=== PATIENT | female | born 1945 | race Two or more races ===

== ENCOUNTER 2022-01-13 09:11 | Outpatient (REF) | payer OTHER, SELFPAY ==
--- NOTE | ~2022-01-13 | XR_ITS ---
EXAMINATION: XR HIP, RIGHT CLINICAL INFORMATION: M25.551 - Pain in right hip COMPARISON: None TECHNIQUE: AP and frog-lateral projections of the right hip. FINDINGS: No fracture, dislocation, destructive process. No hip joint narrowing or erosive change or visible chondrocalcinosis. There are mild degenerative changes lower right SI joint and mild osteitis pubis. There is whiskering at the right ischial tuberosity and spurring from the greater trochanter. Soft tissue planes are unremarkable. XR/XR hip RT min 2V IMPRESSION: -No fracture, destructive process, or hip joint narrowing. -Spurring greater trochanter and ischial tuberosity. -Mild osteitis pubis and degenerative changes lower right SI joint.
--- NOTE | ~2022-01-13 | XR_ITS ---
EXAMINATION: XR LUMBOSACRAL SPINE CLINICAL INFORMATION: M51.36 - Other intervertebral disc degeneration, lumbar region COMPARISON: None TECHNIQUE: Three views of the lumbosacral spine. FINDINGS: Normal lumbar segmentation with 5 nonrib-bearing lumbar vertebrae. There is moderate levocurvature lumbar spine. There are postsurgical changes with bilateral rodding and pedicle screws L3-L5 and disc spaces at L3-L4 and L4-L5. Possible laminectomy at L4. The hardware is intact. There is no osteolysis or destructive process. There is variable lumbar disc narrowing, greater on the concave side of the curvature with right lateral imaging osteophytes particularly at L1-L2 and L2-L3. There is accentuated superior endplate concavity L1 without vertebral compression. Difficult to assess for spondylolisthesis and retrolisthesis given the curvature. The SI joints and visualized sacrum are unremarkable. XR/XR lumbar spine 2-3V IMPRESSION: -Status post fusion L3-L5. Hardware intact. No osteolysis or destructive process. -Prominent levocurvature with degenerative disc changes greatest at L1-L2 and L2-L3. -Accentuated superior endplate concavity L1.
== END 2022-01-13 09:12 | disposition home or self-care (01) ==
LOC: HO.XRAY 09:11
PROVIDERS: PCP Internal Medicine; Visit Provider Internal Medicine
DX: M25.551 Pain in right hip (principal); M51.36 Other intervertebral disc degeneration, lumbar region
CPT/HCPCS: 72100; 73502

== ENCOUNTER 2022-01-22 09:07 | Outpatient (REF) | payer OTHER, SELFPAY ==
--- NOTE | ~2022-01-22 | MM_ITS ---
EXAMINATION: BONE DENSITOMETRY CLINICAL INDICATION: Asymptomatic menopausal state. COMPARISON: None (current study represents initial baseline exam). TECHNIQUE: Using a [employer] DXA System (software version: 13.1) manufactured by [employer], dual-energy x-ray absorptiometry was performed of the lumbar spine, left hip and left forearm radius 33%. The images are of good technical quality. Summary results are attached. FINDINGS: AP SPINE L1-L2 (excluding L3 and L4): The data of L1-L4 has been changed to exclude the L3 and L4 vertebral bodies, because hardware at these levels may cause overestimation of lumbar spine density. BMD 1.314 g/cm2, Z-score 2.3, T-score 1.2, normal. LEFT FEMUR, NECK: BMD 1.090 g/cm2, Z-score 1.9, T-score 0.4, normal. LEFT FEMUR, TOTAL: BMD 1.167 g/cm2, Z-score 2.5, T-score 1.3, normal. LEFT FOREARM RADIUS 33%: BMD 0.918 g/cm2, Z-score 2.8, T-score 0.5, normal. IDENTIFIED RISK FACTORS: Menopause. HISTORY OF FRACTURE: None listed. MEDICATIONS: Calcium supplement and/or multivitamin. Vitamin D. MM/XR DEXA axial skeleton IMPRESSION: 1. DIAGNOSIS: Normal bone density based on the lowest T-score value of 0.4 in the femoral neck applying World Health Organization criteria. 2. 10-YEAR FRACTURE RISK PREDICTION, FRAX: According to the guidelines, FRAX calculation should only be performed on patients in the osteopenia bone density category. Therefore, FRAX was not performed on this patient. 3. Treatment Recommendations: NOF guidelines recommend consideration for treatment in postmenopausal women and men age 50 and older presenting with the following: -A hip or vertebral (clinical or morphometric) fracture. -T-score less than or equal to -2.5 at the femoral neck or spine after appropriate evaluation to exclude secondary causes. -Low bone mass at the hip or spine and a 10-year fracture probability by FRAX of greater than or equal to 3% for hip fracture or greater than or equal to 20% for major osteoporotic fracture based on the [place] adapted WHO algorithm. 4. Other Recommendations: All treatment decisions require clinical judgment and consideration of individual patient factors, including patient preferences, comorbidities, previous drug use, risk factors not captured in the FRAX model (e.g. frailty, falls, vitamin D deficiency, increased bone turnover, interval significant decline in bone density) and possible under or overestimation of fracture risk by FRAX. FUTURE SCAN RECOMMENDATION: People with diagnosed cases of osteoporosis or at high risk for fracture should have regular bone mineral density tests. For patients eligible for Medicare, routine testing is allowed once every 2 years. The testing frequency can be increased to one year for patients who have rapidly progressing disease, those who are receiving or discontinuing medical therapy to restore bone mass, or have additional risk factors.
== END 2022-01-22 09:08 | disposition home or self-care (01) ==
LOC: HO.MAMMO 09:07
PROVIDERS: PCP Internal Medicine; Visit Provider Internal Medicine
DX: Z13.820 Encounter for screening for osteoporosis (principal); Z78.0 Asymptomatic menopausal state
CPT/HCPCS: 77080

== ENCOUNTER 2022-03-18 11:33 | Outpatient (REF) | payer OTHER, SELFPAY ==
[2022-03-18 13:07] LABS: MANUAL DIFF FLAG NO
[2022-03-18 13:37] LABS: Basophils Absolute Auto 0.1 X10*3/uL (0.0-0.2); Basophils Percent Auto 0.8 % (0-2); Eosinophils Absolute Auto 0.1 X10*3/uL (0.0-0.4); Hematocrit 42.5 % (37.0-47.0); Hemoglobin 13.9 g/dl (12.0-16.0); Imm Gran Abs Auto 0.02 X10*3/uL (0.00-0.03); Imm Gran Pct Auto 0.3 % (0.0-0.4); Lymphocytes Absolute Auto 2.5 X10*3/uL (1.2-4.9); Lymphocytes Percent Auto 41.8 % (20-40); Mean Corpuscular HGB Conc 32.7 g/dl (31.0-35.0); Mean Corpuscular Hemoglobin 29.3 pg (27.0-33.0); Mean Corpuscular Volume 89.5 fL (80.0-98.0); Monocytes Absolute Auto 0.5 X10*3/uL (0.1-1.2); Monocytes Percent Auto 7.9 % (2-11); Neutrophils Absolute Auto 2.9 x10*3/uL (2.0-8.3); Neutrophils Percent Auto 48.2 % (45-73); Platelet Count 215 X10*3/uL (160-400); Red Blood Count 4.75 X10*6/uL (4.20-5.50); Red Cell Distribution Width 13.3 % (11.0-16.0)
[2022-03-18 13:59] LABS: Alanine Aminotransferase 16 U/L (0-31); Albumin Level 4.2 g/dL (3.5-5.0); Alkaline Phosphatase 96 U/L (39-117); Anion Gap 13 (12-20); Aspartate Amino Transferase 19 U/L (5-31); Bilirubin Total 0.3 mg/dL (0.0-1.0); Blood Urea Nitrogen 19 mg/dL (9-16); Calcium 9.1 mg/dL (8.4-10.2); Carbon Dioxide 27 mmol/L (22-29); Chloride 105 mmol/L (96-108); Estimated Glomerular Filt Rate > 60; Glucose Random 124 mg/dL (60-115); Potassium 4.5 mmol/L (3.3-5.1); Sodium 140 mmol/L (135-145); Total Protein 7.1 g/dL (6.5-8.0)
== END 2022-03-18 11:34 | disposition home or self-care (01) ==
LOC: HO.LAB 11:33
PROVIDERS: PCP Internal Medicine; Visit Provider Nurse Practitioner
DX: Z01.818 Encounter for other preprocedural examination (principal)
CPT/HCPCS: 36415; 80053; 85025; 99202

== ENCOUNTER 2022-07-14 08:11 | Day surgery (SDC) | payer OTHER, SELFPAY ==
[2022-07-08 10:38] VITALS: BMI 32.9
--- NOTE | 2022-07-13 12:15 | HO.ANESPROP2 ---
Documented by User: Georgia Artis NP 07/13/22 12:21 HPI - Anesthesia Eval Consult details Narrative: 77yo F for Colonoscopy ASD s/p closure 07/2022 cardiology office visit. Abnormal EKG but clinically stable. No further w/u ordered. COUNT INCLUDES THE [facility] Active Problems Active Problems: All Active Problems (Updated 07/08/22 @ 10:28 by Syeda Estevez RN) Diabetes mellitus (Acute) Physical exam (Acute) Hypovitaminosis D (Acute) Class 1 obesity with body mass index (BMI) of 33.0 to 33.9 in adult (Acute) Lumbar degenerative disc disease (Acute) Postmenopausal (Acute) Right hip pain (Acute) Pre-op examination (Acute) Colon cancer screening (Acute) Left hip pain (Acute) Past Medical History Medical History ASD (atrial septal defect) GERD (gastroesophageal reflux disease) Hyperlipidemia Left bundle branch block (LBBB) Obesity Type 2 diabetes mellitus Family History Family History Mother Emphysema lung Diabetes Father Heart attack Maternal Aunt Cancer Maternal Uncle Cancer Surgical History Surgical History History of Amplatzer atrial septal defect closure History of appendectomy History of back surgery History of cataract surgery History of esophagogastroduodenoscopy (EGD) Hx of colonoscopy Hx of hysterectomy Social History Social History Housing: House Alcohol intake: never Patient Tobacco Use Status: Never used Tobacco e-Cigarette/Vaping Use: Never Used Second Hand Smoke Exposure: No Are you DNR?: No Advance Directives: No Advance Directives Information Provided: Yes Advance Directives on File: No Recently lost weight without trying: No Eating poorly because of decreased appetite: No Patient : No service: No Current occupational status: unemployed Cognitive needs: No Hearing needs: No Vision needs: No Meds Allergies Allergy/AdvReac Type Severity Reaction Status Date / Time No Known Allergies Allergy Verified 07/08/22 10:24 Home Medications Medication Instructions Recorded Confirmed Last Taken Type atorvastatin 40 mg tablet 1 tab PO DAILY 07/08/22 07/08/22 Unknown History naproxen 500 mg tablet (Naprosyn) 500 mg PO BID PRN Pain 07/08/22 07/08/22 Unknown History Exam Exam Date and Time: July 13, 2022 1215 Height,Weight and Vital Signs: Height 5 ft 3 in Weight 84.368 kg Pertinent Lab Results Pertinent Lab Results: Laboratory Tests 03/18/22 03/18/22 13:06 13:06 WBC 6.0 Hgb 13.9 Hct 42.5 Plt Count 215 Sodium 140 Potassium 4.5 Chloride 105 Carbon Dioxide 27 BUN 19 H Creatinine 0.81 Narrative Narrative: EKG 07/2022 SB @ 59 LBBB Assessment and Plan Assessment Anesthesia Assessment: Chart Reviewed Documented by User: Amalia Parada MD 07/14/22 08:31 COUNT INCLUDES THE [facility] Past Medical History Medical History ASD (atrial septal defect) GERD (gastroesophageal reflux disease) Hyperlipidemia Left bundle branch block (LBBB) Obesity Type 2 diabetes mellitus Functional capacity: independent ambulation Patient : No Family History Family History Mother Emphysema lung Diabetes Father Heart attack Maternal Aunt Cancer Maternal Uncle Cancer Family history of problems with anesthesia: No Surgical History Surgical History History of Amplatzer atrial septal defect closure History of appendectomy History of back surgery History of cataract surgery History of esophagogastroduodenoscopy (EGD) Hx of colonoscopy Hx of hysterectomy History of Problems with Anesthesia: No Social History Social History Housing: House Alcohol intake: never Patient Tobacco Use Status: Never used Tobacco e-Cigarette/Vaping Use: Never Used Second Hand Smoke Exposure: No Are you DNR?: No Advance Directives: No Advance Directives Information Provided: Yes Advance Directives on File: No Recently lost weight without trying: No Eating poorly because of decreased appetite: No Patient : No service: No Current occupational status: unemployed Cognitive needs: No Hearing needs: No Vision needs: No Meds Allergies Allergy/AdvReac Type Severity Reaction Status Date / Time No Known Allergies Allergy Verified 07/08/22 10:24 Home Medications Medication Instructions Recorded Confirmed Last Taken Type atorvastatin 40 mg tablet 1 tab PO DAILY 07/08/22 07/08/22 Unknown History naproxen 500 mg tablet (Naprosyn) 500 mg PO BID PRN Pain 07/08/22 07/08/22 Unknown History Exam Airway Mallampati Class: II TM Dist: >3cm Neck ROM: Full Heart: RRR Lungs: CTA Assessment and Plan Assessment Anesthesia Assessment: Anesthesia Plan Discussed Final Anesthetic Review Family History of Problems with Anesthesia: No History of Problems with Anesthesia: No NPO: Yes ASA Class: II Final Preanesthetic Review: No Changes in Pt Med Stat, Meds/Allgs Chart Reviewed, Consent Obtained/Reviewed and Anes Risks/Benef Reviewed Patient Risk: Low Procedure Risk: Low Anesthetic Plan Anesthetic Plan: MAC: Disposition: Standard PACU
[2022-07-14 08:21] VITALS: BP 155/74; PULSE 75; RESP 16; TEMP 36.4; O2SAT 98
[2022-07-14 08:34] LABS: Glucose, Whole Blood 98 mg/dL (60-115)
[2022-07-14] MEDS: Lactated Ringers 1,000 ML 100 ML IVCONT (08:37)
--- NOTE | 2022-07-14 09:05 | P.HPSUR_ITS ---
Pre-Procedural Eval Section A Date of Service: 07/14/22 Section B Chief Complaint: screening Relevant Family History (Specify if Yes): No Relevant Social History: None Present Medications: see Short Stay Collaborative assessment Medical History: Significant History (ASD (atrial septal defect) GERD (gastroesophageal reflux disease) Hyperlipidemia Left bundle branch block (LBBB) Obesity Type 2 diabetes mellitus) History of Previous Operations: Relevant previous surgery/procedure and date(s) (History of Amplatzer atrial septal defect closure History of appendectomy History of back surgery History of cataract surgery History of esophagogastroduodenoscopy (EGD) Hx of colonoscopy Hx of hysterectomy) Allergies: Allergies Allergy/AdvReac Type Severity Reaction Status Date / Time No Known Allergies Allergy Verified 07/08/22 10:24 Review of Systems Sugical H&P ROS: Negative: Constitution, Cardiovascular, Respiratory, Neurological, Psychiatric, Hem-Onc, Allergic/Immunologic, Gastrointestinal, Genitourinary, Musculoskeletal, Integumentary, Endocrine and E yes/Ears/Nose/Throat Exam Surgical H&P Exam: Normal: HEENT, Normal: Heart, Normal: Lungs, Normal: Extremities, Normal: Abdomen, Normal: Skin and Normal: Neurological Plan Diagnosis/Plan: Unchanged I have reviewed the history and physical and performed a pertinent physical examination on my patient. No changes have occurred unless specified. Time Spent With Patient Time: Total time managing care of this patient today ____ minutes.
--- NOTE | 2022-07-14 09:06 | P.OP_ITS ---
Operative Note Operative Note Date of Service: 07/14/22 Narrative: Operative Information Procedure Description: Colonoscopy Indication: screening Anesthesia: MAC COLONOSCOPY Instrument: Olympus variable stiffness pediatric scope 190L Colonoscopy Monitoring: Vital signs and clinical assessment, continuous EKG monitoring, Pulse oximetry, Carbon Dioxide monitoring and blood pressure monitoring were done throughout the procedure. Colon withdrawal time was [] minutes. Procedure: The patient was placed in the left lateral decubitis position and pre-procedure medications were administered. After a digital rectal examination of the ano-rectum, the video colonoscope was inserted into the rectum and advanced through the colon to the cecum/TI. The colonoscope was slowly withdrawn in a retrograde panoramic fashion and the colon mucosa was carefully examined including a retroflexed view of the rectum. Findings and interventions are described below. Procedure Difficulty: 8 Findings: Terminal Ileum-normal Cecum:normal Ascending Colon: 6-7 mm sessile polyp removed with cold forceps Transverse Colon -normal Descending Colon:normal Sigmoid Colon: mild diverticulosis Rectum: Retroflexion with small internal hemorrhoids, grade I Anorectum - normal Colon preparation: Hornbeck Bowel Preparation Scale Right colon; 2 Transverse colon: 3 Left colon; 3 (0 = Unprepared colon segment with mucosa not seen due to solid stool that cannot be cleared. 1 = Portion of mucosa of the colon segment seen, but other areas of the colon segment not well seen due to staining, residual stool and/or opaque liquid. 2 = Minor amount of residual staining, small fragments of stool and/or opaque liquid, but mucosa of colon segment seen well. 3 = Entire mucosa of colon segment seen well with no residual staining, small fragments of stool or opaque liquid) Impression and Post Procedure Diagnosis: polyp internal hemorrhoids diverticular disease Plan: High fiber diet leaflet Avoid straining at stool, epsom salts and sitz bath, anusol supps or cream Repeat Colonoscopy in 5-7 years if adenomatous polyp, otherwise 10 yrs if benign and health allows or earlier if clinically indicated Above findings were reviewed with the patient and relevant handouts were provided if indicated.
[2022-07-14 09:31] VITALS: BP 103/48; PULSE 73; RESP 16; TEMP 36.2; O2SAT 95
[2022-07-14 09:46] VITALS: BP 121/56; PULSE 69; RESP 16; TEMP 36.3; O2SAT 96
--- NOTE | 2022-07-14 11:53 | HO.POSTANES ---
Post Anesthesia Evaluation Post Anesthesia Evaluation Vital Signs: Vital Signs Temp Pulse Resp BP Pulse Ox O2 Del Method 07/14/22 09:46 97.4 F 69 16 121/56 L 96 Room Air 07/14/22 09:31 97.2 F 73 16 103/48 L 95 Room Air 07/14/22 08:21 97.5 F 75 16 155/74 H 98 Room Air Anesthesia: Monitored Mental Status: Awake Pain Control: Satisfactory Nausea/Vomiting: None Hydration: Adequate Anesthesia-Related Issues: No Anes. Related Issues
== END 2022-07-14 10:16 | disposition home or self-care (01) ==
PROVIDERS: PCP Internal Medicine; Visit Provider Internal Medicine Gastroenterology
PROC: 0DJD8ZZ Inspection of Lower Intestinal Tract, Via Natural or Artificial Opening Endoscopic (ICD-10-PCS; CPT 45378; principal; 2022-07-14 09:10)
DX: Z12.11 Encounter for screening for malignant neoplasm of colon (principal); K63.5 Polyp of colon; K57.30 Diverticulosis of large intestine without perforation or abscess without bleeding; K64.0 First degree hemorrhoids; E11.9 Type 2 diabetes mellitus without complications
CPT/HCPCS: 45380; 82947; 88305

== ENCOUNTER 2022-12-04 07:51 | Outpatient (REF) | payer OTHER, SELFPAY ==
--- NOTE | ~2022-12-04 | MM_ITS ---
EXAMINATION: MM SCREENING DIGITAL BREAST TOMOSYNTHESIS, BILATERAL CLINICAL INFORMATION: Screening. Asymptomatic. The lifetime risk of breast cancer based on the Tyrer-Cuzick Model is 2%. COMPARISON: Outside mammography: 06/16/2015, 06/23/2013, 03/18/2011 ([facility]). TECHNIQUE: Digital breast tomosynthesis is performed in both the craniocaudal and mediolateral oblique views along with computer-aided detection (CAD). Synthesized 2D images are generated from the tomosynthesis. FINDINGS: There are scattered areas of fibroglandular density (ACR BI-RADS breast composition Category b). Parenchymal pattern is similar to outside exams and there is no developing density or significant mass or architectural abnormality. The axilla are unremarkable. Left breast has a few scattered benign calcifications. Right breast has interval increased grouped calcifications mid central 3:00 position 7 cm from nipple on CC view. Patient will be recalled for additional magnification views to fully characterize. MM/MM tomosynthesis screening BI IMPRESSION: Right: -Grouped calcifications mid central 3:00 position. Left: -No mammographic evidence of malignancy. ASSESSMENT: BI-RADS 0: Incomplete - Need Additional Imaging Evaluation RECOMMENDATION: 1. Additional views right breast (magnification CC, magnification LM). 2. Radiology department staff will contact the patient for additional imaging. This patient's information was entered into a reminder system with a target due date for their next mammogram.
--- NOTE | ~2022-12-04 | US_ITS ---
EXAMINATION: US RETROPERITONEAL LIMITED (RENAL ONLY) CLINICAL INFORMATION: Cyst of kidney, acquired. COMPARISON: Ultrasound kidneys and bladder 12/16/2018 and 12/06/2017. TECHNIQUE: Real-time imaging of the kidneys. Technically limited study secondary to bowel gas and body habitus. FINDINGS: RIGHT KIDNEY: 7.9 x 4.8 x 4.2 cm (SAG x AP x TRV). The kidney is normal in size, contour, and echogenicity. Renal cortical thickness is normal. No calculi or focal parenchymal lesions. No hydronephrosis. LEFT KIDNEY: 8.0 x 4.4 x 4.5 cm (SAG x AP x TRV). The kidney is normal in size, contour, and echogenicity. Renal cortical thickness is normal. No calculi or focal parenchymal lesions. No hydronephrosis. ADDITIONAL FINDINGS: Echogenic gallstone versus polyp. US/US renal BI IMPRESSION: Unremarkable renal ultrasound. Suspect echogenic gallstones versus polyp.
== END 2022-12-04 07:52 | disposition home or self-care (01) ==
LOC: HO.MAMMO 07:51
PROVIDERS: PCP Internal Medicine; Visit Provider Internal Medicine
DX: Z12.31 Encounter for screening mammogram for malignant neoplasm of breast (principal); N28.1 Cyst of kidney, acquired
CPT/HCPCS: 76775; 77063; 77067

== ENCOUNTER 2022-12-16 10:46 | Outpatient (REF) | payer OTHER, SELFPAY ==
--- NOTE | ~2022-12-16 | MM_ITS ---
EXAMINATION: MM DIAGNOSTIC DIGITAL MAMMOGRAPHY, RIGHT CLINICAL INFORMATION: Recall from screening for grouped calcifications mid central 3:00 right breast. COMPARISON: Mammography: 12/04/2022, 06/12/2015. TECHNIQUE: Digital mammography is performed in the following views: Magnification CC, magnification LM. FINDINGS: There are scattered areas of fibroglandular density (ACR BI-RADS breast composition Category b). The magnification views show some tightly grouped old coarse calcifications mid central 3:00 position which were present in 2015. There are interval new pleomorphic calcifications of uncertain long-term chronicity surrounding the old coarse calcifications. Although proximity of the new calcifications to the course calcifications may suggest early fibroadenomatous changes, they remain indeterminate. Results are discussed with the patient at time of visit, using an translator and interpreter. Stereotactic sampling is suggested. Patient is in agreement. MM/MM added views RT IMPRESSION: New heterogeneous calcifications mid central right breast ASSESSMENT: BI-RADS 4: Suspicious (subcategory 4A: Low suspicion for malignancy) RECOMMENDATION: Stereotactic sampling right breast calcifications. This patient's information was entered into a reminder system with a target due date for their next mammogram.
== END 2022-12-16 10:47 | disposition home or self-care (01) ==
LOC: HO.MAMMO 10:46
PROVIDERS: PCP Internal Medicine; Visit Provider Internal Medicine
DX: R92.1 Mammographic calcification found on diagnostic imaging of breast (principal)
CPT/HCPCS: 77065

== ENCOUNTER 2022-12-18 08:59 | Outpatient (REF) | payer OTHER, SELFPAY ==
--- NOTE | ~2022-12-18 | MM_ITS ---
EXAMINATION: STEREOTACTIC TOMOSYNTHESIS-GUIDED VACUUM-ASSISTED BREAST BIOPSY, RIGHT SPECIMEN RADIOGRAPH, RIGHT POST PROCEDURE DIGITAL MAMMOGRAM, RIGHT CLINICAL INFORMATION: Indeterminate calcifications right breast medial. COMPARISON: December 16, 2022 and studies dating back to March 18, 2011 TECHNIQUE/PROCEDURE: Informed consent was obtained from the patient after discussion of the benefits, risks, and alternatives to biopsy today. Patient appeared to understand. Gave opportunity for questions. Patient signed consent form. BIOPSY TABLE: [employer] Aff[employer]one Biopsy System. LESION: Cluster of indeterminate calcifications.. LOCAL ANESTHESIA: 9 mL 1% lidocaine; 20 mL 1% lidocaine with epinephrine. DERMATOTOMY: Single skin anca dermatotomy performed. NEEDLE: [employer] Eviva 9-gauge vacuum assisted core biopsy device. APPROACH: craniocaudal. TARGETING: Digital breast tomosynthesis used for targeting. CORES: 20. CLIP: Top hat. SPECIMEN RADIOGRAPH: Specimen radiograph is taken in separate room using digital mammography. The index calcifications are in the excised cores. POST PROCEDURE UNILATERAL DIGITAL MAMMOGRAM: The post biopsy mammogram is performed in separate room using separate digital mammography equipment from the biopsy procedure. Craniocaudal and 90 degree mediolateral views are obtained. There are scattered areas of fibroglandular density (breast composition category: b). The clip marker is in position. The calcifications are markedly decreased at the biopsy site. No gross hematoma. The patient tolerated the procedure well. No immediate complications. Home instructions reviewed with the patient. Final pathology results are pending. MM/MM stereotactic biopsy RT IMPRESSION: 1. Digital tomosynthesis-guided core biopsy right breast with clip placement. 2. Specimen radiograph taken and post procedure mammogram. There is satisfactory positioning of the biopsy clip. 3. Final pathology results pending. An addendum report will be issued.
== END 2022-12-18 09:00 | disposition home or self-care (01) ==
LOC: HO.MAMMO 08:59
PROVIDERS: PCP Internal Medicine; Visit Provider Surgery
DX: R92.8 Other abnormal and inconclusive findings on diagnostic imaging of breast (principal)
CPT/HCPCS: 19081; 88305; 99202; A4648

== ENCOUNTER → 2022-12-25 08:48 | Outpatient (BNVA) | payer OTHER, SELFPAY | PROVIDERS: PCP Internal Medicine; Referring Provider Internal Medicine; Visit Provider Surgery | DX: R92.8 Other abnormal and inconclusive findings on diagnostic imaging of breast (principal); D24.1 Benign neoplasm of right breast | CPT/HCPCS: 99212 ==

== ENCOUNTER 2023-02-22 08:32 | Outpatient (REF) | payer OTHER, SELFPAY ==
[2023-02-22 09:09] LABS: Estimated Average Glucose 123 mg/dL; Hemoglobin A1C 150.8304 umol/L; Hemoglobin A1c % 5.9 %
[2023-02-22 09:33] LABS: Alanine Aminotransferase 13 U/L (0-31); Alkaline Phosphatase 100 U/L (39-117); Anion Gap 11 (12-20); Aspartate Amino Transferase 17 U/L (5-31); Bilirubin Total 0.5 mg/dL (0.0-1.0); Blood Urea Nitrogen 19 mg/dL (9-16); Calcium 9.6 mg/dL (8.4-10.2); Carbon Dioxide 28 mmol/L (22-29); Chloride 107 mmol/L (96-108); Cholesterol 231 mg/dL; Estimated Glomerular Filt Rate > 60; Glucose Fasting 138 mg/dL (60-99); HDL Cholesterol 67 mg/dL; LDL Cholesterol Calculated 142 mg/dl; Potassium 4.5 mmol/L (3.3-5.1); Sodium 141 mmol/L (135-145); Total Protein 7.1 g/dL (6.5-8.0); Triglycerides 114 mg/dL
[2023-02-22 09:58] LABS: Creatinine Urine 76.52 mg/dL; Microalbum/Creatinine Ratio Ur 23.5 ug/mg cr
== END 2023-02-22 08:33 | disposition home or self-care (01) ==
LOC: HO.LAB 08:32
PROVIDERS: PCP Internal Medicine; Visit Provider Internal Medicine
DX: E11.40 Type 2 diabetes mellitus with diabetic neuropathy, unspecified (principal); E55.9 Vitamin D deficiency, unspecified; E78.5 Hyperlipidemia, unspecified
CPT/HCPCS: 36415; 80053; 80061; 82043; 82306; 83036

== ENCOUNTER 2023-02-25 07:49 | Outpatient (AMB) | payer OTHER, SELFPAY ==
--- NOTE | 2023-02-25 07:51 | MHC.PC.OV ---
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 Required: No Accompanied by: Self / Same As Patient Allergies No Known Allergies Allergy (Verified 02/25/23 08:02) Medication List - Last Reconciled 02/25/23 by Freya Azevedo MD blood sugar diagnostic ([employer] InternationalTouch Ultra Test strips) Use 1 test strip once a day cholecalciferol (vitamin D3) 50 mcg PO DAILY 90 days sitagliptin phosphate (Januvia) 50 mg PO DAILY 90 days Tobacco use date assessed: 10/21/22 Fall risk assessment: No Falls in past year Last assessed Fall Risk: 02/25/23 Dental Screening Dental Screen Date: 02/25/23 Did you have a dental visit in the last 12 months?: No Did you have a dental problem in the last 6 months where you did not have access to dental care?: No Was dental information given to patient?: Patient has dentist HPI HPI Comments History of Present Illness Details This is a 77-year-old female with diabetes mellitus type 2 and low vitamin-D that comes today complaining of venous insufficiency and right hammertoe. A1c within goal. On vitamin-D supplements for her low vitamin-D. Has hyperlipidemia and LDL is not on goal therefore I will start her on statins. Her LDL goal should be less than 70. Will be referred to vascular surgery for her venous insufficiency. Will be referred to Podiatry for her right hammertoe. [facility] Medical History (Updated 02/25/23 @ 08:18 by Freya Azevedo MD) ASD (atrial septal defect) GERD (gastroesophageal reflux disease) Hyperlipidemia Left bundle branch block (LBBB) Obesity Type 2 diabetes mellitus Surgical History History of Amplatzer atrial septal defect closure History of appendectomy History of back surgery History of cataract surgery History of esophagogastroduodenoscopy (EGD) Hx of colonoscopy Hx of hysterectomy Family History Mother Emphysema lung Diabetes Father Heart attack Maternal Aunt Cancer Maternal Uncle Cancer Social History Housing: House Alcohol intake: never Patient Tobacco Use Status: Never used Tobacco e-Cigarette/Vaping Use: Never Used Second Hand Smoke Exposure: No service: No Current occupational status: unemployed Cognitive needs: No Hearing needs: No Vision needs: No Female Reproductive History Menstrual Age of Menarche: 16 Questionnaire Thrive Questionnaire Date Thrive assessed: 10/21/22 LISS-7 AMB Questionnaire LISS-7 Date LISS - 7 assessed: 10/21/22 Source: Developed by Drs. Ventura Bermeo, Lissy Neal, Nitin Correa and colleagues, with an educational paty from [employer]. Review of Systems Const All systems reviewed & are unremarkable except as noted in HPI and below Eyes Reports no additional complaints, Denies change in vision and Denies other visual disturbances Card Denies chest pain at rest, Denies chest pain with activity, Denies edema, Denies irregular heart rhythm, Denies claudication, Denies dyspnea, Denies dyspnea on exertion, Denies orthopnea, Denies paroxysmal nocturnal dyspnea and Denies slow heart rate Resp Denies cough, Denies dyspnea and Denies dyspnea on exertion GI Denies abdominal pain, Denies change in bowel habits, Denies excessive flatus, Denies nausea and Denies vomiting Denies urinary incontinence, Denies urinary hesitancy and Denies urinary urgency Musc Denies abnormal gait, Denies atrophy, Denies deformity and Denies limited range of motion Skin/Breast Denies bleeding lesions, Denies changing lesions and Denies rash Neuro Denies abnormal gait and Denies lack of coordination Physical exam (Primary Care) Vital Signs: Last Vital Signs BP 136/80 02/25/23 07:53 BMI result Body Mass Index 33.1 Tobacco/Smoking Status: Tobacco use Status Tobacco use date assessed 10/21/22 02/25/23 07:51 Patient Tobacco Use Status Never used Tobacco 02/25/23 07:51 e-Cigarette/Vaping Use Never Used 02/25/23 07:51 Thrive Assessment: Date of Thrive Assessment Date Thrive assessed 10/21/22 02/25/23 07:51 Eyes General: appearance normal, both eyes and all related structures Eyelids: Yes eyelids normal Conjunctivae: conjunctivae normal Neck Neck: Yes normal visual inspection and Yes supple Resp Effort & Inspection: normal respiratory effort Auscultation: clear to auscultation bilaterally Cardio Jugular venous distension: no JVD Rate: regular rate Rhythm: regular rhythm Heart sounds: S1 normal heart sound present and S2 normal heart sound present Extrem Other: Tender varicose pains General: Yes full ROM Right lower extremity: foot (hammertoe) Assessment and Plan Assessment & Plan (1) Diabetes mellitus: Code(s): E11.9 - Type 2 diabetes mellitus without complications Plan: Continue Januvia. A1c goal is equal or less than 7%. (2) Hypovitaminosis D: Code(s): E55.9 - Vitamin D deficiency, unspecified Plan: Continue vitamin-D supplement (3) Hyperlipidemia LDL goal <70: Code(s): E78.5 - Hyperlipidemia, unspecified Plan: Start statins. LDL goal is less than 70. (4) Venous (peripheral) insufficiency: Code(s): I87.2 - Venous insufficiency (chronic) (peripheral) Plan: Referred to vascular surgery (5) Hammertoe of right foot: Code(s): M20.41 - Other hammer toe(s) (acquired), right foot Plan: Referred to Podiatry Orders: Orders Lipid Panel 4 Months E78.5 - Hyperlipidemia, unspecified Microalbumin, Random (w Creat) 4 Months E11.9 - Type 2 diabetes mellitus without complications Vitamin D 25-OH Total 4 Months E55.9 - Vitamin D deficiency, unspecified Comprehensive [place]. Panel Fast 4 Months E78.5 - Hyperlipidemia, unspecified Referrals Vascular Surgery Referral I87.2 - Venous insufficiency (chronic) (peripheral) Podiatry Referral M20.41 - Other hammer toe(s) (acquired), right foot Medications: New atorvastatin 10 mg PO BEDTIME 90 tabs 1RF 90 days E78.5 - Hyperlipidemia, unspecified Coding Level of Care Code Est Pt Level 4 (13793) Diagnoses Diabetes mellitus E11.9 Hypovitaminosis D E55.9 Hyperlipidemia LDL goal <70 E78.5 Venous (peripheral) insufficiency I87.2 Hammertoe of right foot M20.41 Time Spent (min) 21
[2023-02-25 07:53] VITALS: BP 136/80; BMI 33.1
== END 2023-02-25 08:08 | disposition home or self-care (01) ==
PROVIDERS: PCP Internal Medicine; Visit Provider Internal Medicine
DX: E11.9 Type 2 diabetes mellitus without complications (principal); E55.9 Vitamin D deficiency, unspecified; E78.5 Hyperlipidemia, unspecified; I87.2 Venous insufficiency (chronic) (peripheral); M20.41 Other hammer toe(s) (acquired), right foot
CPT/HCPCS: 99214

== ENCOUNTER 2023-04-13 11:02 | Outpatient (AMB) | payer OTHER, SELFPAY ==
--- NOTE | 2023-04-13 11:03 | A.OFFVIS_ITS ---
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 Pt states her right leg is the only leg thats bothering her. Pt states she has cramping and pain in her right leg from her hip down her leg. Pt denies any swelling. Pt states she gets numbness and tingling in her right leg. Pt states she has never tried compression stockings. Covering And Lining Supervisor Required: Yes Covering And Lining Supervisor Language: Management Advisor Name: Vasiliy ([id number]) Accompanied by: Spouse Allergies No Known Allergies Allergy (Verified 04/13/23 11:06) HPI ENGINEERING DOCUMENTATION SPECIALIST/PCP ref for HPI Details Very complex 77-year-old female presents for evaluation regarding lower extremity pain and discomfort. She reports that it is right more so than left. She relates this all back to prior back surgery. She reports that she had severe scoliosis. There was treated with a lumbar laminectomy of L4. Subsequently she had an OLIF of L3-5. She has had since that operation continued numbness down the thigh and knee region of that right leg. She does have some mild swelling of that lower extremity. Her biggest complaint is the numbness of that leg. She now presents to us for vascular evaluation. [facility] Medical History ASD (atrial septal defect) Left bundle branch block (LBBB) Obesity Hyperlipidemia Type 2 diabetes mellitus GERD (gastroesophageal reflux disease) Surgical History Hx of hysterectomy History of appendectomy History of esophagogastroduodenoscopy (EGD) Hx of colonoscopy History of Amplatzer atrial septal defect closure History of cataract surgery History of back surgery Family History Mother Emphysema lung Diabetes Father Heart attack Maternal Aunt Cancer Maternal Uncle Cancer Social History Housing: House Alcohol intake: never Patient Tobacco Use Status: Never used Tobacco e-Cigarette/Vaping Use: Never Used Second Hand Smoke Exposure: No service: No Current occupational status: unemployed Cognitive needs: No Hearing needs: No Vision needs: No Female Reproductive History Menstrual Age of Menarche: 16 Review of Systems Const All systems reviewed & are unremarkable except as noted in HPI and below Reports no additional complaints ENT Reports Normal hearing present Card Denies chest pain, Denies chest pain at rest, Denies chest pain with activity and Denies pedal edema Resp Denies cough GI Denies abdominal pain Musc Denies abnormal gait, Denies muscle cramps and Denies radiating pain into limb Skin/Breast Denies skin ulcer and Denies wounds Neuro Reports Normal hearing present and Denies abnormal gait Psych Reports no additional complaints Physical Exam Vital Signs: Last Vital Signs Pulse 77 04/13/23 11:04 BP 130/84 04/13/23 11:04 Pulse Ox 96 04/13/23 11:04 Oxygen Delivery Method Room Air 04/13/23 11:04 BMI result Body Mass Index 32.4 Const General: cooperative, healthy appearing and comfortable Orientation/consciousness: oriented to person, oriented to place and oriented to time HEENT Head: Yes normal to inspection Neck Neck: Yes normal visual inspection Carotids: no bruits Chest Chest palpation & inspection: normal inspection of the chest Resp Effort & Inspection: normal respiratory effort and able to speak in complete sentences Auscultation: clear to auscultation bilaterally, no crackles, no rales, no rhonchi and no wheezes Cardio Rate: regular rate Rhythm: regular rhythm Heart sounds: S1 normal heart sound present and S2 normal heart sound present Bruits: no carotid bruits Peripheral pulses: Peripheral pulses 2+ throughout GI Inspection: Yes normal to inspection Skin Wounds: no wounds Hair: normal Neuro General: oriented to person, oriented to place and oriented to time Cranial nerves: Yes CN's II-XII intact bilaterally and Yes Normal hearing present Cognition (Neuro): normal cognition Motor exam (neuro): 5/5 motor strength present throughout Extrem Other: venous exam: +1 edema General: No clubbing, No cyanosis and Yes edema Psych Appearance: grossly normal Mental Status: mental status grossly normal Speech and movement: Normal speech and movement present Assessment & Plan Assessment & Plan (1) Varicose veins of right lower extremity with inflammation: Code(s): I83.11 - Varicose veins of right lower extremity with inflammation Plan: Unclear etiology of lower extremity pain. It does not appear to be vascular in nature she does have palpable arterial pulses and I have taken the liberty of ordering venous insufficiency testing to rule that out. 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 I have taken the liberty once again ordering venous insufficiency testing to rule out a vascular cause. Should that prove to be negative may benefit from a pain management evaluation. We did discuss routine risk factor modification including compression, elevation, and exercise. She will follow up with us after testing. Thank you for allowing us to assist in her care Coding Level of Care Code Est Pt Level 4 (63265) Diagnoses Varicose veins of right lower extremity with inflammation I83.11
[2023-04-13 11:04] VITALS: BP 130/84; PULSE 77; O2SAT 96; BMI 32.4
== END 2023-04-13 11:25 | disposition home or self-care (01) ==
PROVIDERS: PCP Internal Medicine; Visit Provider Surgery Vascular Surgery
DX: I83.11 Varicose veins of right lower extremity with inflammation (principal)
CPT/HCPCS: 99214

== ENCOUNTER → 2023-04-13 11:02 | Outpatient (BNVA) | payer OTHER, SELFPAY | PROVIDERS: PCP Internal Medicine; Visit Provider Surgery Vascular Surgery | DX: I83.11 Varicose veins of right lower extremity with inflammation (principal) | CPT/HCPCS: 99212 ==

== ENCOUNTER 2023-04-30 09:58 | Outpatient (REF) | payer OTHER, SELFPAY ==
--- NOTE | ~2023-04-30 | US_ITS ---
EXAMINATION: RIGHT and LEFT LOWER EXTREMITY VENOUS ULTRASOUND (Reflux Exam) CLINICAL INDICATION: Varicose veins of right lower extremity with inflammation COMPARISON: None. TECHNIQUE: Color flow triplex imaging and compression Doppler was performed to evaluate both the deep and the superficial systems bilaterally. To evaluate the superficial system, the examination was performed in the upright position. Color-flow Doppler ultrasound and compression ultrasound were utilized. In addition, maneuvers were utilized to demonstrate reflux. FINDINGS: 1. DEEP VENOUS ULTRASOUND OF THE RIGHT LOWER EXTREMITY: Respiratory variation, normal compression and augmented flow are noted in the right common femoral vein as well as the right popliteal vein and there is no evidence of deep venous thrombosis at these locations. There is no evidence of reflux in the deep system in either the common femoral vein or the popliteal vein. There is no evidence of a Loya's cyst. 2. SUPERFICIAL ULTRASOUND WITH DOPPLER OF RIGHT LOWER EXTREMITY: The right great saphenous vein at the saphenofemoral junction measures 8 mm, at the mid thigh 5 mm, agbid-ows-gawm 5 mm, dmukt-avn-kkkd 4 mm, at mid calf 3 mm and at the ankle measures 3 mm. There is right greater saphenous vein reflux in the mid calf to above the knee measuring maximum 3.2 seconds in the mid calf and above the knee. There is an accessory lateral greater saphenous vein that measures 3 mm and does not demonstrate reflux. The right small saphenous vein measures 2-6 mm and 3 mm at the saphenofemoral popliteal junction and shows no reflux. There are multiple varicosities arising from the greater saphenous vein in the distal thigh at the knee and calf measuring 3 mm. 2 of these demonstrate reflux measuring 3 seconds in the distal thigh 3 seconds in the proximal calf. 3. DEEP VENOUS ULTRASOUND OF THE LEFT LOWER EXTREMITY: Respiratory variation, normal compression and augmented flow are noted in the left common femoral vein as well as the left popliteal vein and there is no evidence of deep venous thrombosis at these locations. There is no evidence of reflux in the deep system in either the common femoral vein or the popliteal vein. . There is no evidence of a Loya's cyst. 4. SUPERFICIAL ULTRASOUND WITH DOPPLER OF LEFT LOWER EXTREMITY: Left great saphenous vein at the saphenofemoral junction measures 7 mm, at the mid thigh 3 mm, gbnuv-azy-wndh 4 mm, ckwct-ojl-dike 4 mm, at mid calf 3 mm and at the ankle measures 3 mm. There is no reflux demonstrated in the left great saphenous vein. There is an accessory lateral greater saphenous vein that measures 3 mm and does not demonstrate reflux. The left small saphenous vein measures 3-6 mm and demonstrates reflux, 1.6 seconds in the mid calf and 1.5 seconds in the distal calf. Lesser saphenous vein measures 3 mm at the saphenofemoral popliteal junction. There is a drawing frame tender in the proximal calf that measures 2 mm and does not demonstrate reflux. There is a varicosity in the mid calf from the lesser saphenous vein that measures 3 mm and does not demonstrate reflux. US/US venous duplex LE BI IMPRESSION: Right: No DVT. No deep venous reflux. Right greater saphenous vein reflux from above the knee to mid calf measuring maximum 3.2 seconds. Reflux in varicosities in the distal thigh and proximal calf measuring 3 seconds. Left: No DVT. No deep venous reflux. No left greater saphenous vein reflux. Reflux in the left lesser saphenous vein maximum 1.6 seconds. 1 drawing frame tender and 1 varicosity in the calf without reflux.
== END 2023-04-30 09:59 | disposition home or self-care (01) ==
LOC: HO.US 09:58
PROVIDERS: PCP Internal Medicine; Visit Provider Surgery Vascular Surgery
DX: I83.11 Varicose veins of right lower extremity with inflammation (principal)
CPT/HCPCS: 93970

== ENCOUNTER 2023-06-08 09:45 | Outpatient (AMB) | payer OTHER, SELFPAY ==
--- NOTE | 2023-06-08 09:47 | A.OFFVIS_ITS ---
Intake Intake Visit Reasons: Follow up 04/30 US Intake Note: pt here for FU on 04/30/ she states that she is still having the pain numbness and tingling in her right leg. 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 She also does have complaints of numbness and tingling on the left leg a more towards the lateral aspect of the thigh. She does relate this to her prior back surgery and is well where that there is a neurogenic component to all of this as well. She does note that she does have some right leg swelling that has been a source of discomfort for her as well. S he now presents for follow-up with venous insufficiency testing. [facility] Medical History ASD (atrial septal defect) Left bundle branch block (LBBB) Obesity Hyperlipidemia Type 2 diabetes mellitus GERD (gastroesophageal reflux disease) Surgical History Hx of hysterectomy History of appendectomy History of esophagogastroduodenoscopy (EGD) Hx of colonoscopy History of Amplatzer atrial septal defect closure History of cataract surgery History of back surgery Family History Mother Emphysema lung Diabetes Father Heart attack Maternal Aunt Cancer Maternal Uncle Cancer Social History Housing: House Alcohol intake: never Patient Tobacco Use Status: Never used Tobacco e-Cigarette/Vaping Use: Never Used Second Hand Smoke Exposure: No service: No Current occupational status: unemployed Cognitive needs: No Hearing needs: No Vision needs: No Female Reproductive History Menstrual Age of Menarche: 16 Review of Systems Const Reports as per HPI ENT Reports no additional complaints Card Denies chest pain, Denies chest pain at rest and Denies chest pain with activity Resp Denies chest congestion and Denies cough GI Reports no additional complaints Musc Details: pain over varicosities, aching of lower extremities, swelling, cramping, heaviness and tiredness, itching Denies abnormal gait Skin/Breast Reports pruritus and Denies wounds Neuro Reports no additional complaints and Denies abnormal gait Psych Denies no additional complaints Physical Exam Const General: cooperative, healthy appearing and comfortable Orientation/consciousness: oriented to person, oriented to place and oriented to time Neck Carotids: no bruits Chest Chest palpation & inspection: normal inspection of the chest and normal palpation of entire chest wall Resp Effort & Inspection: normal respiratory effort and able to speak in complete sentences Cardio Rate: regular rate Heart sounds: S1 normal heart sound present and S2 normal heart sound present Peripheral pulses: Peripheral pulses 2+ throughout GI Inspection: Yes normal to inspection Skin Other: +2 edema, right leg General skin exam: dry skin Neuro General: oriented to person, oriented to place and oriented to time Extrem Right lower extremity: full ROM, normal capillary refill and edema Left lower extremity: full ROM, normal capillary refill and edema Psych Mental Status: mental status grossly normal Results Reviewed Results Reviewed: Brief summary of venous insufficiency testing is as follows: right great saphenous vein: Positive right small saphenous vein: negative right accessory vein: none present left great saphenous vein: negative left small saphenous vein: negative left accessory vein: none present Please note there is no evidence of any venous aneurysms or significant tortuosity Assessment & Plan Assessment & Plan (1) Varicose veins of right lower extremity with inflammation: Code(s): I83.11 - Varicose veins of right lower extremity with inflammation Plan: This patient has varicose veins with inflammation. They continue to be a source of discomfort for the patient. The patient has tried conservative treatment with compression, leg elevation and exercise program for over 3 months time. They have been compliant with all treatment. This has provided minimal relief for the patient. I do not anticipate this course of treatment will alter the underlying etiology. The patient has been scheduled for lower extremity venous treatment inclusive of --- right GSV Cyanoacralate ablation. Risks, benefits, and complications of this procedure has been discussed in detail with the patient including but not limited to bleeding, infection, and the development of a DVT. The patient has demonstrated a clear understanding and has consented. We will schedule the patient as soon as possible. Thank you for allowing us to participate in this patient's care. If there are any questions or concerns please do not hesitate to contact us. Coding Level of Care Code Est Pt Level 4 (54696) Diagnoses Varicose veins of right lower extremity with inflammation I83.11
== END 2023-06-08 10:06 | disposition home or self-care (01) ==
PROVIDERS: PCP Internal Medicine; Visit Provider Surgery Vascular Surgery
DX: I83.11 Varicose veins of right lower extremity with inflammation (principal)
CPT/HCPCS: 99214

== ENCOUNTER → 2023-06-08 09:45 | Outpatient (BNVA) | payer OTHER, SELFPAY | PROVIDERS: PCP Internal Medicine; Visit Provider Surgery Vascular Surgery | DX: I83.11 Varicose veins of right lower extremity with inflammation (principal) | CPT/HCPCS: 99212 ==

== ENCOUNTER 2023-06-29 08:20 | Outpatient (REF) | payer OTHER, SELFPAY ==
[2023-06-29 10:11] LABS: Alanine Aminotransferase 13 U/L (0-31); Albumin Level 3.9 g/dL (3.5-5.0); Alkaline Phosphatase 106 U/L (39-117); Anion Gap 9 (12-20); Aspartate Amino Transferase 17 U/L (5-31); Bilirubin Total 0.4 mg/dL (0.0-1.0); Blood Urea Nitrogen 21 mg/dL (9-16); Calcium 9.3 mg/dL (8.4-10.2); Carbon Dioxide 27 mmol/L (22-29); Chloride 108 mmol/L (96-108); Cholesterol 209 mg/dL (<200); Estimated Glomerular Filt Rate > 60; Glucose Fasting 133 mg/dL (60-99); HDL Cholesterol 64 mg/dL (>40); LDL Cholesterol Calculated 115 mg/dL (<100); Potassium 4.4 mmol/L (3.3-5.1); Sodium 140 mmol/L (135-145); Total Protein 6.8 g/dL (6.5-8.0); Triglycerides 152 mg/dL (<150)
[2023-06-29 10:50] LABS: Creatinine Urine 56.14 mg/dL; Microalbum/Creatinine Ratio Ur 19.5 ug/mg cr (<30)
[2023-06-29 10:50] LABS: Vitamin D 25-OH Total 30.2 ng/mL (>30)
== END 2023-06-29 08:21 | disposition home or self-care (01) ==
LOC: HO.LAB 08:20
PROVIDERS: PCP Internal Medicine; Visit Provider Internal Medicine
DX: E55.9 Vitamin D deficiency, unspecified (principal); E11.9 Type 2 diabetes mellitus without complications; E78.5 Hyperlipidemia, unspecified
CPT/HCPCS: 36415; 80053; 80061; 82043; 82306; 82570

== ENCOUNTER 2023-07-08 07:51 | Outpatient (AMB) | payer OTHER, SELFPAY ==
[2023-07-08 08:02] VITALS: BP 138/70; BMI 33.1
--- NOTE | 2023-07-08 08:02 | MHC.PC.OV ---
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 Required: No Accompanied by: Self / Same As Patient Allergies No Known Allergies Allergy (Verified 07/08/23 08:10) Medication List - Last Reconciled 07/08/23 by Freya Azevedo MD atorvastatin 10 mg PO BEDTIME 90 days blood sugar diagnostic ([employer]OW SPORTSTouch Ultra Test strips) Use 1 test strip once a day cholecalciferol (vitamin D3) 50 mcg PO DAILY 90 days lancets ([employer] SPORTSTouch UltraSoft 2 Lancet) test once daily sitagliptin phosphate (Januvia) 50 mg PO DAILY 90 days Tobacco use date assessed: 10/21/22 Fall risk assessment: No Falls in past year Last assessed Fall Risk: 07/08/23 Dental Screening Dental Screen Date: 07/08/23 Did you have a dental visit in the last 12 months?: Yes Did you have a dental problem in the last 6 months where you did not have access to dental care?: No Was dental information given to patient?: Patient has dentist HPI HPI Comments History of Present Illness Details This is a 78-year-old female with diabetes mellitus type 2, hyperlipidemia, varicose veins and low vitamin-D that comes today for follow-up on her conditions. A1c within goal. Blood pressure stable. LDL not on goal and I will increase atorvastatin from 10 mg to 20 mg. Vitamin-D normal on supplements. She follows with vascular surgery for her varicose veins. Denies any chest pain or shortness of breath. Compliant with medications. Next diabetic eye exam is August 2023. [facility] Medical History (Updated 07/08/23 @ 08:24 by Freya Azevedo MD) ASD (atrial septal defect) Left bundle branch block (LBBB) Obesity Hyperlipidemia Type 2 diabetes mellitus GERD (gastroesophageal reflux disease) Surgical History Hx of hysterectomy History of appendectomy History of esophagogastroduodenoscopy (EGD) Hx of colonoscopy History of Amplatzer atrial septal defect closure History of cataract surgery History of back surgery Family History Mother Emphysema lung Diabetes Father Heart attack Maternal Aunt Cancer Maternal Uncle Cancer Social History Housing: House Alcohol intake: never Patient Tobacco Use Status: Never used Tobacco e-Cigarette/Vaping Use: Never Used Second Hand Smoke Exposure: No service: No Current occupational status: unemployed Cognitive needs: No Hearing needs: No Vision needs: No Female Reproductive History Menstrual Age of Menarche: 16 Questionnaire Thrive Questionnaire Date Thrive assessed: 10/21/22 LISS-7 AMB Questionnaire LISS-7 Date LISS - 7 assessed: 10/21/22 Source: Developed by Drs. Ventura Bermeo, Lissy Neal, Nitin Correa and colleagues, with an educational paty from [employer]. Review of Systems Const All systems reviewed & are unremarkable except as noted in HPI and below Eyes Reports no additional complaints, Denies change in vision and Denies other visual disturbances Card Denies chest pain at rest, Denies chest pain with activity, Denies edema, Denies irregular heart rhythm, Denies claudication, Denies dyspnea, Denies dyspnea on exertion, Denies orthopnea, Denies paroxysmal nocturnal dyspnea and Denies slow heart rate Resp Denies cough, Denies dyspnea and Denies dyspnea on exertion GI Denies abdominal pain, Denies change in bowel habits, Denies excessive flatus, Denies nausea and Denies vomiting Denies urinary incontinence, Denies urinary hesitancy and Denies urinary urgency Musc Denies abnormal gait, Denies atrophy, Denies deformity and Denies limited range of motion Skin/Breast Denies bleeding lesions, Denies changing lesions and Denies rash Neuro Denies abnormal gait, Denies behavioral changes and Denies lack of coordination Psych Denies behavioral changes Physical exam (Primary Care) Vital Signs: Last Vital Signs BP 138/70 07/08/23 08:02 BMI result Body Mass Index 33.1 Tobacco/Smoking Status: Tobacco use Status Tobacco use date assessed 10/21/22 07/08/23 08:04 Patient Tobacco Use Status Never used Tobacco 07/08/23 08:04 e-Cigarette/Vaping Use Never Used 07/08/23 08:04 Thrive Assessment: Date of Thrive Assessment Date Thrive assessed 03/22/23 12/07/23 08:04 Eyes General: appearance normal, both eyes and all related structures Eyelids: Yes eyelids normal Conjunctivae: conjunctivae normal Neck Neck: Yes normal visual inspection and Yes supple Resp Effort & Inspection: normal respiratory effort Auscultation: clear to auscultation bilaterally Cardio Jugular venous distension: no JVD Rate: regular rate Rhythm: regular rhythm Heart sounds: S1 normal heart sound present and S2 normal heart sound present Extrem General: Yes full ROM Office Procedures Flu Questionnaire Does the patient have a severe egg allergy?: No Does the patient have severe life threatening allergies?: No Does the patient have a fever or illness today?: No Has the patient ever had Guillain-[place] Syndrome?: No Has the patient ever had any past reaction to a flu shot?: No Results AMB Hemoglobin A1c AMB Hemoglobin A1c 6.8 % Last Edit by IDXON Mendoza on 07/08/23 08:12 Immunizations flu vacc [id number] 6mos up(PF) 60 mcg(15 mcgx4)/0.5 mL IM syringe Performing Provider: Freya Azevedo MD Performing Location: [facility] Administered by: DIXON Mendoza on 07/08/23 08:23 Dose Route Admin Location Dispensed Lot Number Expiration Date NDC Talent Acquisition Consultant 0.5 mL IM Left Deltoid 0.5 mL [id number] 01/30/24 22973-678-26 [employer] VIS Given Date VIS Provided VIS Publication Date 07/08/23 Single Vaccine 21 Eligibility Eligibility Date Funding Source Not [facility] Eligible 07/08/23 Private Results Reviewed Results Reviewed: Laboratory Last Values Hgb A1c (Clinic) 6.8 % (4.0-6.0) H 07/08/23 08:00 Assessment and Plan Assessment & Plan (1) Diabetes mellitus: Code(s): E11.9 - Type 2 diabetes mellitus without complications Qualifiers: Diabetes mellitus type: type 2 Diabetes mellitus terminal operations supervisor insulin use: without prison use Diabetes mellitus complication status: without complication Qualified Code(s): E11.9 - Type 2 diabetes mellitus without complications Plan: Continue Januvia. A1c goal is equal or less than 7%. (2) Hyperlipidemia LDL goal <70: Code(s): E78.5 - Hyperlipidemia, unspecified Plan: Continue statins. LDL goal is less than 70. (3) Hypovitaminosis D: Code(s): E55.9 - Vitamin D deficiency, unspecified Plan: Continue vitamin-D supplements. (4) Varicose veins of right lower extremity with inflammation: Code(s): I83.11 - Varicose veins of right lower extremity with inflammation Plan: Follow-up with vascular surgery. Orders: Orders AMB Hemoglobin A1c Today E11.9 - Type 2 diabetes mellitus without complications Influenza [id number] Immunization Today Z23 - Encounter for immunization Lipid Panel 4 Months E78.5 - Hyperlipidemia, unspecified Vitamin D 25-OH Total 4 Months E55.9 - Vitamin D deficiency, unspecified Comprehensive [place]. Panel Fast 4 Months E11.9 - Type 2 diabetes mellitus without complications Microalbumin, Random (w Creat) 4 Months E11.9 - Type 2 diabetes mellitus without complications Medications: New atorvastatin 20 mg PO BEDTIME 90 days 90 tabs 1RF Discontinued atorvastatin Discontinued Reason: Patient Completed Course 10 mg PO BEDTIME 90 days 90 tabs 1RF E78.5 - Hyperlipidemia, unspecified Coding Level of Care Code Est Pt Level 4 (98266) Diagnoses Type 2 diabetes mellitus without complication, without long-term current use of insulin E11.9 Diabetes mellitus type: type 2 Diabetes mellitus terminal operations supervisor insulin use: without terminal operations supervisor use Diabetes mellitus complication status: without complication Hyperlipidemia LDL goal <70 E78.5 Hypovitaminosis D E55.9 Varicose veins of right lower extremity with inflammation I83.11 Time Spent (min) 21
== END 2023-07-08 08:24 | disposition home or self-care (01) ==
PROVIDERS: PCP Internal Medicine; Visit Provider Internal Medicine
DX: E11.9 Type 2 diabetes mellitus without complications (principal); E78.5 Hyperlipidemia, unspecified; E55.9 Vitamin D deficiency, unspecified; I83.11 Varicose veins of right lower extremity with inflammation; Z23 Encounter for immunization
CPT/HCPCS: 83036; 90471; 90686; 99214

== ENCOUNTER 2023-07-16 07:47 | Outpatient (AMB) | payer OTHER, SELFPAY ==
--- NOTE | 2023-07-16 07:43 | MHC.OFFVIS ---
Intake Intake Visit Reasons: Right GSV Venaseal Allergies No Known Allergies Allergy (Verified 07/08/23 08:10) [facility] Medical History ASD (atrial septal defect) Left bundle branch block (LBBB) Obesity Hyperlipidemia Type 2 diabetes mellitus GERD (gastroesophageal reflux disease) Surgical History Hx of hysterectomy History of appendectomy History of esophagogastroduodenoscopy (EGD) Hx of colonoscopy History of Amplatzer atrial septal defect closure History of cataract surgery History of back surgery Family History Mother Emphysema lung Diabetes Father Heart attack Maternal Aunt Cancer Maternal Uncle Cancer Social History Housing: House Alcohol intake: never Patient Tobacco Use Status: Never used Tobacco e-Cigarette/Vaping Use: Never Used Second Hand Smoke Exposure: No service: No Current occupational status: unemployed Cognitive needs: No Hearing needs: No Vision needs: No Female Reproductive History Menstrual Age of Menarche: 16 Office Procedures Vascular Office Procedure Details Details: Diagnosis: Right Leg varicose veins with inflammation Procedure: Endovenous Ablation of the right Great Saphenous Vein with VenaSeal Closure System Anesthesia: Local infiltration 5 cc, Estimated Blood Loss: min Specimen: none Duplex ultrasound was used to map out the insufficient saphenous vein, and access was determined and marked on the overlying skin. The depth and diameter of the vein(s) to be treated was documented. The patient was placed supine on the procedure table and the leg was prepped and draped using sterile technique. Ultasound guidance was again used to localize the access site. 1% lidocaine was injected as a local anesthetic in the subcutaneous tissues at the target location in the GSV in the lower leg. Using ultrasound guidance, access was gained at this location with the 19 gauge thin walled access needle and followed by introduction of a short guidewire, location confirmed with ultrasound. A small, 3 mm incision was made at the access site to allow for introduction and placement of the 7 Fr x7cm introducer/dilator. The dilator and guidewire were removed. The 0.035 guidewire from the VenaSeal kit was then introduced and positioned at the saphenofemoral junction using ultrasound guidance. The 80 cm 7 Fr introducer sheath/dilator was positioned 5cm from the saphenofemoral junction. The guidewire and dilator were removed, and the remaining sheath was flushed with sterile saline, with the syringe remaining in place prior to the next steps. The cyanoacrylate adhesive was precisely primed into the 5 F delivery catheter and this catheter/syringe combination was attached within the dispenser gun. This assembly was introduced through the 7F sheath and positioned 5 cm caudal of the saphenofemoral junction under ultrasound guidance. The steps from the IFU were followed for dispensing amounts, locations and compression times, 2 aliquots proximally with 3 minutes of compression, and 1 aliquot every 3 cm distally with 30 sec of compression along the course of the vessel. Following the last injection and compression sequence, the catheter and introducer sheath were pulled out from the access site. Hemostasis was achieved with manual compression and an adhesive bandage was applied to the incision. Ultrasound confirmed complete coaptation and closure of the treated segments of the GSV, and the absence of any DVT at the saphenofemoral junction. Treatment time was approximately 6 minutes and the vein length treated was 45 cm. The drapes were removed and the patient cleaned and prepared for discharge. Post op ultrasound check is scheduled for 48-72 hours and the patient was given written post-op instructions. 45564 - Endoven Ther Chem Adhes 1st All charges added?: Procedure code (CPT) selection complete Assessment & Plan Assessment & Plan (1) Varicose veins of right lower extremity with inflammation: Code(s): I83.11 - Varicose veins of right lower extremity with inflammation Plan: See op note Coding Level of Care Code Procedure Only Diagnoses Varicose veins of right lower extremity with inflammation I83.11 CPT Codes Details - Vascular 3: 07715 - Endoven Ther Chem Adhes 1st ([id number])
== END 2023-07-16 08:28 | disposition home or self-care (01) ==
PROVIDERS: PCP Internal Medicine; Visit Provider Surgery Vascular Surgery
DX: I83.11 Varicose veins of right lower extremity with inflammation (principal)
CPT/HCPCS: 36482

== ENCOUNTER → 2023-07-16 07:47 | Outpatient (BNVA) | payer OTHER, SELFPAY | PROVIDERS: PCP Internal Medicine; Visit Provider Surgery Vascular Surgery | DX: I83.11 Varicose veins of right lower extremity with inflammation (principal) | CPT/HCPCS: 36482 ==

== ENCOUNTER 2023-07-19 13:34 | Outpatient (REF) | payer OTHER, SELFPAY ==
--- NOTE | ~2023-07-19 | US_ITS ---
EXAMINATION: US VENOUS ULTRASOUND WITH DOPPLER LOWER EXTREMITY, RIGHT CLINICAL INFORMATION: Ultrasound post vein ablation Date of procedure 07/16/2023 Today's date 07/19/2023 Pain in right leg COMPARISON: None available. TECHNIQUE: Ultrasound of the deep veins is performed from the hip to the calf with compression sonography and color and pulse Doppler assessment. Spectral analysis with color-flow imaging is performed. FINDINGS: There is normal venous compression and respiratory variation and augmented flow. The visualized common femoral vein, superficial femoral vein, profunda femoral vein, popliteal vein, and the trifurcation region shows no evidence of deep venous thrombosis. The patient is status post venaseal of the greater saphenous vein. The greater saphenous vein measures approximately 5.98 cm and then is closed. There is no extension into the SFJ/SPJ. US/US venous duplex LE RT IMPRESSION: No DVT demonstrated in the right lower extremity. The greater saphenous vein is closed with no reflux.
== END 2023-07-19 13:35 | disposition home or self-care (01) ==
LOC: HO.HMGCX 13:34
PROVIDERS: PCP Internal Medicine; Visit Provider Surgery Vascular Surgery
DX: M79.604 Pain in right leg (principal)
CPT/HCPCS: 93971

== ENCOUNTER 2023-07-29 08:59 | Outpatient (AMB) | payer OTHER, SELFPAY ==
[2023-07-29 09:02] VITALS: BP 134/72; PULSE 65; O2SAT 97; BMI 33.1
--- NOTE | 2023-07-29 09:02 | MHC.OFFVIS ---
Intake Vital Signs 07/29/23 09:02 Height 5 ft 3 in Weight 187 lb BMI 33.1 BP 134/72 Blood Pressure Location Lt brachial Position Sitting Pulse 65 Pulse Source Pulse Oximeter Pulse Oximetry (%) 97 Oxygen Delivery Method Room Air Intake Visit Reasons: 2 week follow up Right GSV Venaseal 07/16/23 Intake Note: Pt presents to the office today for a 2 week follow up right GSV venaseal 07/16/23. Pt states she is feeling well and denies any pain or swelling at this time. Allergies No Known Allergies Allergy (Verified 07/29/23 09:04) HPI 2 week follow up Right GSV Venaseal 07/16/23 HPI Details Very pleasant 78-year-old female has undergone right great saphenous vein ablation. She reports an excellent result with that. She does have some swelling of the left lower extremity which is concerning for her. She now presents for follow-up. Of note postprocedure ultrasound was negative for DVT. [facility] Medical History ASD (atrial septal defect) Left bundle branch block (LBBB) Obesity Hyperlipidemia Type 2 diabetes mellitus GERD (gastroesophageal reflux disease) Surgical History Hx of hysterectomy History of appendectomy History of esophagogastroduodenoscopy (EGD) Hx of colonoscopy History of Amplatzer atrial septal defect closure History of cataract surgery History of back surgery Family History Mother Emphysema lung Diabetes Father Heart attack Maternal Aunt Cancer Maternal Uncle Cancer Social History Housing: House Alcohol intake: never Patient Tobacco Use Status: Never used Tobacco e-Cigarette/Vaping Use: Never Used Second Hand Smoke Exposure: No service: No Current occupational status: unemployed Cognitive needs: No Hearing needs: No Vision needs: No Female Reproductive History Menstrual Age of Menarche: 16 Review of Systems Const Reports as per HPI ENT Reports no additional complaints Card Denies chest pain, Denies chest pain at rest and Denies chest pain with activity Resp Denies chest congestion and Denies cough GI Reports no additional complaints Musc Details: pain over varicosities, aching of lower extremities, swelling, cramping, heaviness and tiredness, itching Denies abnormal gait Skin/Breast Reports pruritus and Denies wounds Neuro Reports no additional complaints and Denies abnormal gait Psych Denies no additional complaints Physical Exam Vital Signs: Last Vital Signs Pulse 65 07/29/23 09:02 BP 134/72 07/29/23 09:02 Pulse Ox 97 07/29/23 09:02 Oxygen Delivery Method Room Air 07/29/23 09:02 BMI result Body Mass Index 33.1 Const General: cooperative, healthy appearing and comfortable Orientation/consciousness: oriented to person, oriented to place and oriented to time Neck Carotids: no bruits Chest Chest palpation & inspection: normal inspection of the chest and normal palpation of entire chest wall Resp Effort & Inspection: normal respiratory effort and able to speak in complete sentences Cardio Rate: regular rate Heart sounds: S1 normal heart sound present and S2 normal heart sound present Peripheral pulses: Peripheral pulses 2+ throughout GI Inspection: Yes normal to inspection Skin Other: +2 edema, large rope-like varicosities greater than 4 mm CEAP Classification C4 - skin color changes Ep - Etiology Primary As - superficial veins P - reflux General skin exam: dry skin Neuro General: oriented to person, oriented to place and oriented to time Extrem Right lower extremity: full ROM, normal capillary refill and edema Left lower extremity: full ROM, normal capillary refill and edema Psych Mental Status: mental status grossly normal Results Reviewed Results Reviewed: Brief summary of venous insufficiency testing is as follows: right great saphenous vein: Ablated right small saphenous vein: negative right accessory vein: none present left great saphenous vein: negative left small saphenous vein: Positive left accessory vein: none present Please note there is no evidence of any venous aneurysms or significant tortuosity Assessment & Plan Assessment & Plan (1) Varicose veins of right lower extremity with inflammation: Comment: 07/16/2023 - right great saphenous vein Cyanoacralate ablation Code(s): I83.11 - Varicose veins of right lower extremity with inflammation Plan: Doing well postprocedure (2) Varicose veins of left lower extremity with inflammation: Code(s): I83.12 - Varicose veins of left lower extremity with inflammation Plan: This patient has varicose veins with inflammation. They continue to be a source of discomfort for the patient. The patient has tried conservative treatment with compression, leg elevation and exercise program for over 3 months time. They have been compliant with all treatment. This has provided minimal relief for the patient. I do not anticipate this course of treatment will alter the underlying etiology. The patient has been scheduled for lower extremity venous treatment inclusive of --- left small saphenous vein Cyanoacralate ablation. Risks, benefits, and complications of this procedure has been discussed in detail with the patient including but not limited to bleeding, infection, and the development of a DVT. The patient has demonstrated a clear understanding and has consented. We will schedule the patient as soon as possible. Thank you for allowing us to participate in this patient's care. If there are any questions or concerns please do not hesitate to contact us. Coding Level of Care Code Est Pt Level 4 (98358) Diagnoses Varicose veins of right lower extremity with inflammation I83.11 Varicose veins of left lower extremity with inflammation I83.12
== END 2023-07-29 10:00 | disposition home or self-care (01) ==
PROVIDERS: PCP Internal Medicine; Visit Provider Surgery Vascular Surgery
DX: I83.11 Varicose veins of right lower extremity with inflammation (principal); I83.12 Varicose veins of left lower extremity with inflammation
CPT/HCPCS: 99214

== ENCOUNTER → 2023-07-29 08:59 | Outpatient (BNVA) | payer OTHER, SELFPAY | PROVIDERS: PCP Internal Medicine; Visit Provider Surgery Vascular Surgery | DX: I83.11 Varicose veins of right lower extremity with inflammation (principal); I83.12 Varicose veins of left lower extremity with inflammation | CPT/HCPCS: 99212 ==

== ENCOUNTER 2023-08-12 08:51 | Outpatient (AMB) | payer OTHER, SELFPAY ==
[2023-08-12 09:15] VITALS: BMI 33.1
--- NOTE | 2023-08-12 09:15 | A.OFFVIS_ITS ---
Intake Vital Signs 08/12/23 09:15 Height 5 ft 3 in Weight 187 lb BMI 33.1 Intake Visit Reasons: Leg swelling and pain post venaseal Intake Note: Add on follow up for Right LE pain and swelling s/p Right LE Venaseal 07/16/23, is scheduled for Left SSV Venaseal next Wednesday08/20/23. started 1 week ago with pain swelling and numbness with ambulation. Data Communications Analyst Name: linette Accompanied by: Spouse Allergies No Known Allergies Allergy (Verified 08/12/23 09:22) HPI Leg swelling and pain post venaseal HPI Details Very pleasant 78-year-old female presents for follow-up regarding right thigh pain. She would undergone right great saphenous vein ablation with Cyanoacralate ablation. She is noting some right thigh pain with swelling and discomfort. She has no other interval issues. Of note she is scheduled for left lower extremity procedure as well. [facility] Medical History ASD (atrial septal defect) Left bundle branch block (LBBB) Obesity Hyperlipidemia Type 2 diabetes mellitus GERD (gastroesophageal reflux disease) Surgical History Hx of hysterectomy History of appendectomy History of esophagogastroduodenoscopy (EGD) Hx of colonoscopy History of Amplatzer atrial septal defect closure History of cataract surgery History of back surgery Family History Mother Emphysema lung Diabetes Father Heart attack Maternal Aunt Cancer Maternal Uncle Cancer Social History Housing: House Alcohol intake: never Patient Tobacco Use Status: Never used Tobacco e-Cigarette/Vaping Use: Never Used Second Hand Smoke Exposure: No service: No Current occupational status: unemployed Cognitive needs: No Hearing needs: No Vision needs: No Female Reproductive History Menstrual Age of Menarche: 16 Review of Systems Const All systems reviewed & are unremarkable except as noted in HPI and below Reports no additional complaints ENT Reports Normal hearing present Card Denies chest pain, Denies chest pain at rest, Denies chest pain with activity and Denies pedal edema Resp Denies cough GI Denies abdominal pain Musc Denies abnormal gait, Denies muscle cramps and Denies radiating pain into limb Skin/Breast Denies skin ulcer and Denies wounds Neuro Reports Normal hearing present and Denies abnormal gait Psych Reports no additional complaints Physical Exam Vital Signs: BMI result Body Mass Index 33.1 Const General: cooperative, healthy appearing and comfortable Orientation/consciousness: oriented to person, oriented to place and oriented to time HEENT Head: Yes normal to inspection Neck Neck: Yes normal visual inspection Carotids: no bruits Chest Chest palpation & inspection: normal inspection of the chest Resp Effort & Inspection: normal respiratory effort and able to speak in complete sentences Auscultation: clear to auscultation bilaterally, no crackles, no rales, no rhonchi and no wheezes Cardio Rate: regular rate Rhythm: regular rhythm Heart sounds: S1 normal heart sound present and S2 normal heart sound present Bruits: no carotid bruits Peripheral pulses: Peripheral pulses 2+ throughout GI Inspection: Yes normal to inspection Skin Other: Right thigh phlebitis Wounds: no wounds Hair: normal Neuro General: oriented to person, oriented to place and oriented to time Cranial nerves: Yes CN's II-XII intact bilaterally and Yes Normal hearing present Cognition (Neuro): normal cognition Motor exam (neuro): 5/5 motor strength present throughout Extrem Other: venous exam: No significant superficial varicosities or spider telangiectasias, minimal edema General: No clubbing, No cyanosis and No edema Psych Appearance: grossly normal Mental Status: mental status grossly normal Speech and movement: Normal speech and movement present Assessment & Plan Assessment & Plan (1) Varicose veins of right lower extremity with inflammation: Comment: 07/16/2023 - right great saphenous vein Cyanoacralate ablation Code(s): I83.11 - Varicose veins of right lower extremity with inflammation Plan: In short patient appears to be having right lower extremity postprocedure phlebitis. It appears to be reducing fairly well. I did provide her [employer] insurance and we did discuss conservative measures including warm compresses and use of nonsteroidal anti-inflammatories. She will follow up with us after her left-sided procedure. Thank you for allowing us to assist in her care. If there are any questions or concerns please do not hesitate to contact us Coding Level of Care Code Est Pt Level 3 (04195) Diagnoses Varicose veins of right lower extremity with inflammation I83.11
== END 2023-08-12 10:08 | disposition home or self-care (01) ==
PROVIDERS: PCP Internal Medicine; Visit Provider Surgery Vascular Surgery
DX: I83.11 Varicose veins of right lower extremity with inflammation (principal)
CPT/HCPCS: 99213

== ENCOUNTER → 2023-08-12 08:51 | Outpatient (BNVA) | payer OTHER, SELFPAY | PROVIDERS: PCP Internal Medicine; Visit Provider Surgery Vascular Surgery | DX: I83.11 Varicose veins of right lower extremity with inflammation (principal) | CPT/HCPCS: 99212 ==

== ENCOUNTER 2023-08-20 08:23 | Outpatient (AMB) | payer OTHER, SELFPAY ==
--- NOTE | 2023-08-20 09:03 | A.OFFVIS_ITS ---
Intake Vital Signs 08/20/23 09:04 Height 5 ft 3 in Weight 187 lb BMI 33.1 Intake Visit Reasons: Left Small Venaseal Transition Social Worker Required: No Allergies No Known Allergies Allergy (Verified 08/20/23 09:04) [facility] Medical History ASD (atrial septal defect) Left bundle branch block (LBBB) Obesity Hyperlipidemia Type 2 diabetes mellitus GERD (gastroesophageal reflux disease) Surgical History Hx of hysterectomy History of appendectomy History of esophagogastroduodenoscopy (EGD) Hx of colonoscopy History of Amplatzer atrial septal defect closure History of cataract surgery History of back surgery Family History Mother Emphysema lung Diabetes Father Heart attack Maternal Aunt Cancer Maternal Uncle Cancer Social History Housing: House Alcohol intake: never Patient Tobacco Use Status: Never used Tobacco e-Cigarette/Vaping Use: Never Used Second Hand Smoke Exposure: No service: No Current occupational status: unemployed Cognitive needs: No Hearing needs: No Vision needs: No Female Reproductive History Menstrual Age of Menarche: 16 Physical Exam Vital Signs: BMI result Body Mass Index 33.1 Office Procedures Vascular Office Procedure Details Details: Diagnosis: Left Leg varicose veins with inflammation Procedure: Endovenous Ablation of the left small Saphenous Vein with VenaSeal Closure System Anesthesia: Local infiltration 5 cc, Estimated Blood Loss: min Specimen: none Duplex ultrasound was used to map out the insufficient saphenous vein, and access was determined and marked on the overlying skin. The depth and diameter of the vein(s) to be treated was documented. The patient was placed prone on the procedure table and the leg was prepped and draped using sterile technique. Ultasound guidance was again used to localize the access site. 1% lidocaine was injected as a local anesthetic in the subcutaneous tissues at the target location in the SSV in the lower leg. Using ultrasound guidance, access was gained at this location with the 19 gauge thin walled access needle and followed by introduction of a short guidewire, location confirmed with ultrasound. A small, 3 mm incision was made at the access site to allow for introduction and placement of the 7 Fr x7cm introducer/dilator. The dilator and guidewire were removed. The 0.035 guidewire from the VenaSeal kit was then introduced and positioned at the sapheno popliteal junction using ultrasound guidance. The 80 cm 7 Fr introducer sheath/dilator was positioned 5cm from the sapheno popliteal junction. The guidewire and dilator were removed, and the remaining sheath was flushed with sterile saline, with the syringe remaining in place prior to the next steps. The cyanoacrylate adhesive was precisely primed into the 5 F delivery catheter and this catheter/syringe combination was attached within the dispenser gun. This assembly was introduced through the 7F sheath and positioned 5 cm caudal of the saphenofemoral junction under ultrasound guidance. The steps from the IFU were followed for dispensing amounts, locations and compression times, 2 aliquots proximally with 3 minutes of compression, and 1 aliquot every 3 cm distally with 30 sec of compression along the course of the vessel. Following the last injection and compression sequence, the catheter and introducer sheath were pulled out from the access site. Hemostasis was achieved with manual compression and an adhesive bandage was applied to the incision. Ultrasound confirmed complete coaptation and closure of the treated segments of the GSV, and the absence of any DVT at the sapheno popliteal junction. Treatment time was approximately 4 minutes and the vein length treated was 12 cm. The drapes were removed and the patient cleaned and prepared for discharge. Post op ultrasound check is scheduled for 48-72 hours and the patient was given written post-op instructions. 44054 - Endoven Ther Chem Adhes 1st All charges added?: Procedure code (CPT) selection complete Assessment & Plan Assessment & Plan (1) Varicose veins of left lower extremity with inflammation: Code(s): I83.12 - Varicose veins of left lower extremity with inflammation Plan: See note Coding Level of Care Code Procedure Only Diagnoses Varicose veins of left lower extremity with inflammation I83.12 CPT Codes Details - Vascular 3: 73014 - Endoven Ther Chem Adhes 1st ([id number])
[2023-08-20 09:04] VITALS: BMI 33.1
== END 2023-08-20 10:16 | disposition home or self-care (01) ==
PROVIDERS: PCP Internal Medicine; Visit Provider Surgery Vascular Surgery
DX: I83.12 Varicose veins of left lower extremity with inflammation (principal)
CPT/HCPCS: 36482

== ENCOUNTER → 2023-08-20 08:23 | Outpatient (BNVA) | payer OTHER, SELFPAY | PROVIDERS: PCP Internal Medicine; Visit Provider Surgery Vascular Surgery | DX: I83.12 Varicose veins of left lower extremity with inflammation (principal) | CPT/HCPCS: 36482 ==

== ENCOUNTER 2023-08-23 09:19 | Outpatient (REF) | payer OTHER, SELFPAY ==
--- NOTE | ~2023-08-23 | US_ITS ---
EXAMINATION: US VENOUS ULTRASOUND WITH DOPPLER LOWER EXTREMITY, LEFT CLINICAL INFORMATION: Post left small saphenous vein venaseal COMPARISON: Ultrasound 04/30/2023 TECHNIQUE: Ultrasound of the deep veins is performed from the hip to the calf with compression sonography and color and pulse Doppler assessment. Spectral analysis with color-flow imaging is performed. FINDINGS: There is normal venous compression and respiratory variation and augmented flow. The visualized common femoral vein, superficial femoral vein, profunda femoral vein, popliteal vein, and the trifurcation region shows no evidence of deep venous thrombosis. There is occlusion of the small saphenous vein in this patient who is post venaseal procedure. If the patient's symptoms persist, followup ultrasound in 5 days 7 days might be of value to exclude proximal propagation from a non-visualized calf vein. US/US venous duplex LE LT IMPRESSION: Occlusion of the left small saphenous vein post venaseal. No DVT demonstrated in the left lower extremity.
== END 2023-08-23 09:20 | disposition home or self-care (01) ==
LOC: HO.HMGCX 09:19
PROVIDERS: PCP Internal Medicine; Visit Provider Surgery Vascular Surgery
DX: M79.605 Pain in left leg (principal)
CPT/HCPCS: 93971

== ENCOUNTER 2023-08-26 09:09 | Outpatient (REF) | payer OTHER, SELFPAY ==
[2023-08-26 12:21] LABS: Anion Gap 13 (12-20); Blood Urea Nitrogen 20 mg/dL (9-16); Calcium 10.2 mg/dL (8.4-10.2); Carbon Dioxide 27 mmol/L (22-29); Chloride 104 mmol/L (96-108); Estimated Glomerular Filt Rate > 60; Glucose Random 132 mg/dL (60-115); Potassium 4.1 mmol/L (3.3-5.1); Sodium 140 mmol/L (135-145)
== END 2023-08-26 09:10 | disposition home or self-care (01) ==
LOC: HO.HMGCLDS 09:09
PROVIDERS: PCP Internal Medicine; Visit Provider Physician Assistant
DX: I10 Essential (primary) hypertension (principal)
CPT/HCPCS: 36415; 80048

== ENCOUNTER 2023-09-02 09:50 | Outpatient (AMB) | payer OTHER, SELFPAY ==
[2023-09-02 10:35] VITALS: BMI 33.1
--- NOTE | 2023-09-02 10:35 | MHC.OFFVIS ---
Intake Vital Signs 09/02/23 10:35 Height 5 ft 3 in Weight 187 lb BMI 33.1 Intake Visit Reasons: 2 week follow up left small venaseal Intake Note: 2 week folow up Left SSV Venaseal. Pt states that leg feels fantastic, both legs. Accompanied by: Spouse Allergies No Known Allergies Allergy (Verified 09/02/23 10:36) HPI 2 week follow up left small venaseal HPI Details Very pleasant 78-year-old female presents for follow-up status post left small saphenous vein ablation. She reports she is doing fairly well. Both legs have decreased in swelling pain and discomfort. She is extremely happy with outcome of both lower extremities. She is now for routine postprocedure follow-up. Of note postprocedure ultrasound was negative for DVT. [facility] Medical History ASD (atrial septal defect) Left bundle branch block (LBBB) Obesity Hyperlipidemia Type 2 diabetes mellitus GERD (gastroesophageal reflux disease) Surgical History Hx of hysterectomy History of appendectomy History of esophagogastroduodenoscopy (EGD) Hx of colonoscopy History of Amplatzer atrial septal defect closure History of cataract surgery History of back surgery Family History Mother Emphysema lung Diabetes Father Heart attack Maternal Aunt Cancer Maternal Uncle Cancer Social History Housing: House Alcohol intake: never Patient Tobacco Use Status: Never used Tobacco e-Cigarette/Vaping Use: Never Used Second Hand Smoke Exposure: No service: No Current occupational status: unemployed Cognitive needs: No Hearing needs: No Vision needs: No Female Reproductive History Menstrual Age of Menarche: 16 Review of Systems Const All systems reviewed & are unremarkable except as noted in HPI and below Reports no additional complaints ENT Reports Normal hearing present Card Denies chest pain, Denies chest pain at rest, Denies chest pain with activity and Denies pedal edema Resp Denies cough GI Denies abdominal pain Musc Denies abnormal gait, Denies muscle cramps and Denies radiating pain into limb Skin/Breast Denies skin ulcer and Denies wounds Neuro Reports Normal hearing present and Denies abnormal gait Psych Reports no additional complaints Physical Exam Vital Signs: BMI result Body Mass Index 33.1 Const General: cooperative, healthy appearing and comfortable Orientation/consciousness: oriented to person, oriented to place and oriented to time HEENT Head: Yes normal to inspection Neck Neck: Yes normal visual inspection Carotids: no bruits Chest Chest palpation & inspection: normal inspection of the chest Resp Effort & Inspection: normal respiratory effort and able to speak in complete sentences Auscultation: clear to auscultation bilaterally, no crackles, no rales, no rhonchi and no wheezes Cardio Rate: regular rate Rhythm: regular rhythm Heart sounds: S1 normal heart sound present and S2 normal heart sound present Bruits: no carotid bruits Peripheral pulses: Peripheral pulses 2+ throughout GI Inspection: Yes normal to inspection Skin Other: All incisions well healed Wounds: no wounds Hair: normal Neuro General: oriented to person, oriented to place and oriented to time Cranial nerves: Yes CN's II-XII intact bilaterally and Yes Normal hearing present Cognition (Neuro): normal cognition Motor exam (neuro): 5/5 motor strength present throughout Extrem Other: venous exam: No significant superficial varicosities or spider telangiectasias, minimal edema General: No clubbing, No cyanosis and No edema Psych Appearance: grossly normal Mental Status: mental status grossly normal Speech and movement: Normal speech and movement present Assessment & Plan Assessment & Plan (1) Varicose veins of right lower extremity with inflammation: Comment: 07/16/2023 - right great saphenous vein Cyanoacralate ablation Code(s): I83.11 - Varicose veins of right lower extremity with inflammation Plan: See below (2) Varicose veins of left lower extremity with inflammation: Comment: 08/20/2023 - left small saphenous vein Cyanoacralate ablation Code(s): I83.12 - Varicose veins of left lower extremity with inflammation Plan: The patient has done extremely well with all venous treatments. Patient's may often experience postprocedure phlebitic episodes and I have discussed with the patient use of warm compresses and NSAIDS if tolerated for pain discomfort. In addition, I have discussed continued conservative measures including use of compression, leg elevation, and exercise. The patient was also given an information sheet regarding appropriate use of compression stockings and future purchases. Thank you for allowing us to care for your patient with venous disease. Coding Level of Care Code Est Pt Level 3 (22380) Diagnoses Varicose veins of right lower extremity with inflammation I83.11 Varicose veins of left lower extremity with inflammation I83.12
== END 2023-09-02 10:54 | disposition home or self-care (01) ==
PROVIDERS: PCP Internal Medicine; Visit Provider Surgery Vascular Surgery
DX: I83.11 Varicose veins of right lower extremity with inflammation (principal); I83.12 Varicose veins of left lower extremity with inflammation
CPT/HCPCS: 99213

== ENCOUNTER → 2023-09-02 09:50 | Outpatient (BNVA) | payer OTHER, SELFPAY | PROVIDERS: PCP Internal Medicine; Visit Provider Surgery Vascular Surgery | DX: I83.11 Varicose veins of right lower extremity with inflammation (principal); I83.12 Varicose veins of left lower extremity with inflammation; Z98.890 Other specified postprocedural states | CPT/HCPCS: 99212 ==

== ENCOUNTER 2023-09-23 08:54 | Outpatient (AMB) | payer OTHER, SELFPAY ==
[2023-09-23 09:08] VITALS: BP 152/80; PULSE 58; O2SAT 97; BMI 32.9
--- NOTE | 2023-09-23 09:08 | MHC.PC.OV ---
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 Accompanied by: Self / Same As Patient Allergies No Known Allergies Allergy (Verified 09/23/23 09:27) Medication List - Last Reconciled 09/23/23 by Freya Azevedo MD apixaban (Eliquis) 5 mg PO BID atorvastatin 20 mg PO BEDTIME 90 days blood sugar diagnostic ([employer] Ultra Test strips) Use 1 test strip once a day cholecalciferol (vitamin D3) 50 mcg PO DAILY 90 days lancets ([employer] UltraSoft 2 Lancet) test once daily metoprolol tartrate 25 mg PO BID sitagliptin phosphate (Januvia) 50 mg PO DAILY 90 days Tobacco use date assessed: 09/23/23 Fall risk assessment: No Falls in past year Last assessed Fall Risk: 09/23/23 Dental Screening Dental Screen Date: 09/23/23 Did you have a dental visit in the last 12 months?: No Did you have a dental problem in the last 6 months where you did not have access to dental care?: No Was dental information given to patient?: Patient has dentist HPI HPI Comments History of Present Illness Details This is a 78-year-old female with diabetes mellitus type 2, hyperlipidemia, new onset atrial fibrillation and low vitamin-D that comes today for follow-up on her conditions. She was admitted to the hospital 09/06/2023 due to new onset atrial fibrillation and to rule out CVA versus TIA. MRI was done which was normal. Patient was started in Eliquis and metoprolol. So Cardiology while hospitalized and will see Cardiology tomorrow. Feels markedly improved. No chest pain, shortness on breath or palpitations. Was discharged 09/08/2023. Blood pressure elevated and will be recheck in 3 weeks by nurse navigator. LDL of 90 while hospitalized at [facility]. Closer to goal but still not on goal. On chronic anticoagulation for atrial fibrillation. On vitamin-D supplements for her low vitamin-D. [facility] Medical History (Updated 09/23/23 @ 10:39 by Freya Azevedo MD) ASD (atrial septal defect) Left bundle branch block (LBBB) Obesity Hyperlipidemia Type 2 diabetes mellitus GERD (gastroesophageal reflux disease) Surgical History Hx of hysterectomy History of appendectomy History of esophagogastroduodenoscopy (EGD) Hx of colonoscopy History of Amplatzer atrial septal defect closure History of cataract surgery History of back surgery Family History Mother Emphysema lung Diabetes Father Heart attack Maternal Aunt Cancer Maternal Uncle Cancer Social History Housing: House Alcohol intake: never Patient Tobacco Use Status: Never used Tobacco e-Cigarette/Vaping Use: Never Used Second Hand Smoke Exposure: No service: No Current occupational status: unemployed Cognitive needs: No Hearing needs: No Vision needs: No Female Reproductive History Menstrual Age of Menarche: 16 Questionnaire PHQ-9 Over the last 2 weeks, how often have you been bothered by any of the following problems? 1. Little interest or pleasure in doing things: not at all 2. Feeling down, depressed, or hopeless: not at all 3. Trouble falling or staying asleep, or sleeping too much: not at all 4. Feeling tired or having little energy: not at all 5. Poor appetite or overeating: not at all 6. Feeling bad about yourself - or that you are a failure or have let yourself or your family down: not at all 7. Trouble concentrating on things, such as reading the newspaper or watching television: not at all 8. Moving or speaking so slowly that other people could have noticed. Or the opposite - being so fidgety or restless that you have been moving around a lot more than usual: not at all 9. Thoughts that you would be better off or of hurting yourself in some way: not at all Total score: 0 Depression Screening Interpretation: Negative Depression Screening Done: Yes 03435 - PHQ-9 Billing: Yes Source: Developed by Drs. Ventura Bermeo, Lissy Neal, Nitin Correa and colleagues, with an educational paty from [employer]. Thrive Questionnaire Date Thrive assessed: 09/23/23 I am a: Patient What is your living situation today?: I have a steady place to live Within the past 12 months, did the food you bought not last and you didn't have the money to get more?: Never true Within the past 12 months, did you worry whether your food would run out before you got money to buy more?: Never true Do you have trouble paying for medicines?: No Do you have trouble getting transportation to medical appointments?: No Do you have trouble paying your heating and electricity bill?: No Do you have trouble taking care of your child, family member or friend?: No Do you have trouble with day-to-day activities such as bathing, preparing meals, shopping, managing finances, etc.?: No Are you currently unemployed and looking for a job?: No Are you interested in more education?: No Please select the resources that you would like help with: None Currently or been in a relationship where the following occur: no concerns reported THRIVE Score: 0 AUDIT C Alcohol Use Questionnaire (AUDIT-C) 1. How often do you have a drink containing alcohol?: Never Total Score: 0 LISS-7 AMB Questionnaire LISS-7 Date LISS - 7 assessed: 09/23/23 Feeling nervous, anxious, or on edge: 0 = Not at all Not being able to stop or control worryin = Not at all Worrying too much about different things: 0 = Not at all Trouble relaxin = Not at all Being so restless that it is hard to sit still: 0 = Not at all Becoming easily annoyed or irritable: 0 = Not at all Feeling afraid as if something awful might happen: 0 = Not at all Total LISS-7 score (0-4 normal; 5-9 mild; 10-14 moderate; 15-21 severe): 0 Source: Developed by Drs. Ventura Bermeo, Lissy Neal, Nitin Correa and colleagues, with an educational paty from [employer]. LISS-7 Assessment Billing LISS-7 Assessment Tool: LISS-7 Assessment 55334 Review of Systems Const All systems reviewed & are unremarkable except as noted in HPI and below Eyes Reports no additional complaints, Denies change in vision and Denies other visual disturbances Card Denies chest pain at rest, Denies chest pain with activity, Denies edema, Denies irregular heart rhythm, Denies claudication, Denies dyspnea, Denies dyspnea on exertion, Denies orthopnea, Denies paroxysmal nocturnal dyspnea and Denies slow heart rate Resp Denies cough, Denies dyspnea and Denies dyspnea on exertion GI Denies abdominal pain, Denies change in bowel habits, Denies excessive flatus, Denies nausea and Denies vomiting Denies urinary incontinence, Denies urinary hesitancy and Denies urinary urgency Musc Denies abnormal gait, Denies atrophy, Denies deformity and Denies limited range of motion Skin/Breast Denies bleeding lesions, Denies changing lesions and Denies rash Neuro Denies abnormal gait and Denies lack of coordination Physical exam (Primary Care) Vital Signs: Last Vital Signs Pulse 58 09/23/23 09:08 BP 152/80 H 09/23/23 09:08 Pulse Ox 97 09/23/23 09:08 Oxygen Delivery Method Room Air 09/23/23 09:08 BMI result Body Mass Index 32.9 Tobacco/Smoking Status: Tobacco use Status Tobacco use date assessed 09/23/23 09/23/23 09:13 Patient Tobacco Use Status Never used Tobacco 09/23/23 09:13 e-Cigarette/Vaping Use Never Used 09/23/23 09:13 PHQ-9: PHQ-9 Score PHQ-9: Total score 0 09/23/23 09:31 Depression Screening Interpretation: Negative Thrive Assessment: Date of Thrive Assessment Date Thrive assessed 09/23/23 09/23/23 09:13 Currently or been in a relationship where the following occur: no concerns reported Eyes General: appearance normal, both eyes and all related structures Eyelids: Yes eyelids normal Conjunctivae: conjunctivae normal Neck Neck: Yes normal visual inspection and Yes supple Resp Effort & Inspection: normal respiratory effort Auscultation: clear to auscultation bilaterally Cardio Jugular venous distension: no JVD Rate: regular rate Rhythm: regular rhythm Heart sounds: S1 normal heart sound present and S2 normal heart sound present Extrem General: Yes full ROM Assessment and Plan Assessment & Plan (1) Atrial fibrillation: Code(s): I48.91 - Unspecified atrial fibrillation Qualifiers: Atrial fibrillation type: paroxysmal Qualified Code(s): I48.0 - Paroxysmal atrial fibrillation Plan: Continue Eliquis and metoprolol. Follow-up with Cardiology. The goal is heart rate control. (2) Hyperlipidemia LDL goal <70: Code(s): E78.5 - Hyperlipidemia, unspecified Plan: Continue statins. LDL goal should be less than 70. (3) Diabetes mellitus: Code(s): E11.9 - Type 2 diabetes mellitus without complications Qualifiers: Diabetes mellitus type: type 2 Diabetes mellitus senior living insulin use: without terminal gauger use Diabetes mellitus complication status: without complication Qualified Code(s): E11.9 - Type 2 diabetes mellitus without complications Plan: Continue Januvia. A1c goal is equal or less than 7%. (4) Hypovitaminosis D: Code(s): E55.9 - Vitamin D deficiency, unspecified Plan: Continue vitamin-D supplements. Medications: New trazodone 50 mg PO BEDTIME 30 days PRN 30 tabs 1RF sleep apixaban (Eliquis) 5 mg PO BID 90 days 180 tabs 3RF I48.91 - Unspecified atrial fibrillation metoprolol tartrate 25 mg PO BID 90 days 180 tabs 1RF I48.91 - Unspecified atrial fibrillation Refilled cholecalciferol (vitamin D3) 50 mcg PO DAILY 90 days 90 caps 1RF lancets ([employer] UltraSoft 2 Lancet) test once daily 100 ea 8RF E11.9 - Type 2 diabetes mellitus without complications Coding Level of Care Code Est Pt Level 4 (94981) Diagnoses Paroxysmal atrial fibrillation I48.0 Atrial fibrillation type: paroxysmal Hyperlipidemia LDL goal <70 E78.5 Type 2 diabetes mellitus without complication, without long-term current use of insulin E11.9 Diabetes mellitus type: type 2 Diabetes mellitus senior living insulin use: without senior living use Diabetes mellitus complication status: without complication Hypovitaminosis D E55.9 Additional Codes LISS-7 Assessment Billing - LISS-7 Assessment Tool: LISS-7 Assessment 11052 ([id number]) Time Spent (min) 24
[2023-09-23 10:35] VITALS: BP 150/80
== END 2023-09-23 09:40 | disposition home or self-care (01) ==
PROVIDERS: PCP Internal Medicine; Visit Provider Internal Medicine
DX: I48.0 Paroxysmal atrial fibrillation (principal); E78.5 Hyperlipidemia, unspecified; E11.69 Type 2 diabetes mellitus with other specified complication; E55.9 Vitamin D deficiency, unspecified
CPT/HCPCS: 99214

== ENCOUNTER 2023-10-28 10:21 | Outpatient (AMB) | payer OTHER, SELFPAY ==
--- NOTE | 2023-10-28 10:48 | MHC.OFFVIS ---
Intake Vital Signs 10/28/23 10:58 Height 5 ft 3 in Weight 185 lb 2 oz BMI 32.8 BP 139/65 Blood Pressure Location Lt brachial Position Sitting Pulse 65 Intake Visit Reasons: Gallbladder, surgical consult Intake Note: Patient is seen in office for surgical consult, following gallbladder. Pt c/o: Saturnday started having pain and upset stomach, weakness, headaches, nausea, pain upper abdomen comes and goes, went to ED @ [facility] and imaging done, fever and chills at the time. Currently has no symtoms Roller Skater Required: Yes Roller Skater Language: Dope Heater Name: Sheila METCALF Information Interpreted: non-clinical & clinical County Administrator: County Administrator Present Accompanied by: Family/Other Allergies No Known Allergies Allergy (Verified 10/28/23 10:56) Medication List - Last Reconciled 10/28/23 by Braeden Martin MD apixaban (Eliquis) 5 mg PO BID 90 days atorvastatin 20 mg PO BEDTIME 90 days blood sugar diagnostic ([employer] Ultra Test strips) Use 1 test strip once a day cholecalciferol (vitamin D3) 50 mcg PO DAILY 90 days lancets ([employer] UltraSoft 2 Lancet) test once daily metoprolol tartrate 25 mg PO BID 90 days sitagliptin phosphate (Januvia) 50 mg PO DAILY 90 days trazodone 50 mg PO BEDTIME PRN 30 days HPI HPI Comments History of Present Illness Details 78-year-old female patient presenting with a recent episode of abdominal pain in the epigastrium and right upper quadrant. She has a past history of atrial fibrillation currently on apixaban, hypertension, status post section and appendectomy. The abdominal pain was severe and necessitated a visit to the [facility] ED. workup in the ED revealed mild epigastric abdominal pain without rebound or guarding. Abdominal ultrasound revealed multiple mobile gallstones within the gallbladder without pericholecystic fluid and a negative Courtney sign. CT of the abdomen and pelvis demonstrated no acute abnormality but did show cholelithiasis. The pain is now improved she denies any nausea or vomiting. She is concerned about a recurrence of the abdominal pain which may be more severe and would like to discuss laparoscopic cholecystectomy. She denies previous symptoms related to the gallbladder. She is currently avoiding greasy foods. [facility] Medical History ASD (atrial septal defect) Left bundle branch block (LBBB) Obesity Hyperlipidemia Type 2 diabetes mellitus GERD (gastroesophageal reflux disease) Surgical History Hx of hysterectomy History of appendectomy History of esophagogastroduodenoscopy (EGD) Hx of colonoscopy History of Amplatzer atrial septal defect closure History of cataract surgery History of back surgery Family History Mother Emphysema lung Diabetes Father Heart attack Maternal Aunt Cancer Maternal Uncle Cancer Social History Housing: House Alcohol intake: never Patient Tobacco Use Status: Never used Tobacco e-Cigarette/Vaping Use: Never Used Second Hand Smoke Exposure: No service: No Current occupational status: unemployed Cognitive needs: No Hearing needs: No Vision needs: No Female Reproductive History Menstrual Age of Menarche: 16 Review of Systems Const All systems reviewed & are unremarkable except as noted in HPI and below Denies chills, Denies fever(s), Denies headache(s), Denies poor appetite and Denies weakness ENT Denies headache(s) Card Denies chest pain, Denies irregular heart rhythm, Denies palpitations and Denies dyspnea Resp Denies cough, Denies excessive phlegm production and Denies dyspnea GI Reports abdominal pain, Denies bloating, Denies change in bowel habits, Denies constipation, Denies heartburn, Denies diarrhea, Denies nausea and Denies vomiting Denies urinary frequency Musc Denies back pain, Denies muscle weakness and Denies numbness Skin/Breast Denies changing lesions and Denies unusual bruising Neuro Denies headache(s), Denies numbness, Denies paresthesias and Denies weakness Psych Denies anxiety and Denies depression Endo Denies palpitations Charles/Lymph Denies lymphadenopathy Physical Exam Const General: cooperative and no acute distress Nutritional Appearance: well nourished Orientation/consciousness: patient oriented x3 Limitations: no limitations HEENT Head: Yes normocephalic and Yes atraumatic Ears: hearing grossly normal bilaterally Resp Effort & Inspection: normal respiratory effort, no audible wheezes, no cough and no respiratory distress Cardio Jugular venous distension: no JVD GI Other: Negative Courtney sign Inspection: Yes normal to inspection Palpation (GI): Soft to palpation, nontender, no guarding and not rigid Skin Other: Warm, dry, no rash Neuro General: patient oriented x3 Extrem General: Yes no clubbing, cyanosis or edema Assessment & Plan Assessment & Plan (1) Biliary colic: Code(s): K80.50 - Calculus of bile duct without cholangitis or cholecystitis without obstruction (2) Cholelithiasis: Code(s): K80.20 - Calculus of gallbladder without cholecystitis without obstruction Qualifiers: Cholelithiasis location: gallbladder Cholecystitis presence: without cholecystitis Biliary obstruction: without biliary obstruction Qualified Code(s): K80.20 - Calculus of gallbladder without cholecystitis without obstruction Plan 78-year-old female patient with symptomatic cholelithiasis of recent onset found on ultrasound and CT to have multiple gallstones. Patient currently is denies abdominal pain while on fatty food restriction. Examination reveals her abdomen to be soft and nontender in the epigastrium and right upper quadrant. There is a negative Courtney sign. We discussed the option of observation verses elective laparoscopic cholecystectomy. The benefits of laparoscopic cholecystectomy would be to prevent further episodes of abdominal pain in the possible need for an emergency laparoscopic cholecystectomy especially given her atrial fibrillation and anticoagulation. Risks of the procedure would include bleeding, infection, injury to surrounding organs and bile ducts, pneumonia and blood clots. She and her family will consider their options and call should she wish to schedule the surgery. She will need to hold her apixaban for approximately 2 days prior to surgical intervention. Coding Level of Care Code New Pt Level 4 (53061) Diagnoses Biliary colic K80.50 Calculus of gallbladder without cholecystitis without obstruction K80.20 Cholelithiasis location: gallbladder Cholecystitis presence: without cholecystitis Biliary obstruction: without biliary obstruction
[2023-10-28 10:58] VITALS: BP 139/65; PULSE 65; BMI 32.8
== END 2023-10-28 11:25 | disposition home or self-care (01) ==
PROVIDERS: PCP Internal Medicine; Visit Provider Surgery
DX: K80.50 Calculus of bile duct without cholangitis or cholecystitis without obstruction (principal); K80.20 Calculus of gallbladder without cholecystitis without obstruction
CPT/HCPCS: 99204; 99214

== ENCOUNTER → 2023-10-28 10:21 | Outpatient (BNVA) | payer OTHER, SELFPAY | PROVIDERS: PCP Internal Medicine; Visit Provider Surgery | DX: K80.50 Calculus of bile duct without cholangitis or cholecystitis without obstruction (principal); K80.20 Calculus of gallbladder without cholecystitis without obstruction | CPT/HCPCS: 99202 ==

== ENCOUNTER 2023-11-04 12:01 | Outpatient (AMB) | payer OTHER, SELFPAY ==
--- NOTE | 2023-11-04 12:18 | A.OFFPC_ITS ---
Vital Signs 11/04/23 12:19 Height 5 ft 3 in Weight 185 lb BMI 32.8 BP 130/78 Blood Pressure Location Lt brachial Position Sitting Intake Visit Reasons: [facility] 10/22 gall stones/abdominal pain Intake Note: Patient here for [facility] ED follow up Gall stones/abdominal pain Claims Administrator Required: No Accompanied by: Self / Same As Patient Allergies No Known Allergies Allergy (Verified 11/04/23 12:43) Medication List - Last Reconciled 11/04/23 by Freya Azevedo MD apixaban (Eliquis) 5 mg PO BID 90 days atorvastatin 20 mg PO BEDTIME 90 days blood sugar diagnostic ([employer] Ultra Test strips) Use 1 test strip once a day cholecalciferol (vitamin D3) 50 mcg PO DAILY 90 days lancets ([employer]erappuch UltraSoft 2 Lancet) test once daily metoprolol tartrate 25 mg PO BID 90 days sitagliptin phosphate (Januvia) 50 mg PO DAILY 90 days trazodone 50 mg PO BEDTIME PRN 30 days Tobacco use date assessed: 09/23/23 Fall risk assessment: No Falls in past year Last assessed Fall Risk: 11/04/23 Dental Screening Dental Screen Date: 09/23/23 HPI HPI Comments History of Present Illness Details This is a 78-year-old female with atrial fibrillation on chronic anticoagulation, diabetes mellitus type 2 and hyperlipidemia that comes today as a hospital discharge follow-up with discharge date 10/23/2023 due to biliary colic. She complain of midepigastric pain that started the same day that she went to ER after eating pizza. Ultrasound of the abdomen and CT scan of the abdomen were done showing multiple gallstones. She does have an appointment for surgery 12/08/2023 for lap cholecystectomy. No fever. No nausea or vomiting. No change in bowel habits. The pain resolved but she admits she has been eating low-fat diet. Denies any active bleeding. Atrial fibrillation is follow by cardiology and the goal is heart rate control. A1c within goal. Last LDL was not on goal and lipid panel will be repeated. [facility] Medical History (Updated 11/04/23 @ 13:02 by Freya Azevedo MD) ASD (atrial septal defect) Left bundle branch block (LBBB) Obesity Hyperlipidemia Type 2 diabetes mellitus GERD (gastroesophageal reflux disease) Surgical History Hx of hysterectomy History of appendectomy History of esophagogastroduodenoscopy (EGD) Hx of colonoscopy History of Amplatzer atrial septal defect closure History of cataract surgery History of back surgery Family History Mother Emphysema lung Diabetes Father Heart attack Maternal Aunt Cancer Maternal Uncle Cancer Social History Housing: House Alcohol intake: never Patient Tobacco Use Status: Never used Tobacco e-Cigarette/Vaping Use: Never Used Second Hand Smoke Exposure: No service: No Current occupational status: unemployed Cognitive needs: No Hearing needs: No Vision needs: No Female Reproductive History Menstrual Age of Menarche: 16 Questionnaire Thrive Questionnaire Date Thrive assessed: 09/23/23 LISS-7 AMB Questionnaire LISS-7 Date LISS - 7 assessed: 09/23/23 Source: Developed by Drs. Ventura Bermeo, Lissy Neal, Nitin Correa and colleagues, with an educational paty from [employer]. Review of Systems Const All systems reviewed & are unremarkable except as noted in HPI and below Eyes Reports no additional complaints, Denies change in vision and Denies other visual disturbances Card Denies chest pain at rest, Denies chest pain with activity, Denies edema, Denies irregular heart rhythm, Denies claudication, Denies dyspnea, Denies dyspnea on exertion, Denies orthopnea, Denies paroxysmal nocturnal dyspnea and Denies slow heart rate Resp Denies cough, Denies dyspnea and Denies dyspnea on exertion GI Reports abdominal pain Physical exam (Primary Care) Vital Signs: Last Vital Signs BP 130/78 11/04/23 12:19 BMI result Body Mass Index 32.8 Tobacco/Smoking Status: Tobacco use Status Tobacco use date assessed 09/23/23 11/04/23 12:19 Patient Tobacco Use Status Never used Tobacco 11/04/23 12:19 e-Cigarette/Vaping Use Never Used 11/04/23 12:19 Thrive Assessment: Date of Thrive Assessment Date Thrive assessed 09/23/23 11/04/23 12:19 Resp Effort & Inspection: normal respiratory effort Auscultation: clear to auscultation bilaterally Cardio Jugular venous distension: no JVD Rate: regular rate Rhythm: regular rhythm Heart sounds: S1 normal heart sound present and S2 normal heart sound present GI Inspection: Yes normal to inspection Palpation (GI): Soft to palpation and nontender Auscultation: normal bowel sounds Extrem General: Yes full ROM Results AMB Hemoglobin A1c AMB Hemoglobin A1c 6.3 % Last Edit by DIXON Mendoza on 11/04/23 12:5 2 Assessment and Plan Assessment & Plan (1) Hospital discharge follow-up: Code(s): Z09 - Encounter for follow-up examination after completed treatment for conditions other than malignant neoplasm Plan: Discharge date 10/23/2023 due to biliary colic. Labs, ultrasound and CT scan of the abdomen were done which showed only multiple gallstones. Feels markedly improved with abdominal pain but has changed her diet. (2) Biliary colic: Code(s): K80.50 - Calculus of bile duct without cholangitis or cholecystitis without obstruction Plan: Follow-up with surgery. Avoid fat in your diet. (3) Atrial fibrillation: Code(s): I48.91 - Unspecified atrial fibrillation Qualifiers: Atrial fibrillation type: paroxysmal Qualified Code(s): I48.0 - Paroxysmal atrial fibrillation Plan: Continue Eliquis. The goal is heart rate control. Follow-up with Cardiology. (4) Diabetes mellitus: Code(s): E11.9 - Type 2 diabetes mellitus without complications Qualifiers: Diabetes mellitus type: type 2 Diabetes mellitus longwall shearer operator insulin use: without longwall shearer operator use Diabetes mellitus complication status: without complication Qualified Code(s): E11.9 - Type 2 diabetes mellitus without complications Plan: Continue Januvia. A1c goal is equal or less than 7%. (5) Hyperlipidemia LDL goal <70: Code(s): E78.5 - Hyperlipidemia, unspecified Plan: Continue statins. LDL goal is less than 70. Orders: Orders AMB Hemoglobin A1c Today E11.9 - Type 2 diabetes mellitus without complications Microalbumin, Random (w Creat) Today E11.9 - Type 2 diabetes mellitus without complications Complete Blood Count Auto Diff Today I48.0 - Paroxysmal atrial fibrillation Lipid Panel Today E78.5 - Hyperlipidemia, unspecified Vitamin D 25-OH Total Today E55.9 - Vitamin D deficiency, unspecified Comprehensive [place]. Panel Fast Today E11.9 - Type 2 diabetes mellitus without complications Coding Level of Care Code TCM Mod MDM <= 14 Days Diagnoses Hospital discharge follow-up Z09 Biliary colic K80.50 Paroxysmal atrial fibrillation I48.0 Atrial fibrillation type: paroxysmal Type 2 diabetes mellitus without complication, without long-term current use of insulin E11.9 Diabetes mellitus type: type 2 Diabetes mellitus custodial insulin use: without longwall shearer operator use Diabetes mellitus complication status: without complication Hyperlipidemia LDL goal <70 E78.5 Time Spent (min) 27
[2023-11-04 12:19] VITALS: BP 130/78; BMI 32.8
== END 2023-11-04 12:56 | disposition home or self-care (01) ==
PROVIDERS: PCP Internal Medicine; Visit Provider Internal Medicine
DX: K80.50 Calculus of bile duct without cholangitis or cholecystitis without obstruction (principal); I48.0 Paroxysmal atrial fibrillation; E11.9 Type 2 diabetes mellitus without complications; E78.5 Hyperlipidemia, unspecified
CPT/HCPCS: 83036; 99214

== ENCOUNTER 2023-12-08 08:46 | Day surgery (SDC) | payer OTHER, SELFPAY ==
[2023-11-30 10:35] VITALS: BP 168/73; PULSE 53; RESP 16; O2SAT 98; BMI 32.4
--- NOTE | 2023-11-30 10:47 | HO.ANESPROP2 ---
Documented by User: Georgia Artis NP 11/30/23 11:07 HPI - Anesthesia Eval Consult details Narrative: 78yo F for Cholecystectomy Laparoscopic,possible open No recent illness. No CP/SOB with ADLs, housework Follows HF Cardiology. Cleared for procedure Eliquis for afib. OK to hold. (New onset 09/2023) s/p ASD repair 2003 LBBB Anesthesia Pre-Procedure Meds Is the patient on any of the following meds?: GLP1/DPP4 (Januvia) PMFSH Active Problems Active Problems: All Active Problems Hospital discharge follow-up (Acute) Cholelithiasis (Acute) Biliary colic (Acute) Atrial fibrillation (Acute) Varicose veins of left lower extremity with inflammation (Acute) Varicose veins of right lower extremity with inflammation (Acute) Venous (peripheral) insufficiency (Acute) Hammertoe of right foot (Acute) Hyperlipidemia LDL goal <70 (Acute) Fibroadenoma of right breast (Acute) Abnormal mammogram of right breast (Acute) Renal cyst (Acute) Left hip pain (Acute) Colon cancer screening (Acute) Pre-op examination (Acute) Right hip pain (Acute) Postmenopausal (Acute) Lumbar degenerative disc disease (Acute) Class 1 obesity with body mass index (BMI) of 33.0 to 33.9 in adult (Acute) Hypovitaminosis D (Acute) Physical exam (Acute) Diabetes mellitus (Acute) Past Medical History Medical History Arthritis Back pain Scoliosis Numbness On anticoagulant therapy Elevated cholesterol Murmur HTN (hypertension) ASD (atrial septal defect) Left bundle branch block (LBBB) Obesity Hyperlipidemia Type 2 diabetes mellitus GERD (gastroesophageal reflux disease) Family History Family History Mother Emphysema lung Diabetes Father Heart attack Maternal Aunt Cancer Maternal Uncle Cancer Family history of problems with anesthesia: Yes (Sister with PONV) Surgical History Surgical History Hx of varicose vein stripping Hx of hysterectomy History of appendectomy History of esophagogastroduodenoscopy (EGD) Hx of colonoscopy History of Amplatzer atrial septal defect closure History of cataract surgery History of back surgery History of Problems with Anesthesia: No Social History Social History Housing: House Are you a primary patient care coordinator to a significant other at home: No Do you presently have visiting nurse or other home services: Yes (nurse) Alcohol intake: never Patient Tobacco Use Status: Never used Tobacco e-Cigarette/Vaping Use: Never Used Second Hand Smoke Exposure: No Use of substances other than those prescribed or required for medical reasons: No Have you been hit, kicked, punched, or otherwise hurt by someone within the past year? If so, by whom?: No Are you DNR?: No Advance Directives: No Advance Directives Information Provided: Yes Advance Directives on File: No Recently lost weight without trying: No Eating poorly because of decreased appetite: No Nutrition Risks: No Nutritional Risk Patient : No : No Poor oral hygiene: Yes (implants upper and lower) service: No Current occupational status: unemployed Cognitive needs: No Hearing needs: No Vision needs: No Meds Allergies Allergy/AdvReac Type Severity Reaction Status Date / Time No Known Allergies Allergy Verified 12/08/23 09:23 Home Medications ?Medication ?Instructions ?Recorded ?Confirmed ?Last Taken ?Type acetaminophen 325 mg tablet 650 mg PO Q6-8H PRN Pain 11/30/23 11/30/23 Unknown History Exam Height,Weight and Vital Signs: Height 5 ft 4 in Weight 85.729 kg Last Vital Signs Pulse 53 11/30/23 10:35 Resp 16 11/30/23 10:35 BP 168/73 H 11/30/23 10:35 Pulse Ox 98 11/30/23 10:35 O2 Del Method Room Air 11/30/23 10:35 Pertinent Lab Results Pertinent Lab Results: Laboratory Tests 03/18/22 08/26/23 13:06 09:20 WBC 6.0 Hgb 13.9 Hct 42.5 Plt Count 215 Sodium 140 Potassium 4.1 Chloride 104 Carbon Dioxide 27 BUN 20 H Creatinine 0.77 Narrative Narrative: EKG 10/2023 NSR @ 75 Possible LAE LAD LBBB ECHO 09/2023 LV size is normal. LV wall thickness is nml. LV systolic function is nml. LVEF 55-60%. No obvious WMA seen on limited views. LV filling pressures is indeterminate. LA is mildly dilated. ASD closure device present. Aortic valve is trileaflet. AV appears mildly calcified. No . No AR. Mild MAC. MV opening is nml. Trivial MR. RV systolic function appears preserved. 5 Day Holter Predominant rhythm was SR and Afib. HR 67-162bpm No mercedes or AV block. Afib burden not quantified. Pt asymptomatic Airway Mallampati Class: III TM Dist: >3cm Neck ROM: Full Loose/Missing/Broken Teeth: No (Implants top and bottom) Heart: RRR Lungs: CTAB Assessment and Plan Assessment Anesthesia Assessment: Anesthesia Plan Discussed and PAT Visit Final Anesthetic Review Family History of Problems with Anesthesia: Yes (Sister with PONV) History of Problems with Anesthesia: No Documented by User: Andrzej Carranza MD 12/08/23 10:24 [facility] Past Medical History Medical History Arthritis Back pain Scoliosis Numbness On anticoagulant therapy Elevated cholesterol Murmur HTN (hypertension) ASD (atrial septal defect) Left bundle branch block (LBBB) Obesity Hyperlipidemia Type 2 diabetes mellitus GERD (gastroesophageal reflux disease) Functional capacity: independent ambulation Family History Family History Mother Emphysema lung Diabetes Father Heart attack Maternal Aunt Cancer Maternal Uncle Cancer Surgical History Surgical History Hx of varicose vein stripping Hx of hysterectomy History of appendectomy History of esophagogastroduodenoscopy (EGD) Hx of colonoscopy History of Amplatzer atrial septal defect closure History of cataract surgery History of back surgery Social History Social History Housing: House Are you a primary patient care coordinator to a significant other at home: No Do you presently have visiting nurse or other home services: Yes (nurse) Alcohol intake: never Patient Tobacco Use Status: Never used Tobacco e-Cigarette/Vaping Use: Never Used Second Hand Smoke Exposure: No Use of substances other than those prescribed or required for medical reasons: No Have you been hit, kicked, punched, or otherwise hurt by someone within the past year? If so, by whom?: No Are you DNR?: No Advance Directives: No Advance Directives Information Provided: Yes Advance Directives on File: No Recently lost weight without trying: No Eating poorly because of decreased appetite: No Nutrition Risks: No Nutritional Risk Patient : No : No Poor oral hygiene: Yes (implants upper and lower) service: No Current occupational status: unemployed Cognitive needs: No Hearing needs: No Vision needs: No Meds Allergies Allergy/AdvReac Type Severity Reaction Status Date / Time No Known Allergies Allergy Verified 12/08/23 09:23 Home Medications ?Medication ?Instructions ?Recorded ?Confirmed ?Last Taken ?Type acetaminophen 325 mg tablet 650 mg PO Q6-8H PRN Pain 11/30/23 11/30/23 Unknown History Exam Airway Mallampati Class: II Assessment and Plan Final Anesthetic Review NPO: Yes ASA Class: III Final Preanesthetic Review: No Changes in Pt Med Stat, Meds/Allgs Chart Reviewed, Consent Obtained/Reviewed and Anes Risks/Benef Reviewed Patient Risk: Intermediate Procedure Risk: Intermediate Anesthetic Plan Anesthetic Plan: GA Disposition: Standard PACU
[2023-12-08] VITALS (8 sets, daily range): BP systolic 139–153; BP diastolic 54–71; PULSE 50–58; RESP 15–16; TEMP 36.3–36.6; O2SAT 93–97; BMI 31.8
--- OUTSIDE RECORDS SUMMARY | 2023-12-08 08:48 | XMS_ITS | Continuity of Care Document ---
Author Organization [facility] ter Address [address] [place] [address]- Care Team Providers Care Switch Technician Name Role Phone Emir Azevedo MD, Freya Vazquez Primary Care Physician Encounter [facility] [place] Date(s): 10/23/23 - 10/24/[address] [address]- Discharge Disposition: A-D/C Home Attending Physician: Chikis Jules MD Admitting Physician: Chikis Jules MD Referring Physician: Not on Staff, Referring MD Allergies, Adverse Reactions, Alerts No Known Allergies Medications apixaban Starter Pack 5 mg oral tablet = 5 mg, By Mouth, 2 times a day, # 60 tablet, 0 Refills, Maintenance, 09/08/23 8:55:00 EST, Tablet,[facility], Partial fill upon patient request if the prescription is for a schedule II opioid drug., 156, cm, 09/08/23 6:19:00 EST, Brando... Start Date: 09/08/23 Stop Date: 10/08/23 Status: Ordered Januvia By Mouth, Daily, 0 Refills, Maintenance, 12/14/22 8:22:00 EDT, Partial fill upon patient request ifthe prescription is for a schedule II opioid drug. Start Date: 12/14/22 Status: Ordered lisinopril 10 mg oral tablet TAKE 1 TABLET BY MOUTH EVERY DAY FOR 30 DAYS Start Date: 09/08/23 Status: Ordered metoprolol 25 mg oral tablet 25 mg, By Mouth, 2 times a day, # 60 tablet, Refills 0, Tot. Refills 0, Maintenance, 09/08/23 8:55:00 EST, Route to Pharmacy Electronically, [facility], Partial fill upon patient request if the prescription is for a schedule II opioid drAlla. Start Date: 09/08/23 Stop Date: 10/08/23 Status: Ordered ondansetron 4 mg oral tablet, disintegrating 1 tablet = 4 mg, By Mouth, Every 8 hours, PRN as needed for nausea/vomiting, for 3 days, # 9 tablet, 0 Refills, Acute 10/26/23 23:39:00 EDT, 10/23/23 23:39:00 EDT, DIS Tablet, [id number], Partial fill upon patient request if the prescription i... Start Date: 10/23/23 Stop Date: 10/26/23 Status: Ordered Vitamin D 30442 iu oral capsule 50,000 International_Units, By Mouth, Daily, Refills 0, Maintenance, 12/14/22 8:22:00 EDT, Partial fill upon patient request if the prescription is for a schedule II opioid drug. Start Date: 12/14/22 Status: Ordered Problem List Condition Confirmation Course Effective Dates Status Health St atus Informant Back pain Confirmed Active Armenian speaking patient Confirmed Active Endometrial polyp Confirmed Active Severe obesity (BMI 35.0-39.9) with comorbidity Confirmed Active Diabetes mellitus type II, controlled Confirmed Active Vitamin D deficiency Confirmed Active Results Radiology Reports * Exam Date Time Procedure Performing Provider Status 10/23/23 10:47 PM US RUQ Radha White; Auth (V erified) Notes: (US RUQ) Reason For Exam: Biliary Obstruction RESULT: US RUQ US RUQ Hx of Present Illness: pt reports diffuse upper abd pain starting this morning, denies diarrhea or vomiting, has been nauseous and not been able to take medications or eat due to nausea.; Reason: Biliary Obstruction; Clinical Question(s): Cholecystitis COMPARISON: 08/20/2013. FINDINGS: Liver: Diffusely echogenic parenchyma. No suspicious lesion ,however sensitivity is limited due to increased beam attenuation by the echogenic liver parenchyma. Smooth hepatic contour. Main portal vein patent with normal hepatopetal direction of flow. Gallbladder: Multiple mobile gallstones. Normal wall thickness. No pericholecystic fluid. Negative Courtney sign. Biliary Tree: Common duct measures: 0.9 cm. Pancreas: Obscured by overlying bowel gas. Right kidney: 9.3 cm in length. Normal parenchymal echotexture and thickness. No hydronephrosis, stone or mass. IMPRESSION: Echogenic liver likely representing hepatic steatosis. Mild dilatation of the common duct. Correlate with biliary serology. Nondiagnostic evaluation of the pancreas. I have personally reviewed the images and I agree with this report. WSN: [id number] Ordering Physician: Martinez Patel Dictated By: Jesse[Radiology] Michelle ZAMORA Dictated Date/Time: 10/23/23 10:59 p Reviewed By: Fabiano Ramos MD Signed By: Fabiano Ramos MD Signed Date/Time: 10/23/23 11:04 pm Transcribed By: REBEKA Transcribed Date/Time: 10/23/23 10:55 pm * Exam Date Time Procedure Performing Provider Status 10/23/23 10:[address] Abd/Pelvis W/ IV Contrast Only Asha Roman; Auth (Verified) Notes: (CT Abd/Pelvis W/ IV Contrast Only) Reason For Exam: mid epigastric;Pain RESULT: CT Abd/Pelvis W/ IV Contrast Only CT Abd/Pelvis W/ IV Contrast Only Hx of Present Illness: pt reports diffuse upper abd pain starting this morning, denies diarrhea or vomiting, has been nauseous and not been able to take medications or eat due to nausea.; Reason: Pain; mid epigastric; Clinical Question(s): Biliary Obstruction; Order Comment: TECHNIQUE: Spiral CT through the abdomen and pelvis with IV contrast formatted in 3 planes. 100 cc of Omnipaque 300 was administered intravenously. This study was performed without oral contrast. Weight-based protocol using automatic tube modulation was used to optimize exposure parameters. CTDIvol Body: 19.50 mGy, DLP Body: 1010 mGy*cm. COMPARISON: CT 12/20/2011. FINDINGS: Behavioral Consultant View Findings, Lines and Tubes: None. Visualized Chest: Lung bases are clear. No pleural effusion. The heart is normal in size. No pericardial effusion. Atrial septal occlusion device. Diaphragm: Normal. Liver: Normal. Gallbladder: Cholelithiasis. No inflammatory changes. Bile ducts: No biliary ductal dilation. Spleen: Normal. Pancreas: Normal. Adrenal glands: Normal. Kidneys and ureters: The study was performed in the pyelographic phase. No hydronephrosis, stones, or suspicious masses. 3 cm rim calcified cyst in the upper pole of the left kidney, decreased from prior. Bladder: Normal. Reproductive organs: Small degenerated fibroids. Stomach, small bowel, and large bowel: The stomach is normal. The small and large bowel are normal in caliber without evidence of obstruction. Appendix: Not seen, but no evidence of appendicitis. Peritoneum and retroperitoneum: No ascites or pneumoperitoneum. No omental or mesenteric lesions. Lymph nodes: No enlarged lymph nodes. Blood vessels: Mild vascular calcifications but no aneurysm. No evidence of venous thrombosis. Abdominal and pelvic wall: Unremarkable. Bones: No acute abnormality. Severe thoracolumbar scoliosis. Fixation hardware at L3-L5. IMPRESSION: No acute abnormality in the abdomen and pelvis. I have personally reviewed the images and I agree with this report. WSN: [id number] Ordering Physician: Martinez Patel Dictated By: Warner Anglin MD Dictated Date/Time: 10/23/23 10:13 p Reviewed By: Fabiano Ramos MD Signed By: Fabiano Ramos MD Signed Date/Time: 10/23/23 10:18 pm Transcribed By: REBEKA Transcribed Date/Time: 10/23/23 10:06 pm * Exam Date Time Procedure Performing Provider Status 10/23/23 9:37 PM Chest Portable Karol Wynn; Auth (Verified) Notes: (Chest Portable) Reason For Exam: Abdominal Pain RESULT: Chest Portable Chest Portable Hx of Present Illness: pt reports diffuse upper abd pain starting this morning, denies diarrhea or vomiting, has been nauseous and not been able to take medications or eat due to nausea.; Reason: Abdominal Pain; Clinical Question(s): Pneumonia COMPARISON: 09/06/2023, 05/13/2009. FINDINGS: LINES AND TUBES: None. LUNGS AND PLEURA: Clear lungs. Normal pulmonary vascularity. No pleural effusion. No pneumothorax. HEART, MEDIASTINUM AND BASIL: Heart is normal in size. Aorta is tortuous and partially calcified. Amplatzer device present. BONES AND SOFT TISSUES: No acute abnormality. IMPRESSION: No acute abnormality. I have personally reviewed the images and I agree with this report. WSN: [id number] Ordering Physician: Martinez Patel Dictated By: Jesse[Radiology] Michelle ZAMORA Dictated Date/Time: 10/23/23 9:44 pm Reviewed By: Fabiano Ramos MD Signed By: Fabiano Ramos MD Signed Date/Time: 10/23/23 9:49 pm Transcribed By: CSB Transcribed Date/Time: 10/23/23 9:44 pm Vital Signs Most recent to oldest [Reference Range]: 1 2 3 Oxygen Saturation [94-100 %] 98 % (10/24/23 12:10 AM) 97 % (10/23/23 9:13 PM) 97 % (10/23/23 8:15 PM) Pulse Rate [55-90 bpm] 82 bpm (10/24/23 12:10 AM) 78 bpm (10/23/23 9:13 PM) 81 bpm (10/23/23 8:15 PM) Blood Pressure [90-138/55-84 mm Hg] 134/67mm Hg (10/24/23 12:10 AM) 126/54mm Hg (10/23/23 9:13 PM) 140/63mm Hg *H* (10/23/23 8:15 PM) Respiratory Rate [16-30 br/min] 16 br/min (10/24/23 12:10 AM) 16 br/min (10/23/23 9:13 PM) 15 br/min *L* (10/23/23 8:15 PM) Temperature [96.8-100.4 DegF] 98.5 DegF (10/24/23 12:10 AM) 98.9 DegF (10/23/23 8:15 PM) Mode of Delivery (Oxygen) Room air (10/24/23 12:10 AM) Room air (10/23/23 9:13 PM) Room air (10/23/23 8:15 PM) Blood pressure sites Arm, right (10/23/23 8:15 PM) Temperature Route Oral (10/24/23 12:10 AM) Oral (10/23/23 8:15 PM) Social History Social History Type Response Smoking Status Never smoker entered on: 08/22/14 Sex EKG study * Event Display: EKG Authored Date: * Event Display: EKG Authored Date: * Event Display: ECG 12-Lead Authored Date: Please click on pdf link to open report * Event Display: ECG 12-Lead Authored Date: Ventricular Rate: 82 BPM Atrial Rate: 82 BPM P-R Interval: 210 ms QRS Duration: 130 ms Q-T Interval: 416 ms QTC Calculation(Bazett): 486 ms P [place]: 70 degrees R [place]: -53 degrees T [place]: 104 degrees Poor data quality, interpretation may be adversely affected Sinus rhythm with 1st degree A-V block Left axis deviation Left bundle branch block Abnormal ECG When compared with ECG of 06-SEP-2023 11:53, Nonspecific T wave abnormality now evident in Lateral leads Confirmed by RUMA EMERSON MD ([id number]) on 10/24/2023 11:49:04 AM [place]: RUMA EMERSON MD Patient Care team information Care Team Personnel Name: Nik CRAFT, Hannah Position: S RN Member Role: Primary Care Nurse Name: Della Resendiz RN Position: S RN Member Role: Primary Care Nurse Name: Yessi Navas RN Position: S RN Member Role: Primary Care Nurse Name: Emir Azevedo MD , Freya Vazquez Position: Reference Physician Member Role: PCP Address: Address: [address] [place] [address]- Care Team Related Persons Name: CHANA REGALADO Address: home [address] [place] [address] Name: KIAN REGALADO Address: home [address] [place] [address]
--- OUTSIDE RECORDS SUMMARY | 2023-12-08 08:48 | XMS_ITS | Continuity of Care Document ---
Author Organization [facility] Address [address] [place] [address], [place] [address]- Care Team Providers Care Sugar Refinery Supervisor Name Role Phone Not on Staff, PCP Primary Care Physician Unavail able Encounter [facility] Date(s): 12/14/22 - 12/21/22 [facility] [address] [place] [address]- Attending Physician: Chris Prather MD Referring Physician: Camilla Mckee Allergies, Adverse Reactions, Alerts No Known Allergies Medications aspirin 81 mg oral enteric coated tablet 1 tablet = 81 mg, By Mouth, Daily, # 250 tablet, 3 Refills, Maintenance, EC Tablet Start Date: 02/11/12 Stop Date: 11/07/14 Status: Ordered Januvia By Mouth, Daily, 0 Refills, Maintenance, 12/14/22 8:22:00 EDT, Partial fill upon patient request ifthe prescription is for a schedule II opioid drug. Start Date: 12/14/22 Status: Ordered Vitamin D 77441 iu oral capsule 50,000 International_Units, By Mouth, Daily, Refills 0, Maintenance, 12/14/22 8:22:00 EDT, Partial fill upon patient request if the prescription is for a schedule II opioid drug. Start Date: 12/14/22 Status: Ordered Problem List Condition Confirmation Course Effective Dates Status Health St atus Informant Back pain Confirmed Active Moroccan speaking patient Confirmed Active Endometrial polyp Confirmed Active Severe obesity (BMI 35.0-39.9) with comorbidity Confirmed Active Diabetes mellitus type II, controlled Confirmed Active Vitamin D deficiency Confirmed Active Vital Signs Most recent to oldest [Reference Range]: 1 Height 156 cm (12/14/22 8:16 AM) Weight 86.6 kg (12/14/22 8:16 AM) Pulse Rate [55-90 bpm] 66 bpm (12/14/22 8:16 AM) Body Mass Index [18.5-24.99 kg/m2] 35.59 kg/m2 *>HHI* (12/14/22 8:16 AM) Blood Pressure [90-138/55-84 mm Hg] 154/ 80mm Hg *H* (12/14/22 8:16 AM) Blood pressure sites Arm, right (12/14/22 8:16 AM) Dry Weight 86.6 kg (12/14/22 8:16 AM) Weight Obtained Via Standing scale (12/14/22 8:16 AM) Dry Weight Obtained Via Standing scale (12/14/22 8:16 AM) Social History Social History Type Response Smoking Status Never smoker entered on: 08/22/14 Sex Patient Care team information Care Team Personnel Name: Not on Staff, PCP Position: S Physician (General Medicine) Member Role: PCP Care Team Related Persons Name: CHANA REGALADO Address: home [address] [place] [address] Name: KIAN REGALADO Address: [address] [place] [address]
--- OUTSIDE RECORDS SUMMARY | 2023-12-08 08:48 | XMS_ITS | Continuity of Care Document ---
Author Organization [facility] Address [address] [place] [address] [address] [place] [address]- Care Team Providers Care Master Carpenter Name Role Phone Not on Staff, PCP Primary Care Physician Unavail able [place] [facility] [place] 10/26/23 - 11/25/[address] [place] [address]- Allergies, Adverse Reactions, Alerts No Known Allergies Medications apixaban Starter Pack 5 mg oral tablet = 5 mg, By Mouth, 2 times a day, # 60 tablet, 0 Refills, Maintenance, 09/08/23 8:55:00 EST, Tablet,[facility], Partial fill upon patient [...] 09/08/23 8:55:00 EST, Route to Pharmacy Electronically, [facility], Partial fill upon patient request if the prescription is for a schedule II opioid drAlla. Start Date: 09/08/23 Stop Date: 10/08/23 Status: Ordered Vitamin D 50573 iu oral capsule 50,000 International_Units, By Mouth, Daily, Refills 0, Maintenance, 12/14/22 8:22:00 EDT, Partial fill upon patient request if the prescription is for a schedule II opioid drug. Start Date: 12/14/22 Status: Ordered Problem List Condition Confirmation Course Effective Dates Status Health St atus Informant Back pain Confirmed Active Congolese speaking patient Confirmed Active Endometrial polyp Confirmed Active Severe obesity (BMI 35.0-39.9) with comorbidity Confirmed Active Diabetes mellitus type II, controlled Confirmed Active Vitamin D deficiency Confirmed Active Social History Social History Type Response Smoking Status Never smoker entered on: 08/22/14 Sex Patient Care team information Care Team Personnel Name: Hannah Zaragoza RN Position: [facility] RN Member Role: Primary Care Nurse Name: Della Resendiz RN Position: [facility] RN Member Role: Primary Care Nurse Name: Not on Staff, PCP Position: [facility] Physician (General Medicine) Member Role: PCP Name: Yessi Navas RN Position: [facility] RN Member Role: Primary Care Nurse Care Team Related Persons Name: KIAN REGALADO Address: home [address] [place] [id number] Name: CHANA HERCULES Address: home [address] [place] [address] Name: MOSES RUIZ Address: home [address] [place] [address]
--- OUTSIDE RECORDS SUMMARY | 2023-12-08 08:48 | XMS_ITS | Continuity of Care Document ---
Author Organization [facility] ter Address [address] [place] [id number]- Care Team Providers Care Jewel Gauger Name Role Phone Emir Azevedo MD, Freya Vazquez Primary Care Physician Encounter [facility] [place] Date(s): 09/06/23 - 09/08/[address] [address]- Encounter Diagnosis Heaviness of upper extremity(Final) - 09/06/23 Palpitations(Final) - 09/06/23 Discharge Disposition: A-D/C Home Attending Physician: Eda Castañeda MD Admitting Physician: Anthony Lira MD Referring Physician: Not on Staff, Referring MD Allergies, Adverse Reactions, Alerts No Known Allergies Medications apixaban Starter Pack 5 mg oral tablet = 5 mg, By Mouth, 2 times a day, # 60 tablet, 0 Refills, Maintenance, 09/08/23 8:55:00 EST, Tablet,[facility], Partial fill upon patient [...] metoprolol 25 mg oral tablet 25 mg, Tablet, By Mouth, 09/08/23 9:00:00 EST Start Date: 09/08/23 Stop Date: 09/08/23 Status: Completed metoprolol 25 mg oral tablet 25 mg, By Mouth, 2 times a day, # 60 tablet, Refills 0, Tot. Refills 0, Maintenance, 09/08/23 8:55:00 EST, Route to Pharmacy Electronically, [facility], Partial fill upon patient request if the prescription is for a schedule II opioid . Start Date: 09/08/23 Stop Date: 10/08/23 Status: Ordered Vitamin D 93839 iu oral capsule 50,000 International_Units, By Mouth, Daily, Refills 0, Maintenance, 12/14/22 8:22:00 EDT, Partial fill upon patient request if the prescription is for a schedule II opioid drug. Start Date: 12/14/22 Status: Ordered Problem List Condition Confirmation Course Effective Dates Status Health St atus Informant Back pain Confirmed Active [place] speaking patient Confirmed Active Endometrial polyp Confirmed Active Severe obesity (BMI 35.0-39.9) with comorbidity Confirmed Active Diabetes mellitus type II, controlled Confirmed Active Vitamin D deficiency Confirmed Active Results Radiology Reports * Exam Date Time Procedure Performing Provider Status 09/08/23 3:42 AM MRI Brain W/O Contrast Shanthi Carpio radha; Auth (Verified) Notes: (MRI Brain W/O Contrast) Reason For Exam: stroke suspected;Other: RESULT: MRI Brain W/O Contrast MRI Brain W/O Contrast INDICATION: Reason: Other:; stroke suspected; Clinical Question(s): Infarction; Order Comment: Please see Reference Text for complete list of contraindications Infarction TECHNIQUE: MRI of the brain was performed without contrast utilizing sagittal T1, axial T2, axial FLAIR, axial SWAN, and axial DWI sequences. COMPARISON: CT scan of the head 09/06/2023. FINDINGS: BRAIN and EXTRA-AXIAL SPACES: The flow voids through the paimiut of Swartz are maintained, and thereis no restricted diffusion or abnormal susceptibility artifact. Mild-moderate patchy and discrete FLAIR bright foci are present within the supratentorial white matter. The ventricles are normal in size. No extra-axial fluid collection. The cervicomedullary junction is unremarkable. Hyperostosis frontalis is noted and most pronounced over the inferior right frontal lobe correlating with ossification on the prior CT. EXTRACRANIAL SOFT TISSUES: There have been lens replacements bilaterally. T1 bright signal is present within the central right maxillary sinus correlating with opacity on the prior CT. This is compatible with proteinaceous material. BONES: Marrow signal is preserved. IMPRESSION: 1. No acute infarct. 2. Supratentorial white matter signal abnormality is nonspecific, but compatible with chronic microangiopathic/small vessel ischemic change. WSN: [id number] Ordering Physician: Anthony Lira Dictated By: Jigar Macias MD Dictated Date/Time: 09/08/23 7:22 am Reviewed By: Jigar Macias MD Signed By: Jigar Macias MD Signed Date/Time: 09/08/23 7:22 am Transcribed By: REBEKA Transcribed Date/Time: 09/08/23 7:15 am * Exam Date Time Procedure Performing Provider Status 09/06/23 3:[address] Head/Brain W/O Contrast Efren Wyman; Auth (Verified) Notes: (CT Head/Brain W/O Contrast) Reason For Exam: Neuro deficit, acute, stroke suspected;Other: RESULT: CT Head/Brain W/O Contrast Examination: Noncontrast head CT performed on 09/06/2023. History: Right-sided weakness. Technique and findings: Contiguous 5 mm axial images were obtained from the skull base to the vertex without intravenous contrast. A dose modulated weight-based protocol was used. There are no prior similar studies currently available for direct comparison. Opacification of the right maxillary sinus is noted. The ventricular system and subarachnoid spaces are within normal limits for the patient's age. Moderate periventricular and deep cortical white matter low- attenuation is noted, consistent with chronic small vessel ischemic change. There is no intracranial hemorrhage, mass effect, or midline shift. No intra- or extra-axial fluid collections are identified. The osseous structures are unremarkable. Impression: There is no acute intracranial abnormality. WSN: [id number] Ordering Physician: Elmo Giang Dictated By: Jordana Jimenez MD Dictated Date/Time: 09/06/23 3:10 pm Reviewed By: Jordana Jimenez MD Signed By: Jordana Jimenez MD Signed Date/Time: 09/06/23 3:10 pm Transcribed By: REBEKA Transcribed Date/Time: 09/06/23 3:08 pm * Exam Date Time Procedure Performing Provider Status 09/06/23 3:[address] Angio Neck Mee Wyman; Auth (Ve rified) Notes: (CT Angio Neck) Reason For Exam: Aneurysm, neck vessel(s);Other: RESULT: CT Angio Neck CT Angio Head, CT Angio Neck Hx of Present Illness: pt went to vault custodian for monitor check. Pt reported weakness on right side, cardiology sent to ED. Pt says right sided weakness has resolved. Endorses fatigue; Reason: Other:; Neuro deficit, acute, stroke suspected; Clinical Question(s): Other:; Hematoma Aneurysm; Order Comment: / Other: TECHNIQUE: CT angiogram of the head and neck was performed after bolus administration of intravenous contrast. Coronal and sagittal MIP reformatted images were obtained. Additional 3-D images were created on a separate workstation under concurrent supervision by the attending radiologist. All stenoses are measured using NASCET criteria. Weight-based protocol using automatic tube modulation was used to optimize exposure parameters. CTDIvol Body: 15.67 mGy, DLP Body: 568 mGy*cm. CTDIvol Head: 47.10 mGy, DLP Head: 772 mGy*cm. COMPARISON: Noncontrast CT head performed concurrently. FINDINGS: CTA OF THE NECK: Arch: There is a three vessel aortic arch. There is mild atherosclerotic plaque of the aortic arch,but origins of the supra aortic vessels are patent. Right carotid system: The common carotid and cervical internal carotid arteries are patent. There is calcified atherosclerotic plaque at the carotid bifurcation, but no ICA stenosis (0%) by NASCET criteria. There is no dissection or aneurysm. Left carotid system: The common carotid and cervical internal carotid arteries are patent. There ismild partially calcified atherosclerotic plaque at the carotid bifurcation, but no ICA stenosis (0%) by NASCET criteria. There is no dissection or aneurysm. There is a left-dominant vertebral artery system. Right vertebral: No significant stenosis. No evidence of dissection or aneurysm. There is irregularity of the V3 segment with suggestion of beaded contour, suggesting fibromuscular dysplasia. Left vertebral: Mild indentation of the true segment by uncovertebral spurring at the level of C4-5and C5-6. Otherwise no significant stenosis. No evidence of dissection or aneurysm. There is irregularity of the V3 segment with suggestion of beaded contour, which may reflect fibromuscular dysplasia. Other: Soft tissues and bones: No evidence of lymphadenopathy or mass. The thyroid is unremarkable. There is minimal mucosal thickening in the visualized lung apices. Visualized upper lungs are otherwise clear. Multilevel degenerative changes of the spine are noted, without acute osseous abnormality. CTA OF THE HEAD: Anterior circulation: Bilateral intracranial ICAs demonstrate atherosclerotic calcification, without stenosis. Bilateral ADONAY and MCA branches are patent. There is no significant stenosis, proximal cutoff, aneurysm, or vascular malformation. Posterior circulation: Bilateral intracranial vertebral arteries, the basilar artery, and bilateralsuperior cerebellar and posterior cerebral branches are patent. There is no significant stenosis, proximal cutoff, aneurysm, or vascular malformation. Veins: Major dural venous sinuses are patent. Other: Soft tissues and bones: No midline shift or effacement of the basal cisterns. No space-occupying hemorrhage. No territorial loss of taylor-white matter differentiation. There have been lens extractions bilaterally. The right maxillary sinus is completely opacified with bony wall thickening, suggesting chronic inflammatory change. Remaining paranasal sinuses and mastoids are clear. IMPRESSION: 1. No proximal occlusion or high grade stenosis in the major arteries of the head and neck. 2. Irregularity of the V3 segments of bilateral vertebral arteries may reflect fibromuscular dysplasia. WSN: [id number] Ordering Physician: Elmo Giang Dictated By: Karuna Ovalles MD Dictated Date/Time: 09/06/23 3:38 pm Reviewed By: Karuna Ovalles MD Signed By: Karuna Ovalles MD Signed Date/Time: 09/06/23 3:38 pm Transcribed By: REBEKA Transcribed Date/Time: 09/06/23 3:18 pm * Exam Date Time Procedure Performing Provider Status 09/06/23 3:[address] Angio Head Mee Wyman; Auth (Ve rified) Notes: (CT Angio Head) Reason For Exam: Neuro deficit, acute, stroke suspected;Other: RESULT: CT Angio Head CT Angio Head, CT Angio Neck Hx of Present Illness: pt went to vault custodian for monitor check. Pt reported weakness on right side, cardiology sent to ED. Pt says right sided weakness has resolved. Endorses fatigue; Reason: Other:; Neuro deficit, acute, stroke suspected; Clinical Question(s): Other:; Hematoma Aneurysm; Order Comment: / Other: TECHNIQUE: CT angiogram of the head and neck was performed after bolus administration of intravenous contrast. Coronal and sagittal MIP reformatted images were obtained. Additional 3-D images were created on a separate workstation under concurrent supervision by the attending radiologist. All stenoses are measured using NASCET criteria. Weight-based protocol using automatic tube modulation was used to optimize exposure parameters. CTDIvol Body: 15.67 mGy, DLP Body: 568 mGy*cm. CTDIvol Head: 47.10 mGy, DLP Head: 772 mGy*cm. COMPARISON: Noncontrast CT head performed concurrently. FINDINGS: CTA OF THE NECK: Arch: There is a three vessel aortic arch. There is mild atherosclerotic plaque of the aortic arch,but origins of the supra aortic vessels are patent. Right carotid system: The common carotid and cervical internal carotid arteries are patent. There is calcified atherosclerotic plaque at the carotid bifurcation, but no ICA stenosis (0%) by NASCET criteria. There is no dissection or aneurysm. Left carotid system: The common carotid and cervical internal carotid arteries are patent. There ismild partially calcified atherosclerotic plaque at the carotid bifurcation, but no ICA stenosis (0%) by NASCET criteria. There is no dissection or aneurysm. There is a left-dominant vertebral artery system. Right vertebral: No significant stenosis. No evidence of dissection or aneurysm. There is irregularity of the V3 segment with suggestion of beaded contour, suggesting fibromuscular dysplasia. Left vertebral: Mild indentation of the true segment by uncovertebral spurring at the level of C4-5and C5-6. Otherwise no significant stenosis. No evidence of dissection or aneurysm. There is irregularity of the V3 segment with suggestion of beaded contour, which may reflect fibromuscular dysplasia. Other: Soft tissues and bones: No evidence of lymphadenopathy or mass. The thyroid is unremarkable. There is minimal mucosal thickening in the visualized lung apices. Visualized upper lungs are otherwise clear. Multilevel degenerative changes of the spine are noted, without acute osseous abnormality. CTA OF THE HEAD: Anterior circulation: Bilateral intracranial ICAs demonstrate atherosclerotic calcification, without stenosis. Bilateral ADONAY and MCA branches are patent. There is no significant stenosis, proximal cutoff, aneurysm, or vascular malformation. Posterior circulation: Bilateral intracranial vertebral arteries, the basilar artery, and bilateralsuperior cerebellar and posterior cerebral branches are patent. There is no significant stenosis, proximal cutoff, aneurysm, or vascular malformation. Veins: Major dural venous sinuses are patent. Other: Soft tissues and bones: No midline shift or effacement of the basal cisterns. No space-occupying hemorrhage. No territorial loss of taylor-white matter differentiation. There have been lens extractions bilaterally. The right maxillary sinus is completely opacified with bony wall thickening, suggesting chronic inflammatory change. Remaining paranasal sinuses and mastoids are clear. IMPRESSION: 1. No proximal occlusion or high grade stenosis in the major arteries of the head and neck. 2. Irregularity of the V3 segments of bilateral vertebral arteries may reflect fibromuscular dysplasia. WSN: [id number] Ordering Physician: Elmo Giang Dictated By: Karuna Ovalles MD Dictated Date/Time: 09/06/23 3:38 pm Reviewed By: Karuna Ovalles MD Signed By: Karuna Ovalles MD Signed Date/Time: 09/06/23 3:38 pm Transcribed By: REBEKA Transcribed Date/Time: 09/06/23 3:18 pm * Exam Date Time Procedure Performing Provider Status 09/06/23 1:38 PM Chest 2 Views Frontal and Lat Inge Garland; Tierra (Verified) Notes: (Chest 2 Views Frontal and Lat) Reason For Exam: Shortness of Breath RESULT: Chest 2 Views Frontal and Lat Examination: Chest performed on 09/06/2023. History: Weakness. Fatigue. Findings: Frontal and lateral views of the chest are compared to a prior study dated 05/13/2009. The cardiac and mediastinal silhouettes are within normal limits. An Amplatzer device is again noted. The lungs are clear. The osseous and soft tissue structures are unremarkable. Osteophyte formation within the spine is seen. Impression: There is no acute cardiopulmonary disease. WSN: [id number] Ordering Physician: Elmo Giang Dictated By: Jordana Jimenez MD Dictated Date/Time: 09/06/23 1:43 pm Reviewed By: Jordana Jimenez MD Signed By: Jordana Jimenez MD Signed Date/Time: 09/06/23 1:43 pm Transcribed By: REBEKA Transcribed Date/Time: 09/06/23 1:42 pm Vital Signs Most recent to oldest [Reference Range]: 1 2 3 Height 156 cm (09/08/23 6:19 AM) 156 cm (09/08/23 4:30 AM) 156 cm (09/07/23 11:00 PM) Weight 85.4 kg (09/06/23 11:20 PM) Oxygen Saturation [94-100 %] 99 % (09/08/23 6:19 AM) 97 % (09/08/23 4:30 AM) 100 % (09/07/23 11:00 PM) Pulse Rate [55-90 bpm] 63 bpm (09/08/23 9:06 AM) 63 bpm (09/08/23:19 AM) 62 bpm (09/08/23 4:30 AM) Body Mass Index [18.5-24.99 kg/m2] 35.09 kg/m2 *>HHI* (09/06/23 11:20 PM) Blood Pressure [90-138/55-84 mm Hg] 116/55mm Hg (09/08/23 9:06 AM) 116/55mm Hg (09/08/23:19 AM) 106/55mm Hg (09/08/23 4:30 AM) Respiratory Rate [16-30 br/min] 20 br/min (09/08/23:19 AM) 18 br/min (09/08/23 4:30 AM) 18 br/min (09/07/23 11:00 PM) Temperature [96.8-100.4 DegF] 98.0 DegF (09/08/23:19 AM) 97.9 DegF (09/08/23 4:30 AM) 98.2 DegF (09/07/23 11:00 PM) Mode of Delivery (Oxygen) Room air (09/08/23 6:19 AM) Room air (09/08/23 4:30 AM) Room air (09/07/23 11:00 PM) Blood pressure sites Arm, right (09/08/23:19 AM) Arm, left (09/08/23 4:30 AM) Arm, left (09/07/23 11:00 PM) Temperature Route Oral (09/08/23:19 AM) Oral (09/08/23 4:30 AM) Oral (09/07/23 11:00 PM) Dry Weight 85.4 kg (09/06/23 11:20 PM) Social History Social History Type Response Smoking Status Never smoker entered on: 08/22/14 Sex History and physical note * Pankaj ZAMORA, Anthony: PERFORM, MODIFY, MODIFY Event Display: History and Physical Hospital Authored Date: [id number] Patient: ??MARICEL NEW ? Age:??78 Years?Sex:??Female?:??1945?? Chief Complaint/Reason for Consultation Pt coming from cardiology office, was there for afib monitor check- when pt got there she c/o rightsided weakness that has since resolved. Only complaint right now is feeling tired History of Present Illness 78-year-old female with past medical history significant for diabetes mellitus type 2. In the outpatient, cardiology has been monitoring her for palpitations and tachycardia. Over the past few days, she has been complaining of intermittent??right upper extremity numbness. 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 She was sent for evaluation in the emergency room. ?? ER course: Vital signs: Normal Exam: No acute distress.?? Normal cardiac/pulmonary/neurologic exam ?? Workup: EKG: Normal sinus rhythm Left axis deviation Left bundle branch block Abnormal ECG When compared with ECG of 16-APR-2010 03:30, Left bundle branch block is now Present ?? CBC: Normal Chemistry: Normal LFTs: Normal proBNP: Slightly elevated 905 High-sensitivity troponin: 8???9 TSH: Normal Flu A/B/RSV/COVID-19: Negative ?? Chest 2 views frontal and lateral: No acute cardiopulmonary disease ?? CT head without contrast: No acute intracranial abnormality ?? CT angio head and neck: 1.?? No proximal occlusion or high grade stenosis in the major arteries of the head and neck. 2.?? Irregularity of the V3 segments of bilateral vertebral arteries may reflect fibromuscular dysplasia. ? Interventions performed: Admitted for observation ?? On my evaluation at the observation unit: Vital signs: Normal Patient without any current complaints Review of Systems Constitutional: No weight loss, fever, chills HEENT: No visual loss. No hearing loss, congestion, runny nose , sore throat. Skin: No rash?? Cardiovascular: No chest discomfort. No palpitations. Respiratory: No shortness of breath, cough. Gastrointestinal: No nausea, vomiting or diarrhea. No abdominal pain or blood in stool. Genitourinary: No burning micturition. No urinary frequency or incontinence. Musculoskeletal: No muscle pain, back pain, joint pain or stiffness. Endocrine: No reports of sweating. No cold or heat intolerance. No polyuria or polydipsia. Hematologic: No bleeding or bruising. Immunologic/Allergic: No itchy eyes/Itchy nose/Sneezing/Watery eyes Lymphatics: No enlarged lymph nodes. Neurologic: No headache, unilateral weakness, tingling in the extremities. No change in bowel or bladder control. Psychiatric: No depression or anxiety. Objective Measurements?? Height: 156 cm (09/06/23) Weight: 85.4 kg (09/06/23) Dry Weight: 85.4 kg (09/06/23) Body Mass Index:??35.09 kg/m2??Critical (09/06/23) ? Vital Signs?? Temperature: 98.1 DegF (09/06/23 23:20:00) Temperature Route: Oral (09/06/23 23:20:00) Pulse Rate: 62 bpm (09/06/23 23:20:00) Respiratory Rate: 18 br/min (09/06/23 23:20:00) Systolic Blood Pressure: 120 mm Hg (09/06/23 23:20:00) Diastolic Blood Pressure: 58 mm Hg (09/06/23 23:20:00) Blood pressure sites: Arm, left (09/06/23 23:20:00) Mean Arterial Pressure: 79 mm Hg (09/06/23 23:20:00) Pulse Pressure: 62 mm Hg (09/06/23 23:20:00) Oxygen Saturation: 99 % (09/06/23 23:20:00) Mode of Delivery (Oxygen): Room air (09/06/23 23:20:00) Early Warning Score: 0 (09/07/23 00:18:51) ? Intake/Output? No Data Available ? Physical Exam GENERAL: Non acutely?? ill-appearing, no acute cardiorespiratory distress HEAD: Normocephalic, atraumatic. EYES: No conjunctival injection. No scleral icterus. [place] conjunctiva EARS: No tenderness, no discharge. NOSE: No asymmetry. MOUTH AND THROAT: No oral thrush. Moist mucous membranes NECK: No JVP elevation, No masses. Range of motion full. HEART: Regular rate ??and ??regular rhythm, no murmurs, no clicks, no rubs , no gallops. CHEST: Symmetric with respirations. No accessory muscle use, No wheezes, crackles. ABDOMEN: Normoactive bowel sounds. No tenderness without guarding. No increase in liver or spleen size. No masses palpable. GENITOURINARY: No CV angle tenderness. No suprapubic tenderness. No Alfaro catheter in place.?? Rectal exam is deferred. MUSCULOSKELETAL: Range of motion full in all extremities , no obvious deformity , no increased warmth , no effusion?? VASCULAR: All pulses brisk and equal, Capillary refill time < 2sec LYMPHATIC: No cervical, axillary or inguinal adenopathy. Skin: Dry and thin. No evidence of cellulitis, no other major skin lesions?? NEUROLOGIC: No deficit on gross motor and sensory exam Alert and oriented to person, place, time, and situation?? Psychiatric: No delusions, hallucinations, SI or HI?? Assessment/Plan Assessment:??78-year-old female with past medical history significant for diabetes mellitus type 2.?? She is being investigated for palpitations and tachycardia and had outpatient monitor car operator placed.?? Since then, she has been complaining of intermittent right upper extremity numbness.?? 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 ?? TIA (transient ischemic attack) (G45.9): Admitted to the observation unit with telemetry monitoring Patient without any current symptoms and clearly established her symptoms are intermittent. However, given the presence of possible paroxysmal atrial fibrillation, will order an MRI to rule out an embolic stroke Continue aspirin Along with morning labs, check hemoglobin A1c and lipid panel ?? Palpitations (R00.2): Reported to have episodes of rapid A-fib in the outpatient Currently in sinus rhythm Will defer to her outpatient vault custodian further workup ?? Diabetes mellitus type II, controlled (E11.9): Hold oral hypoglycemics while in-house POC glucose with meals and at bedtime Cover with insulin sliding scale Hypoglycemic protocol in place ?? VTE Prophylaxis:?? Pneumoboots pending MRI ?? Code Status: Full code ?? Ongoing Medical Necessity: Stroke workup ?? Discharge Planning: Anticipate at least 1 night hospital stay The above document was completed by performing history, physical examination, reconciling multiple medications, review of laboratory and imaging?? All assessment and plan were discussed with the patient ??and requested feedback with attempts to maximize understanding for the care provided. This required approximately 55 minutes to complete. Histories Allergies Allergies ?(Active and Proposed Allergies Only) NKA? (Severity: Unknown severity, Onset: Unknown) ? Past Medical History/Problem List Active Problems??(6) Back pain Diabetes mellitus type II, controlled Endometrial polyp Severe obesity (BMI 35.0-39.9) with comorbidity [place]er speaking patient Vitamin D deficiency ? Past Surgical History Hysteroscopy, Dilation and Currettage and Polypectomy: 09/10/14 Cardiac surgery procedure: 2003 Appendectomy Tubal ligation ? Social History Alcohol Details:??Use: Never. Sexual Details:??Sexually involved in last 6 months: Yes. Substance Abuse Details:??Use: Never. Tobacco Details:??Never smoker Details:??Never smoker ? Family History Father: CAD - Coronary artery disease Other: Cancer of breast ? Medications Home Medications Aspirin (aspirin 81 mg oral enteric coated tablet)?1?tab(s)?81?Milligram?By Mouth?Daily?for 250?Days Ergocalciferol (Vitamin D 23109 iu oral capsule)?50,000?International Unit?By Mouth?Daily sitagliptin (Januvia)?By Mouth?Daily ? Results Recent Labs BLOOD COUNT & DIFF WBC 5.9 k/mm3 ()?? 09/06/2023 13:05 RBC 4.68 m/mm3 ()?? 09/06/2023 13:05 Hgb 13.6 Gm/dL ()?? 09/06/2023 13:05 Hct 42.2 % ()?? 09/06/2023 13:05 MCV 90.2 femtoliters ()?? 09/06/2023 13:05 MCH 29.1 pg ()?? 09/06/2023 13:05 MCHC 32.2 g/dL (Low)?? 09/06/2023 13:05 Platelet Count 228 k/mm3 ()?? 09/06/2023 13:05 RDW-SD 43.8 femtoliters ()?? 09/06/2023 13:05 MPV 9.0 femtoliters (Low)?? 09/06/2023 13:05 Nucleated RBC (Automated) 0.0 #/100 WBC'S ()?? 09/06/2023 13:05 Abs. NRBC 0.0 k/mm3 ()?? 09/06/2023 13:05 Abs. Neut 3.5 k/mm3 ()?? 09/06/2023 13:05 Abs. Lymph 1.9 k/mm3 ()?? 09/06/2023 13:05 Abs. [place] 0.4 k/mm3 ()?? 09/06/2023 13:05 Abs. Eo 0.0 k/mm3 ()?? 09/06/2023 13:05 Abs. Baso 0.1 k/mm3 ()?? 09/06/2023 13:05 Neut % 59.2 % ()?? 09/06/2023 13:05 Lymph % 32.4 % ()?? 09/06/2023 13:05 Carlisle % 6.5 % ()?? 09/06/2023 13:05 Eos % 0.7 % ()?? 09/06/2023 13:05 Baso % 0.9 % ()?? 09/06/2023 13:05 Imm Gran 0.3 % ()?? 09/06/2023 13:05 Abs. Imm Gran 0.0 k/mm3 ()?? 09/06/2023 13:05 ?? CARDIAC Nt-Probnp 905 pg/mL (High)?? 09/06/2023 13:05 High Sensitivity Troponin (HSTnT) 9 ng/L ()?? 09/06/2023 18:11 ?? CHEM GENERAL Sodium 140 mmol/L ()?? 09/06/2023 13:05 Potassium 4.4 mmol/L ()?? 09/06/2023 13:05 Chloride 104 mmol/L ()?? 09/06/2023 13:05 Bicarbonate Level 27 mmol/L ()?? 09/06/2023 13:05 Anion Gap 9 ()?? 09/06/2023 13:05 Glucose Level 133 mg/dL (High)?? 09/06/2023 13:05 Glucose, POC 104 mg/dL (High)?? 09/07/2023 00:16 BUN 16 mg/dL ()?? 09/06/2023 13:05 Creatinine-Blood 0.8 mg/dL ()?? 09/06/2023 13:05 Estimated GFR Creatinine 73 ML/MIN/1.73 M2 ()?? 09/06/2023 13:05 Calcium 9.5 mg/dL ()?? 09/06/2023 13:05 Protein, Total 6.7 Gm/dL ()?? 09/06/2023 13:05 Albumin 4.4 Gm/dL ()?? 09/06/2023 13:05 AG Ratio 1.9 ()?? 09/06/2023 13:05 Alkaline Phosphatase 110 units/L (High)?? 09/06/2023 13:05 AST (SGOT) 17 units/L ()?? 09/06/2023 13:05 ALT (SGPT) 14 units/L ()?? 09/06/2023 13:05 Bilirubin, Total 0.4 mg/dL ()?? 09/06/2023 13:05 ?? ENDOCRINE/TUMOR MARKER TSH 1.65 uIU/mL ()?? 09/06/2023 13:05 ?? HEME OTHER Hold Blue Top SPECIMEN DISCARDED AFTER 4 HOURS. ()?? 09/06/2023 13:05 ?? URINE OTHER Est Creatinine Clearance 45.33 mL/min ()?? 09/07/2023 00:56 ?? VIROLOGY Influenza A PCR NEGATIVE ()?? 09/06/2023 13:09 Influenza B PCR NEGATIVE ()?? 09/06/2023 13:09 RSV PCR NEGATIVE ()?? 09/06/2023 13:09 COVID-19 PCR Specimen Source NASAL ()?? 09/06/2023 13:09 COVID-19 PCR Result NEGATIVE ()?? 09/06/2023 13:09 ? US Heart * Event Display: Echocardiogram - Complete Authored Date: Transthoracic Echocardiography Report (TTE) Patient Demographics Patient Name VIRGEN, Date of Study 09/07/2023 MARICEL [employer] Gender Female Facility Race Ethnicity or Date of 1945 Height: 61.42 inches Age 78 year(s) Weight: 187.39 pounds Accession Number [id number] BSA: 1.85 m2 Room Number [id number] BMI: 34.93 kg/m2 Referring Physician Fernandez Salazar MD Interpreting Wilfred Gutiérrez MD Physician Web Analytics Developer Mee ANTONIO Indications Atrial fibrillation. Clinical History Diabetes Mellitus. Obesity. Study Data Type of Study TTE procedure:Echo Complete-Doppler, Colorflow, M-Mode. Study Date09/07/2023 Start Time: 01:30 PM Study Location: [facility] [place] [facility] Study Status: Echo lab Patient Status: Routine Technical Quality: Fair Blood Pressure:124/55 mmHg EKG: Normal sinus rhythm HR: 62 bpm 2D Measurements LV Diastolic Dimension: 4.53 cm LV Systolic Dimension: 3.5 cm LV Septum Diastolic: 0.97 cm LV PW Diastolic: 1 cm AO Root Dimension: 2.99 cm LA ESV (BP):76.04 ml LVOT Stroke Volume: 53.84 ml LA ESV Index: 41 ml/m2 Stroke Volume Index29.1 ml/m2 LVOT: 2.16 cm Cardiac Index:1.81 l/min/m2 Ascending Aorta:2.6 cm Doppler Measurements AV Peak Velocity: 127 cm/s MV Peak E-Wave: 63.7 cm/s AV Peak Gradient: 6.45 mmHg MV Peak A-Wave: 121 cm/s AV Mean Gradient: 4 mmHg MV E/A Ratio: 0.53 AV VTI:29.9 cm MV P1/2t: 76 msec LVOT Peak Velocity: 65.8 cm/s LVOT VTI14.7 cm MV Deceleration Time: 260 msec AV Area (Continuity):1.8 cm2 MV Area (PHT): 2.89 cm2 TR Velocity:200 cm/s TR Gradient:16 mmHg E' Septal Velocity: 5.22 cm/s E' Lateral Velocity: 6.53 cm/s E/Med E':12.40480 E/Lat E':[id number] Cardiac Anatomy Left Ventricle/Interventricular Septum The left ventricular size is normal. Left ventricular wall thickness is normal. The LV systolic function is normal . The left ventricular ejection fraction is 55-60 %. No obvious wall motion abnormalities seen on limited views. Left ventricular filling pressures are indeterminate. Left Atrium/Interatrial Septum The left atrium is mildly dilated. There is an atrial septal defect (ASD) closure device present. Aortic Valve The aortic valve is trileaflet . The aortic valve appears mildly calcified. There is no aortic stenosis. There is no aortic regurgitation. Mitral Valve There is mild mitral annular calcification. The mitral valve opening is normal. There is trivial mitral regurgitation. Aorta The ascending aorta and aortic root are normal in size. Right Ventricle Right ventricular systolic function appears preserved. Right Atrium The right atrium is normal in size. Pulmonic Valve The pulmonic valve appears grossly normal. Tricuspid Valve The tricuspid valve is poorly visualized. There is mild tricuspid valve regurgitation. Pumonary Artery The pulmonary artery systolic pressure estimation is within normal limits. Venous Structures The inferior vena cava is poorly visualized. The inferior vena cava appears grossly normal. Pericardium/Extracardiac There is no significant pericardial effusion. Summary The left ventricular size is normal. Left ventricular wall thickness is normal. The LV systolic function is normal . The left ventricular ejection fraction is 55-60 %. No obvious wall motion abnormalities seen on limited views. Left ventricular filling pressures are indeterminate. The left atrium is mildly dilated. There is an atrial septal defect (ASD) closure device present. The aortic valve is trileaflet . The aortic valve appears mildly calcified. There is no aortic stenosis. There is no aortic regurgitation. There is mild mitral annular calcification. The mitral valve opening is normal. There is trivial mitral regurgitation. Right ventricular systolic function appears preserved. Comparison Comparison is made to the study of September 06, 2014. There is no definite interval change. Signature * Event Display: Echocardiogram - Complete Authored Date: Cardiology * Event Display: Cardiac Rhythm Strips Authored Date: * Event Display: Cardiac Rhythm Strips Authored Date: Hospital Progress note * Della Resendiz RN: VERIFY, PERFORM, SIGN Event Display: Progress Note Hospital Authored Date: Patient: MARICEL NEW Age: 78 years Sex: Female : 1945 Associated Diagnoses: None Author: Della Resendiz RN Findings Narrative/Incidental Pt c/o Nausea given Zofran with good effect. No CP,no SOB, V/S stable. Sr on Tele. Had MRI awaitingfor result. All needs are met, Callbell within reach. Continously monitored.. * Garry ZAMORA, Eda: PERFORM Event Display: Progress Note Hospital Authored Date: Patient: ??MARICEL NEW ? Age:??78 Years?Sex:??Female?:??1945?? Patient was seen and examined at bedside Overnight events noted Telemetry reviewed Patient denies any palpitation No complaints of afib overnight Patient is in sinus rhythm Patient denies Numbness or weakness?? extremities Patient is having intermittent numbness in her right upper extremity for the last 2 weeks Cardiology evaluated her, recommends??starting her on metoprolol,??Eliquis Echocardiogram as inpatient versus outpatient MRI brain without contrast??which??likely will be done this evening ??for Details please refer to the history and physical done earlier today * Nik CRAFT, Hannah: PERFORM, SIGN, VERIFY Event Display: Progress Note Hospital Authored Date: Patient: MARICEL NEW Age: 78 years Sex: Female : 1945 Associated Diagnoses: None Author: Nik RN, Hannah Findings Pt arrived on unit approx 2315. Pt a/ox4, ambulates with standby assist, denies pain. VSS, SR on telemonitor. Bedside swallow screen passed. Cardiac diet ordered. Consult note * Fernandez Salazar MD: PERFORM, MODIFY Event Display: Consultation Note Authored Date: Patient: ??MARICEL NEW ? Age:??78 Years?Sex:??Female?:??1945?? Indication for Consult Pt coming from cardiology office, was there for afib monitor check- when pt got there she c/o rightsided weakness that has since resolved. Only complaint right now is feeling tired History of Present Illness/Interval History 78-year-old female with past medical history significant for diabetes mellitus type 2. In the outpatient, cardiology has been monitoring her for palpitations and tachycardia. Over the past few days, she has been complaining of intermittent??right upper extremity numbness. 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 She was sent for evaluation in the emergency room. ?? Currently in NSR. ??Denies chest pain, shortness of breath, swelling in the legs ?? Review of Systems Constitutional:??No weight loss, fever, chills, weakness or fatigue. Allergy/Immune: Denies any??Eczema or hives Eyes:??No visual loss, blurred vision, double vision or yellow sclera ENT:??No hearing loss, sneezing, congestion, runny nose or sore throat. Respiratory:??No shortness of breath, cough or sputum production. Cardiovascular:??No chest pain, chest pressure or chest discomfort. No palpitations or pedal edema. Gastrointestinal:??No anorexia, nausea, vomiting or diarrhea. No abdominal pain or blood in stool. Genitourinary:??No burning micturition. No urinary frequency or incontinence. Neurologic:??No headache, dizziness, syncope, unilateral weakness, ataxia, numbness or tingling in the extremities. No change in bowel or bladder control. Musculoskeletal:??No muscle pain, back pain, joint pain or stiffness. Hematologic/Lymphatics:??No bleeding or bruising. No painful lymph nodes. Skin:??No rash or itching. Endocrine:??No reports of sweating. No cold or heat intolerance. No polyuria or polydipsia. Psychiatric:??No depression or anxiety. Physical Exam Vitals & Measurements T:??97.9?F?? HR:??66??(Peripheral)?? RR:??18?? BP:??130/62?? SpO2:??98%?? HT:??156??cm?? WT:??85.4??kg?? BMI:??35.09?? Weight lb/oz: 188 lb 4 oz ?General not in acute distress ?HEENT: PERRLA ?Neck: No JVD, No thyromegaly ?Lungs: clear to auscultation bilaterally ?Cardiovascular: regular rate and rhythm, normal s1 and s2 no murmurs ?Abdomen: soft, nontender, positive bowel sounds ?Extremities: no edema ?Skin: No rash ?Neuro: grossly normal Assessment/Plan Paroxysmal atrial fibrillation Palpitations TIA Diabetes mellitus ?? We had a detailed discussion with the patient in the hospital rate control versus rhythm control.??Patient at this point opted for rate control.?? Will start beta-merlin. ??Can start with??25 mg??metoprolol??twice daily. ??The patient has more episodes of atrial fibrillation??can think about rhythm control??with medications or ablation ??in view of high [id number]??score??patient will need to be on blood thinners. Eliquis 5 mg bid Echocardiogram can be done inpatient versus outpatient Workup for TIA per primary team ?? Thank you for the consult Please [place] connect if you have any questions Allergies NKA Home Medications Aspirin: 81 mg = 1 tablet, By Mouth, Daily Ergocalciferol: 50,000 International_Units, By Mouth, Daily sitagliptin: By Mouth, Daily Hospital Medications Medications (11) Active SCHEDULED: (3) Aspirin 81 mg EC Tablet (aspirin 81 mg oral delayed release tablet) ??81 mg, By Mouth, Daily Insulin Lispro 100 units/mL Inj (3mL) (Insulin LISPRO Sliding Scale) ??2-10 units, Subcutaneous Injection, 3 times a day before meals NaCl 0.9% Flush 3ml (NaCL 0.9% Flush) ??3 mL, IV Push, Every 8 hours CONTINUOUS: (0) PRN: (8) Acetaminophen 325 mg Tablet (Acetaminophen Tablet) ??650 mg, By Mouth, Every 4 hours Dextromethorphan-Guaifenesin 20 mg-200 mg/10 mL Liqu UD (Robitussin DM Liquid) ??10 mL, By Mouth, Every 4 hours Docusate Sodium 100 mg Capsule (Docusate Sodium Capsule) ??100 mg 1 capsule, By Mouth, 2 times a day Melatonin 3 mg Tablet (Melatonin Tablet) ??3 mg, By Mouth, Daily at bedtime NaCl 0.9% Flush 3ml (NaCL 0.9% Flush) ??3 mL, IV Push, Every 8 hours Polyethylene Glycol 17 Gm Powder (MiraLax Powder) ??17 Gm 1 pack/packet, By Mouth, Daily Senna Tablet ??8.6 mg 1 tablet, By Mouth, 2 times a day Simethicone 80 mg Chewable Tablet (Simethicone Tablet) ??80 mg, Chew, 3 times a day Lab Results Cardiology Labs WBC: 6.8 k/mm3 (09/07/23) RBC: 4.32 m/mm3 (09/07/23) Hgb: 12.7 Gm/dL (09/07/23) Hct: 38.6 % (09/07/23) MCV: 89.4 femtoliters (09/07/23) MCH: 29.4 pg (09/07/23) MCHC:??32.9 g/dL??Low (09/07/23) Platelet Count: 214 k/mm3 (09/07/23) RDW-SD: 43.4 femtoliters (09/07/23) Nucleated RBC (Automated): 0 #/100 WBC'S (09/07/23) Abs. Neut: 3.5 k/mm3 (09/06/23) Abs. Lymph: 1.9 k/mm3 (09/06/23) Abs. Carlisle: 0.4 k/mm3 (09/06/23) Abs. Eo: 0 k/mm3 (09/06/23) Abs. Baso: 0.1 k/mm3 (09/06/23) Neut %: 59.2 % (09/06/23) Carlisle %: 6.5 % (09/06/23) Eos %: 0.7 % (09/06/23) Baso %: 0.9 % (09/06/23) Imm Gran: 0.3 % (09/06/23) Abs. Imm Gran: 0 k/mm3 (09/06/23) Sodium: 140 mmol/L (09/07/23) Potassium: 4.2 mmol/L (09/07/23) Chloride: 106 mmol/L (09/07/23) Bicarbonate Level: 24 mmol/L (09/07/23) Glucose Level:??133 mg/dL??High (09/06/23) Hemoglobin A1C (Monitoring):??6.4 %??High (09/07/23) BUN: 13 mg/dL (09/07/23) Creatinine-Blood: 0.9 mg/dL (09/07/23) Calcium: 9.5 mg/dL (09/06/23) Protein, Total: 6.7 Gm/dL (09/06/23) Albumin: 4.4 Gm/dL (09/06/23) Alkaline Phosphatase:??110 units/L??High (09/06/23) AST (SGOT): 17 units/L (09/06/23) ALT (SGPT): 14 units/L (09/06/23) Bilirubin, Total: 0.4 mg/dL (09/06/23) Nt-Probnp:??905 pg/mL??High (09/06/23) Cholesterol: 178 mg/dL (09/07/23) Triglycerides: 85 mg/dL (09/07/23) HDL Cholesterol: 71 mg/dL (09/07/23) LDL Cholesterol: 90 mg/dL (09/07/23) Non HDL Cholesterol: 107 mg/dL (09/07/23) TSH: 1.65 uIU/mL (09/06/23) Diagnostic Impression ECG ECG 12-Lead * Preliminary * ?? 11:53:41 Please click on pdf link to open report ?? ECG 12-Lead * Preliminary * ?? 11:53:41 Ventricular Rate: 68 BPM Atrial Rate: 68 BPM P-R Interval: 202 ms QRS Duration: 128 ms Q-T Interval: 458 ms QTC Calculation(Bazett): 487 ms P Vernon: 10 degrees R Vernon: -40 degrees T Vernon: 70 degrees Normal sinus rhythm Left axis deviation Left bundle branch block Abnormal ECG When compared with ECG of 16-APR-2010 03:30, Left bundle branch block is now Present ?? Valatie: , Problem List/Past Medical History Ongoing Back pain Diabetes mellitus type II, controlled Endometrial polyp Severe obesity (BMI 35.0-39.9) with comorbidity Cay[place] Islander speaking patient Vitamin D deficiency Procedure/Surgical History Hysteroscopy, Dilation and Currettage and Polypectomy: 09/10/14 Cardiac surgery procedure: 2004 Appendectomy Tubal ligation Social History Alcohol Use: Never. Sexual Sexually involved in last 6 months: Yes. Substance Abuse Use: Never. Tobacco Never smoker Family History Father: CAD - Coronary artery disease Other: Cancer of breast Note * Neha Hawkins RN: PERFORM Event Display: Discharge/Transfer Note Hospital Authored Date: [id number] Nursing Discharge Note Entered On: 09/08/2023 9:51 EST Performed On: 09/08/2023 9:51 EST by Neha Hawkins RN Nursing Discharge Note 2 Discharge Time : 09/08/2023 9:45 EST Discharge Level of Care at Discharge : Home/Chcf/Foster Care Patient Left Unit Via : Ambulatory Patient Accompanied Off Unit with : Significant other, Responsible adult DC Instructions Provided & Signed by Pt : Yes Patient Understands D/C Instructions : Yes Patient Instructions Discharge Signed : Yes Did Pt have Specialty Bed or Wound Vac : No Neha Hawkins RN - 09/08/2023 9:51 EST * Eda Castañeda MD: PERFORM Event Display: Discharge/Transfer Note Hospital Authored Date: [id number] Patient: ??MARICEL NEW ? Age:??78 Years?Sex:??Female?:??1945?? Patient Information Discharge Location: [facility] Primary Care Physician: Freya Norris MD Admit Date/Time: 09/06/23 11:29 Discharge Disposition Discharge Disposition: Home: No Services Discharge Diagnosis ?? Heaviness of upper extremity (R29.898) New onset a-fib (I48.91) ?? _ Discharge Medications apixaban (apixaban Starter Pack 5 mg oral tablet)?5?Milligram?By Mouth?2 times a day?for 30?Days Ergocalciferol (Vitamin D 34085 iu oral capsule)?50,000?International Unit?By Mouth?Daily Lisinopril (lisinopril 10 mg oral tablet)?TAKE 1 TABLET BY MOUTH EVERY DAY FOR 30 DAYS Metoprolol (metoprolol 25 mg oral tablet)?25?Milligram?By Mouth?2 times a day?for 30?Days sitagliptin (Januvia)?By Mouth?Daily ? Durable Medical Equipment Ambulatory devices needed: None (09/06/23) ? Medications Started Metoprolol, Apixaban Medications Discontinued none Allergies Allergies ?(Active and Proposed Allergies Only) NKA? (Severity: Unknown severity, Onset: Unknown) ? Objective Assessment and Plan ?78-year-old female with past medical history significant for diabetes mellitus type 2.?? She is being investigated for palpitations and tachycardia and had outpatient monitor car operator placed.?? Since then, she has been complaining of intermittent right upper extremity numbness.?? 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 Remain in NSR. No focal weakness. Her presentation unlikey from CVA/TIA.?? MRi brain - no acute.?? Plan ana discharge home today, plan discussed with pt?? and her . ? Palpitations (R00.2): New onset a-fib (I48.91) Reported to have episodes of rapid A-fib in the outpatient Currently in sinus rhythm ??Seen by cardiology , remain in NSR , started on Metoprolol 25 mg BID and Apixaban ??Will continue?? metoprolol, Apixaban? Heaviness of upper extremity (R29.898) ??c/o intermittent numbness ??No weakness, no numbness now ?? MRI brain - no acute ??No further work up at this time ??Cervical spine imaging can be considered as OP if symptoms persist ? . Physical Exam GENERAL: In no apparent distress HEENT: Head normocephalic, PERRL,Moist mucous membrane. Neck supple CARDIOVASCULAR: Normal rate and rhythm, no murmurs, no rubs, no gallops RESPIRATORY: Lungs clear to auscultation, no wheezes , no crackles ABDOMEN/GI: Nondistended, soft, nontender, normal bowel sounds EXTREMITIES: No pitting edema CONTENT CREATION MANAGER: Alert and oriented x 3.Non focal neuro exam. ? Consultants Cardiology Pending Results No Pending Results Patient Education Titles Apixaban Oral Tablet?? Metoprolol Oral Tablet?? Living with Atrial Fibrillation: Preventing Stroke?? Discharge Instructions for Atrial Fibrillation?? Understanding Atrial Fibrillation (AFib)?? Atrial Fibrillation?? Afib Guidelines Patient Discharge Instructions?? Follow-Up Appointments Added Follow Up ?Time Frame ?Comments Emir Azevedo MD , Freya Vazquez?1 to 2 weeks Post Discharge Care Discharge ?09/08/23 8:56:00 EST Discharge Prescriptions ?ePrescribed, 09/08/23 8:56:00 EST Home Health Face to Face ^HomeHealthFTF Results Discharge Labs BLOOD COUNT & DIFF WBC 6.8 k/mm3 ()?? 09/07/2023 02:34 RBC 4.32 m/mm3 ()?? 09/07/2023 02:34 Hgb 12.7 Gm/dL ()?? 09/07/2023 02:34 Hct 38.6 % ()?? 09/07/2023 02:34 MCV 89.4 femtoliters ()?? 09/07/2023 02:34 MCH 29.4 pg ()?? 09/07/2023 02:34 MCHC 32.9 g/dL (Low)?? 09/07/2023 02:34 Platelet Count 214 k/mm3 ()?? 09/07/2023 02:34 RDW-SD 43.4 femtoliters ()?? 09/07/2023 02:34 MPV 8.5 femtoliters (Low)?? 09/07/2023 02:34 Nucleated RBC (Automated) 0.0 #/100 WBC'S ()?? 09/07/2023 02:34 Abs. NRBC 0.0 k/mm3 ()?? 09/07/2023 02:34 Abs. Neut 3.5 k/mm3 ()?? 09/06/2023 13:05 Abs. Lymph 1.9 k/mm3 ()?? 09/06/2023 13:05 Abs. Carlisle 0.4 k/mm3 ()?? 09/06/2023 13:05 Abs. Eo 0.0 k/mm3 ()?? 09/06/2023 13:05 Abs. Baso 0.1 k/mm3 ()?? 09/06/2023 13:05 Neut % 59.2 % ()?? 09/06/2023 13:05 Lymph % 32.4 % ()?? 09/06/2023 13:05 Carlisle % 6.5 % ()?? 09/06/2023 13:05 Eos % 0.7 % ()?? 09/06/2023 13:05 Baso % 0.9 % ()?? 09/06/2023 13:05 Imm Gran 0.3 % ()?? 09/06/2023 13:05 Abs. Imm Gran 0.0 k/mm3 ()?? 09/06/2023 13:05 ?? CARDIAC Nt-Probnp 905 pg/mL (High)?? 09/06/2023 13:05 High Sensitivity Troponin (HSTnT) 9 ng/L ()?? 09/06/2023 18:11 ?? CHEM GENERAL Sodium 140 mmol/L ()?? 09/07/2023 02:35 Potassium 4.2 mmol/L ()?? 09/07/2023 02:35 Chloride 106 mmol/L ()?? 09/07/2023 02:35 Bicarbonate Level 24 mmol/L ()?? 09/07/2023 02:35 Anion Gap 10 ()?? 09/07/2023 02:35 Glucose Level 133 mg/dL (High)?? 09/06/2023 13:05 Glucose, POC 125 mg/dL (High)?? 09/08/2023 05:04 Hemoglobin A1C (Monitoring) 6.4 % (High)?? 09/07/2023 02:34 BUN 13 mg/dL ()?? 09/07/2023 02:35 Creatinine-Blood 0.9 mg/dL ()?? 09/07/2023 02:35 Estimated GFR Creatinine 62 ML/MIN/1.73 M2 ()?? 09/07/2023 02:35 Calcium 9.5 mg/dL ()?? 09/06/2023 13:05 Protein, Total 6.7 Gm/dL ()?? 09/06/2023 13:05 Albumin 4.4 Gm/dL ()?? 09/06/2023 13:05 AG Ratio 1.9 ()?? 09/06/2023 13:05 Alkaline Phosphatase 110 units/L (High)?? 09/06/2023 13:05 AST (SGOT) 17 units/L ()?? 09/06/2023 13:05 ALT (SGPT) 14 units/L ()?? 09/06/2023 13:05 Bilirubin, Total 0.4 mg/dL ()?? 09/06/2023 13:05 ? ENDOCRINE/TUMOR MARKER TSH 1.65 uIU/mL ()?? 09/06/2023 13:05 ? HEME OTHER Hold Blue Top SPECIMEN DISCARDED AFTER 4 HOURS. ()?? 09/06/2023 13:05 ? LIPID STUDIES Cholesterol 178 mg/dL ()?? 09/07/2023 02:35 Triglycerides 85 mg/dL ()?? 09/07/2023 02:35 HDL Cholesterol 71 mg/dL ()?? 09/07/2023 02:35 LDL Cholesterol 90 mg/dL ()?? 09/07/2023 02:35 Non HDL Cholesterol 107 mg/dL ()?? 09/07/2023 02:35 ? URINE OTHER Est Creatinine Clearance 40.29 mL/min ()?? 09/07/2023 03:39 ? VIROLOGY Influenza A PCR NEGATIVE ()?? 09/06/2023 13:09 Influenza B PCR NEGATIVE ()?? 09/06/2023 13:09 RSV PCR NEGATIVE ()?? 09/06/2023 13:09 COVID-19 PCR Specimen Source NASAL ()?? 09/06/2023 13:09 COVID-19 PCR Result NEGATIVE ()?? 09/06/2023 13:09 ? _45 minutes spent on discharge * Shruthi CRAFT, Neha: PERFORM Event Display: Patient Education/Instruction Authored Date: [id number] Inpatient Adult Discharge Instructions. [place] [id number] Name: MARICEL NEW : 1945?? Visit: 09/06/2023 11:29?? Current Date: 09/08/2023 09:28 ?? Account: [id number]?? Inpatient Adult Discharge Instructions We would like to thank you for allowing us to assist you with your healthcare needs. The following includes patient education materials and information regarding your injury/illness. Our entire staffstrives to provide an excellent experience for our patients and their families. PLEASE ENSURE YOU FOLLOW-UP PER THE INSTRUCTIONS BELOW! ?? YOUR OPINION IS IMPORTANT TO US! Please complete the survey you may receive by mail or email. Your feedback will be used to make improvements to the healthcare experiences of our patients and their families. Surveys are administered by [employer] ?? If further treatment with your primary care physician or another doctor is recommended, it is important for you to keep the appointment. Call your primary care physician or return to the Emergency Department immediately if your condition worsens, fails to improve, or new symptoms develop. If you need to find a doctor, you can call [facility] for a referral at [phone] or toll free at [phone] [email or web address] [phone]) or log in to [email or web address].. ?? [facility], in keeping with [facility] guidance, no longer requires face masks for staff, patientsor visitors in most situations. Similiar to time spent indoors at other locations, there is the chance that you were exposed to repiratory viruses during your time with us (such as flu or COVID-19). If you develop symptoms concerning for a viral respiratory infection, please seek testing (and treatment if indicated) from your medical provider or home test kit. ?? You can view and manage your care through the patient portal or by using a health care montrell of your choosing. [employer] is a website that allows you to securely view your medical information including your hospital discharge summary, office visit summaries, medications and follow-up visits. You can also request appointments, renew medications, and request access to your medical information using a health care montrell of your choosing, or just ask a question. You can enroll at [email or web address] or register during your next office visit. You have been discharged from [facility], Patient Care Unit: D3B??. If you have any questions regarding these instructions, including results of studies pending, afteryou leave, please call us and we will be happy to assist you 22/02. [facility] Your Care Team Attending Physician Eda Castañeda MD?? Consulting Providers Eda Castañeda MD?? Discharging Providers Eda Castañeda MD Reason for Your Visit Pt coming from cardiology office, was there for afib monitor check- when pt got there she c/o rightsided weakness that has since resolved. Only complaint right now is feeling tired ?? Your Diagnosis TIA (transient ischemic attack) Diabetes mellitus type II, controlled General medical New onset a-fib Tests Performed Below is a partial list of the tests performed during your hospitalization. You may have had other tests and procedures not included in this list. Please discuss all test results with your provider. BUN CBC CBC w/ Differential Comprehensive Metabolic Panel COVID-19, RSV, and Flu A/B, Rapid PCR Creatinine Electrolytes GLUCOSE POC Hemoglobin A1C (Monitoring) High??Sensitivity??Troponin T Hold Blue Top Tube Lipid Panel ProBNP TSH with T4 Reflex (Adults Only) CT Angio Head CT Angio Neck CT Head/Brain W/O Contrast MRI Brain W/O Contrast XR Chest 2 Views Frontal and Lat No tests performed during this visit.?? Primary Care Provider Freya Norris MD? Discharge Vitals Temperature: 98 DegF Height: 156 cm Pulse Rate: 63 bpm Weight: 85.4 kg Respiratory Rate: 20 br/min Body Mass Index:??35.09 kg/m2??Critical Systolic Blood Pressure: 116 mm Hg Body surface area: 1.92 Diastolic Blood Pressure: 55 mm Hg ?? Oxygen Saturation: 99 % ?? Studies Pending All studies ordered during this hospital stay have been completed unless listed below. Please discuss all pending results with your provider listed above in these instructions. ?? No incomplete studies found?? What to do next Instructions From Your Doctor ?? Orders? 09/08/23 8:56:00 EST?? Prescriptions??, ??09/08/23 8:56:00 EST?? You Need to Schedule the Following Appointments Follow Up with??Freya Norris MD When:??Within 1 to 2 weeks Where: [address] [place] [address]- Discharge Medications MARICEL NEW :1945 Visit Date:09/06/2023 Medications: Please continue your medications until treatment is completed or stopped by your provider. Medications not listed below should be discontinued. Discuss any questions related to medications with your provider. What How Much When Instructions Next Dose New apixaban (apixaban Starter Pack 5 mg oral tablet) 5 Milligram Oral Twice a day Duration: 30 Days Pickup at [place] [address] 09/08/23 9PM New Metoprolol (metoprolol 25 mg oral tablet) 25 Milligram Oral Twice a day Duration: 30 Days Pickup at [place] [address] 09/08/23 9PM Unchanged Ergocalciferol (Vitamin D 27122 iu oral capsule) 50,000 International Unit Oral Daily 09/09/23 9AM Unchanged Lisinopril (lisinopril 10 mg oral tablet) TAKE 1 TABLET BY MOUTH EVERY DAY FOR 30 DAYS ?? Resume as prescribed Unchanged sitagliptin (Januvia) Oral Daily Resume as prescribed Pharmacy Information [facility]: [address] [place] [address] [phone] ?? What How Much When Comments Stop Taking Aspirin (aspirin 81 mg oral enteric coated tablet) 1 tab(s) Oral Daily Duration: 250 Days Prescription Given During Visit Metoprolol (metoprolol 25 mg oral tablet) - 25 mg, By Mouth, 2 times a day, # 60 tablet, 0 Refills,[facility], [address] [place] [phone]?? apixaban (apixaban Starter Pack 5 mg oral tablet) - 5 mg, By Mouth, 2 times a day, # 60 tablet, 0 Refills, [facility], [address] [place] [phone]?? Laboratory Results Below is a partial list of the most recent Laboratory test results done prior to this discharge. You may have had other tests and procedures not included in this list. Please discuss all test resultswith your provider. Est Creatinine Clearance - 40.29 mL/min (09/07/2023) BUN (09/07/2023) ???BUN - 13 mg/dL CBC (09/07/2023) ???WBC - 6.8 k/mm3???RBC - 4.32 m/mm3???Hgb - 12.7 Gm/dL???Hct - 38.6 %???MCV - 89.4 femtoliters???MCH - 29.4 pg???MCHC - 32.9 g/dL???Platelet Count - 214 k/mm3???RDW-SD - 43.4 femtoliters???MPV - 8.5 femtoliters???Nucleated RBC (Automated) - 0.0 #/100 WBC'S???Abs. NRBC - 0.0 k/mm3 CBC w/ Differential (09/06/2023) ???WBC - 5.9 k/mm3???RBC - 4.68 m/mm3???Hgb - 13.6 Gm/dL???Hct - 42.2 %???MCV - 90.2 femtoliters???MCH - 29.1 pg???MCHC - 32.2 g/dL???Platelet Count - 228 k/mm3???RDW-SD - 43.8 femtoliters???MPV - 9.0 femtoliters???Nucleated RBC (Automated) - 0.0 #/100 WBC'S???Abs. NRBC - 0.0 k/mm3???Abs. Neut - 3.5 k/mm3???Abs. Lymph - 1.9 k/mm3???Abs. [place] - 0.4 k/mm3???Abs. Eo - 0.0 k/mm3???Abs. Baso - 0.1 k/mm3???Neut % - 59.2 %???Lymph % - 32.4 %???[place] % - 6.5 %???Eos % - 0.7 %???Baso % - 0.9 %???Imm Gran- 0.3 %???Abs. Imm Gran - 0.0 k/mm3 Comprehensive Metabolic Panel (09/06/2023) ???Sodium - 140 mmol/L???Potassium - 4.4 mmol/L???Chloride - 104 mmol/L???Bicarbonate Level - 27 mmol/L???Anion Gap - 9???Glucose Level - 133 mg/dL???BUN - 16 mg/dL???Creatinine-Blood - 0.8 mg/dL???Estimated GFR Creatinine - 73 ML/MIN/1.73 M2???Calcium - 9.5 mg/dL???Protein, Total - 6.7 Gm/dL???Albumin - 4.4 Gm/dL???AG Ratio - 1.9???Alkaline Phosphatase - 110 units/L???AST (SGOT) - 17 units/L???ALT (SGPT) - 14 units/L???Bilirubin, Total - 0.4 mg/dL COVID-19, RSV, and Flu A/B, Rapid PCR (09/06/2023) ???Influenza A PCR - NEGATIVE???Influenza B PCR - NEGATIVE???RSV PCR - NEGATIVE???COVID-19 PCR Specimen Source - NASAL???COVID-19 PCR Result - NEGATIVE Creatinine (09/07/2023) ???Creatinine-Blood - 0.9 mg/dL???Estimated GFR Creatinine - 62 ML/MIN/1.73 M2 Electrolytes (09/07/2023) ???Sodium - 140 mmol/L???Potassium - 4.2 mmol/L???Chloride - 106 mmol/L???Bicarbonate Level - 24 mmol/L???Anion Gap - 10 GLUCOSE POC (09/08/2023) ???Glucose, POC - 125 mg/dL Hemoglobin A1C (Monitoring) (09/07/2023) ???Hemoglobin A1C (Monitoring) - 6.4 % High??Sensitivity??Troponin T (09/06/2023) ???High Sensitivity Troponin (HSTnT) - 9 ng/L Hold Blue Top Tube (09/06/2023) ???Hold Blue Top - SPECIMEN DISCARDED AFTER 4 HOURS. Lipid Panel (09/07/2023) ???Cholesterol - 178 mg/dL???Triglycerides - 85 mg/dL???HDL Cholesterol - 71 mg/dL???LDL Cholesterol - 90 mg/dL???Non HDL Cholesterol - 107 mg/dL ProBNP (09/06/2023) ???Nt-Probnp - 905 pg/mL TSH with T4 Reflex (Adults Only) (09/06/2023) ???TSH - 1.65 uIU/mL Allergies (NKA means No Known Allergies) NKA Problems Active Problems??(6) Back pain?? Diabetes mellitus type II, controlled?? Endometrial polyp?? Severe obesity (BMI 35.0-39.9) with comorbidity?? [place]er speaking patient?? Vitamin D deficiency?? Education Materials Below is the list of Educational Leaflet Providered with your Discharge Instructions. Apixaban Oral Tablet?? Metoprolol Oral Tablet?? Living with Atrial Fibrillation: Preventing Stroke?? Discharge Instructions for Atrial Fibrillation?? Understanding Atrial Fibrillation (AFib)?? Atrial Fibrillation?? Afib Guidelines Patient Discharge Instructions?? Valuables and Belongings I fully understand and agree that [facility] accepts no responsibility for all my personal property including clothing, toilet articles, radios, jewelry, dentures, hearing aids, rings, money, or any other property that is in my possession or is brought to me after admission. I understand certain valuables may be placed in a hospital safe for a short period of time. I understand that the hospital is not liable for loss or damage due to accident, fire, or other natural occurrence while said property is in the safe. I accept full responsibility for any personal property that I keep with me, and will not hold the hospital responsible in case of loss or disappearance. I acknowledge that i have been encouraged to send valuables and belongings home. ?? Date for Pt to Sign Valuables/Belongings: 09/06/23 22:45:00 ?? Other Discharge Information ? Pulmonary Rehab Status?? Pulmonary Rehab Discharge Status?? Respiratory Rate: 20 br/min ? Common Emergency Awareness Tips IS IT A STROKE? Act FAST and Check for these signs: FACE Does the face look uneven? ARM Does one arm drift down? SPEECH Does their speech sound strange? TIME Call at any sign of stroke ?? Heart Attack Signs Chest discomfort: Most heart attacks involve discomfort in the center of the chest and lasts more than a few minutes, or goes away and comes back. It can feel like uncomfortable pressure, squeezing, fullness or pain. Discomfort in upper body: Symptoms can include pain or discomfort in one or both arms, back, neck, jaw or stomach. Shortness of breath: With or without discomfort. Other signs: Breaking out in a cold sweat, nausea, or lightheaded. Remember, MINUTES DO MATTER. If you experience any of these heart attack warning signs, call to get immediate medical attention! ?? Smoking can increase your chances of developing chronic health problems and can cause harmful effects to other family members in your house. If you smoke, you are strongly encouraged to quit. Please call [facility] [employer] Link at [phone] or [phone] [place] [address] ([phone]) or log in to [email or web address] for referrals to smoking cessation programs. ?? 246 Suicide & Crisis Lifeline is available 22/02 if you or someone you know needs to find a reason to keep living. By calling 732 you'll be connected to a skilled, trained counselor at a crisis center in your area. INPATIENT DISCHARGE INSTRUCTIONS SIGNATURE PAGE MARICEL NEW Location:[facility] Registration Date and Time:09/06/2023 11:29 EST Primary Care Physician: Emir Azevedo MD , Freya Vazquez, Attending Physician: Eda Castañeda MD, I MARICEL NEW, have received the above patient education materials/instructions and have verbalized understanding. If ambulance or transport services are being used I further acknowledge beinggiven a choice of service. ?? If you need to contact me, please call me at this number: . Patient/Long Term Acute Care Registered Nurse Name: Patient/Long Term Acute Care Registered Nurse Signature: Relationship to Patient: Witness Name/Signature: Date: * Eda Castañeda MD: PERFORM Event Display: Patient Education Leaflets Authored Date: [id number] Apixaban Oral Tablet ?? [id number] Apixaban Oral Tablet Brands: Eliquis Usos Margaret medicamento se usa para las siguientes afecciones: ??? co??gulo de felipe ??? prevenir co??gulos de felipe ??? trastorno sangu??adrian ??? tratamiento de co??gulos de felipe ?? Instrucciones Margaret medicamento se puede cyrus con o sin alimentos. Margaret medicamento funciona mejor si se usa a aproximadamente la misma hora todos los d??as. Guarde a temperatura ambiente, alejado del calor, la cheri y la humedad. No lo guarde en el ba??o. Es importante que contin??e tomando todas las dosis de margaret medicamento a la hora indicada aunque se sienta dar. Si olvida cyrus abhi dosis a tiempo, t??hannah hernandez pronto lo recuerde. Si es noemí la hora de la dosis siguiente, no tome la dosis olvidada. Vuelva al horario normal. No tome dos dosis al mismo tiempo. Las interacciones con otros medicamentos pueden cambiar la forma en que act??an los medicamentos o aumentar el riesgo de presentar efectos secundarios. Informe a marleen profesionales sanitarios acerca de todos los medicamentos que usa. [place] incluye medicamentos con y sin receta m??dica, vitaminas y medicamentos a base de hierbas. Hable con da islva m??dico o farmac??utico antes de empezar o dejar de usar cualquier medicamento. Hable con da silva m??dico antes de cyrus otros medicamentos, incluso las aspirinas y los productos que contienen ibuprofeno. Hable con da silva m??dico acerca de los medicamentos que puede usar sin riesgos mientras use margaret medicamento. Es muy importante que siga las instrucciones de da silva m??dico para todos los an??lisis de felipe. ?? Precauciones Esta medicina puede causar graves problemas de hemorragia en pacientes que juan j medicamentos diluyentes de la felipe. Siga atentamente las instrucciones de da silva m??dico para monitorear marleen ex??menes de felipe en laboratorio si sandra diluyentes de la felipe. Informe a da silva m??dico y a da silva farmac??utico si alguna vez guadalupe tenido abhi reacci??n al??rgica a un medicamento. Margaret medicamento puede causar sangrado intenso del est??jocelyne o los intestinos. Deje de cyrus margaret medicamento y llame a da silva m??dico inmediatamente si nota alguna se??al de sangrado. El sangrado puede causar dolor de est??jocelyne, v??mally de un l??quido parecido a caf?? molido y heces de color dickson, o alquitranadas y oscuras. Hay un mayor riesgo de sangrado mientras sandra esta medicina; av??marina a da silva m??dico o enfermero si observa sangrado excesivo o moretones. No use el medicamento m??s veces de lo indicado. Consulte a da silva m??dico antes de beber alcohol mientras usa margaret medicamento. No amamante mientras est?? usando margaret medicamento. Margaret medicamento puede causar da??os a un beb?? en el ??tero. Si queda embarazada mientras usa estemedicamento, av??marina a da silva m??dico de inmediato. El m??dico puede cambiar el medicamento por otro diferente. No tome hierba de [place] mientras use margaret medicamento. No comparta margaret medicamento con otras personas a quienes no se les recet??. Algunos pacientes presentan efectos secundarios graves con margaret medicamento. P??orion a da silva farmac??utico que le muestre la informaci??n de la Administraci??n de Alimentos y Medicamentos (FDA) y que laanalice con usted. Siempre vuelva a surtir esta medicina antes de que se le acabe. ?? Efectos Secundarios La siguiente es abhi lista de algunos efectos secundarios comunes de margaret medicamento. Hable con el m??dico para saber qu?? debe hacer en angel de tener estos u otros efectos secundarios. ??? hemorragia nasal Llame al m??dico u obtenga atenci??n m??dica de inmediato si nota cualquiera de estos efectos secundarios m??s graves: ??? sangrado o moretones ??? tos con felipe, o v??mally con aspecto de poso de caf? desmayo ???adormecimiento u hormigueo en las riana y los pies ??? dolor de mounika intenso o persistente ??? dolor de piernas, hinchaz??n, calor o enrojecimiento repentinos ??? p??rdida de movimiento en cualquier parte del cuerpo ??? falta de aliento ??? heces con felipe o de color oscuro/alquitranadas ??? s??ntomas de accidente cerebrovascular (por ejemplo, debilidad en un lado del cuerpo, hablar arrastrando las palabras, confusi??n) ??? dificultad para tragar ??? cansancio o debilidad, extra??o o sin causa aparente ??? felipe en la orina ??? visi??n borrosa o cambios en la visi??n Algunas personas podr??an tener reacciones al??rgicas a margaret medicamento. Entre los s??ntomas pueden incluirse: dificultad para respirar, erupci??n en la piel, comez??n, hinchaz??n o mareos intensos.Si nota algunos de estos s??ntomas, busque asistencia m??dica r??pidamente. ?? Extra Hable con da silva m??dico, enfermero o farmac??utico si tiene alguna pregunta acerca de margaret medicamento. ?? [email or web address] NOTA IMPORTANTE: En margaret documento hay abhi explicaci??n breve sobre c??mo usar el medicamento, perono incluye todo lo que hay que saber acerca del medicamento. Da Silva m??dico o da silva farmac??utico podr??a suministrarle otros documentos acerca de da silva medicamento. Comun??quese con ellos si tiene alguna pregunta. Siga siempre marleen consejos. Abhi descripci??n m??s completa de margaret medicamento est?? disponibleen ingl??s. Escanee margaret c??digo en da silva tel??fono inteligente o en da silva tableta, o use la direcci??n web que aparece a continuaci??n. Tambi??n puede pedirle a da silva farmac??utico abhi copia impresa. Si tiene alguna pregunta, h??gasela a da silva farmac??utico. La exhibici??n y el uso de esta informaci??n sobre f??rmacos est?? sujeta a los T??rminos de Uso. Copyright(c) 2022 [employer]. ?? [id number] [employer]. All rights reserved. This information is not intended as a substitute for professional medical care. Always follow your healthcare professional's instructions. ?? * Garry ZAMORA, Eda: PERFORM Event Display: Patient Education Leaflets Authored Date: [id number] Metoprolol Oral Tablet ?? [id number] Metoprolol Oral Tablet Brands: Lopressor Usos Margaret medicamento se usa para las siguientes afecciones: ??? ataque card??aco ??? angina ??? enfermedad card??adonay ??? gladys presi??n arterial ??? prevenir migra??as ??? latidos card??acos irregulares ??? trastorno del movimiento ?? Instrucciones [place] el medicamento con alimentos. Margaret medicamento funciona mejor si se usa a aproximadamente la misma hora todos los d??as. Guarde a temperatura ambiente, alejado del calor, la cheri y la humedad. No lo guarde en el ba??o. Es importante que contin??e tomando todas las dosis de margaret medicamento a la hora indicada aunque se sienta dar. Si olvida cyrus abhi dosis a tiempo, t??hannah hernandez pronto lo recuerde. Si es noemí la hora de la dosis siguiente, no tome la dosis olvidada. Vuelva al horario normal. No tome dos dosis al mismo tiempo. Las interacciones con otros medicamentos pueden cambiar la forma en que act??an los medicamentos o aumentar el riesgo de presentar efectos secundarios. Informe a marleen profesionales sanitarios acerca de todos los medicamentos que usa. [place] incluye medicamentos con y sin receta m??dica, vitaminas y medicamentos a base de hierbas. Hable con da silva m??dico o farmac??utico antes de empezar o dejar de usar cualquier medicamento. Informe a da silva m??dico si marleen s??ntomas no mejoran o si empeoran. Si tiene diabetes, margaret medicamento puede ocultar algunos de los signos de bajo nivel de az??car enla felipe, amanda latidos r??pidos del coraz??n. Controle marleen niveles de az??car en la felipe regularmente y est?? atento a otros signos de bajo nivel de az??car en la felipe. Entre los s??ntomas de bajo nivel de az??car en la felipe se incluyen: n??useas, temblores, piel fr??a, sudoraci??n, latido acelerado, hambre e irritabilidad. Si debe dejar de cyrus margaret medicamento, da silva m??dico le recomendar?? que reduzca la dosis poco a poco antes de dejarlo por completo. Es muy importante que asista a todas las citas para evaluaciones y pruebas m??dicas mientras usa margaret medicamento. ?? Precauciones Informe a da silva m??dico y a da silva farmac??utico si alguna vez guadalupe tenido abhi reacci??n al??rgica a un medicamento. En algunos pacientes con corazones d??dakotah los s??ntomas podr??an empeorar. Si tiene problemas para respirar, aumenta de peso, o se le hinchan las piernas o los tobillos, informe a da silva m??dico de inmediato. No use el medicamento m??s veces de lo indicado. Margaret medicamento puede causar mareos o desmayo, sobre todo despu??s de hacer ejercicio o en clima c??lido. Tenga cuidado cuando se pare o se siente con rapidez. Margaret medicamento puede afectar da islva capacidad de mantenerse alerta o de reaccionar con rapidez. No maneje ni opere m??quinas hasta que sepa qu?? efecto le provocar?? margaret medicamento. Consulte a da silva m??dico antes de beber alcohol mientras usa margaret medicamento. Margaret medicamento pasa a la leche materna. Consulte a da silva m??dico antes de amamantar. Shanti el embarazo, margaret medicamento solo debe usarse cuando sea claramente necesario. Hable con da silva m??dico acerca de los riesgos y beneficios. No comparta margaret medicamento con otras personas a quienes no se les recet??. ?? Efectos Secundarios La siguiente es abhi lista de algunos efectos secundarios comunes de margaret medicamento. Hable con el m??dico para saber qu?? debe hacer en angel de tener estos u otros efectos secundarios. ??? diarrea ??? mareos o aturdimiento ??? falta de energ??a y cansancio ??? latidos lentos del coraz??n ??? mareo Llame al m??dico u obtenga atenci??n m??dica de inmediato si nota cualquiera de estos efectos secundarios m??s graves: ??? confusi??n ??? depresi??n o sentimiento de tristeza ??? hinchaz??n de las piernas, pies y riana??? desmayo ??? fr??o en las riana o los pies ??? cambios de estado de ??meghan ??? palidez o coloraci??n harjit de la piel, los labios o las u??as ??? falta de aliento ??? cansancio o debilidad, extra??o o sin causa aparente ??? aumento de peso repentino o inexplicado Algunas personas podr??an tener reacciones al??rgicas a margaret medicamento. Entre los s??ntomas pueden incluirse: dificultad para respirar, erupci??n en la piel, comez??n, hinchaz??n o mareos intensos.Si nota algunos de estos s??ntomas, busque asistencia m??dica r??pidamente. ?? Extra Hable con da silva m??dico, enfermero o farmac??utico si tiene alguna pregunta acerca de margaret medicamento. ?? [email or web address] NOTA IMPORTANTE: En margaret documento hay abhi explicaci??n breve sobre c??mo usar el medicamento, perono incluye todo lo que hay que saber acerca del medicamento. Da Silva m??dico o da silva farmac??utico podr??a suministrarle otros documentos acerca de da silva medicamento. Comun??quese con ellos si tiene alguna pregunta. Siga siempre marleen consejos. Abhi descripci??n m??s completa de margaret medicamento est?? disponibleen ingl??s. Escanee margaret c??digo en da silva tel??fono inteligente o en da silva tableta, o use la direcci??n web que aparece a continuaci??n. Tambi??n puede pedirle a da silva farmac??utico abhi copia impresa. Si tiene alguna pregunta, h??gasela a da silva farmac??utico. La exhibici??n y el uso de esta informaci??n sobre f??rmacos est?? sujeta a los T??rminos de Uso. Copyright(c) 2022 [employer]. ?? [id number] [employer]. All rights reserved. This information is not intended as a substitute for professional medical care. Always follow your healthcare professional's instructions. ?? * Eda Castañeda MD: PERFORM Event Display: Patient Education Leaflets Authored Date: [id number] Living with Atrial Fibrillation: Preventing Stroke ?? [id number] Vivir con fibrilaci??n auricular: c??mo prevenir un ataque cerebral La fibrilaci??n auricular (FA) es el tipo m??s com??n de ritmo card??aco anormal. El coraz??n tienedos cavidades superiores llamadas aur??culas y dos inferiores llamadas ventr??culos. La fibrilaci??n auricular hace que las aur??culas tiemblen (fibrilen) en lugar de bombear normalmente. En consecuencia, la felipe puede acumularse en el coraz??n en lugar de entrar y salir amanda es habitual. Eso puede hacer que se formen co??gulos de felipe en el coraz??n. Un co??gulo puede liberarse, desplazarse hasta el cerebro y provocar un ataque cerebral. Margaret puede da??ar r??pidamente el cerebro. Medicamentos para evitar un ataque cerebral Si tiene FA, da sivla proveedor de atenci??n m??dica puede recetarle un medicamento para ayudar a prevenir los co??gulos de felipe. Margaret tipo de medicamento se llama anticoagulante. Los anticoagulantes pueden ser los siguientes: ??? Medicamentos antiagregantes plaquetarios, amanda la aspirina o el clopidogrel ??? Medicamentos anticoagulantes, amanda la warfarina o los medicamentos llamados anticoagulantes orales de acci??n directa (ACOD). Estos ??ltimos incluyen el dabigatr??n, el rivaroxab??n, el apixab??n y el edoxab??n. ?? Riesgos de los medicamentos anticoagulantes Los anticoagulantes aumentan el riesgo de hemorragias. Si sandra determinados anticoagulantes, puede que necesite seguir algunos pasos m??s para mantenerse saludable. Seg??n el anticoagulante que tome,quiz??s deba hacerse an??lisis de felipe con regularidad para medir los niveles del medicamento en da silva felipe. Deber?? tener cuidado de no lastimarse. Y puede que necesite tener cuidado con lo que come, por aquellos alimentos que tambi??n afectan la coagulaci??n de la felipe. Inf??rmele al m??dico si est?? embarazada o planea estarlo. Muchos anticoagulantes pueden causar defectos de nacimiento o sangrado que pueden da??ar el feto. Si da silva felipe est?? demasiado diluida, puede que tenga s??ntomas de un exceso de sangrado. Llame a da silva proveedor de atenci??n m??dica de inmediato ante cualquiera de los siguientes s??ntomas: ??? V??mitos o tos con felipe o un material similar al caf?? molido ??? Sangrado nasal ??? Moretones o ampollas de felipe inusuales ??? Sensaci??n de malestar, debilidad, desmayo o mareos ??? Felipe en la orina o las heces ??? Heces de color sandie ??? Sangrar m??s shanti los per??odos menstruales o entre per??odos ??? Sangrado de las enc??as ??? Dolor de mounika ??? Dolor de est??jocelyne ?? [place] la dosis correcta [place] los medicamentos exactamente amanda le indique da silva proveedor de atenci??n m??dica. T??melos a la misma hora todos los d??as. Si se saltea abhi dosis, llame a da silva proveedor de inmediato para meaghan cu??nto debe cyrus. Nunca tome abhi dosis doble. Si sandra demasiada cantidad junta, puede causarle ruth hemorragia. La hemorragia puede ser en la parte externa del cuerpo, donde puede verla. Tambi??n puede ocurrir en la parte interna del cuerpo, donde isak vez no pueda notarlo. ?? H??gase an??lisis de felipe Si sandra ACOD, no necesita realizarse an??lisis de felipe con frecuencia. Es posible que deba controlarse los ri??ones de forma alec??dica. Da Silva proveedor de atenci??n m??dica hablar?? sobre esto con usted. Si sandra warfarina, necesitar?? hacerse an??lisis de felipe de manera regular. [place] lo ayudar?? a asegurarse de que la cantidad de medicamento que tiene en da silva felipe no sea demasiada ni tampoco muy poca. Las cantidades excesivas, pueden causar sangrado adicional. Abhi cantidad muy baja puede ser insuficiente para prevenir los da??os por co??gulos de felipe. Quiz??s necesite ir a un hospital o a abhi cl??ashley todas las semanas para que le arthur an??lisis desangre. O un enfermero puede ir hasta da silva casa y hacerle el an??lisis de felipe en da silva domicilio. En algunos casos, es posible que usted mismo pueda analizarse la felipe en da silva casa con abhi m??quina cyrus??a. Hable con da silva proveedor de atenci??n m??dica para saber cu??l es la mejor opci??n para usted. Despu??s del an??lisis de felipe, da silva proveedor de atenci??n m??dica podr??a decirle que cambie la dosis de da silva medicamento. ?? Cuide la alimentaci??n Los niveles de warfarina pueden cambiar con la alimentaci??n. Por ejemplo, muchos alimentos contienen vitamina??K, que ayuda a que la felipe coagule. No necesita evitar los alimentos que tienen vitamina??K. Trav s?? debe hacer que la cantidad que come de esos alimentos se mantenga siempre igual, o alrededor de la misma cantidad, d??a tras d??a. Alimentos que tienen alto contenido de vitamina??K: candido??rragos, aguacate, br??coli, repollo, col rizada, espinaca y algunos otros vegetales de hojas verdes. El aceite de soya, el de canola y el de shay tambi??n tienen alto contenido de vitamina??K. Hay tambi??n otros alimentos y bebidas que pueden afectar la manera en que los anticoagulantes funcionan en el cuerpo. Entre ellos, se encuentran los siguientes: ??? La toronja y el jugo de toronja ??? Los ar??ndanos y el jugo de ar??ndano ??? Suplementos con aceite de pescado ??? Pringle, jengibre, regaliz y c??rcuma ??? Hierbas que se usan en t??s o suplementosde hierbas ??? Bebidas alcoh??licas Si cualquiera de estos alimentos o bebidas maggi parte de da silva alimentaci??n habitual, siga consumi??ndolos amanda lo tamika??a normalmente. No deion cambios importantes en da silva alimentaci??n sin consultar bright con da silva proveedor de atenci??n m??dica. Tambi??n puede que deba limitar las grasas entre dos y cuatro cucharadas al d??a. ?? Prevenga las lesiones Dado que los anticoagulantes hacen que felipe m??s, deber?? protegerse para no lastimarse la piel. Siga estas recomendaciones: ??? No trini descalzo. Use siempre calzado. ??? No se recorte los callos usted mismo. ??? Use abhi rasuradora el??ctrica en lugar de usar abhi manual. ??? Use un cepillo de dientes suave e hilo dental encerado. Tambi??n deber?? evitar cualquier tipo de actividad que pueda causarle alguna lesi??n. Si se o se lesiona, podr??a tener abhi hemorragia interna y ni siquiera notarlo. Obtenga atenci??n m??dica deemergencias hernandez pronto amanda sea posible si se , se golpea la mounika o tiene alg??n otro tipo de lesi??n. ?? Otros consejos de seguridad Mientras tome medicamentos, deion lo siguiente: ??? Informe a todos marleen proveedores de atenci??n m??dica que sandra anticoagulantes porque tiene fibrilaci??n auricular. [place] incluye a todos marleen proveedores de atenci??n m??dica, marleen proveedores de cuidados dentales y da silva farmac??utico. ??? Consulte a suproveedor de atenci??n m??dica antes de cyrus cualquier medicamento nuevo, vitaminas u otros suplementos. Cualquiera de estos productos puede causar problemas cuando se sandra un anticoagulante. ??? Use un brazalete de alerta m??dica o lleve abhi tarjeta de identificaci??n en da silva cartera si cyrus?? anti coagulantes shanti varios meses o m??s tiempo. ??? Asista a todas marleen citas m??dicas para marleen an??lisis de felipe. ?? Procedimientos para evitar un ataque cerebral La mayor??a de los co??gulos de felipe que se maggi en el coraz??n se producen en abhi bolsa en la aur??cula izquierda llamada ap??ndice. Esta bolsa puede ser de gran janna??o y contener m??ltiples l??bulos. La felipe suele estancarse y se maggi los co??gulos. El cierre de ap??ndice auricular elvi es un procedimiento no quir??rgico en el que se coloca un tap??n en la abertura del ap??ndice auricular elvi. [place] se realiza a fin de cerrarlo. Cuando el tap??n est?? sellado, la felipe no entra ni sale m??s de esta bolsa. [place] reduce la formaci??n de co??gulos sangu??neos y el riesgo de ataque cerebral. A menudo, no es necesario que tome anticoagulantes a jg plazo, richard aspirinas. P reg??ntele a da silva proveedor de atenci??n m??dica si debe realizarse margaret procedimiento. ?? Otras maneras de ayudar a prevenir un ataque cerebral El proveedor de atenci??n m??dica podr??a aconsejarle c??mo reducir el riesgo de tener un ataque cerebral. Los siguientes son algunos consejos: ??? Reduzca da silva nivel de colesterol mediante cambios en da silva estilo de jeanne o medicamentos ??? No fume ??? Deion actividad f??tiki ??? Pierda peso si es necesario ??? Siga abhi alimentaci??n saludable para el coraz??n ??? No consuma demasiadas bebidas alcoh??licas ?? Cu??ndo llamar al 911 Llame al 911 de inmediato si presenta s??ntomas de ataque cerebral. Recuerde que si tiene alguno de estos s??ntomas o si alguien con quien est?? tiene estos s??ntomas,debe llamar al 911 hernandez pronto amanda sea posible. La persona que tenga estos s??ntomas no debe conducir. Tampoco traslade a abhi persona que tenga loss??ntomas. La ambulancia puede alertar al hospital y empezar el tratamiento. R.? .P.I.D.O. son las siglas que ayudan a recordar los sintomas de un ataque cerebral. Si notara estos , llame al 911 de inmediato. R.? .P.I.D.O. quiere decir lo siguiente: ??? R ???Hayley ca??do?? . Se o se entumece un lado de la brian. Cuando la persona sonr??e, la sonrisa no es uniforme. ??? A Alteraci??n del equilibrio?? . P??rdida repentina del equilibrio o de la coordinaci??n. ??? P ???P??rdida de fuerza en el brazo?? . Un brazo est?? d??nicci o entumecido. Cuando la persona levanta ambos brazos al mismo tiempo, sigifredo puede caerse. ??? I ???Impedimento visual repentino?? . Cambios en la visi??n en sigifredo o ambos ojos. ??? D ???Dificultad para hablar?? . Nota quela persona tiene problemas para hablar o que arrastra las palabras. La persona no puede repetir correctamente abhi oraci??n simple cuando se lo piden. ??? O ???Obtenga ayuda, llame al 911?? , es el momento de llamar al 911. Si abhi persona presenta cualquiera de esos s??ntomas, aunque desaparezcan, llame al 911 de inmediato. [place] nota de la hora en la que aparecieron por primera vez. Tambi??n llame al 911 de inmediato ante cualquiera de los siguientes s??ntomas: ??? Confusi??n repentina ??? Dolor de mouniak intenso o inusual ??? Dolor de pecho ??? Dificultad para respirar ??? Sangrado incontrolable ?? Cu??ndo llamar al proveedor de atenci??n m??dica Llame al proveedor de atenci??n m??dica de inmediato si tiene alguno de estos s??ntomas: ??? Sensaci??n de malestar, debilidad, desmayo o mareos ??? Falta de aire ??? Cambio en la regularidad habitual del ritmo card??aco ??? Fatiga ??? Fiebre de 100.4?F (38?C) o superior, o seg??n le indique el proveedor de atenci??n m??dica ??? S??ntomas de la fibrilaci??n auricular nuevos o queempeoran ?? Last Reviewed Date: 2021 ?? [id number] [employer]. All rights reserved. This information is not intended as a substitute for professional medical care. Always follow your healthcare professional's instructions. ?? Patient Care team information Care Team Personnel Name: Nik RN, Hannah Position: S RN Member Role: Primary Care Nurse Name: Della Resendiz RN Position: S RN Member Role: Primary Care Nurse Name: Yessi Navas RN Position: S RN Member Role: Primary Care Nurse Name: Emir Azevedo MD , Freya Vazquez Position: Reference Physician Member Role: PCP Address: Address: [address] [place] [address]- Care Team Related Persons Name: CHANA REGALADO Address: home [address] [place] [address] Name: KIAN REGALADO Address: home [address] [place] [address]
--- OUTSIDE RECORDS SUMMARY | 2023-12-08 08:48 | XMS_ITS | Continuity of Care Document ---
Author Organization [facility] Address [address] [place] [address] [address] [place] [address]- Care Team Providers Care Electronic Engineering Technician Name Role Phone Not on Staff, PCP Primary Care Physician Unavail able Encounter [facility] Date(s): 10/25/23 - 11/24/[address] [place] [address]- Allergies, Adverse Reactions, Alerts No Known Allergies Medications apixaban Starter Pack 5 mg oral tablet = 5 mg, By Mouth, 2 times a day, # 60 tablet, 0 Refills, Maintenance, 09/08/23 8:55:00 EST, Tablet,[facility], Partial fill upon patient [...] 09/08/23 8:55:00 EST, Route to Pharmacy Electronically, [facility], Partial fill upon patient request if the prescription is for a schedule II opioid dr... Start Date: 09/08/23 Stop Date: 10/08/23 Status: Ordered Vitamin D 24501 iu oral capsule 50,000 International_Units, By Mouth, Daily, Refills 0, Maintenance, 12/14/22 8:22:00 EDT, Partial fill upon patient request if the prescription is for a schedule II opioid drug. Start Date: 12/14/22 Status: Ordered Problem List Condition Confirmation Course Effective Dates Status Health St [facility] Informant Back pain Confirmed Active Cymraes speaking patient Confirmed Active Endometrial polyp Confirmed Active Severe obesity (BMI 35.0-39.9) with comorbidity Confirmed Active Diabetes mellitus type II, controlled Confirmed Active Vitamin D deficiency Confirmed Active Social History Social History Type Response Smoking Status Never smoker entered on: 08/22/14 Sex Patient Care team information Care Team Personnel Name: Hannah Zaragoza RN Position: [facility] RN Member Role: Primary Care Nurse Name: Della Resendiz RN Position: [facility] RN Member Role: Primary Care Nurse Name: Not on Staff, PCP Position: [facility] Physician (General Medicine) Member Role: PCP Name: Yessi Navas RN Position: [facility] RN Member Role: Primary Care Nurse Care Team Related Persons Name: KIAN REGALADO Address: home [address] [place] [id number] Name: CHANA HERCULES Address: home [address] [place] [address] Name: MOSES RUIZ Address: home [address] [place] [address]
--- OUTSIDE RECORDS SUMMARY | 2023-12-08 08:48 | XMS_ITS | Continuity of Care Document ---
Author Organization [facility] Mario [facility] Address [address] [place] [address], [address] [place] [address]- Care Team Providers Care Respiratory Care Practitioner Name Role Phone Freya Norris MD Primary Care Physician [id number] Date(s): 12/14/22 - 01/13/23 [facility] [address] [facility] [place], [place] [address] Attending Physician: Joseph Villagran Admitting Physician: Joseph Villagran Referring Physician: AdmtrJoseph Allergies, Adverse Reactions, Alerts No Known Allergies [...] Start Date: 12/14/22 Status: Ordered Vitamin D 97848 iu oral capsule 50,000 International_Units, By Mouth, Daily, Refills 0, Maintenance, 12/14/22 8:22:00 EDT, Partial fill upon patient request if the prescription is for a schedule II opioid drug. Start Date: 12/14/22 Status: Ordered Problem List Condition Confirmation Course Effective Dates Status Health St at[facility] Informant Back pain Confirmed Active German speaking patient Confirmed Active Endometrial polyp Confirmed Active Severe obesity (BMI 35.0-39.9) with comorbidity Confirmed Active Diabetes mellitus type II, controlled Confirmed Active Vitamin D deficiency Confirmed Active Social History Social History Type Response Smoking Status Never smoker entered on: 08/22/14 Sex Patient Care team information Care Team Personnel Name: Freya Norris MD Position: Reference Physician Member Role: PCP Address: Address: [address] [place] [address]- Care Team Related Persons Name: CHANA REGALADO Address: home [address] [place] [address] Name: KIAN REGALADO Address: home [address] [place] [address]
[2023-12-08] MEDS: Lactated Ringers 1,000 ML 100 ML IVCONT (10:00)
[2023-12-08 10:03] LABS: Glucose, Whole Blood 142 mg/dL (60-115)
--- NOTE | 2023-12-08 10:23 | MHC.SHP ---
Pre-Procedural Eval Section A - 24 Hr Update-Section A only Date of Service: 12/08/23 The patient is an INPATIENT: No Changes since office visit: Yes Patient answered all questions; No Cold of Flu in the past 2 weeks, No New Medical Problems and No Changes in Medication The patient has been examined within 24 hours of the surgical procedure. The History & Physical has been completed within 30 days and I have reviewed it.: No Section B - Complete if H&P > 30 days Chief Complaint: Calculus of gallbladder w/o cholecystitis,Calculus Details of Present Illness: No change in patient's symptoms. Relevant Family History (Specify if Yes): No Relevant Social History: None Present Medications: see Short Stay Collaborative assessment Medical History: No relevant PMH History of Previous Operations: No relevant previous surgery Allergies: Allergies Allergy/AdvReac Type Severity Reaction Status Date / Time No Known Allergies Allergy Verified 12/08/23 09:23 Review of Systems Sugical H&P ROS: Negative: Constitution, Cardiovascular, Respiratory, Neurological, Psychiatric, Hem-Onc, Allergic/Immunologic, Gastrointestinal, Genitourinary, Musculoskeletal, Integumentary, Endocrine and Eyes/Ears/Nose/Throat Exam Surgical H&P Exam: Normal: HEENT, Normal: Heart, Normal: Lungs, Normal: Extremities, Normal: Abdomen, Normal: Skin and Normal: Neurological Plan Diagnosis/Plan: Unchanged I have reviewed the history and physical and performed a pertinent physical examination on my patient. No changes have occurred unless specified. Time Spent With Patient Time: Total time managing care of this patient today ____ minutes.
--- NOTE | 2023-12-08 12:04 | P.OP_ITS ---
Operative Note Operative Note Date of Service: 12/08/23 Narrative: Preoperative diagnosis: Biliary colic, gallstones Postoperative diagnosis: Same Procedure: Laparoscopic cholecystectomy Surgeon: Braeden Martin MD Kitchen Porter: BRIGID Solomon, JOHN Lowe Anesthesia: General endotracheal Indications for procedure: 78-year-old female patient with a history of abdominal pain in the right upper quadrant found to have gallstones in the gallbladder from an outside institution. On examination the patient was noted to have tenderness in the right upper quadrant. Findings were suggestive of biliary colic. Operative findings: Moderately inflamed gallbladder with gallstones within the gallbladder. Specimen: gallbladder Estimated blood loss: Less than 2 mL Complications: None Procedure details: Patient was brought to the OR and placed in a supine positio n. After administering general anesthesia the patient's abdomen was prepped with ChloraPrep and draped in a sterile fashion. A surgical time-out was called the consent confirmed. Patient received preoperative antibiotics and Venodyne boots were in place. Local anesthesia consisting of 0.5% Sensorcaine without epinephrine was infiltrated in a periumbilical region. A 5 mm incision was made above the umbilicus in a transverse fashion. The Veress needle was then inserted while elevating abdominal cavity with towel clips. After positive drop test the abdomen was insufflated to a pressure of 15 mm of mercury. The Veress needle was then removed and a 5 mm trocar inserted. The camera was inserted in the abdomen explored. A 12 mm trocar was then placed in the epigastrium. Two 5 mm trocars placed in the right upper quadrant by the instructional support assistant. The patient was placed in reverse Trendelenburg positioning and rotated to the left. The gallbladder was grasped with the fundus and retracted cephalad by the instructional support assistant. The infundibulum was then grasped and retracted away from the liver bed, also by the instructional support assistant. The Dolphin dissected was then used by the surgeon to dissect the peritoneum off the infundibulum to reveal the junction with the cystic duct. Cystic artery was noted slightly medial and posterior to the cystic duct. After obtaining a critical view the cystic duct was doubly clipped and divided. The cystic artery was then doubly clipped and divided. The gallbladder was then dissected off the liver bed using electrocautery with an L hook. Hemostasis was assured all times using the electrocautery. When the gallbladder is completely dissected off the liver bed was placed in an Endo-Catch bag and brought out through the epigastric incision. The gallbladder was sent to pathology for further examination. The abdomen was then re-examined. The liver bed was irrigated and suctioned dry. No bleeding or bile leak could be identified. CO2 was then evacuated and all trocars removed. Fascia was closed at the epigastric incision using a [id number] 0 Polysorb suture. Skin was closed in all incisions using a subcuticular 4 0 Polysorb suture by both the surgeon and instructional support assistant. Sterile dressings consisting of Steri-Strips, 2 x 2 gauze, and Tegaderm were then applied. The patient tolerated the procedure well. Sponge instrument and needle counts reported as correct. The patient was transferred to PACU in stable condition.
[2023-12-08] MEDS: Ketorolac Tromethamine 30 MG/ML VIAL IVPUSH (12:18)
== END 2023-12-08 13:52 | disposition home or self-care (01) ==
PROVIDERS: PCP Internal Medicine; Visit Provider Surgery
PROC: 0FT44ZZ Resection of Gallbladder, Percutaneous Endoscopic Approach (ICD-10-PCS; CPT 47562; principal; 2023-12-08 10:30)
DX: K80.10 Calculus of gallbladder with chronic cholecystitis without obstruction (principal); K21.9 Gastro-esophageal reflux disease without esophagitis; I48.91 Unspecified atrial fibrillation; I44.7 Left bundle-branch block, unspecified; Q21.10 Atrial septal defect, unspecified; I10 Essential (primary) hypertension; E78.5 Hyperlipidemia, unspecified; E11.9 Type 2 diabetes mellitus without complications; E66.9 Obesity, unspecified; Z68.32 Body mass index [BMI] 32.0-32.9, adult; Z79.01 Long term (current) use of anticoagulants; Z79.899 Other long term (current) drug therapy; Z98.890 Other specified postprocedural states; Z56.0 Unemployment, unspecified
CPT/HCPCS: 47562; 82947; 88304; J1885; J2250; J2704; J2795; J3010

== ENCOUNTER → 2023-12-08 08:46 | Outpatient (BNV) | payer OTHER, SELFPAY | PROVIDERS: PCP Internal Medicine; Visit Provider Surgery | DX: K80.50 Calculus of bile duct without cholangitis or cholecystitis without obstruction (principal); K80.20 Calculus of gallbladder without cholecystitis without obstruction | CPT/HCPCS: 47562 ==

== ENCOUNTER 2023-12-17 10:29 | Outpatient (AMB) | payer OTHER, SELFPAY ==
--- NOTE | 2023-12-17 10:38 | A.OFFVIS_ITS ---
Vital Signs 12/17/23 10:43 Weight 184 lb BP 141/62 H Blood Pressure Location Rt brachial Position Sitting Pulse 73 Intake Visit Reasons: S/P lap yonis Intake Note: This patient presents for a post-op assessment status post lap yonis. Patient c/o; reports sharp pain when inhaling but she has notices it has diminished. Recovery Manager Required: Yes Recovery Manager Language: Child And Adolescent Psychiatrist Name: Nii Information Interpreted: non-clinical & clinical Accompanied by: Spouse Allergies No Known Allergies Allergy (Verified 12/17/23 10:43) Medication List - Last Reconciled 12/17/23 by Braeden Martin MD acetaminophen 650 mg PO Q6-8H PRN apixaban (Eliquis) 5 mg PO BID 90 days atorvastatin 20 mg PO BEDTIME 90 days blood sugar diagnostic (Brightergy Ultra Test strips) Use 1 test strip once a day cholecalciferol (vitamin D3) 50 mcg PO DAILY 90 days lancets (Triangulateuch UltraSoft 2 Lancet) test once daily metoprolol tartrate 25 mg PO BID 90 days oxycodone 5 mg PO Q6H PRN sitagliptin phosphate (Januvia) 50 mg PO DAILY 90 days trazodone 50 mg PO BEDTIME PRN 30 days HPI Comments Details: 78-year-old female returning 1 week following laparoscopic cholecystectomy. She reports some pain initially with deep breath but now feels much improved. She denies any nausea, vomiting, fever or chills. She is eating well and reports no problems with her bowels. She denies any incisional pain at this time. [facility] Medical History Arthritis Back pain Scoliosis Numbness On anticoagulant therapy Elevated cholesterol Murmur HTN (hypertension) ASD (atrial septal defect) Left bundle branch block (LBBB) Obesity Hyperlipidemia Type 2 diabetes mellitus GERD (gastroesophageal reflux disease) Surgical History Hx of varicose vein stripping Hx of hysterectomy History of appendectomy History of esophagogastroduodenoscopy (EGD) Hx of colonoscopy History of Amplatzer atrial septal defect closure History of cataract surgery History of back surgery Family History Mother Emphysema lung Diabetes Father Heart attack Maternal Aunt Cancer Maternal Uncle Cancer Social History Housing: House Are you a primary medicare sales executive to a significant other at home: No Do you presently have visiting nurse or other home services: Yes (nurse) Alcohol intake: never Comment: counts correct Patient Tobacco Use Status: Never used Tobacco e-Cigarette/Vaping Use: Never Used Second Hand Smoke Exposure: No service: No Current occupational status: unemployed Cognitive needs: No Hearing needs: No Vision needs: No Female Reproductive History Menstrual Age of Menarche: 16 Physical Exam Vital Signs: Last Vital Signs Pulse 73 12/17/23 10:43 BP 141/62 H 12/17/23 10:43 Const General: healthy appearing Nutritional Appearance: well nourished Orientation/consciousness: patient oriented x3 Resp Effort & Inspection: normal respiratory effort GI Other: Well-healed trocar incisions with no evidence of infection, discharge, or hernia. Abdomen otherwise soft and nondistended. Inspection: Yes normal to inspection Neuro General: patient oriented x3 Extrem General: Yes no clubbing, cyanosis or edema Assessment & Plan Assessment & Plan (1) Biliary colic: Code(s): K80.50 - Calculus of bile duct without cholangitis or cholecystitis without obstruction Category: Medical (2) Cholelithiasis: Code(s): K80.20 - Calculus of gallbladder without cholecystitis without obstruction Category: Medical Qualifiers: Cholelithiasis location: gallbladder Cholecystitis presence: without cholecystitis Biliary obstruction: without biliary obstruction Qualified Code(s): K80.20 - Calculus of gallbladder without cholecystitis without obstruction Plan 78-year-old female returns 1 week following laparoscopic cholecystectomy. She tolerated the procedure well her wounds are healing nicely. She should continue to avoid lifting greater than 10 lb for the next week and avoid greasy foods for the next month. She should follow up as needed. Coding Level of Care Code Global (55426) Diagnoses Biliary colic K80.50 Calculus of gallbladder without cholecystitis without obstruction K80.20 Cholelithiasis location: gallbladder Cholecystitis presence: without cholecystitis Biliary obstruction: without biliary obstruction
[2023-12-17 10:43] VITALS: BP 141/62; PULSE 73
== END 2023-12-17 10:56 | disposition home or self-care (01) ==
PROVIDERS: PCP Internal Medicine; Visit Provider Surgery
DX: K80.50 Calculus of bile duct without cholangitis or cholecystitis without obstruction (principal); K80.20 Calculus of gallbladder without cholecystitis without obstruction
CPT/HCPCS: 99024

== ENCOUNTER → 2023-12-17 10:29 | Outpatient (BNVA) | payer OTHER, SELFPAY | PROVIDERS: PCP Internal Medicine; Visit Provider Surgery | DX: K80.50 Calculus of bile duct without cholangitis or cholecystitis without obstruction (principal); K80.20 Calculus of gallbladder without cholecystitis without obstruction; Z90.49 Acquired absence of other specified parts of digestive tract | CPT/HCPCS: 99212 ==

== ENCOUNTER 2024-01-27 08:24 | Outpatient (AMB) | payer OTHER, SELFPAY ==
--- NOTE | 2024-01-27 08:34 | MHC.OFFVIS ---
Vital Signs 01/27/24 08:42 Height 5 ft 4 in Weight 183 lb 4 oz BMI 31.5 BP 138/90 H Blood Pressure Location Lt brachial Position Sitting Respiration 14 Pulse 62 Pulse Source Pulse Oximeter Pulse Oximetry (%) 97 Oxygen Delivery Method Room Air Intake Visit Reasons: Intervertebral Disc Degeneration Lumbar Region Intake Note: Patient comes in for initial visit was referred by primary care. She was accompanied by?spouse Manny. Reports pain 02/08. Irrigation Installation Specialist Required: Yes Accompanied by: Spouse Allergies No Known Allergies Allergy (Verified 01/27/24 08:46) HPI Comments Details: Blanca is very pleasant 78 years old Cuban-speaking female who presents in my office with complains on pain and numbness in bilateral knees with radiation of the pain to the right upper hip but not into the back. She also feels numbness and sensation of compression in the projection of the right knee. She reports also aching pain in the back. She relates her pain to the procedure of varicose vein obliteration with glue, she also has a history of L3-L4 L5 fusion which was performed for scoliosis of the lumbar spine in 2019. She reports that she can not sleep normally can not do activities of daily living can not take care of herself but she can not function normally. She reports that weather changes in movements aggravate her pain and warm applications and topical medications make her pain better. In terms of tissue damage he reports her pain is cramping crushing, heavy, exhausting and tight sensation. She never had x-rays of her bilateral knees. She never had physical therapy for bilateral knees. She never had any injections into bilateral knees. Her past medical history significant for atrial fibrillation history of atrial septal defect with interventional septal occluder device she is suffering from diabetes her hemoglobin A1c is around 7 or below, his history of arthritis and gallstones. She denies smoking cigarettes denies drinking alcohol denies recreational drugs admits 1 cup of coffee a day. [facility] Medical History Arthritis Back pain Scoliosis Numbness On anticoagulant therapy Elevated cholesterol Murmur HTN (hypertension) ASD (atrial septal defect) Left bundle branch block (LBBB) Obesity Hyperlipidemia Type 2 diabetes mellitus GERD (gastroesophageal reflux disease) Surgical History Hx of varicose vein stripping Hx of hysterectomy History of appendectomy History of esophagogastroduodenoscopy (EGD) Hx of colonoscopy History of Amplatzer atrial septal defect closure History of cataract surgery History of back surgery Family History Mother Emphysema lung Diabetes Father Heart attack Maternal Aunt Cancer Maternal Uncle Cancer Social History Housing: House Are you a primary medication care manager to a significant other at home: No Do you presently have visiting nurse or other home services: Yes (nurse) Alcohol intake: never Comment: counts correct Patient Tobacco Use Status: Never used Tobacco e-Cigarette/Vaping Use: Never Used Second Hand Smoke Exposure: No service: No Current occupational status: unemployed Cognitive needs: No Hearing needs: No Vision needs: No Female Reproductive History Menstrual Age of Menarche: 16 Review of Systems Const All systems reviewed & are unremarkable except as noted in HPI and below Eyes Reports no additional complaints, Denies change in vision and Denies other visual disturbances ENT Reports Normal hearing present Card Denies chest pain at rest, Denies chest pain with activity, Denies edema, Denies irregular heart rhythm, Denies claudication, Denies dyspnea, Denies dyspnea on exertion, Denies orthopnea, Denies paroxysmal nocturnal dyspnea and Denies slow heart rate Resp Denies cough, Denies dyspnea and Denies dyspnea on exertion Musc Reports as per HPI Neuro Reports Normal hearing present, Denies Abnormal speech present, Denies confusion and Denies Sensory deficit (Neuro) Psych Denies confusion Physical Exam Vital Signs: Last Vital Signs Pulse 62 01/27/24 08:42 Resp 14 01/27/24 08:42 BP 138/90 H 01/27/24 08:42 Pulse Ox 97 01/27/24 08:42 Oxygen Delivery Method Room Air 01/27/24 08:42 BMI result Body Mass Index 31.5 Const General: no acute distress; No confusion Orientation/consciousness: patient oriented x3 and No confusion Eyes General: appearance normal, both eyes and all related structures Pupils: Equal, round and reactive pupils present EOM: EOMs intact bilaterally Neck Neck: Yes full ROM Chest Chest palpation & inspection: normal inspection of the chest Resp Effort & Inspection: normal respiratory effort, able to speak in complete sentences, normal respiratory pattern, no audible wheezes and no cough Cardio Jugular venous distension: no JVD GI Inspection: Yes normal to inspection Neuro General: patient oriented x3, gait normal and No confusion Cranial nerves: Yes CN's II-XII intact bilaterally, Yes Equal, round and reactive pupils present, Yes Normal hearing present and Yes Ability to bilaterally elevate shoulders present Speech: No Abnormal speech present Gait exam (Neuro): Normal gait present Motor exam (neuro): 5/5 motor strength present throughout Sensory Exam: No Sensory deficit (Neuro) Extrem Other: Range of motion of bilateral knees is preserved. There is significant crepitus on palpation with range of motion of bilateral knees. Flexing the knees causes significant discomfort for the patient. Lateral collateral and medial collateral ligament is stable, bilaterally. Anterior and posterior drawer test is stable bilaterally. General: No pedal edema Psych Speech and movement: Normal speech and movement present Affect: normal affect Attitude: cooperative Thought process: Normal thought process present Thought content: Normal thought content present Insight: Good insight present (Psych) Judgement: Good judgement present (Psych) Results Reviewed Results Reviewed: XR LUMBOSACRAL SPINE FINDINGS: Normal lumbar segmentation with 5 nonrib-bearing lumbar vertebrae. There is moderate levocurvature lumbar spine. There are postsurgical changes with bilateral rodding and pedicle screws L3-L5 and disc spaces at L3-L4 and L4-L5. Possible laminectomy at L4. The hardware is intact. There is no osteolysis or destructive process. There is variable lumbar disc narrowing, greater on the concave side of the curvature with right lateral imaging osteophytes particularly at L1-L2 and L2-L3. There is accentuated superior endplate concavity L1 without vertebral compression. Difficult to assess for spondylolisthesis and retrolisthesis given the curvature. The SI joints and visualized sacrum are unremarkable. XR/XR lumbar spine 2-3V IMPRESSION: -Status post fusion L3-L5. Hardware intact. No osteolysis or destructive process. -Prominent levocurvature with degenerative disc changes greatest at L1-L2 and L2-L3. -Accentuated superior endplate concavity L1. Assessment & Plan Assessment & Plan (1) Osteoarthritis of left knee: Code(s): M17.12 - Unilateral primary osteoarthritis, left knee Category: Medical (2) Osteoarthritis of right knee: Code(s): M17.11 - Unilateral primary osteoarthritis, right knee Category: Medical (3) Postlaminectomy syndrome, lumbar: Code(s): M96.1 - Postlaminectomy syndrome, not elsewhere classified Category: Medical Plan X-ray of the lumbar spine dictated as above. There is significant changes related to previously performed fusion L3 L4-5 as well as advanced scoliosis of the lumbar spine.. I suspect knee osteoarthritis being main pain generators in this patient. She has significant postlaminectomy syndrome which could be another source of her pain. I will send her for the x-ray of the bilateral knees. I will see this patient in 4 weeks after x-ray will be read. Orders: Orders XR knee RT 3V Today M17.11 - Unilateral primary osteoarthritis, right knee XR knee LT 3V Today M17.12 - Unilateral primary osteoarthritis, left knee Patient Instructions: I here by testify that I spent 45 minutes in conversation with this patient as well as evaluating her prior records ordering imaging and organizing this note.. The voice dough mixer [id number] was helping me to maintain this conversation is Cuban. Coding Level of Care Code New Pt Level 4 (99645) Diagnoses Osteoarthritis of left knee M17.12 Osteoarthritis of right knee M17.11 Postlaminectomy syndrome, lumbar M96.1
[2024-01-27 08:42] VITALS: BP 138/90; PULSE 62; RESP 14; O2SAT 97; BMI 31.5
== END 2024-01-27 09:15 | disposition home or self-care (01) ==
LOC: HO.PMC 08:24
PROVIDERS: PCP Internal Medicine; Referring Provider Internal Medicine; Visit Provider Anesthesiology
DX: M17.0 Bilateral primary osteoarthritis of knee (principal); M96.1 Postlaminectomy syndrome, not elsewhere classified
CPT/HCPCS: 99204

== ENCOUNTER 2024-01-27 08:24 | Outpatient (REF) | payer OTHER, SELFPAY ==
--- NOTE | ~2024-01-27 | XR_ITS ---
EXAMINATION: XR BILATERAL KNEES CLINICAL INFORMATION: Bilateral primary osteoarthritis, pain in both knees but no injury per patient. COMPARISON: None available. TECHNIQUE: 3 views of each knee. FINDINGS: RIGHT KNEE: Diffuse demineralization. No significant joint effusion. Tiny medial marginal and posterior patellar osteophytes. Minimal narrowing of the medial compartment. LEFT KNEE: Diffuse demineralization. No significant joint effusion. Tiny medial marginal and posterior patellar osteophytes. Minimal narrowing of the medial compartment. XR/XR knee LT 3V IMPRESSION: Minimal degenerative changes in the bilateral knees.
--- NOTE | ~2024-01-27 | XR_ITS ---
EXAMINATION: XR BILATERAL KNEES CLINICAL INFORMATION: Bilateral primary osteoarthritis, pain in both knees but no injury per patient. COMPARISON: None available. TECHNIQUE: 3 views of each knee. FINDINGS: RIGHT KNEE: Diffuse demineralization. No significant joint effusion. Tiny medial marginal and posterior patellar osteophytes. Minimal narrowing of the medial compartment. LEFT KNEE: Diffuse demineralization. No significant joint effusion. Tiny medial marginal and posterior patellar osteophytes. Minimal narrowing of the medial compartment. XR/XR knee RT 3V IMPRESSION: Minimal degenerative changes in the bilateral knees.
== END 2024-01-27 08:25 | disposition home or self-care (01) ==
LOC: HO.XRAY 08:24
PROVIDERS: PCP Internal Medicine; Referring Provider Internal Medicine; Visit Provider Anesthesiology
DX: M17.0 Bilateral primary osteoarthritis of knee (principal)
CPT/HCPCS: 73562; 99202

== ENCOUNTER 2024-02-01 09:47 | Outpatient (AMB) | payer OTHER, SELFPAY ==
[2024-02-01 09:49] VITALS: BP 148/74; PULSE 66; O2SAT 97; BMI 31.8
--- NOTE | 2024-02-01 09:49 | MHC.PC.OV ---
Vital Signs 02/01/24 09:49 02/01/24 10:09 Height 5 ft 4 in Weight 185 lb 0.6 oz BMI 31.8 BP 148/74 H 138/80 Blood Pressure Location Lt brachial Lt brachial Position Sitting Sitting Pulse 66 Pulse Source Pulse Oximeter Pulse Oximetry (%) 97 Oxygen Delivery Method Room Air Intake Visit Reasons: dm Med Surg Rn Required: No Accompanied by: Self / Same As Patient Allergies No Known Allergies Allergy (Verified 02/01/24 10:10) Medication List - Last Reconciled 02/01/24 by Freya Azevedo MD acetaminophen 650 mg PO Q6-8H PRN apixaban (Eliquis) 5 mg PO BID 90 days atorvastatin 20 mg PO BEDTIME 90 days blood sugar diagnostic (Nanophthalmics Ultra Test strips) Use 1 test strip once a day cholecalciferol (vitamin D3) 50 mcg PO DAILY 90 days lancets (Nanophthalmics UltraSoft 2 Lancet) test once daily metoprolol tartrate 25 mg PO BID 90 days oxycodone 5 mg PO Q6H PRN sitagliptin phosphate (Januvia) 50 mg PO DAILY 90 days trazodone 50 mg PO BEDTIME PRN 30 days Tobacco use date assessed: 02/01/24 Fall risk assessment: No Falls in past year Last assessed Fall Risk: 02/01/24 Dental Screening Dental Screen Date: 02/01/24 HPI HPI Comments History of Present Illness Details This is a 78-year-old female with hypertension, diabetes mellitus type 2, atrial fibrillation and hyperlipidemia that comes today complaining of low back pain radiating to both legs most likely due to bilateral sciatica. This has been present for many years. She follows with pain management. X-ray of the lumbar spine will be order and she use start physical therapy. Blood pressure borderline normal to elevated today and I will add losartan. Blood pressure will be recheck in 3 weeks by nurse navigator. A1c within goal. Last LDL was not on goal and lipid panel will be repeated. On chronic anticoagulation for atrial fibrillation. [facility] Medical History (Updated 02/01/24 @ 10:18 by Freya Azevedo MD) Arthritis Back pain Scoliosis Numbness On anticoagulant therapy Elevated cholesterol Murmur HTN (hypertension) ASD (atrial septal defect) Left bundle branch block (LBBB) Obesity Hyperlipidemia Type 2 diabetes mellitus GERD (gastroesophageal reflux disease) Surgical History Hx of varicose vein stripping Hx of hysterectomy History of appendectomy History of esophagogastroduodenoscopy (EGD) Hx of colonoscopy History of Amplatzer atrial septal defect closure History of cataract surgery History of back surgery Family History Mother Emphysema lung Diabetes Father Heart attack Maternal Aunt Cancer Maternal Uncle Cancer Social History Housing: House Are you a primary care management associate to a significant other at home: No Do you presently have visiting nurse or other home services: Yes (nurse) Alcohol intake: never Comment: counts correct Patient Tobacco Use Status: Never used Tobacco e-Cigarette/Vaping Use: Never Used Second Hand Smoke Exposure: No service: No Current occupational status: unemployed Cognitive needs: No Hearing needs: No Vision needs: No Female Reproductive History Menstrual Age of Menarche: 16 Questionnaire Thrive Questionnaire Date Thrive assessed: 09/23/23 AUDIT C Alcohol Use Questionnaire (AUDIT-C) 1. How often do you have a drink containing alcohol?: Never Total Score: 0 LISS-7 AMB Questionnaire LISS-7 Date LISS - 7 assessed: 09/23/23 Source: Developed by Drs. Ventura Bermeo, Lissy Neal, Nitin Correa and colleagues, with an educational paty from [employer]. Review of Systems Const All systems reviewed & are unremarkable except as noted in HPI and below Card Denies chest pain at rest, Denies chest pain with activity, Denies edema, Denies irregular heart rhythm, Denies claudication, Denies dyspnea, Denies dyspnea on exertion, Denies orthopnea, Denies paroxysmal nocturnal dyspnea and Denies slow heart rate Resp Denies cough, Denies dyspnea and Denies dyspnea on exertion Musc Reports back pain, Denies atrophy, Denies deformity, Denies limited range of motion, Reports muscle weakness and Reports radiating pain into limb Physical exam (Primary Care) Vital Signs: Last Vital Signs Pulse 66 02/01/24 09:49 BP 138/80 02/01/24 10:09 Pulse Ox 97 02/01/24 09:49 Oxygen Delivery Method Room Air 02/01/24 09:49 BMI result Body Mass Index 31.8 BMI Assessment/Plan discussion: High BMI High, discussed plan: lifestyle, weight reduction, dietary and physical activity Tobacco/Smoking Status: Tobacco use Status Tobacco use date assessed 02/01/24 02/01/24 09:54 Patient Tobacco Use Status Never used Tobacco 02/01/24 09:54 e-Cigarette/Vaping Use Never Used 02/01/24 09:54 Thrive Assessment: Date of Thrive Assessment Date Thrive assessed 09/23/23 02/01/24 09:54 Resp Effort & Inspection: normal respiratory effort Auscultation: clear to auscultation bilaterally Cardio Jugular venous distension: no JVD Rate: regular rate Rhythm: regular rhythm Heart sounds: S1 normal heart sound present and S2 normal heart sound present Results AMB Hemoglobin A1c AMB Hemoglobin A1c 6.2 % Last Edit by DIXON Banks on 02/01/24 10:07 Results Reviewed Results Reviewed: Laboratory Last Values Hgb A1c (Clinic) 6.2 % (4.0-6.0) H 02/01/24 09:03 Assessment and Plan Assessment & Plan (1) Atrial fibrillation: Code(s): I48.91 - Unspecified atrial fibrillation Qualifiers: Atrial fibrillation type: paroxysmal Qualified Code(s): I48.0 - Paroxysmal atrial fibrillation Plan: Continue metoprolol and Eliquis. The goal is heart rate control. Follow-up with Cardiology. (2) Essential hypertension: Code(s): I10 - Essential (primary) hypertension Plan: Start losartan. Blood pressure goal is equal or less than 130/80. (3) Bilateral sciatica: Code(s): M54.31 - Sciatica, right side; M54.32 - Sciatica, left side Plan: X-ray ordered. Start physical therapy. Follow-up with pain management. (4) Diabetes mellitus: Code(s): E11.9 - Type 2 diabetes mellitus without complications Qualifiers: Diabetes mellitus type: type 2 Diabetes mellitus senior living insulin use: without senior living use Diabetes mellitus complication status: without complication Qualified Code(s): E11.9 - Type 2 diabetes mellitus without complications Plan: Continue Januvia. A1c within goal. (5) Hyperlipidemia LDL goal <70: Code(s): E78.5 - Hyperlipidemia, unspecified Plan: Continue statins. LDL goal is less than 70. Orders: Orders Microalbumin, Random (w Creat) Today E11.9 - Type 2 diabetes mellitus without complications Vitamin D 25-OH Total Today E55.9 - Vitamin D deficiency, unspecified Comprehensive [place]. Panel Fast Today I48.0 - Paroxysmal atrial fibrillation XR lumbar spine 2-3V Today M54.31 - Sciatica, right side, M54.32 - Sciatica, left side AMB Hemoglobin A1c Today E11.9 - Type 2 diabetes mellitus without complications Lipid Panel Today E78.5 - Hyperlipidemia, unspecified PT Evaluation and Treatment Today M54.31 - Sciatica, right side, M54.32 - Sciatica, left side Medications: New losartan 25 mg PO DAILY 90 tabs 1RF 90 days I10 - Essential (primary) hypertension Coding Level of Care Code Est Pt Level 4 (70543) Complex EM visit Add On G2211 Diagnoses Paroxysmal atrial fibrillation I48.0 Atrial fibrillation type: paroxysmal Essential hypertension I10 Bilateral sciatica M54.31; M54.32 Type 2 diabetes mellitus without complication, without long-term current use of insulin E11.9 Diabetes mellitus type: type 2 Diabetes mellitus senior living insulin use: without senior living use Diabetes mellitus complication status: without complication Hyperlipidemia LDL goal <70 E78.5 Time Spent (min) 24
[2024-02-01 10:09] VITALS: BP 138/80
== END 2024-02-01 10:18 | disposition home or self-care (01) ==
PROVIDERS: PCP Internal Medicine; Visit Provider Internal Medicine
DX: I48.0 Paroxysmal atrial fibrillation (principal); E11.69 Type 2 diabetes mellitus with other specified complication; I10 Essential (primary) hypertension; M54.31 Sciatica, right side; M54.32 Sciatica, left side; E78.5 Hyperlipidemia, unspecified
CPT/HCPCS: 83036; 99214; G2211

== ENCOUNTER → 2024-02-07 10:46 | Outpatient (BNVA) | payer OTHER, SELFPAY | PROVIDERS: PCP Internal Medicine; Visit Provider Anesthesiology ==

== ENCOUNTER 2024-02-23 10:13 | Outpatient (AMB) | payer OTHER, SELFPAY ==
--- NOTE | 2024-02-23 10:18 | MHC.OFFVIS ---
Vital Signs 02/23/24 10:22 Height 5 ft 4 in Weight 185 lb 6 oz BMI 31.8 BP 160/70 H Blood Pressure Location Lt brachial Position Sitting Respiration 16 Pulse 68 Pulse Source Pulse Oximeter Pulse Oximetry (%) 95 Oxygen Delivery Method Room Air Intake Visit Reasons: discuss xray results Intake Note: Patient comes in to discuss xray results. Reports pain 02/08. Allergies No Known Allergies Allergy (Verified 02/23/24 10:24) HPI Comments Details: Blanca is very pleasant 78 years old Vietnamese-speaking female who presents in my office with complains on pain and numbness in bilateral knees with radiation of the pain to the right upper hip but not into the back. She also feels numbness and sensation of compression in the projection of the right knee. She reports also aching pain in the back. She relates her pain to the procedure of varicose vein obliteration with glue, she also has a history of L3-L4 L5 fusion which was performed for scoliosis of the lumbar spine in 2019. She went saw on x-ray of bilateral knees and that demonstrated [id number] bilateral knee arthritis. Patient reports more severe pain in the right knee. She also reports pain in the projection of the trochanteric bursa on the right. I recommended her to take diclofenac gel in the pharmacy and apply to the area of the right trochanter. I also will schedule her for diagnostic genicular nerve block on the right. In case it will give her significant pain relief I will perform radiofrequency ablation of the right genicular nerves. She also complains on pain in the left knee we will attend her left knee after we are through with her right knee pain. Her past medical history significant for atrial fibrillation history of atrial septal defect with interventional septal occluder device she is suffering from diabetes her hemoglobin A1c is around 7 or below, his history of arthritis and gallstones. She denies smoking cigarettes denies drinking alcohol denies recreational drugs admits 1 cup of coffee a day. FOR[facility]LY [facility], [facility]ER [facility] Medical History Arthritis Back pain Scoliosis Numbness On anticoagulant therapy Elevated cholesterol Murmur HTN (hypertension) ASD (atrial septal defect) Left bundle branch block (LBBB) Obesity Hyperlipidemia Type 2 diabetes mellitus GERD (gastroesophageal reflux disease) Surgical History Hx of varicose vein stripping Hx of hysterectomy History of appendectomy History of esophagogastroduodenoscopy (EGD) Hx of colonoscopy History of Amplatzer atrial septal defect closure History of cataract surgery History of back surgery Family History Mother Emphysema lung Diabetes Father Heart attack Maternal Aunt Cancer Maternal Uncle Cancer Social History Housing: House Are you a primary customer care manager to a significant other at home: No Do you presently have visiting nurse or other home services: Yes (nurse) Alcohol intake: never Comment: counts correct Patient Tobacco Use Status: Never used Tobacco e-Cigarette/Vaping Use: Never Used Second Hand Smoke Exposure: No service: No Current occupational status: unemployed Cognitive needs: No Hearing needs: No Vision needs: No Female Reproductive History Menstrual Age of Menarche: 16 Review of Systems Const All systems reviewed & are unremarkable except as noted in HPI and below ENT Reports Normal hearing present Neuro Reports Normal hearing present, Denies Abnormal speech present, Denies confusion and Denies Sensory deficit (Neuro) Psych Denies confusion Physical Exam Vital Signs: Last Vital Signs Pulse 68 02/23/24 10:22 Resp 16 02/23/24 10:22 BP 160/70 H 02/23/24 10:22 Pulse Ox 95 02/23/24 10:22 Oxygen Delivery Method Room Air 02/23/24 10:22 BMI result Body Mass Index 31.8 Const General: no acute distress; No confusion Orientation/consciousness: patient oriented x3 and No confusion Eyes General: appearance normal, both eyes and all related structures Pupils: Equal, round and reactive pupils present EOM: EOMs intact bilaterally Neck Neck: Yes full ROM Chest Chest palpation & inspection: normal inspection of the chest Resp Effort & Inspection: normal respiratory effort, able to speak in complete sentences, normal respiratory pattern, no audible wheezes and no cough Cardio Jugular venous distension: no JVD GI Inspection: Yes normal to inspection Neuro General: patient oriented x3, gait normal and No confusion Cranial nerves: Yes CN's II-XII intact bilaterally, Yes Equal, round and reactive pupils present, Yes Normal hearing present and Yes Ability to bilaterally elevate shoulders present Speech: No Abnormal speech present Gait exam (Neuro): Normal gait present Motor exam (neuro): 5/5 motor strength present throughout Sensory Exam: No Sensory deficit (Neuro) Extrem Other: Range of motion of bilateral knees is preserved. There is significant crepitus on palpation with range of motion of bilateral knees. Flexing the knees causes significant discomfort for the patient. Lateral collateral and medial collateral ligament is stable, bilaterally. Anterior and posterior drawer test is stable bilaterally. General: No pedal edema Psych Speech and movement: Normal speech and movement present Affect: normal affect Attitude: cooperative Thought process: Normal thought process present Thought content: Normal thought content present Insight: Good insight present (Psych) Judgement: Good judgement present (Psych) Results Reviewed Results Reviewed: INDINGS: RIGHT KNEE: Diffuse demineralization. No significant joint effusion. Tiny medial marginal and posterior patellar osteophytes. Minimal narrowing of the medial compartment. LEFT KNEE: Diffuse demineralization. No significant joint effusion. Tiny medial marginal and posterior patellar osteophytes. Minimal narrowing of the medial compartment. Assessment & Plan Assessment & Plan (1) Osteoarthritis of left knee: Code(s): M17.12 - Unilateral primary osteoarthritis, left knee Category: Medical (2) Osteoarthritis of right knee: Code(s): M17.11 - Unilateral primary osteoarthritis, right knee Category: Medical (3) Postlaminectomy syndrome, lumbar: Code(s): M96.1 - Postlaminectomy syndrome, not elsewhere classified Category: Medical Plan X-ray of the bilateral knees dictated as above. She complains on more right-sided pain. She complains on pain in projection of right trochanteric bursa. I recommended her to try diclofenac ointment on the trochanteric bursa location. I will schedule her for diagnostic genicular nerve block on the right. With good results I am planning RFA of the right genicular nerve. Medications: New diclofenac sodium 1.6% 2 ea topical BID-TID 30 days 60 grams 8RF Patient Instructions: I here by testify that I spent 32 minutes in conversation with this patient as well as planning her care and organizing this note. Coding Level of Care Code Est Pt Level 4 (17069) Diagnoses Osteoarthritis of left knee M17.12 Osteoarthritis of right knee M17.11 Postlaminectomy syndrome, lumbar M96.1
[2024-02-23 10:22] VITALS: BP 160/70; PULSE 68; RESP 16; O2SAT 95; BMI 31.8
== END 2024-02-23 10:52 | disposition home or self-care (01) ==
PROVIDERS: PCP Internal Medicine; Visit Provider Anesthesiology
DX: M17.0 Bilateral primary osteoarthritis of knee (principal); M96.1 Postlaminectomy syndrome, not elsewhere classified
CPT/HCPCS: 99214

== ENCOUNTER → 2024-02-23 10:13 | Outpatient (BNVA) | payer OTHER, SELFPAY | PROVIDERS: PCP Internal Medicine; Visit Provider Anesthesiology | DX: M17.0 Bilateral primary osteoarthritis of knee (principal); M96.1 Postlaminectomy syndrome, not elsewhere classified | CPT/HCPCS: 99212 ==

== ENCOUNTER 2024-04-25 08:40 | Outpatient (AMB) | payer OTHER, SELFPAY ==
--- NOTE | 2024-04-25 08:41 | A.OFFPC_ITS ---
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 Language: Syrian Accompanied by: Self / Same As Patient Allergies No Known Allergies Allergy (Verified 04/25/24 08:45) Medication List - Last Reconciled 04/25/24 by Kristine Martinez PA-C acetaminophen 650 mg PO Q6-8H PRN apixaban (Eliquis) 5 mg PO BID 90 days atorvastatin 20 mg PO BEDTIME 90 days blood sugar diagnostic ([employer] Ultra Test strips) Use 1 test strip once a day cholecalciferol (vitamin D3) 50 mcg PO DAILY 90 days diclofenac sodium 1.6% 2 ea topical BID-TID 30 days lancets ([employer] UltraSoft 2 Lancet) test once daily losartan 25 mg PO DAILY 90 days metoprolol tartrate 25 mg PO BID 90 days oxycodone 5 mg PO Q6H PRN sitagliptin phosphate (Januvia) 50 mg PO DAILY 90 days trazodone 50 mg PO BEDTIME PRN 30 days Tobacco use date assessed: 02/01/24 Fall risk assessment: No Falls in past year Last assessed Fall Risk: 04/25/24 Dental Screening Dental Screen Date: 04/25/24 Did you have a dental visit in the last 12 months?: Yes Did you have a dental problem in the last 6 months where you did not have access to dental care?: No Was dental information given to patient?: Patient has dentist HPI L leg swelling with pain/ ?DVT HPI Details 78-year-old female with hypertension, di abetes mellitus type 2, atrial fibrillation and hyperlipidemia that comes today complaining of lower extremity swelling and pain. Patient does have a history of left knee osteoarthritis and degenerative disc disease and is being seen by pain management for this concern. hr representative was used for the duration of this appointment. Patient states for the last 4 weeks she has been having pain in the left side of the spine that radiates down to the left knee. She also has been having unsteady gait for the last 6 months due to back pain and knee pain. She has been evaluated by pain management for these concerns. She has had injections in the past and does not want to try cortisone injections in her back. More recently she has been having right sided hip pain that is worse with walking and occasionally left-sided pain. Denies any calf pain, swelling, redness or war mth. FORMERLY [facility] Medical History Arthritis Back pain Scoliosis Numbness On anticoagulant therapy Elevated cholesterol Murmur HTN (hypertension) ASD (atrial septal defect) Left bundle branch block (LBBB) Obesity Hyperlipidemia Type 2 diabetes mellitus GERD (gastroesophageal reflux disease) Surgical History Hx of varicose vein stripping Hx of hysterectomy History of appendectomy History of esophagogastroduodenoscopy (EGD) Hx of colonoscopy History of Amplatzer atrial septal defect closure History of cataract surgery History of back surgery Family History Mother Emphysema lung Diabetes Father Heart attack Maternal Aunt Cancer Maternal Uncle Cancer Social History Housing: House Are you a primary early breastfeeding care specialist to a significant other at home: No Do you presently have visiting nurse or other home services: Yes (nurse) Alcohol intake: never Comment: counts correct Patient Tobacco Use Status: Never used Tobacco e-Cigarette/Vaping Use: Never Used Second Hand Smoke Exposure: No service: No Current occupational status: unemployed Cognitive needs: No Hearing needs: No Vision needs: No Female Reproductive History Menstrual Age of Menarche: 16 Questionnaire Thrive Questionnaire Date Thrive assessed: 09/23/23 Are you currently unemployed and looking for a job?: No LISS-7 AMB Questionnaire LISS-7 Date LISS - 7 assessed: 09/23/23 Source: Developed by Drs. Ventura Bermeo, Lissy Neal, Nitin Correa and colleagues, with an educational paty from [employer]. Review of Systems Const Denies chills and Denies fever(s) Eyes Reports no additional complaints ENT Reports no additional complaints Card Denies chest pain, Denies leg edema and Denies dyspnea Resp Denies dyspnea GI Reports no additional complaints Musc Reports as per HPI and Reports abnormal gait Skin/Breast Details: No areas of redness or warmth Neuro Reports abnormal gait Physical exam (Primary Care) Vital Signs: Last Vital Signs Pulse 62 04/25/24 08:43 BP 140/72 H 04/25/24 09:24 Pulse Ox 97 04/25/24 08:43 Oxygen Delivery Method Room Air 04/25/24 08:43 BMI result Body Mass Index 31.9 Tobacco/Smoking Status: Tobacco use Status Tobacco use date assessed 02/01/24 04/25/24 08:47 Patient Tobacco Use Status Never used Tobacco 04/25/24 08:47 e-Cigarette/Vaping Use Never Used 04/25/24 08:47 Thrive Assessment: Date of Thrive Assessment Date Thrive assessed 09/23/23 04/25/24 08:47 Const General: cooperative, healthy appearing, comfortable and no acute distress Orientation/consciousness: patient oriented x3 HENMT Head: Yes normocephalic Ears: hearing grossly normal bilaterally General nose exam: Normal external nose present Eyes General: appearance normal, both eyes and all related structures Conjunctivae: conjunctivae normal Neck Neck: Yes full ROM and Yes no lymphadenopathy Resp Effort & Inspection: normal respiratory effort Auscultation: clear to auscultation bilaterally, no crackles, no rales, no rhonchi and no wheezes Cardio Rate: regular rate Rhythm: regular rhythm Back/Spine/Pelvis Other: tenderness to palpation of right hip no tenderness to palpation of left hip. Pain with abduction of bilateral hips. no tenderness to palpation of spine. Skin General skin exam: no rashes or lesions noted Neuro General: patient oriented x3 Gait exam (Neuro): Normal gait present Extrem Other: No tenderness to palpation over bilateral calves and no swelling or erythema. Tenderness to palpation of bilateral knees. Strength, sensation and pulses intact in bilateral lower extremities. General: Yes normal to inspection, Yes full ROM and No edema Psych Affect: normal affect Attitude: cooperative Insight: Good insight present (Psych) Judgement: Good judgement present (Psych) Assessment and Plan Assessment & Plan (1) Right hip pain: Code(s): M25.551 - Pain in right hip Plan: X-ray ordered. Advised patient to use Tylenol and diclofenac gel as needed for pain. Can consider orthopedics or physical therapy referral pending x-ray results. (2) Left hip pain: Code(s): M25.552 - Pain in left hip Plan: X-ray ordered. Advised patient to use Tylenol and diclofenac gel as needed for pain. Can consider orthopedics or physical therapy referral pending x-ray results. Orders: Orders XR hips TOYA min 3V Today M25.551 - Pain in right hip, M25.552 - Pain in left hip Coding Level of Care Code Est Pt Level 3 (54585) Diagnoses Right hip pain M25.551 Left hip pain M25.552
[2024-04-25 08:43] VITALS: BP 174/82; PULSE 62; O2SAT 97; BMI 31.9
[2024-04-25 09:24] VITALS: BP 140/72
== END 2024-04-25 09:28 | disposition home or self-care (01) ==
PROVIDERS: PCP Internal Medicine
DX: M25.551 Pain in right hip (principal); M25.552 Pain in left hip

== ENCOUNTER 2024-04-25 08:40 | Outpatient (REF) | payer OTHER, SELFPAY ==
--- NOTE | ~2024-04-25 | XR_ITS ---
EXAMINATION: XR BILATERAL HIPS WITH AP PELVIS CLINICAL INFORMATION: M25.552 - Pain in left hip COMPARISON: None available. TECHNIQUE: AP view of the hips and frog-leg lateral views of each hip were obtained. FINDINGS: RIGHT HIP: No fracture, dislocation, or focal bony abnormality. Normal alignment of the hip joint. Joint space largely preserved. There is a small amount of superolateral spurring of the acetabulum. Enthesophytes of the greater trochanter, as well as the gluteal insertions upon the iliac bone. No soft tissue abnormalities. LEFT HIP: No fracture, dislocation, or focal bony abnormality. Normal alignment of the hip joint. Joint space largely preserved. There is a small amount of superolateral spurring of the acetabulum. Enthesophytes of the greater trochanter, as well as the gluteal insertions upon the iliac bone. No soft tissue abnormalities. OTHER: There are degenerative changes in both SI joints. There is incompletely imaged fixation hardware of L5 with transpedicular screws. XR/XR hips TOYA min 3V IMPRESSION: 1. No acute findings of the hip joints. Mild osteoarthrosis bilaterally. 2. Enthesophytes of the greater trochanters and gluteal insertions upon the iliac bones. 3. Incompletely imaged hardware in the lower lumbar spine. Electronically signed by: Augustine Olvera MD 07/03/2024 10:20 AM [facility]
== END 2024-04-25 08:41 | disposition home or self-care (01) ==
LOC: HO.XRAY 08:40
PROVIDERS: PCP Internal Medicine
DX: M25.551 Pain in right hip (principal); M25.552 Pain in left hip
CPT/HCPCS: 73522; 99212

== ENCOUNTER → 2024-04-25 09:45 | Outpatient (BNV) | payer OTHER, SELFPAY | PROVIDERS: PCP Internal Medicine; Visit Provider Radiology Diagnostic Radiology | DX: M25.552 Pain in left hip (principal) | CPT/HCPCS: 73522 ==

== ENCOUNTER 2024-05-11 08:40 | Outpatient (REF) | payer OTHER, SELFPAY ==
--- NOTE | ~2024-05-11 | XR_ITS ---
EXAMINATION: XR LUMBOSACRAL SPINE CLINICAL INFORMATION: M54.31 - Sciatica, right side COMPARISON: 02/12/2022. TECHNIQUE: Three views of the lumbosacral spine. FINDINGS: No acute fractures, compression deformity, or suspicious bone lesions. There is a moderate to severe levoconvex scoliosis, apex L2, with Kilpatrick angle estimated at 33 degrees. This is unchanged. Straightening of the normal lumbar lordosis, unchanged. Stable AP alignment with mild degenerative subluxations. Posterior instrumented fusion L3-L5, transpedicular screws, posterior connecting rods, and intervening disc grafts. The hardware appears intact, well seated, without periprosthetic or periscrew lucencies. There is bony fusion through the disc spaces of L3-4 and L4-5. Laminectomies on the left at L4 and L5. Severe disc degeneration at the nonoperative levels. Multilevel facet degeneration, more significant on the right at T12-L3. Moderate right greater than left SI joint degenerative change. There are vascular calcifications in the soft tissues. There are cholecystectomy clips. XR/XR lumbar spine 2-3V IMPRESSION: No significant change and no acute findings seen. Electronically signed by: Augustine Olvera MD 07/10/2024 11:13 AM [facility]
[2024-05-11 08:53] LABS: MANUAL DIFF FLAG NO
[2024-05-11 09:59] LABS: Alanine Aminotransferase 15 U/L (0-31); Albumin Level 4.1 g/dL (3.5-5.0); Alkaline Phosphatase 98 U/L (39-117); Anion Gap 11 (12-20); Aspartate Amino Transferase 16 U/L (5-31); Bilirubin Total 0.5 mg/dL (0.0-1.0); Blood Urea Nitrogen 18 mg/dL (9-16); Calcium 9.7 mg/dL (8.4-10.2); Carbon Dioxide 27 mmol/L (22-29); Chloride 106 mmol/L (96-108); Cholesterol 236 mg/dL (<200); Estimated Glomerular Filt Rate > 60; Glucose Fasting 142 mg/dL (60-99); HDL Cholesterol 64 mg/dL (>40); LDL Cholesterol Calculated 148 mg/dL (<100); Potassium 4.3 mmol/L (3.3-5.1); Sodium 140 mmol/L (135-145); Triglycerides 124 mg/dL (<150); Vitamin D 25-OH Total 44.2 ng/mL (>30)
[2024-05-11 11:07] LABS: Creatinine Urine 87.66 mg/dL; Microalbum/Creatinine Ratio Ur 17.1 ug/mg cr (<30)
[2024-05-11 12:14] LABS: Basophils Absolute Auto 0.1 X10*3/uL (0.0-0.2); Basophils Percent Auto 0.9 % (0-2); Eosinophils Absolute Auto 0.1 X10*3/uL (0.0-0.4); Eosinophils Percent Auto 0.9 % (0-4); Hematocrit 40.6 % (37.0-47.0); Hemoglobin 13.4 g/dl (12.0-16.0); Imm Gran Abs Auto 0.02 X10*3/uL (0.00-0.03); Imm Gran Pct Auto 0.4 % (0.0-0.4); Lymphocytes Absolute Auto 2.6 X10*3/uL (1.2-4.9); Mean Corpuscular Hemoglobin 29.6 pg (27.0-33.0); Mean Corpuscular Volume 89.6 fL (80.0-98.0); Mean Platelet Volume 8.8 fL (9.4-12.3); Monocytes Absolute Auto 0.5 X10*3/uL (0.1-1.2); Monocytes Percent Auto 8.1 % (2-11); Neutrophils Absolute Auto 2.6 x10*3/uL (2.0-8.3); Neutrophils Percent Auto 44.7 % (45-73); Platelet Count 214 X10*3/uL (160-400); Red Blood Count 4.53 X10*6/uL (4.20-5.50); Red Cell Distribution Width 13.2 % (11.0-16.0); White Blood Count 5.7 X10*3/uL (4.8-10.8)
== END 2024-05-11 08:41 | disposition home or self-care (01) ==
LOC: HO.XRAY 08:40
PROVIDERS: PCP Internal Medicine; Visit Provider Internal Medicine
DX: E11.9 Type 2 diabetes mellitus without complications (principal); E78.5 Hyperlipidemia, unspecified; I48.0 Paroxysmal atrial fibrillation; E55.9 Vitamin D deficiency, unspecified; M54.31 Sciatica, right side; M54.32 Sciatica, left side
CPT/HCPCS: 36415; 72100; 80053; 80061; 82043; 82306; 82570; 85025

== ENCOUNTER → 2024-05-11 08:59 | Outpatient (BNV) | payer OTHER, SELFPAY | PROVIDERS: PCP Internal Medicine; Visit Provider Radiology Diagnostic Radiology | DX: M54.31 Sciatica, right side (principal) | CPT/HCPCS: 72100 ==

== ENCOUNTER 2024-05-23 09:15 | Outpatient (AMB) | payer OTHER, SELFPAY ==
--- NOTE | 2024-05-23 09:22 | MHC.PC.OV ---
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 Required: No Accompanied by: Self / Same As Patient Allergies No Known Allergies Allergy (Verified 05/23/24 09:37) Medication List - Last Reconciled 05/23/24 by Freya Azevedo MD acetaminophen 650 mg PO Q6-8H PRN apixaban (Eliquis) 5 mg PO BID 90 days atorvastatin 20 mg PO BEDTIME 90 days blood sugar diagnostic ([employer] Ultra Test strips) Use 1 test strip once a day cholecalciferol (vitamin D3) 50 mcg PO DAILY 90 days diclofenac sodium 1.6% 2 ea topical BID-TID 30 days lancets ([employer] UltraSoft 2 Lancet) test once daily losartan 25 mg PO DAILY 90 days metoprolol tartrate 25 mg PO BID 90 days oxycodone 5 mg PO Q6H PRN sitagliptin phosphate (Januvia) 50 mg PO DAILY 90 days trazodone 50 mg PO BEDTIME PRN 30 days Tobacco use date assessed: 02/01/24 Fall risk assessment: No Falls in past year Last assessed Fall Risk: 05/23/24 Dental Screening Dental Screen Date: 04/25/24 HPI HPI Comments History of Present Illness Details This is a 79-year-old female with atrial fibrillation on chronic anticoagulation, diabetes mellitus type 2, hypertension and hyperlipidemia that comes today complaining of right hip pain that has been present for few months aggravated by laying on it. No previous trauma. X-ray done but results still pending. I will refer her to physical therapy. A1c within goal. Blood pressure borderline normal to elevated. LDL not on goal and I will increase atorvastatin. Denies any active bleeding. [facility] Medical History (Updated 05/23/24 @ 09:47 by Freya Azevedo MD) Arthritis Back pain Scoliosis Numbness On anticoagulant therapy Elevated cholesterol Murmur HTN (hypertension) ASD (atrial septal defect) Left bundle branch block (LBBB) Obesity Hyperlipidemia Type 2 diabetes mellitus GERD (gastroesophageal reflux disease) Surgical History Hx of varicose vein stripping Hx of hysterectomy History of appendectomy History of esophagogastroduodenoscopy (EGD) Hx of colonoscopy History of Amplatzer atrial septal defect closure History of cataract surgery History of back surgery Family History Mother Emphysema lung Diabetes Father Heart attack Maternal Aunt Cancer Maternal Uncle Cancer Social History Housing: House Are you a primary healthcare corporate account director to a significant other at home: No Do you presently have visiting nurse or other home services: Yes (nurse) Alcohol intake: never Comment: counts correct Patient Tobacco Use Status: Never used Tobacco e-Cigarette/Vaping Use: Never Used Second Hand Smoke Exposure: No service: No Current occupational status: unemployed Cognitive needs: No Hearing needs: No Vision needs: No Female Reproductive History Menstrual Age of Menarche: 16 Questionnaire Thrive Questionnaire Date Thrive assessed: 09/23/23 Are you currently unemployed and looking for a job?: No LISS-7 AMB Questionnaire LISS-7 Date LISS - 7 assessed: 09/23/23 Source: Developed by Drs. Ventura Bermeo, Lissy Neal, Nitin Correa and colleagues, with an educational paty from [employer]. Review of Systems Const All systems reviewed & are unremarkable except as noted in HPI and below Card Denies chest pain at rest, Denies chest pain with activity, Denies edema, Denies irregular heart rhythm, Denies claudication, Denies dyspnea, Denies dyspnea on exertion, Denies orthopnea, Denies paroxysmal nocturnal dyspnea and Denies slow heart rate Resp Denies cough, Denies dyspnea and Denies dyspnea on exertion Physical exam (Primary Care) Vital Signs: Last Vital Signs BP 140/80 H 05/23/24 09:36 BMI result Body Mass Index 31.8 BMI Assessment/Plan discussion: High BMI High, discussed plan: lifestyle, weight reduction, dietary and physical activity Tobacco/Smoking Status: Tobacco use Status Tobacco use date assessed 02/01/24 05/23/24 09:24 Patient Tobacco Use Status Never used Tobacco 05/23/24 09:24 e-Cigarette/Vaping Use Never Used 05/23/24 09:24 Thrive Assessment: Date of Thrive Assessment Date Thrive assessed 09/23/23 05/23/24 09:24 Resp Effort & Inspection: normal respiratory effort Auscultation: clear to auscultation bilaterally Cardio Jugular venous distension: no JVD Rate: regular rate Rhythm: regular rhythm Heart sounds: S1 normal heart sound present and S2 normal heart sound present Extrem General: Yes full ROM Office Procedures Flu Questionnaire Does the patient have a severe egg allergy?: No Does the patient have severe life threatening allergies?: No Does the patient have a fever or illness today?: No Has the patient ever had Guillain-[place] Syndrome?: No Has the patient ever had any past reaction to a flu shot?: No Results AMB Hemoglobin A1c AMB Hemoglobin A1c 6.4 % Last Edit by DIXON Mendoza on 05/23/24 09:41 Immunizations Fluarix Triv [id number] (PF) 45 mcg (15 mcg x 3)/0.5 mL IM syringe Performing Provider: Freya Azevedo MD [facility] Administered by: DIXON Mendoza on 05/23/24 09:42 Dose Route Admin Location Dispensed Lot Number Expiration Date NDC Tube Operator 0.5 mL IM Left Deltoid 0.5 mL [id number] 01/29/25 [id number] [employer] VIS Given Date VIS Provided VIS Publication Date 05/23/24 Single Vaccine 21 Eligibility Eligibility Date Funding Source Not [facility] Eligible 05/23/24 Private Results Reviewed Results Reviewed: Laboratory Last Values Hgb A1c (Clinic) 6.4 % (4.0-6.0) H 05/23/24 09:28 Coding Level of Care Code Est Pt Level 4 (02853) Complex EM visit Add On G2211 Diagnoses Right hip pain M25.551 Essential hypertension I10 Paroxysmal atrial fibrillation I48.0 Atrial fibrillation type: paroxysmal Hyperlipidemia LDL goal <70 E78.5 Type 2 diabetes mellitus without complication, without long-term current use of insulin E11.9 Diabetes mellitus type: type 2 Diabetes mellitus superintendent container terminal insulin use: without penitentiary use Diabetes mellitus complication status: without complication Time Spent (min) 24 Assessment & Plan Assessment & Plan (1) Right hip pain: Code(s): M25.551 - Pain in right hip Category: Medical Plan: Referred to physical therapy. (2) Essential hypertension: Code(s): I10 - Essential (primary) hypertension Category: Medical Plan: Continue losartan. Blood pressure goal is equal or less than 130/80. (3) Atrial fibrillation: Code(s): I48.91 - Unspecified atrial fibrillation Category: Medical Qualifiers: Atrial fibrillation type: paroxysmal Qualified Code(s): I48.0 - Paroxysmal atrial fibrillation Plan: Continue metoprolol and Eliquis. The goal is heart rate control. (4) Hyperlipidemia LDL goal <70: Code(s): E78.5 - Hyperlipidemia, unspecified Category: Medical Plan: Increase statins. LDL goal is less than 70. (5) Diabetes mellitus: Code(s): E11.9 - Type 2 diabetes mellitus without complications Category: Medical Qualifiers: Diabetes mellitus type: type 2 Diabetes mellitus penitentiary insulin use: without superintendent container terminal use Diabetes mellitus complication status: without complication Qualified Code(s): E11.9 - Type 2 diabetes mellitus without complications Plan: Continue Januvia. A1c goal is equal or less than 7%. Orders: Orders PT Evaluation and Treatment Today M25.551 - Pain in right hip Influenza [id number] Immunization Today Z23 - Encounter for immunization AMB Hemoglobin A1c Today E11.9 - Type 2 diabetes mellitus without complications Medications: New atorvastatin 40 mg PO BEDTIME 90 tabs 1RF 90 days Discontinued atorvastatin Discontinued Reason: Patient Completed Course 20 mg PO BEDTIME 90 days 90 tabs 1RF
[2024-05-23 09:25] VITALS: BP 142/82; BMI 31.8
[2024-05-23 09:36] VITALS: BP 140/80
== END 2024-05-23 09:49 | disposition home or self-care (01) ==
PROVIDERS: PCP Internal Medicine; Visit Provider Internal Medicine
DX: M25.551 Pain in right hip (principal); I48.0 Paroxysmal atrial fibrillation; E11.69 Type 2 diabetes mellitus with other specified complication; I10 Essential (primary) hypertension; E78.5 Hyperlipidemia, unspecified

== ENCOUNTER → 2024-05-23 09:15 | Outpatient (BNVA) | payer OTHER, SELFPAY | PROVIDERS: PCP Internal Medicine; Visit Provider Internal Medicine | DX: M25.551 Pain in right hip (principal); I10 Essential (primary) hypertension; I48.0 Paroxysmal atrial fibrillation; E78.5 Hyperlipidemia, unspecified; E11.9 Type 2 diabetes mellitus without complications; Z79.01 Long term (current) use of anticoagulants; Z79.84 Long term (current) use of oral hypoglycemic drugs; Z79.899 Other long term (current) drug therapy; Z23 Encounter for immunization | CPT/HCPCS: 83036; 90471; 90656; 99212 ==

== ENCOUNTER 2024-06-21 08:24 | Outpatient (REF) | payer OTHER, SELFPAY ==
[2024-06-21 09:29] LABS: Creatinine Urine 85.11 mg/dL; Microalbum/Creatinine Ratio Ur 11.7 ug/mg cr (<30)
[2024-06-21 09:50] LABS: Alanine Aminotransferase 21 U/L (0-31); Albumin Level 4.1 g/dL (3.5-5.0); Alkaline Phosphatase 85 U/L (39-117); Anion Gap 11 (12-20); Aspartate Amino Transferase 24 U/L (5-31); Bilirubin Total 0.6 mg/dL (0.0-1.0); Blood Urea Nitrogen 17 mg/dL (9-16); Calcium 9.5 mg/dL (8.4-10.2); Carbon Dioxide 27 mmol/L (22-29); Chloride 106 mmol/L (96-108); Cholesterol 182 mg/dL (<200); Estimated Glomerular Filt Rate > 60; Glucose Fasting 138 mg/dL (60-99); HDL Cholesterol 65 mg/dL (>40); LDL Cholesterol Calculated 94 mg/dL (<100); Potassium 4.1 mmol/L (3.3-5.1); Sodium 140 mmol/L (135-145); Total Protein 6.8 g/dL (6.5-8.0); Triglycerides 116 mg/dL (<150)
[2024-06-21 09:52] LABS: Vitamin D 25-OH Total 66.7 ng/mL (>30)
== END 2024-06-21 08:25 | disposition home or self-care (01) ==
LOC: HO.LAB 08:24
PROVIDERS: PCP Internal Medicine; Visit Provider Internal Medicine
DX: E11.9 Type 2 diabetes mellitus without complications (principal); E78.5 Hyperlipidemia, unspecified; E55.9 Vitamin D deficiency, unspecified
CPT/HCPCS: 36415; 80053; 80061; 82043; 82306; 82570

== ENCOUNTER 2024-07-10 07:38 | Outpatient (AMB) | payer OTHER, SELFPAY ==
--- NOTE | 2024-07-10 07:40 | A.OFFPC_ITS ---
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 Required: No Accompanied by: Self / Same As Patient Allergies No Known Allergies Allergy (Verified 07/10/24 08:00) Medication List - Last Reconciled 07/10/24 by Freya Azevedo MD acetaminophen 650 mg PO Q6-8H PRN apixaban (Eliquis) 5 mg PO BID 90 days atorvastatin 40 mg PO BEDTIME 90 days blood sugar diagnostic ([employer] Ultra Test strips) Use 1 test strip once a day cholecalciferol (vitamin D3) 50 mcg PO DAILY 90 days diclofenac sodium 1.6% 2 ea topical BID-TID 30 days lancets ([employer] UltraSoft 2 Lancet) test once daily losartan 25 mg PO DAILY 90 days metoprolol tartrate 25 mg PO BID 90 days sitagliptin phosphate (Januvia) 50 mg PO DAILY 90 days trazodone 50 mg PO BEDTIME PRN 30 days Tobacco use date assessed: 02/01/24 Fall risk assessment: No Falls in past year Last assessed Fall Risk: 07/10/24 Dental Screening Dental Screen Date: 07/10/24 Did you have a dental visit in the last 12 months?: Yes Did you have a dental problem in the last 6 months where you did not have access to dental care?: No Was dental information given to patient?: Patient has dentist HPI HPI Comments History of Present Illness Details This is a 79-year-old female with diabetes mellitus type 2 and atrial fibrillation that comes for her physical exam. Last A1c was in May and he was 6.4% which is within goal. On chronic anticoagulation for atrial fibrillation and has appointment with cardiology for this matter. Last diabetic eye exam was 3 months ago and showed no diabetic retinopathy as per patient. Colonoscopy done 2021 with hyperplastic changes. Needs pneumonia and Tdap vaccine which will be administered today. Mammogram done 2022 and I will order another mammogram. DEXA scan done over 2 years ago. LDL not on goal and I will increase atorvastatin. Nonfasting labs will be repeated in 4 months. [facility] Medical History (Updated 07/10/24 @ 08:35 by Freya Azevedo MD) Arthritis Back pain Scoliosis Numbness On anticoagulant therapy Elevated cholesterol Murmur HTN (hypertension) ASD (atrial septal defect) Left bundle branch block (LBBB) Obesity Hyperlipidemia Type 2 diabetes mellitus GERD (gastroesophageal reflux disease) Surgical History Hx of varicose vein stripping Hx of hysterectomy History of appendectomy History of esophagogastroduodenoscopy (EGD) Hx of colonoscopy History of Amplatzer atrial septal defect closure History of cataract surgery History of back surgery Family History Mother Emphysema lung Diabetes Father Heart attack Maternal Aunt Cancer Maternal Uncle Cancer Social History Housing: House Are you a primary manager progressive care to a significant other at home: No Do you presently have visiting nurse or other home services: Yes (nurse) Alcohol intake: never Comment: counts correct Patient Tobacco Use Status: Never used Tobacco e-Cigarette/Vaping Use: Never Used Second Hand Smoke Exposure: No service: No Current occupational status: unemployed Cognitive needs: No Hearing needs: No Vision needs: No Female Reproductive History Menstrual Age of Menarche: 16 Questionnaire PHQ-9 Over the last 2 weeks, how often have you been bothered by any of the following problems? 1. Little interest or pleasure in doing things: not at all 2. Feeling down, depressed, or hopeless: not at all 3. Trouble falling or staying asleep, or sleeping too much: not at all 4. Feeling tired or having little energy: not at all 5. Poor appetite or overeating: not at all 6. Feeling bad about yourself - or that you are a failure or have let yourself or your family down: not at all 7. Trouble concentrating on things, such as reading the newspaper or watching television: not at all 8. Moving or speaking so slowly that other people could have noticed. Or the opposite - being so fidgety or restless that you have been moving around a lot more than usual: not at all 9. Thoughts that you would be better off or of hurting yourself in some way: not at all Total score: 0 Depression Screening Interpretation: Negative Depression Screening Done: Yes 54144 - PHQ-9 Billing: Yes Source: Developed by Drs. Ventura Bermeo, Lissy Neal, Nitin Correa and colleagues, with an educational paty from [employer]. Thrive Questionnaire Date Thrive assessed: 07/10/24 I am a: Patient What is your living situation today?: I choose not to answer this question Within the past 12 months, did the food you bought not last and you didn't have the money to get more?: I choose not to answer this question Within the past 12 months, did you worry whether your food would run out before you got money to buy more?: I choose not to answer this question Do you have trouble paying for medicines?: No Do you have trouble getting transportation to medical appointments?: No Do you have trouble paying your heating and electricity bill?: I choose not to answer this question Do you have trouble taking care of your child, family member or friend?: I choose not to answer this question Do you have trouble with day-to-day activities such as bathing, preparing meals, shopping, managing finances, etc.?: No Are you interested in more education?: I choose not to answer this question Please select the resources that you would like help with: None Currently or been in a relationship where the following occur: No concerns reported and I choose not to answer THRIVE Score: 0 AUDIT C Alcohol Use Questionnaire (AUDIT-C) 1. How often do you have a drink containing alcohol?: Never Total Score: 0 Score Reviewed/Action Taken: No LISS-7 AMB Questionnaire LISS-7 Date LISS - 7 assessed: 07/10/24 Feeling nervous, anxious, or on edge: 0 = Not at all Not being able to stop or control worryin = Not at all Worrying too much about different things: 0 = Not at all Trouble relaxin = Not at all Being so restless that it is hard to sit still: 0 = Not at all Becoming easily annoyed or irritable: 0 = Not at all Feeling afraid as if something awful might happen: 0 = Not at all Total LISS-7 score (0-4 normal; 5-9 mild; 10-14 moderate; 15-21 severe): 0 Source: Developed by Lissy Singh Kurt Kroenke and colleagues, with an educational paty from [employer]. LISS-7 Assessment Billing LISS-7 Assessment Tool: LISS-7 Assessment 80704 Review of Systems Const All systems reviewed & are unremarkable except as noted in HPI and below ENT Denies change in voice, Denies nasal discharge and Denies sinus pain Card Denies chest pain at rest, Denies chest pain with activity, Denies edema, Denies irregular heart rhythm, Denies claudication, Denies dyspnea, Denies dyspnea on exertion, Denies orthopnea, Denies paroxysmal nocturnal dyspnea and Denies slow heart rate Resp Denies cough, Denies dyspnea and Denies dyspnea on exertion GI Denies abdominal pain, Denies change in bowel habits, Denies excessive flatus, Denies nausea and Denies vomiting Denies urinary incontinence, Denies urinary hesitancy and Denies urinary urgency Musc Denies abnormal gait, Denies atrophy, Denies deformity and Denies limited range of motion Skin/Breast Denies bleeding lesions, Denies changing lesions and Denies rash Neuro Denies abnormal gait, Denies behavioral changes, Denies confusion and Denies lack of coordination Psych Denies behavioral changes and Denies confusion Physical exam (Primary Care) Vital Signs: Last Vital Signs BP 136/72 07/10/24 07:41 BMI result Body Mass Index 31.9 Tobacco/Smoking Status: Tobacco use Status Tobacco use date assessed 02/01/24 07/10/24 07:43 Patient Tobacco Use Status Never used Tobacco 07/10/24 07:43 e-Cigarette/Vaping Use Never Used 07/10/24 07:43 PHQ-9: PHQ-9 Score PHQ-9: Total score 0 07/10/24 08:23 Depression Screening Interpretation: Negative Thrive Assessment: Date of Thrive Assessment Date Thrive assessed 07/10/24 07/10/24 07:43 Currently or been in a relationship where the following occur: No concerns reported and I choose not to answer Const General: No confusion Orientation/consciousness: patient oriented x3 and No confusion HENMT Head: Yes normal to inspection, Yes normocephalic and Yes atraumatic Ears: external ears normal Eyes General: appearance normal, both eyes and all related structures Eyelids: Yes eyelids normal Conjunctivae: conjunctivae normal Neck Neck: Yes normal visual inspection and Yes supple Resp Effort & Inspection: normal respiratory effort Auscultation: clear to auscultation bilaterally Cardio Jugular venous distension: no JVD Rate: regular rate Rhythm: regular rhythm Heart sounds: S1 normal heart sound present and S2 normal heart sound present GI Inspection: Yes normal to inspection Palpation (GI): Soft to palpation and nontender Auscultation: normal bowel sounds Skin General skin exam: no rashes or lesions noted Neuro General: patient oriented x3, no focal motor deficits and No confusion Extrem General: Yes full ROM Psych Appearance: grossly normal Immunizations pneumoc 20-ricardo conj-dip cr(PF) 0.5 mL IM syringe Performing Provider: Freya Azevedo MD Performing Location: [facility] Administered by: DIXON Mendoza on 07/10/24 08:23 Dose Route Admin Location Dispensed Lot Number Expiration Date [facility] Building Construction Inspector 0.5 mL IM Right Deltoid 0.5 mL [id number] 09/30/25 6415-3587-58 [employer] VIS Given Date VIS Provided VIS Publication Date 07/10/24 Single Vaccine 21 Eligibility Eligibility Date Funding Source Not VFC Eligible 07/10/24 Private Boostrix Tdap 2.5 Lf unit-8 mcg-5 Lf/0.5 mL intramuscular syringe Performing Provider: Freya Azevedo MD Performing Location: [facility] Administered by: DIXON Mendoza on 07/10/24 08:23 Dose Route Admin Location Dispensed Lot Number Expiration Date [place] Building Construction Inspector 0.5 mL IM Left Deltoid 0.5 mL [id number] 08/23/26 [id number] [employer] VIS Given Date VIS Provided VIS Publication Date 07/10/24 Single Vaccine 21 Eligibility Eligibility Date Funding Source Not VFC Eligible 07/10/24 Private Coding Level of Care Code Est Pt Prev Care >65y(50102) Diagnoses Physical exam Z00.00 Paroxysmal atrial fibrillation I48.0 Atrial fibrillation type: paroxysmal Type 2 diabetes mellitus without complication, without long-term current use of insulin E11.9 Diabetes mellitus type: type 2 Diabetes mellitus half-way insulin use: without ocean transportation intermediary use Diabetes mellitus complication status: without complication Additional Codes LISS-7 Assessment Billing - LISS-7 Assessment Tool: LISS-7 Assessment 38312 ([id number]) PHQ-9 - 59455 - PHQ-9 Billing: Yes ([id number]) Time Spent (min) 30 Assessment & Plan Assessment & Plan (1) Physical exam: Code(s): Z00.00 - Encounter for general adult medical examination without abnormal findings Category: Medical Plan: Repeat in a year. (2) Atrial fibrillation: Code(s): I48.91 - Unspecified atrial fibrillation Category: Medical Qualifiers: Atrial fibrillation type: paroxysmal Qualified Code(s): I48.0 - Paroxysmal atrial fibrillation Plan: Continue metoprolol and Eliquis. The goal is heart rate control. Follow-up with Cardiology. (3) Diabetes mellitus: Code(s): E11.9 - Type 2 diabetes mellitus without complications Category: Medical Qualifiers: Diabetes mellitus type: type 2 Diabetes mellitus ocean transportation intermediary insulin use: without half-way use Diabetes mellitus complication status: without complication Qualified Code(s): E11.9 - Type 2 diabetes mellitus without complications Plan: Continue Januvia. A1c goal is equal or less than 7%. LDL goal less than 70. Diabetic eye exam needs to be done yearly. Orders: Orders Vitamin D 25-OH Total 4 Months E55.9 - Vitamin D deficiency, unspecified Lipid Panel 4 Months E78.5 - Hyperlipidemia, unspecified Microalbumin, Random (w Creat) 4 Months R80.9 - Proteinuria, unspecified Comprehensive [place]. Panel Fast 4 Months I10 - Essential (primary) hypertension TDaP Immunization Today Z23 - Encounter for immunization MM tomosynthesis screening BI Today Z12.31 - Encounter for screening mammogram for malignant neoplasm of breast XR DEXA axial skeleton Today Z78.0 - Asymptomatic menopausal state Pneumococcal 20 Immunization Today Z23 - Encounter for immunization Medications: New atorvastatin 80 mg PO BEDTIME 90 tabs 1RF 90 days Refilled sitagliptin phosphate (Januvia) 50 mg PO DAILY 90 tabs 1RF 90 days losartan 25 mg PO DAILY 90 tabs 1RF 90 days I10 - Essential (primary) hypertension metoprolol tartrate 25 mg PO BID 180 tabs 1RF 90 days I48.91 - Unspecified atrial fibrillation cholecalciferol (vitamin D3) 50 mcg PO DAILY 90 caps 1RF 90 days Discontinued atorvastatin Discontinued Reason: Patient Completed Course 40 mg PO BEDTIME 90 days 90 tabs 1RF
[2024-07-10 07:41] VITALS: BP 136/72; BMI 31.9
--- OUTSIDE RECORDS SUMMARY | 2024-07-12 12:39 | XMS_ITS | Continuity of Care Document ---
Author Organization [facility] Address [address] [place] [address] [address] [place] [address] Phone Care Team Providers Care Medical Terminologist Name Role Phone Spike Jeffers MD, FACS, RVT Unavailable Unavailable Advance Directives Directive Yes / No Effective Date File Name No Information Encounters Encounter Description Practice Location Reason(s) For Visit Diagnoses Date Provider Providers Copied on Encounter [facility], [address] [place] [address] [address], [place], [id number], tel:[phone] 29[address] [facility] No Information [address]. [address] [place] [address], [address], . tel:[phone] Family History Family Member Type Diagnosis Age At Onset No Information Payers Payer name Insurance type Covered republican ID Authoriza tion(s) No Information Social History Type Description Quantity Date Captured Comments Sex Female Smoking Status No Information Chief Complaint And Reason For Visit No Information Reason For Referral Reason For Referral No Information History Of Present Illness Encounter Date Complaint History Of Prese nt Illness No Information Functional Status Date Functional Assessmen t No Information Instructions Date Instruction Additional Infor mation No Information Assessments Type Assessment Date No Information Patient Care Teams Name Effective Dates (start - stop) Status Members No Information
== END 2024-07-10 08:26 | disposition home or self-care (01) ==
PROVIDERS: PCP Internal Medicine; Visit Provider Internal Medicine
DX: Z00.00 Encounter for general adult medical examination without abnormal findings (principal); I48.0 Paroxysmal atrial fibrillation; E11.9 Type 2 diabetes mellitus without complications; Z23 Encounter for immunization

== ENCOUNTER → 2024-07-10 07:38 | Outpatient (BNVA) | payer OTHER, SELFPAY | PROVIDERS: PCP Internal Medicine; Visit Provider Internal Medicine | DX: Z00.00 Encounter for general adult medical examination without abnormal findings (principal); Z23 Encounter for immunization; I48.0 Paroxysmal atrial fibrillation; E11.9 Type 2 diabetes mellitus without complications | CPT/HCPCS: 90471; 90677; 90715; 96127; 99397 ==

== ENCOUNTER 2024-08-04 09:48 | Outpatient (REF) | payer OTHER, SELFPAY ==
--- NOTE | ~2024-08-04 | MM_ITS ---
EXAMINATION: Dual-Energy X-ray Absorptiometry - Bone Density Study HISTORY: Estrogen deficiency TECHNIQUE: HipLogiq Dual energy absorptiometry (DEXA) of the lumbar spine, total left hip, and femoral neck was performed. COMPARISON: Comparison is made with the prior examination dated 01/22/2022.. FINDINGS: The bone mineral density of the lumbar spine from L1-L2 is 1.299 with a T-score of 1.1, and a Z-score of 2.3. When compared to the prior examination, there has been no significant interval change. The bone mineral density of the left total hip is 1.103 with a T-score of 0.8, and a Z-score of 2.2. Compared to the prior examination, there is been a slight interval decrease in bone mineral density. The bone mineral density of the left femoral neck is 1.074 with a T-score of 0.3, and a Z-score of 1.9. When compared to the prior examination, there has been no significant interval change. FRACTURE RISK: The FRAX index suggests a risk of major osteoporotic fracture of 6.1%, and of hip fracture 1.7%. MM/XR DEXA axial skeleton IMPRESSION: Based on bone mineral density, the diagnosis is consistent with normal bone mineral density. All bone density values are in grams per centimeter squared. At this facility, the least significant change in BMD with 95% confidence is 0.022 at the lumbar spine, 0.027 at the hip, and 0.023 at the distal 1/3 radius. Electronically signed by: Ventura Martinez MD 08/08/2024 09:57 AM EST
--- OUTSIDE RECORDS SUMMARY | 2024-08-04 10:43 | XMS_ITS | Continuity of Care Document ---
Author Organization [facility] Address [address] [place] [address] [address] [place] [phone] Phone Care Team Providers Care Equine Pharmacology Technician Name Role Phone Spike Jeffers MD, FACS, RVT Unavailable Unavailable Advance Directives Directive Yes / No Effective Date File Name No Information Encounters Encounter Description Practice Location Reason(s) For Visit Diagnoses Date Provider Providers Copied on Encounter [facility], [address] [place] [address] [address], [place], [id number], tel:[phone] 1063 [facility] No Information [address]. [address] [place] [address], [address], . tel:[phone] Family History Family Member Type Diagnosis Age [...]
== END 2024-08-04 09:49 | disposition home or self-care (01) ==
LOC: HO.MAMMO 09:48
PROVIDERS: PCP Internal Medicine; Visit Provider Internal Medicine
DX: Z78.0 Asymptomatic menopausal state (principal)
CPT/HCPCS: 77080

== ENCOUNTER → 2024-08-04 10:00 | Outpatient (BNV) | payer OTHER, SELFPAY | PROVIDERS: PCP Internal Medicine; Visit Provider Radiology Diagnostic Radiology | DX: E28.39 Other primary ovarian failure (principal) | CPT/HCPCS: 77080 ==

== ENCOUNTER 2024-09-14 10:31 | Outpatient (AMB) | payer OTHER, SELFPAY ==
[2024-09-14 10:55] VITALS: BP 144/76; PULSE 65; BMI 31.9
--- NOTE | 2024-09-14 10:55 | A.OFFVIS_ITS ---
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 Bus Greaser Required: Yes Bus Greaser Services: Bus Greaser Present Bus Greaser Name: Caroline [phone] Accompanied by: Spouse Allergies No Known Allergies Allergy (Verified 07/10/24 08:00) Medication List - Last Reconciled 09/14/24 by Darek Sharpe MD acetaminophen 650 mg PO Q6-8H PRN apixaban (Eliquis) 5 mg PO BID 90 days atorvastatin 80 mg PO BEDTIME 90 days blood sugar diagnostic ([employer] Ultra Test strips) Use 1 test strip once a day cholecalciferol (vitamin D3) 50 mcg PO DAILY 90 days diclofenac sodium 1.6% 2 ea topical BID-TID 30 days lancets ([employer] UltraSoft 2 Lancet) test once daily losartan 25 mg PO DAILY 90 days metoprolol tartrate 25 mg PO BID 90 days sitagliptin phosphate (Januvia) 50 mg PO DAILY 90 days trazodone 50 mg PO BEDTIME PRN 30 days HPI Comments Details: Blanca is here for consultation regarding atrial fibrillation. She has seen [facility] but would like to switch. There is history of ASD closure with Amplatzer occluded device in [place] in 2003. Otherwise, EKG from last year had shown left bundle-branch block per notes but not clear how chronic it is. Today's EKG also shows left bundle-branch block. Patient herself does not have any clear-cut cardiac complaints. In the past, it seems she was having palpitations and Holter monitor had shown atrial fibrillation. Subsequently, put on beta-blockers. Also on Eliquis. Overall, no new concerns. [facility] Medical History (Updated 09/14/24 @ 11:07 by Darek Sharpe MD) Arthritis Back pain Scoliosis Numbness On anticoagulant therapy Elevated cholesterol Murmur HTN (hypertension) ASD (atrial septal defect) Left bundle branch block (LBBB) Obesity Hyperlipidemia Type 2 diabetes mellitus GERD (gastroesophageal reflux disease) Surgical History (Updated 09/14/24 @ 11:09 by Darek Sharpe MD) Hx of varicose vein stripping Hx of hysterectomy History of appendectomy History of esophagogastroduodenoscopy (EGD) Hx of colonoscopy History of Amplatzer atrial septal defect closure History of cataract surgery History of back surgery Family History Mother Emphysema lung Diabetes Father Heart attack Maternal Aunt Cancer Maternal Uncle Cancer Social History Housing: House Are you a primary day care attendant to a significant other at home: No Do you presently have visiting nurse or other home services: Yes (nurse) Alcohol intake: never Comment: counts correct Patient Tobacco Use Status: Never used Tobacco e-Cigarette/Vaping Use: Never Used Second Hand Smoke Exposure: No service: No Current occupational status: unemployed Cognitive needs: No Hearing needs: No Vision needs: No Female Reproductive History Menstrual Age of Menarche: 16 Review of Systems Const Denies chills, Denies daytime sleepiness, Denies fatigue, Denies fever(s), Denies poor appetite, Denies snoring, Denies stops breathing during sleep, Denies weakness, Denies weight gain and Denies weight loss Eyes Denies loss of vision ENT Denies dizziness and Denies hearing loss Card Denies chest pain, Denies irregular heart rhythm, Denies claudication, Denies le g edema, Denies lightheadedness, Denies palpitations, Denies dyspnea on exertion and Denies orthopnea Resp Denies cough, Denies excessive phlegm production, Denies dyspnea on exertion, Denies snoring and Denies wheezing GI Denies abdominal pain, Denies hematochezia, Denies change in bowel habits, Denies nausea and Denies vomiting Denies urinary frequency and Denies dysuria Musc Denies arthralgias, Denies muscle weakness, Denies numbness and Denies other Skin/Breast Denies nail changes and Denies rash Neuro Denies Abnormal speech present, Denies dizziness, Denies loss of vision, Denies memory loss, Denies numbness and Denies weakness Psych Denies depression and Denies memory loss Endo Denies fatigue and Denies palpitations Charles/Lymph Denies easy bruising Aller/Immun Denies wheezing Physical Exam Vital Signs: Last Vital Signs Pulse 65 09/14/24 10:55 BP 144/76 H 09/14/24 10:55 BMI result Body Mass Index 31.9 Const General: comfortable and no acute distress Orientation/consciousness: patient oriented x3 HEENT Other: Unremarkable Head: Yes normal to inspection Neck Neck: Yes normal visual inspection Chest Chest palpation & inspection: normal inspection of the chest Resp Auscultation: clear to auscultation bilaterally Cardio Palpation: normal PMI Heart sounds: S1 normal heart sound present, S2 normal heart sound present, no gallops, no murmurs and no rubs GI Palpation (GI): Soft to palpation Back/Spine/Pelvis Other: unremarkable Skin General skin exam: no rashes or lesions noted Neuro General: patient oriented x3 Speech: No Abnormal speech present Extrem General: Yes normal to inspection Psych Mental Status: mental status grossly normal Office Procedures EKG Details: EKG with underlying sinus rhythm; left bundle-branch block pattern; [place]. [address]-Mjexvnueuprzcajxf, Complete Assessment & Plan Assessment & Plan (1) PAF (paroxysmal atrial fibrillation): Code(s): I48.0 - Paroxysmal atrial fibrillation Category: Medical Plan: Continue metoprolol/Eliquis. (2) Left bundle branch block (LBBB): Comment: Foll'd by [facility]- Dr. Munoz Code(s): I44.7 - Left bundle-branch block, unspecified Category: Medical Plan: Unclear how chronic it is. Check echocardiogram/pharmacological stress test. (3) Status post device closure of ASD: Code(s): Z87.74 - Personal history of (corrected) congenital malformations of heart and circulatory system Category: Surgical Plan: Remote history from 2003. We will review on echocardiogram. Orders: Orders CA echo transthoracic complete Today I44.7 - Left bundle-branch block, unspecified, Z87.74 - Personal history of (corrected) congenital malformations of heart and circulatory system CA lexiscan stress w john Today I20.9 - Angina pectoris, unspecified, I44.7 - Left bundle-branch block, unspecified NM cardiolite stress test Today I44.7 - Left bundle-branch block, unspecified, R07.2 - Precordial pain Coding Level of Care Code New Pt Level 4 (70028) Diagnoses PAF (paroxysmal atrial fibrillation) I48.0 Left bundle branch block (LBBB) I44.7 Status post device closure of ASD Z87.74 CPT Codes EKG - CPT: 71397-Zrjgywmtkojmucspc, Complete ([id number])
--- OUTSIDE RECORDS SUMMARY | 2024-09-14 11:13 | XMS_ITS ---
Author Organization [facility] Address [address] [place] [address] Care Team Providers Care Computer Forensics Technician Name Role Phone Alcides AZMORA, Enio Primary Care Provider Unavailab Dickson Ramsay Unavailable [phone] Encounters Encounter Location Date Provider Diagnosis [facility] [address] [address] 11/08/2023 Dickson Henry Plan Of Treatment No Information Progress Notes * Mary Ellen TERRYKallieB: [birth year] (79 yo F)Acc No.[id number]:11/08/2023 Progress Note Patient:Blanca BURGESS Provider:?Dickson Henry DPM :1945???Age:78 Y???Sex:Female D ate:11/08/2023 Address:[address] [place], [place] [id number] Pcp:Enio Mcgrath MD Subjective: * Chief Complaints: * ??? * Medical History:? Objective: * Vitals:? Assessment: Plan: * Treatment: * Images: * The named appointment provid er may or may not be the originator of this progress note, and it is not deemed complete until electronically signed by the appointment provider. Sign off status: Pending * Provider:?Dickson Henry DPM Date:?2023 Generated for Krista arora/Santo/eTransmitting on:?09/14/2024 11:13 AM EST
--- OUTSIDE RECORDS SUMMARY | 2024-09-14 11:14 | XMS_ITS ---
Author Organization [facility] Address [address] [place] [address] Care Team Providers Care Color Developer Name Role Phone Alcides ZAMORA, Enio Primary Care Provider Unavailab Dickson Ramsay Unavailable [phone] REASON FOR VISIT NS to 11/08/23 appt Encounters Encounter [facility] Date [facility] [address] [address] 11/08/2023 Dickson Henry Plan Of Treatment No Information Progress Notes * Michelle PABONB: [birth year] (78 yo F)Acc No.[id number]:11/08/2023 Patient:?Blanca Pabon :1945???Age:78 Y???Sex:Female Address:[address] [place] [address], [phone] * true * Date:? Generated for Kekei maite/Santo/eTransmitting on:?09/14/2024 11:13 AM EST
--- OUTSIDE RECORDS SUMMARY | 2024-09-14 11:14 | XMS_ITS | Patient Health Record ---
[facility] Address [address] [place] [address] Care Team Providers Care Furnace Firer Name Role Phone Enio Mcgrath MD Primary Care Provider UnavailDickson Stroud Unavailable [phone] Allergies No Known Allergies Reason For Referral No Information Medications Medication SIG (Take, Route, Frequency, Duration) Notes Start Date End Date Status Extra-Depth Diabetic Shoes with 3 Pair Custom heat-molded multi-density innersoles . for 1 year . Dx: 250.00, 735.4, 701 for . 04/24/2015 Not-Taking Januvia 100 MG 1 tablet Orally Once a day 04/24/2015 Active Vitamin D Active Extra Depth Orthopedic Shoes (1 Pair) with Customized Heat Molded Multidensity Innersoles (3 Pair) as directed Dx: NIDDM/Polyneuropathy (E11.42), Hammertoe Foot Deformity (M20.41,M20.42), Preulcerative Skin Lesion(s) (L85.1 05/05/2021 Active Aspirin 81 MG 1 tablet Orally Once a day 04/24/2015 Not-Taking Immunizations Vaccine Route Administration Date Status Comme nts COVID-19 Pfizer BioNTech Vaccine Unknown 11/22/2020 Administered 1st 10/31/2020 Influenza Unknown 05/05/2021 Refused Social History Tobacco Use: Social History Observation Description Date Details (start date - stop date) Never Smoker NA - NA Tobacco Use/Smoking Question Answer Notes Are you a: nonsmoker Additional Findings: Tobacco Non-User Current no n-smoker Alcohol Screen Question Answer Notes Did you have a drink containing alcohol in the p ast year? No Points 0 Interpretation Negative Tobacco use other than smoking: Question Answer Notes Are you an other tobacco user? No Problems Problem Type SNOMED Code ICD Code Onset Dates Problem Status W/U Status Risk Notes Problem Acquired hammer toe of right foot (1573154677972278 ) Other hammer toe(s) (acquired), right foot (M20.41) Active confirmed Problem Acquired hammer toe of left foot (9235564949901776 ) Other hammer toe(s) (acquired), left foot (M20.42) Active confirmed Problem Polyneuropathy due to type 2 diabetes mellitus (149880065) Type 2 diabetes mellitus with diabetic polyneuropathy (E11.42) Active confirmed Encounters Encounter Location Date Provider Diagnosis [facility] [address] [place] [phone] 11/08/2023 Dickson Henry Plan Of Treatment Pending Test Test Name Order Date [id number] NAIL, 6 OR MORE 05/05/2021 [id number] NAIL, 1-5 04/24/2015 [id number]-ASVS SKIN LESIONS, OVER 4 05/05/20 21 Insurance Providers Payer Name Payer Address Payer Phone Subscriber Number Group Number Insured Name Patient Relationship to Insured Coverage Start Date Coverage End Date [id number] [address] [address] [place] [address] [id number] Blanca Cannon Self - patient is the insured Medical (General) History Medical History History ICD Code Angina Arthritis Back,Hip,and Knee pain Cataracts Chicken pox Diabetes mellitus Heart disease Joint dysfunction Kidney disease Surgical History Surgery Date(Month/Year) back surgery 2018 heart surgery unspecified 2014 polyp removal cataract surgery nicci 01/2021
--- OUTSIDE RECORDS SUMMARY | 2024-09-14 11:14 | XMS_ITS | Clinical Summary ---
Author Organization [facility] Address [address] [place] [address] Care Team Providers Care Electrician Bus Name Role Phone Jenny Torres MD Primary Care Provide r Allergies No known active allergies Medications Medication Sig Dispensed Refills Start Date End Date Status Cholecalciferol (VITAMIN D3) 2000 units capsule 0 06/15/2018 Active raNITIdine (ZANTAC) 300 MG tablet Take 300 mg by mouth. 0 Active SITagliptin (JANUVIA) 50 MG tablet Take 50 mg by mouth. 0 Active naproxen (NAPROSYN) 500 MG tablet Take 500 mg by mouth 2 (two) times a day with meals. 2 08/17/2018 Active JANUVIA 50 MG tablet Take 50 mg by mouth daily. 1 09/14/2018 Active Active Problems Problem Noted Date Diagnosed Date Acute medial meniscal tear, right, initial encou nter 12/07/2018 Acute lateral meniscus tear of right knee 2018 Arthritis of knee, right 09/20/2018 Family History Medical History Relation Name Comments Heart disease Brother Heart disease Father Diabetes Mother Rheumatologic disease Mother Relation Name Status Comments Brother Father Mother Social History Tobacco Use Types Packs/Day Years Used Date Smoking Tobacco: Never Assessed Sex and Gender Information Value Date Recorded Sex Assigned at Not on file Gender Identity Not on file Sexual Orientation Not on file Last Filed Vital Signs Vital Sign Reading Time Taken Comments Blood Pressure - - Pulse - - Temperature - - Respiratory Rate - - Oxygen Saturation - - Inhaled Oxygen Concentration - - Weight 84.4 kg (186 lb) 12/07/2018 11:16 AM EDT Height 162.6 cm (5' 4 ) 12/07/2018 11:16 AM EDT Body Mass Index 31.93 12/07/2018 11:16 AM EDT Plan of Treatment Health Maintenance Due Date Last Done Comments Hepatitis C Screening 1945 COVID-19 Vaccine (#1) 1945 Depression Screening 1958 BMI Counseling 1964 Preventative Health Evaluation 1964 Shingrix-Zoster Vaccine (1 o f 2) 1996 Fall Risk Assessment 2011 Osteoporosis Screening (DEXA Scan) 2011 RSV Adult > 60+ Yrs or (1 - 1-dose 75+ series) 2021 Influenza Vaccine (#1) 2024 DTap / Tdap / Td (2 - Td or Tdap) 12/24/2025 12/25/2015 Pneumococcal Vaccine Completed 05/01/2016, 03/27/2015 Hepatitis B Vaccines Aged Out No long er eligible based on patient's age to complete this topic RSV Ped < 20 months Aged Out No longe r eligible based on patient's age to complete this topic Care Teams Electrician Bus Relationship Specialty Start Date End Date Jenny Torres MD PCP - General Internal Medicine 04/15/18
--- OUTSIDE RECORDS SUMMARY | 2024-09-14 11:14 | XMS_ITS | Clinical Summary ---
Author Organization [facility] it Address [address] [place] [address] Care Team Providers Care Purification Operator Name Role Phone Enio Mcgrath MD Primary Care Provider [phone] Surgical History Surgery Date Site/Laterality Comments BACK SURGERY 06/01/2018 Right PROCEDURE: HISTORICAL BACK SURGERY; COMMENT: lumbar laminotomy, L4 BACK SURGERY 03/2018 PROCEDURE: HISTORICAL BACK SURGERY; COMMENT: OLIF L3-5 APPENDECTOMY PROCEDURE: HISTORICAL APPENDECTOMY HYSTERECTOMY PROCEDURE: HISTORICAL HYSTERECTOMY Medical History Medical History Date Comments GERD with esophagitis 06/08/2017 DX:GERD wi th esophagitis Hyperlipidemia 06/08/2017 DX:Hyperlipidemi a Insomnia 09/23/2016 DX:Insomnia Joint pain, hip 06/08/2017 DX:Joint pain, h ip Obesity 06/08/2017 DX:Obesity Type 2 diabetes mellitus wit hout complication ([facility]) 06/08/2017 DX:Type 2 diabetes mellitus without complication ([facility]) Vitamin D deficiency 06/08/2017 DX:Vitamin D deficiency Social History Tobacco Use Types Packs/Day Years Used Date Smoking Tobacco: Never Smokeless Tobacco: Never Alcohol Use Standard Drinks/Week Comments No 0 (1 standard drink = 0.6 oz pur e alcohol) Comments Unknown Sex and Gender Information Value Date Recorded Sex Assigned at Not on file Legal Sex Female 3:31 PM EST Gender Identity Not on file Sexual Orientation Not on file Obstetrics History Plan of Treatment Health Maintenance Due Date Last Done Comments Diabetes: Annual GFR (Glomerular Filtration Rate) 1945 Diabetes: Annual Foot Exam 1956 Diabetes: Annual Retina Eye Exam 1956 Zoster Vaccines (1 of 2) 1996 RSV Immunization Patients 60 + Years Old (1 - 1-dose 75+ series) 2021 Cholesterol Screening (Lipid Panel) 07/01/2022 Depression Screening 07/01/2022 Falls Risk Assessment 07/01/2022 Hepatitis C Screening 07/01/2022 Social Influencers of Health Screening 07/01/2022 Diabetes: Annual Urine Albumin-Creatinine Ratio (uACR) 07/18/2022 Diabetes: Blood Sugar Contro l Test (HGBA1C) 07/18/2022 COVID-19 Vaccine (1 - 2023-2 5 season) 2024 Influenza Vaccine (#1) 2024 DTaP,Tdap,and Td Vaccines (2 - Td or Tdap) 12/24/2025 12/25/2015 Osteoporosis Screening (Bone Density Screening) 05/02/2028 05/02/2018 Pneumococcal Vaccine: 50+ Years Completed 05/01/2016, 03/27/2015 HIB Vaccines Aged Out No longer eligi ble based on patient's age to complete this topic HPV Vaccines Aged Out No longer eligi ble based on patient's age to complete this topic Hepatitis A Vaccines Aged Out No long er eligible based on patient's age to complete this topic Hepatitis B Vaccines Aged Out No long er eligible based on patient's age to complete this topic IPV Vaccines Aged Out No longer eligi ble based on patient's age to complete this topic MMR Vaccines Aged Out No longer eligi ble based on patient's age to complete this topic Meningococcal ACWY Vaccine Aged Out N o longer eligible based on patient's age to complete this topic Meningococcal B Vacine Aged Out No lo nger eligible based on patient's age to complete this topic RSV Immunization Patients Under 20 months Aged Out No longer eligible b ased on patient's age to complete this topic Varicella Vaccines Aged Out No longer eligible based on patient's age to complete this topic Procedures Procedure Name Priority Date/Time Associated Diagnosis Comments [facility] DEXA AXIAL SKELETON Routine 05/02/2018 10:39 AM EDT Asymptomatic menopausal state from Last 3 Months or Most Recently Relevant to Health Maintenance Results * [facility] DEXA AXIAL SKELETON (05/02/2018 10:39 AM EDT) Anatomical Region Laterality Modality Mammography 05/02/2018 9:39 AM EDT Narrative 05/02/2018 10:[address] [facility] Diagnostic Imaging Department [address] [place] [address] Patient: ??BLANCA SOLANO ?/Age/Sex: 1945 72 - F Unit#: ??[id number] ? Location/Status: ??SPDIMAM/REG CLI ? Mnemonic/Ordering Site: ??MAMDEXAAX/SPMAM Ordering Physician: ??JENNY TORRES MD [facility] Dexa Axial Skeleton - 05/02/181000 HISTORY: ??The patient is a 72-year-old postmenopausal female with clinical concern for metabolic bone disease. FINDINGS: ??Dual energy x-ray absorptiometry of the lumbar spine and femurs is performed. The mean bone mineral density at L1-2 is 1.405 gm/cm2 which is 121% of that of young normals and 137% of that of age matched controls. This yields a T-score of 2.0 and a Z-score of 3.1 and there is therefore no evidence of osteoporosis or osteopenia here. The mean bone mineral density of the femurs bilaterally is 1.187 gm/cm2 which is 118% of that of young normals and 138% of that of age matched controls. ??This yields a T-score of 1.4 and a Z-score of 2.6 and there is therefore no evidence of osteoporosis or osteopenia here. IMPRESSION: 1. There is no evidence of osteoporosis or osteopenia. ??There has been an increase of 1.7% in bone mineral density in the lumbar spine since the prior examination of 03/21/2012. ??There has been a decrease of 5.4% in bone mineral density in the right femur and an increase of 2.6% in bone mineral density in the left femur. 2. FRAX analysis yields a 10-year probability of major osteoporotic fracture of 3.3% and a 10-year probability of hip fracture of 0.1%. Code 72924 Dictating Physician: ??ABDON DIAS MD Electronically Signed by: ??ABDON DIAS MD Dic Date/Time: ??05/02/18 1038 Sign date/Time: ??05/02/18 1039 Procedure Note Abdon Dias MD - 07/21/2022 [facility] Diagnostic Imaging Department [address] [place], [place] [id number] Patient: BLANCA SOLANO D.O.B./Age/Sex: 1945 - 72 - F Unit#: [id number] [facility]ing [facility] Ordering Physician: JENNY TORRES MD [facility] Dexa Axial Skeleton - 05/02/18 - 1001 HISTORY: The patient is a 72-year-old postmenopausal female withclinical concern for metabolic bone disease. FINDINGS: Dual energy x-ray absorptiometry of the lumbar spine and femursis performed. The mean bone mineral density at L1-2 is 1.405 gm/cm2 which is121% of that of young normals and 137% of that of age matched controls. Thisyields a T-score of 2.0 and a Z-score of 3.1 and there is therefore no evidenceof osteoporosis or osteopenia here. The mean bone mineral density of the femurs bilaterally is 1.187 gm/wo3xamsc is 118% of that of young normals and 138% of that of age matched controls.This yields a T-score of 1.4 and a Z-score of 2.6 and there is therefore noevidence of osteoporosis or osteopenia here. IMPRESSION: 1. There is no evidence of osteoporosis or osteopenia. There has beenan increase of 1.7% in bone mineral density in the lumbar spine since theprior examination of 03/21/2012. There has been a decrease of 5.4% in bonemineral density in the right femur and an increase of 2.6% in bone mineral densityin the left femur. 2. FRAX analysis yields a 10-year probability of major osteoporoticfracture of 3.3% and a 10-year probability of hip fracture of 0.1%. Code 15381 Dictating Physician: ABDON DIAS MD Electronically Signed by: ABDON DAIS MD Dic Date/Time: 05/02/18 1038 Sign date/Time: 05/02/18 1039 Jenny Torres MD IMG BI PROCEDURES Final Resu lt from Last 3 Months or Most Recently Relevant to Health Maintenance Care Teams Purification Operator Relationship Specialty Start Date End Date Enio Mcgrath MD PCP - General Internal Medicine 04/10/21
--- OUTSIDE RECORDS SUMMARY | 2024-09-14 11:14 | XMS_ITS | Continuity of Care Document ---
Author Organization [facility] Address [address] [place] [address] [address] [place] [address] Phone Care Team Providers Care Electro Optical Engineer Name Role Phone Spike Jeffers MD, FACS, RVT Unavailable Unavailable Advance Directives Directive Yes / No Effective Date File Name No Information Encounters Encounter Description Practice Location Reason(s) For Visit Diagnoses Date Provider Providers Copied on Encounter [facility], [address] [place] [address] [address], [place] Chr[place]ie, [id number], tel:[phone] 1495 [facility] No Information [address] Cabrera. [address] [place] [address], [address], . tel:[phone] Family History Family Member Type Diagnosis Age At Onset No Information Payers Payer name Insurance type Covered democrat ID Authoriza tion(s) No Information Social History [...]
== END 2024-09-14 11:14 | disposition home or self-care (01) ==
PROVIDERS: PCP Internal Medicine; Visit Provider Internal Medicine
DX: I48.0 Paroxysmal atrial fibrillation (principal); I44.7 Left bundle-branch block, unspecified; Z87.74 Personal history of (corrected) congenital malformations of heart and circulatory system
CPT/HCPCS: 93010; 99204

== ENCOUNTER → 2024-09-14 10:31 | Outpatient (BNVA) | payer OTHER, SELFPAY | PROVIDERS: PCP Internal Medicine; Visit Provider Internal Medicine | DX: I48.0 Paroxysmal atrial fibrillation (principal); I44.7 Left bundle-branch block, unspecified; Z87.74 Personal history of (corrected) congenital malformations of heart and circulatory system; R94.31 Abnormal electrocardiogram [ECG] [EKG]; I45.4 Nonspecific intraventricular block | CPT/HCPCS: 93005; 99202 ==

== ENCOUNTER 2024-11-09 07:47 | Outpatient (AMB) | payer OTHER, SELFPAY ==
--- NOTE | 2024-11-09 07:51 | MHC.PC.OV ---
Vital Signs 11/09/24 07:53 Height 5 ft 4 in Weight 183 lb BMI 31.4 BP 122/78 Blood Pressure Location Lt brachial Position Sitting Intake Visit Reasons: dm Intake Note: Patient here for a follow up DM Sales Correspondence Clerk Required: No Accompanied by: Self / Same As Patient Allergies No Known Allergies Allergy (Verified 11/09/24 08:06) Medication List - Last Reconciled 11/09/24 by Freya Azevedo MD acetaminophen 650 mg PO Q6-8H PRN apixaban (Eliquis) 5 mg PO BID 90 days atorvastatin 80 mg PO BEDTIME 90 days blood sugar diagnostic ([employer] Ultra Test strips) Use 1 test strip once a day cholecalciferol (vitamin D3) 50 mcg PO DAILY 90 days diclofenac sodium 1.6% 2 ea topical BID-TID 30 days lancets ([employer] UltraSoft 2 Lancet) test once daily losartan 25 mg PO DAILY 90 days metoprolol tartrate 25 mg PO BID 90 days sitagliptin phosphate (Januvia) 50 mg PO DAILY 90 days trazodone 50 mg PO BEDTIME PRN 30 days Tobacco use date assessed: 11/09/24 Fall risk assessment: No Falls in past year Last assessed Fall Risk: 11/09/24 Dental Screening Dental Screen Date: 11/09/24 Did you have a dental visit in the last 12 months?: Yes Did you have a dental problem in the last 6 months where you did not have access to dental care?: No Was dental information given to patient?: Patient has dentist HPI HPI Comments History of Present Illness Details The patient is a 79-year-old female presenting with atrial fibrillation, hyperlipidemia, hypertension, and type 2 diabetes mellitus. She has been on anticoagulation therapy with Apixaban and requires management of left bundle branch block and obstructive sleep apnea. There is an improvement in hypertension and hyperlipidemia with current therapeutic interventions. Blood pressure is managed effectively, with A1c levels at 6.4, and LDL cholesterol reduced to 94 mg/dL but not yet reaching optimal levels. She remains on Januvia for diabetes management. The patient reports effective weight loss of 3 pounds since previous visits. She performs occasional use of Trazodone to address insomnia exacerbated by occasional anxiety or stress. Vitamin D levels are elevated, and supplementation is adjusted to prevent complications. She experiences no significant side effects or medication allergies. [facility] Medical History (Updated 11/09/24 @ 08:20 by Freya Azevedo MD) Atrial fibrillation Arthritis Back pain Scoliosis Numbness On anticoagulant therapy Elevated cholesterol Murmur HTN (hypertension) ASD (atrial septal defect) Left bundle branch block (LBBB) Obesity Hyperlipidemia Type 2 diabetes mellitus GERD (gastroesophageal reflux disease) Surgical History Hx of varicose vein stripping Hx of hysterectomy History of appendectomy History of esophagogastroduodenoscopy (EGD) Hx of colonoscopy History of Amplatzer atrial septal defect closure History of cataract surgery History of back surgery Family History Mother Emphysema lung Diabetes Father Heart attack Maternal Aunt Cancer Maternal Uncle Cancer Social History Housing: House Are you a primary health care assistant to a significant other at home: No Do you presently have visiting nurse or other home services: Yes (nurse) Alcohol intake: never Comment: counts correct Patient Tobacco Use Status: Never used Tobacco e-Cigarette/Vaping Use: Never Used Second Hand Smoke Exposure: No service: No Current occupational status: unemployed Cognitive needs: No Hearing needs: No Vision needs: No Female Reproductive History Menstrual Age of Menarche: 16 Questionnaire PHQ-9 Over the last 2 weeks, how often have you been bothered by any of the following problems? 1. Little interest or pleasure in doing things: not at all 2. Feeling down, depressed, or hopeless: not at all 3. Trouble falling or staying asleep, or sleeping too much: not at all 4. Feeling tired or having little energy: not at all 5. Poor appetite or overeating: not at all 6. Feeling bad about yourself - or that you are a failure or have let yourself or your family down: not at all 7. Trouble concentrating on things, such as reading the newspaper or watching television: not at all 8. Moving or speaking so slowly that other people could have noticed. Or the opposite - being so fidgety or restless that you have been moving around a lot more than usual: not at all 9. Thoughts that you would be better off or of hurting yourself in some way: not at all Total score: 0 Depression Screening Interpretation: Negative Depression Screening Done: Yes 57739 - PHQ-9 Billing: Yes Source: Developed by Drs. Ventura Bermeo, Lissy Neal, Nitin Correa and colleagues, with an educational paty from [employer]. Thrive Questionnaire Date Thrive assessed: 11/09/24 I am a: Patient What is your living situation today?: I have a steady place to live Within the past 12 months, did the food you bought not last and you didn't have the money to get more?: Never true Within the past 12 months, did you worry whether your food would run out before you got money to buy more?: Never true Do you have trouble paying for medicines?: No Do you have trouble getting transportation to medical appointments?: No Do you have trouble paying your heating and electricity bill?: No Do you have trouble taking care of your child, family member or friend?: No Do you have trouble with day-to-day activities such as bathing, preparing meals, shopping, managing finances, etc.?: No Are you currently unemployed and looking for a job?: No Are you interested in more education?: No Please select the resources that you would like help with: None Currently or been in a relationship where the following occur: No concerns reported THRIVE Score: 0 AUDIT C Alcohol Use Questionnaire (AUDIT-C) 1. How often do you have a drink containing alcohol?: Never Total Score: 0 Score Reviewed/Action Taken: No LISS-7 AMB Questionnaire LISS-7 Date LISS - 7 assessed: 11/09/24 Feeling nervous, anxious, or on edge: 0 = Not at all Not being able to stop or control worryin = Not at all Worrying too much about different things: 0 = Not at all Trouble relaxin = Not at all Being so restless that it is hard to sit still: 0 = Not at all Becoming easily annoyed or irritable: 0 = Not at all Feeling afraid as if something awful might happen: 0 = Not at all Total LISS-7 score (0-4 normal; 5-9 mild; 10-14 moderate; 15-21 severe): 0 Source: Developed by Lissy Singh Kurt Kroenke and colleagues, with an educational paty from [employer]. LSIS-7 Assessment Billing LISS-7 Assessment Tool: LISS-7 Assessment 55472 Review of Systems Const All systems reviewed & are unremarkable except as noted in HPI and below Card Denies chest pain at rest, Denies chest pain with activity, Denies edema, Denies irregular heart rhythm, Denies claudication, Denies dyspnea, Denies dyspnea on exertion, Denies orthopnea, Denies paroxysmal nocturnal dyspnea and Denies slow heart rate Resp Denies cough, Denies dyspnea and Denies dyspnea on exertion GI Denies abdominal pain, Denies change in bowel habits, Denies excessive flatus, Denies nausea and Denies vomiting Neuro Denies lack of coordination Physical exam (Primary Care) Vital Signs: Last Vital Signs BP 122/78 11/09/24 07:53 BMI result Body Mass Index 31.4 BMI Assessment/Plan discussion: High BMI High, discussed plan: lifestyle, weight reduction, dietary and physical activity Tobacco/Smoking Status: Tobacco use Status Tobacco use date assessed 11/09/24 11/09/24 07:56 Patient Tobacco Use Status Never used Tobacco 11/09/24 07:53 e-Cigarette/Vaping Use Never Used 11/09/24 07:53 PHQ-9: PHQ-9 Score PHQ-9: Total score 0 11/09/24 07:56 Depression Screening Interpretation: Negative Thrive Assessment: Date of Thrive Assessment Date Thrive assessed 11/09/24 11/09/24 07:53 Currently or been in a relationship where the following occur: No concerns reported Resp Effort & Inspection: normal respiratory effort Auscultation: clear to auscultation bilaterally Cardio Jugular venous distension: no JVD Rate: regular rate Rhythm: regular rhythm Heart sounds: S1 normal heart sound present and S2 normal heart sound present Extrem General: Yes full ROM Results AMB Hemoglobin A1c AMB Hemoglobin A1c 6.4 % Last Edit by DIXON Mendoza on 11/09/24 08:00 Results Reviewed Results Reviewed: Laboratory Last Values Hgb A1c (Clinic) 6.4 % (4.0-6.0) H 11/09/24 07:57 Coding Level of Care Code Est Pt Level 4 (86903) Complex EM visit Add On G2211 Diagnoses PAF (paroxysmal atrial fibrillation) I48.0 Essential hypertension I10 Hyperlipidemia LDL goal <70 E78.5 Type 2 diabetes mellitus without complication, without long-term current use of insulin E11.9 Diabetes mellitus type: type 2 Diabetes mellitus shelter insulin use: without termite technician use Diabetes mellitus complication status: without complication Additional Codes PHQ-9 - 93154 - PHQ-9 Billing: Yes ([id number]) LISS-7 Assessment Billing - LISS-7 Assessment Tool: LISS-7 Assessment 57099 ([id number]) Time Spent (min) 24 Assessment & Plan Assessment & Plan (1) PAF (paroxysmal atrial fibrillation): Code(s): I48.0 - Paroxysmal atrial fibrillation Category: Medical (2) Essential hypertension: Code(s): I10 - Essential (primary) hypertension Category: Medical (3) Hyperlipidemia LDL goal <70: Code(s): E78.5 - Hyperlipidemia, unspecified Category: Medical (4) Diabetes mellitus: Code(s): E11.9 - Type 2 diabetes mellitus without complications Category: Medical Qualifiers: Diabetes mellitus type: type 2 Diabetes mellitus shelter insulin use: without shelter use Diabetes mellitus complication status: without complication Qualified Code(s): E11.9 - Type 2 diabetes mellitus without complications Plan Insomnia is treated with sporadic trazodone usage, cautious of symptom worsening. Vitamin D supplementation is reduced to 25 mcg to mitigate hypersupplementation. Further guidance includes adherence to weight management programs, ongoing preventive health practices, and forthcoming screenings.: Patient was informed and verbally consented to the use of an ambient scribe for clinic note documentation during this visit. I discussed with the patient the management of her atrial fibrillation, emphasizing the continuation of Apixaban anticoagulation therapy, owing to her risk profile and the possibility of future stress and echocardiogram testing. We reviewed improvements in hyperlipidemia, acknowledging that LDL levels require attention to achieve goals, maintained under atorvastatin treatment. We discussed the importance of controlled hypertension and diabetes management, particularly with the stable A1c. The strategy for symptomatic insomnia involves as-needed trazodone, with occasional vitamin D level monitoring to prevent potential complications. We addressed lifestyle impacts, including nutrition and weight management in contributing to overall health improvements. Follow-up will occur in four months to reassess laboratory results. Orders: Orders Lipid Panel 4 Months E78.5 - Hyperlipidemia, unspecified AMB Hemoglobin A1c Today E11.9 - Type 2 diabetes mellitus without complications Microalbumin, Random (w Creat) 4 Months R80.9 - Proteinuria, unspecified Vitamin D 25-OH Total 4 Months E55.9 - Vitamin D deficiency, unspecified Comprehensive [facility]. Panel Fast 4 Months I48.0 - Paroxysmal atrial fibrillation Medications: New cholecalciferol (vitamin D3) 25 mcg PO DAILY 90 days 90 caps 1RF Discontinued cholecalciferol (vitamin D3) Discontinued Reason: Patient Completed Course 50 mcg PO DAILY 90 days 90 caps 1RF Patient Instructions: - Continue taking medications as prescribed. - Use Trazodone only as needed for sleep issues. - Reduce Vitamin D supplementation to 25 mcg daily. - Maintain healthy dietary practices and continue with weight management. - Return in four months with new laboratory results. - Seek immediate care if experiencing continuous arm numbness or any new symptoms.
--- OUTSIDE RECORDS SUMMARY | 2024-11-09 07:51 | XMS_ITS | Clinical Summary ---
Author Organization [facility] Address [address] [place] [address] Care Team Providers Care Flower Grader Name Role Phone Jenny Torres MD Primary [...] age to complete this topic Care Teams Flower Grader Relationship Specialty Start Date End Date Jenny Torres MD PCP - General Internal Medicine 04/15/18
--- OUTSIDE RECORDS SUMMARY | 2024-11-09 07:51 | XMS_ITS ---
Author Name [facility] Organization Unknown History of Medication Use Medication Directions Dispensed Refills Start Date End Date [facility] lisinopril 10 mg tablet TAKE 1 TABLET BY MOUTH EVERY DAY FOR 30 DAYS active ondansetron 4 mg disintegrating tablet TAKE 1 TABLET BY MOUTH EVERY 8 HOURS NEEDED FOR NAUSEA AND VOMITING FOR 3 DAYS active metoprolol tartrate 25 mg tablet TAKE 1 TABLET BY MOUTH 2 TIMES A DAY FOR 90 DAYS active Januvia 50 mg tablet TAKE 1 TABLET BY MOUTH EVERY DAY FOR 90 DAYS active ammonium lactate 12 % topical cream APPLY THIN LAYER TO PLANTAR SURFACE OF FEET DAILY active atorvastatin 40 mg tablet TAKE 1 TABLET BY MOUTH EVERYDAY AT BEDTIME active cholecalciferol (vitamin D3) 50 mcg (2,000 unit) capsule TAKE SOFTGEL BY MOUTH DAILY FOR 90 DAYS active atorvastatin 80 mg tablet TAKE 1 TABLET ORALLY BEDTIME FOR 90 DAYS active losartan 25 mg tablet TAKE 1 TABLET BY MOUTH EVERY DAY active oxycodone 5 mg tablet TAKE 1 TABLET ORALLY EVERY 6 HOURS NEEDED FOR PAIN (SCALE SCORE 7-10) active atorvastatin 10 mg tablet TAKE 1 TABLET BY MOUTH EVERY DAY AT BEDTIME FOR 90 DAYS active trazodone 50 mg tablet TAKE 1 TABLET ORALLY BEDTIME NEEDED FOR SLEEP FOR 30 DAYS active Eliquis 5 mg tablet TAKE 1 TABLET BY MOUTH TWICE A DAY active atorvastatin 20 mg tablet TAKE 1 TABLET BY MOUTH EVERY DAY FOR 30 DAYS active OneTouch Delica Plus Lancet 30 gauge USE TO TEST ONCE DAILY active Problems Problem Status Onset Date Problem Type Date of Resoluti on Source Deformity of toe active 2024-10-14 ProblemAct E NS_AONECT Encounters Encounter Type Encounter Reason Primary Diagnosis Location Date Ambulatory [facility] 10/16/2024 [facility] 10/13/2024 [facility] 10/12/2024 Ambulatory [facility] 09/01/2024 Amb[facility] 01/13/2024 Ambulatory [facility] 01/13/2024 Ambulatory [facility] 01/13/2024 Ambulatory [facility] 12/01/2023 Ambulatory [facility] 12/01/2023 Ambulatory [facility] 12/01/2023
--- OUTSIDE RECORDS SUMMARY | 2024-11-09 07:51 | XMS_ITS ---
Author Organization [facility] Address [address] [place] [address] Care Team Providers Care Media Services Coordinator Name Role Phone Alcides ZAMORA, Enio Primary Care Provider Unavailab Dickson Ramsay Unavailable [phone] Encounters Encounter Location Date Provider Diagnosis [facility] [address] [address] 11/08/2023 Dickson Henry Plan Of Treatment No Information Progress Notes * Mary Ellen PABONKallieB: [birth year] (79 yo F)Acc No.[id number]:11/08/2023 Progress Note Patient:Blanca BURGESS Provider:?Dickson Henry DPM :1945???Age:78 Y???Sex:Female D ate:11/08/2023 Address:[address] [place], [place] [id number] Pcp:Enio Mcgrath MD Subjective: * Chief Complaints: [...] Henry DPM Date:?2023 Generated for Krista arora/Santo/eTransmitting on:?11/09/2024 07:51 AM EDT
--- OUTSIDE RECORDS SUMMARY | 2024-11-09 07:51 | XMS_ITS | Patient Health Record ---
[facility] Address [address] [place] [address] Care Team Providers Care Major Gifts Manager Name Role Phone Enio Mcgrath MD Primary Care Provider UnavailDickson Stroud Unavailable [phone] Allergies No Known Allergies Reason For Referral [...] Problem Acquired hammer toe of right foot (9555876651337882 ) Other hammer toe(s) (acquired), right foot (M20.41) Active confirmed Problem Acquired hammer toe of left foot (3885213675471093 ) Other hammer toe(s) (acquired), left foot (M20.42) Active confirmed Problem Polyneuropathy due to type 2 diabetes mellitus (944259906) Type 2 diabetes mellitus with diabetic polyneuropathy (E11.42) Active confirmed Plan Of Treatment Pending Test Test Name Order Date [id number] NAIL, 6 OR MORE 05/05/2021 [id number] NAIL, 1-5 04/24/2015 [id number] SKIN LESIONS, OVER 4 05/05/20 21 Insurance Providers Payer Name Payer Address Payer Phone Subscriber Number Group Number Insured Name Patient Relationship to Insured Coverage Start Date Coverage End Date [facility] [address] [place] [address] [id number] Blanca Cannon Self - patient is the insured Medical (General) History Medical History History ICD Code Angina Arthritis Back,Hip,and Knee pain Cataracts Chicken pox Diabetes mellitus Heart disease Joint dysfunction Kidney disease Surgical History Surgery Date(Month/Year) back surgery 2018 heart surgery unspecified 2014 polyp removal cataract surgery [facility] 01/2021
--- OUTSIDE RECORDS SUMMARY | 2024-11-09 07:51 | XMS_ITS ---
Author Organization [facility] Address [address] [place] [address] Care Team Providers Care Metal Sponge Making Machine Operator Name Role Phone Alcides ZAMORA, Enio Primary Care Provider Unavailab Dickson Ramsay Unavailable [phone] REASON FOR VISIT NS to 11/08/23 appt Encounters Encounter Location Date [facility] [address] [address] 11/08/2023 Dickson Henry Plan Of Treatment No Information Progress Notes * Michelle PABONB: 9[birth year] (78 yo F)Acc No.[id number]:11/08/2023 Patient:?Blanca Pabon :1945???Age:78 Y???Sex:Female Address:[address] [place] [address], [address] * true * Date:? Generated for Printi maite/Santo/eTransmitting on:?11/09/2024 07:51 AM EDT
--- OUTSIDE RECORDS SUMMARY | 2024-11-09 07:51 | XMS_ITS | Data Portability ---
Author Organization [facility] Address [address] [place] [address] Care Team Providers Care Cooperage Shop Supervisor Name Role Phone IESHA DAY Primary Care Provider IESHA DAY Referring Provider Assessment Encounter Date Assessment Date Assessment LastModified by Organization Details LastModified Time 10/12/2024 10/12/2024 I saw this patient today using a translator interpreter. I am having a hard time determining if her symptoms are related to fungal deformity about her toenail or her crossover toe. She has fairly diffuse tenderness over her nail but notes that her biggest complaint is her crossover toe. We discussed that ultimately, outside of conservative options including toe taping and spacers and accommodative shoe wear, which she has been doing for a number of years, her only option is to undergo surgical intervention. I think that she could benefit from and Shelby osteotomy alone as well as a hammertoe correction. Her second and third metatarsals are the same length so she could not undergo a metatarsal osteotomy without undergoing a third metatarsal osteotomy as well. She would like to consider her options and if she would like to proceed with surgery. She will follow-up with me as needed. Not available 10/14/2024 17:55:12 Plan of Treatment Reminders Order Date Submit Date Provider Last Modified By Organization Details Last Modified Time Details Appointments None record ed. Lab None record ed. Referral None record ed. Procedures None record ed. Surgeries None record ed. Imaging XR, foot, 3 or more view 025 10/13/19 25 [facility]1 [facility], [address], [place], [address], 14:12:01 Medication Orders None record ed. Patient TargetsNo targets recorded. Patient Instructions Encounter Date Encounter Id Patient Instructions Last Modified By Organization Details Last Modified Time 10/12/2024 [id number] views of the right foot obtained weightbearing demonstrate varus deformity of the second toe with a long second ray and an early crossover toe. There is mild hallux valgus deformity. There is also hallux valgus interphalangeus. Not available 10/14/2024 17:51:56 Reason for Referral None Reported. Problems Name Problem SNOMED Code Status Onset Date Resolution Date Notes Provider Name and Address Organization Details Recorded Time Deformity of toe 679135313 Active 025 Elli Green MD [address], [facility], [address], [place] [facility], 17:49:22 Problem Notes None recorded. Medical Equipment None Reported. Medications Name Sig Start Date Stop Date Status Note LastModified by Organization Details LastModified Time d3 super strength 50 mcg (1999 ut) caps active Not Available Not Available Not Available atorvastatin 40 mg tablet TAKE 1 TABLET BY MOUTH EVERYDAY AT BEDTIME active Not Available Not Available No t Available atorvastatin 80 mg tablet TAKE 1 TABLET ORALLY BEDTIME FOR 90 DAYS active Not Available Not Available No t Available atorvastatin 20 mg tablet TAKE 1 TABLET BY MOUTH EVERY DAY FOR 30 DAYS active Not Available Not Available No t Available trazodone 50 mg tablet TAKE 1 TABLET ORALLY BEDTIME NEEDED FOR SLEEP FOR 30 DAYS active Not Available Not Available No t Available atorvastatin 10 mg tablet TAKE 1 TABLET BY MOUTH EVERY DAY AT BEDTIME FOR 90 DAYS active Not Available Not Available No t Available OneTouch Ultra Test strips USE 1 TEST STRIP ONCE A DAY active Not Available Not Available No t Available lisinopril 10 mg tablet TAKE 1 TABLET BY MOUTH EVERY DAY FOR 30 DAYS active Not Available Not Available No t Available losartan 25 mg tablet TAKE 1 TABLET BY MOUTH EVERY DAY active Not Available Not Available No t Available ammonium lactate 12 % topical cream APPLY THIN LAYER TO PLANTAR SURFACE OF FEET DAILY active Not Available Not Available No t Available ondansetron 4 mg disintegrating tablet TAKE 1 TABLET BY MOUTH EVERY 8 HOURS NEEDED FOR NAUSEA AND VOMITING FOR 3 DAYS active Not Available Not Available No t Available oxycodone 5 mg tablet TAKE 1 TABLET ORALLY EVERY 6 HOURS NEEDED FOR PAIN (SCALE SCORE 7-10) active Not Available Not Available No t Available metoprolol tartrate 25 mg tablet TAKE 1 TABLET BY MOUTH 2 TIMES A DAY FOR 90 DAYS active Not Available Not Available No t Available Januvia 50 mg tablet TAKE 1 TABLET BY MOUTH EVERY DAY FOR 90 DAYS active Not Available Not Available No t Available cholecalcifero l (vitamin D3) 50 mcg (2,000 unit) capsule TAKE SOFTGEL BY MOUTH DAILY FOR 90 DAYS active Not Available Not Available No t Available Eliquis 5 mg tablet TAKE 1 TABLET BY MOUTH TWICE A DAY active Not Available Not Available No t Available OneTouch Delica Plus Lancet 30 gauge USE TO TEST ONCE DAILY active Not Available Not Available No t Available Vitals Date Recorded Body weight Body mass index (BMI) Body height Provider Name and Address Organization Details Last Updated DateTime 10/12/2024 39637.4 g 31.4 kg/m2 162.[address] [facility], 10/12/2024 09:43:38 Social History None recorded. Functional Status None recorded. Mental Status None recorded. Family History Nothing Reported. Medical History No medical history recorded. Gynecological HistoryNo gynecological history recorded. Obstetrics History GPAL:G 0 P 0 0 0 0 Past Encounters Encounter ID Performer Location Encounter Start Date Encounter Closed Date Diagnosis/Indication Diagnosis SNOMED-CT Code Diagnosis ICD10 Code Diagnosis Note [id number] Elli Green MD [address] [address] 10/12/2024 09:32:36 10/12/2024 10:18:37 Pain in right foot 9358085980 20681 M79.671 Deformity of toe 7092202 01 M20.5X1 Health Concerns Section Related Observation LastModified by Organization Detai ls LastModified Time None Recorded Concern Status LastModified by Organization Details LastModified Time None Recorded Advance Directives Directive None Recorded Payers Encounter Date Sequence Insurance Name Policy Number Policy Olson Covered Member ID Olson Member ID Guarantor Name 10/12/2024 1 [facility] (MEDICARE REPLACEMENT/A DVANTAGE - HMO) Blanca Dereje Hernandez [id number] Blanca Reyez Notes Date Note Type Note Provider Name and Address Organization Details Recorded Time 10/12/2024 text/html Blanca Reyez is a 79-year-old female who presents today for new patient evaluation regarding her right foot. She reports that she is having increasing pain over her right great toenail that she believes is coming from her second toe overlapping her great toe. She has tried wearing toe spacers without much improvement and she is having increasing pain over her toenail. Her pain is a 5/10. She has a past medical history of diabetes, hyperlipidemia, hypertension. She is on Eliquis for A-fib. She does not work. She does not smoke. Elli Green MD [address], [place], [address], [place] [facility], P 10/14/2024 18:07:59 OBGyn Episode No OBEpisode recorded.
--- OUTSIDE RECORDS SUMMARY | 2024-11-09 07:51 | XMS_ITS | Clinical Summary ---
Author Organization [facility] it Address [address] [place] [address] Care Team Providers Care Superintendent Quarry Name Role Phone Enio Mcgrath MD Primary Care Provider [phone] Surgical History Surgery Date Site/Laterality Comments BACK [...] Type 2 diabetes mellitus wit hout complication ([facility] V24, [facility] V28) 06/08/2017 DX:Type 2 diab etes mellitus without complication ([facility]) Vitamin D deficiency 06/08/2017 DX:Vitamin D deficiency [...] Vaccines (1 of 2) 1996 RSV Immunization Adult Patients (1 - 1-dose 75+ series) 2021 Cholesterol Screening (Lipid Panel) 07/01/2022 Depression Screening 07/01/2022 Falls Risk Assessment 07/01/2022 Hepatitis C Screening 07/01/2022 Social Influencers of Health Screening 07/01/2022 Diabetes: Annual Urine Albumin-Creatinine Ratio (uACR) 07/18/2022 Diabetes: Blood Sugar Contro l Test (HGBA1C) 07/18/2022 COVID-19 Vaccine ( - 2023-2 5 season) 2024 Influenza Vaccine (Season Ended) 2025 DTaP,Tdap,and Td Vaccines (2 - Td or [...] age to complete this topic Meningococcal B Vaccine Aged Out No l onger eligible based on patient's age to complete this topic RSV Immunization Patients Under 20 months Aged Out No longer eligible b ased on patient's age to complete this topic Varicella Vaccines Aged Out No longer eligible based on patient's age to complete this topic Procedures Procedure Name Priority Date/Time Associated Diagnosis Comments [facility] SKELE[facility] Routine 05/02/2018 10:39 AM EDT Asymptomatic menopausal state from Last 3 Months or Most Recently Relevant to Health Maintenance Results * [facility] (05/02/2018 10:39 AM EDT) Anatomical Region Laterality Modality Mammography 05/02/2018 9:39 AM EDT Narrative [facility]/02/2018 10:[facility] [address] [place] [id number] Patient: ??BLANCA SOLANO ?/Age/Sex: 1945 72 - F Unit#: ??[id number] ? Location/Status: ??SPDIMAM/REG CLI ? Mnemonic/Ordering Site: ??MAMDEXAAX/SPMAM Ordering Physician: ??JENNY TORRES MD [facility] Dexa Axial Skeleton - 05/02/181000 HISTORY: ??The [...] probability of hip fracture of 0.1%. Code 11018 Dictating Physician: ??ABDON DIAS MD Electronically Signed by: ??ABDON DIAS MD Dic Date/Time: ??05/02/18 1038 Sign date/Time: ??05/02/18 1039 Procedure Note Abdon Dias MD - 07/21/2022 [facility] Diagnostic Imaging Department [address] [place] [address] Patient: BLANCA SOLANO D.O.B./Age/Sex: 1945 - 72 - F Unit#: [id number] [facility]emonic[facility] Ordering Physician: JENNY TORRES MD Gary Dexa Axial Skeleton - 05/02/181000 HISTORY: The patient is a 72-year-old postmenopausal [...] density of the femurs bilaterally is 1.187 gm/co6kwxyr is 118% of that of young normals [...] probability of hip fracture of 0.1%. Code 61119 Dictating Physician: ABDON DIAS MD Electronically Signed by: ABDON DIAS MD Dic Date/Time: 05/02/18 1038 Sign date/Time: 05/02/18 1039 Jenny Torres MD IMG BI PROCEDURES Final Resu lt from Last 3 Months or Most Recently Relevant to Health Maintenance Care Teams Superintendent Quarry Relationship Specialty Start Date End Date Enio Mcgrath MD PCP - General Internal Medicine 04/10/21
[2024-11-09 07:53] VITALS: BP 122/78; BMI 31.4
== END 2024-11-09 08:18 | disposition home or self-care (01) ==
LOC: HO.HMCH 07:47
PROVIDERS: PCP Internal Medicine; Visit Provider Internal Medicine
DX: I48.0 Paroxysmal atrial fibrillation (principal); I10 Essential (primary) hypertension; E78.5 Hyperlipidemia, unspecified; E11.9 Type 2 diabetes mellitus without complications

== ENCOUNTER → 2024-11-09 07:47 | Outpatient (BNVA) | payer OTHER, SELFPAY | PROVIDERS: PCP Internal Medicine; Visit Provider Internal Medicine | DX: I48.0 Paroxysmal atrial fibrillation (principal); I10 Essential (primary) hypertension; E11.9 Type 2 diabetes mellitus without complications; E78.5 Hyperlipidemia, unspecified | CPT/HCPCS: 83036; 96127; 99212 ==

== ENCOUNTER → 2024-12-19 07:50 | Outpatient (REF) | payer OTHER, SELFPAY ==
--- NOTE | ~2024-12-19 | NM_ITS ---
Lexiscan Myocardial perfusion study Indication: Left bundle branch block Technique: The patient was brought in for a Lexiscan perfusion study on 12/19/2024 and was injected 0.4 mg of Lexiscan intravenously. Within a minute of this injection 30 mCi of sestamibi was given intravenously. Images were obtained using the SPECT gamma camera interlaced with the gating device. Images were obtained in supine position. Resting perfusion study was performed on 12/20/2024. Patient was administered 30 mCi of sestamibi intravenously at rest. Images were then obtained in supine position. Total DLP 110 mGy-cm. Images were processed with the software and compared side to side in short axis, horizontal long axis and vertical long axis views. Findings: Raw aquisition reviewed. The stress perfusion study showed decreased tracer uptake in the distal part of anteroseptal wall. No significant changes CT attenuation correction. The gated study shows diminished LV systolic function with calculated LVEF of 36%. LV cavity is normal in size. The gated study shows normal wall thickening and contraction of segments. Resting study shows diminished tracer uptake in the distal part of anteroseptal wall. No significant changes CT attenuation correction. Gating at rest reveals normal wall motion with ejection fraction at 59%. The findings are consistent with fixed distal inferoseptal defect. No clear reversible defects. NM/NM cardiolite stress test Impression: 1. Myocardial perfusion imaging study shows no evidence of ischemia. Fixed defect in the distal anteroseptal wall, possibly related left bundle branch block. Cannot exclude a prior nontransmural infarct. 2. Gated LVEF is 36% during stress and 59% during rest. Correlate with echocardiogram. 3. Transient ischemic dilatation not present. EKG component of the test reported separately. Electronically signed by: Darek Sharpe MD 12/20/2024 12:35 PM EDT
--- OUTSIDE RECORDS SUMMARY | 2024-12-19 07:52 | XMS_ITS ---
Author Organization [facility] Address [address] [place] [address] Care Team Providers Care Residential Solar Sales Consultant Name Role Phone Alcides ZAMORA, Enio Primary Care Provider Unavailab Dickson Ramsay Unavailable [phone] Encounters Encounter Location Date Provider Diagnosis [facility] [address] [address] 11/08/2023 Dickson Henry Plan Of Treatment No Information Progress Notes * Mary Ellen TERRYKallieB: [birth year] (79 yo F)Acc No.[id number]:11/08/2023 Progress Note Patient:Blanca BURGESS Provider:?Dickson Henry DPM :1945???Age:78 Y???Sex:Female D ate:11/08/2023 Address:[address] [place], [place] [phone] Pcp:Enio cMgrath MD Subjective: * Chief Complaints: * ??? * Medical History:? Objective: * Vitals:? Assessment: Plan: * Treatment: * Images: * The named appointment provid er may or may not be the originator of this progress note, and it is not deemed complete until electronically signed by the appointment provider. Sign off status: Pending * Provider:?Dickson Henry DPM Date:?2023 Generated for Krista arora/Santo/eTransmitting on:?12/19/2024 07:52 AM EDT
--- OUTSIDE RECORDS SUMMARY | 2024-12-19 07:53 | XMS_ITS | Clinical Summary ---
Author Organization [facility] it Address [address] [place] [address] Care Team Providers Care Shooting Gallery Operator Name Role Phone Enio Mcgrath MD Primary Care Provider [phone] Surgical History Surgery Date Site/Laterality Comments BACK [...] Type 2 diabetes mellitus wit hout complication ([facility] V24, [facility] V28) 06/08/2017 DX:Type 2 diab etes mellitus without complication ([facility]) Vitamin D deficiency 06/08/2017 DX:Vitamin D deficiency [...] Procedure Name Priority Date/Time Associated Diagnosis Comments [facility] Routine 05/02/2018 10:39 AM EDT Asymptomatic menopausal state from Last 3 Months or Most Recently Relevant to Health Maintenance Results * [facility] (05/02/2018 10:39 AM EDT) Anatomical Region Laterality Modality Mammography 05/02/2018 9:39 AM EDT [facility]ative [facility]/02[facility]2018 [facility] [address] [place] [address] Patient: ??BLANCA SOLANO ?/Age/Sex: 1945 72 - F Unit#: ??[id number] ? Location/Status: ??SPDIMAM/REG CLI ? Mnemonic/Ordering Site: [...] probability of hip fracture of 0.1%. Code 38009 Dictating Physician: ??ABDON DIAS MD Electronically Signed by: ??ABDON DIAS MD Dic Date/Time: ??05/02/18 1038 Sign date/Time: ??05/02/18 1039 Procedure Note Abdon Dias MD - 07/21/2022 [facility] Diagnostic Imaging Department [address] [place] [address] Patient: BLANCA SOLANO D.O.B./Age/Sex: 1945 - 72 - F Unit#: [id number] [facility] Ordering Physician: JENNY TORRES MD Gary Dexa [...] density of the femurs bilaterally is 1.187 gm/ag0zkykk is 118% of that of young normals [...] probability of hip fracture of 0.1%. Code 93237 Dictating Physician: ABDON DIAS MD Electronically Signed by: ABDON DIAS MD Dic Date/Time: 05/02/18 1038 Sign date/Time: 05/02/18 1039 Jenny Torres MD IMG BI PROCEDURES Final Resu lt from Last 3 Months or Most Recently Relevant to Health Maintenance Care Teams Shooting Gallery Operator Relationship Specialty Start Date End Date Enio Mcgrath MD PCP - General Internal Medicine 04/10/21
--- OUTSIDE RECORDS SUMMARY | 2024-12-19 07:53 | XMS_ITS ---
Author Organization [facility] Address [address] [place] [address] Care Team Providers Care Bakery Assistant Name Role Phone Alcides ZAMORA, Enio Primary Care Provider Unavailab Dickson Ramsay Unavailable [phone] REASON FOR VISIT NS to 11/08/23 appt Encounters Encounter Location Date [facility] [address] [address] 11/08/2023 Dickson Henry Plan Of Treatment No Information Progress Notes * Michelle PABONB: [birth year] (78 yo F)Acc No.[id number]:11/08/2023 Patient:?Blanca Pabon :1945???Age:78 Y???Sex:Female Address:[address] [place] [address], [address] * true * Date:? Generated for Printi maite/Santo/eTransmitting on:?12/19/2024 07:53 AM EDT
--- OUTSIDE RECORDS SUMMARY | 2024-12-19 07:53 | XMS_ITS | Data Portability ---
Author Organization [facility] [place] Address [address] [place] [address] Care Team Providers Care Oncology Nurse Navigator Name Role Phone IESHA DAY Primary Care Provider [phone] IESHA DAY Referring Provider Assessment Encounter Date Assessment Date Assessment LastModified by Organization Details LastModified Time 10/12/2024 10/12/2024 I saw this patient today using a report clerk. I am having a hard time determining [...] view 025 10/13/19 25 [email or web address] [facility], [address], [place], [address], 14:12:01 Medication Orders None record ed. Patient TargetsNo targets recorded. Patient Instructions Encounter Date Encounter Id Patient Instructions Last Modified By Organization Details Last Modified Time 10/12/2024 [id number] 3 views of the right foot obtained [...] Organization Details Recorded Time Deformity of toe 344833419 Active 025 Elli Green MD [address], [place], [address], [place] [facility], 17:49:22 Problem Notes None recorded. Medical Equipment [...] Address Organization Details Last Updated DateTime 10/12/2024 74765.4 g 31.4 kg/m2 162.[address] [facility], 10/12/2024 09:43:38 Social History None recorded. Functional Status None recorded. Mental Status None recorded. Family History Nothing Reported. Medical History No medical history recorded. Gynecological HistoryNo gynecological history recorded. Obstetrics History GPAL:G 0 P 0 0 0 0 Past Encounters Encounter ID Performer Location Encounter Start Date Encounter Closed Date Diagnosis/Indication Diagnosis SNOMED-CT Code Diagnosis ICD10 Code Diagnosis Note [id number] Elli Green MD [address] [address] 10/12/2024 09:32:36 10/12/2024 10:18:37 Pain in right foot 2731533664 80377 M79.671 Deformity of toe 7855142 01 M20.5X1 Health Concerns Section Related Observation LastModified by Organization Detai ls LastModified Time None Recorded Concern Status LastModified by Organization Details LastModified Time None Recorded Advance Directives Directive None Recorded Payers Encounter Date Sequence Insurance Name Policy Number Policy Olson Covered Member ID Olson Member ID Guarantor Name 10/12/2024 1 [facility] (MEDICARE REPLACEMENT/A DVANTAGE - HMO) Blanca Dereje Hernandez [id number] Blanca Reyez Notes Date Note Type Note [...] Elli Green MD [address] [place], [address], [facility], P 10/14/2024 18:07:59 OBGyn Episode No OBEpisode recorded.
--- OUTSIDE RECORDS SUMMARY | 2024-12-19 07:53 | XMS_ITS | Patient Health Record ---
[facility] Address [address] [place] [address] Care Team Providers Care Accounts Specialist Name Role Phone Enio Mcgrath MD Primary Care Provider UnavailDickson Stroud Unavailable [phone] Allergies No Known Allergies Reason For Referral [...] Problem Acquired hammer toe of right foot (7026920366843731 ) Other hammer toe(s) (acquired), right foot (M20.41) Active confirmed Problem Acquired hammer toe of left foot (3991673065886053 ) Other hammer toe(s) (acquired), left foot (M20.42) Active confirmed Problem Polyneuropathy due to type 2 diabetes mellitus (788875255) Type 2 diabetes mellitus with diabetic polyneuropathy (E11.42) Active confirmed Plan Of Treatment Pending Test Test Name Order Date [id number] NAIL, 6 OR MORE 05/05/2021 [id number] NAIL, 1-5 04/24/2015 [id number] SKIN LESIONS, OVER 4 05/05/20 21 Insurance Providers Payer Name Payer Address Payer Phone Subscriber Number Group Number Insured Name Patient Relationship to Insured Coverage Start Date Coverage End Date [facility] [address] [place] [address] [id number] Blanca Cannon Self - patient is the insured Medical (General) History Medical History History ICD Code Angina Arthritis Back,Hip,and Knee pain Cataracts Chicken pox Diabetes mellitus Heart disease Joint dysfunction Kidney disease Surgical History Surgery Date(Month/Year) back surgery 2018 heart surgery unspecified 2014 polyp removal cataract surgery nicci 01/2021
--- OUTSIDE RECORDS SUMMARY | 2024-12-19 07:53 | XMS_ITS | Clinical Summary ---
Author Organization [facility] Address [address] [place] [address] Care Team Providers Care Director Of Strategic Initiatives Name Role Phone Jenny Trores MD Primary Care Provide r Allergies No [...] age to complete this topic Care Teams Director Of Strategic Initiatives Relationship Specialty Start Date End Date Jenny Torres MD PCP - General Internal Medicine 04/15/18
--- NOTE | 2024-12-19 07:54 | CA_ITS ---
Acquisition Time: 2024-12-19 09:21:40 Total Exercise Time: 00:02:00 Test Indications: LBBB, AFIB Medications: SEE H&P Protocol: LEXISCAN Max HR: 100 BPM 70% of Pred: 142 BPM Max BP: 164/78 mmHG Max Work Load: 1.0 METS Pharmacological stress test with Lexiscan while pt swings her legs in chair, without any reported symptoms, without any arrythmias, with normotensive response to injection. Nondiagnostic EKG for ischemia. In recovery, pt continues to feel well. Nuclear images pending. Test reviewed with Dr. Mayers. Referred By: Darek Sharpe Electronically Signed By: Clemente Pate
--- NOTE | 2024-12-19 07:54 | CA_ITS ---
Transthoracic Echocardiogram Patient (Last, First, Middle): Blanca Rodriguez, Gender: Female Date of : 1945 Age: 79 Procedure Date: 12/19/2024 Procedure Type: Transthoracic Echocardiogram Location: OP Height: 162.56 cm Weight: 83.01 kg BSA: 1.88 m2 Heart Rate: bpm BP: 125 / 70 mmHg Consultant Education: CP/SAMIR Referring MD: Darek Sharpe MD Symptoms: I44.7 - Left bundle-branch block, unspecified Study Quality: Fair ECG Rhythm: Sinus Conclusions: - The left ventricular systolic function is mildly decreased. The calculated ejection fraction is 51% by biplane method. - No obvious valvular pathology seen on this study. Findings Left Ventricle Normal left ventricular cavity size. There is normal left ventricular wall thickness. The left ventricular systolic function is mildly decreased. The calculated ejection fraction is 51% by biplane method. Evidence suggests grade I (mild) diastolic dysfunction. Right Ventricle Mildly increased right ventricular cavity size. There is normal right ventricular systolic function. Atria The left atrium is mildly dilated. The right atrium is normal in size. ASD closure device noted. No residual leak noted. Aortic Valve There is a normal trileaflet aortic valve. There is no aortic valve stenosis. There is no aortic valve regurgitation. Mitral Valve There is mild mitral annular calcification. There is trace mitral valve regurgitation. There is no mitral valve stenosis. Pulmonic Valve The pulmonic valve is likely normal. Tricuspid Valve There is mild tricuspid valve regurgitation. There is no evidence of pulmonary hypertension. Great Vessels The asc aorta is normal in size. Small plaque is seen in the sino tubular ridge. Venous The inferior vena cava is normal in size and collapses greater than 50% with inspiration. Pericardium/Pleural There is no evidence of pericardial effusion. Prior Study Comparison No prior study available for comparison. Recommendations, Care & Conclusions No obvious valvular pathology seen on this study. Measurements 2D Linear Measurements IVSd: 1.01 0.6-0.9/0.6-1.0 cm LVIDd: 4.72 3.9-5.3/4.2-5.9 cm LVIDd Index: 2.51 2.4-3.2/2.2-3.1 cm/m2 LVIDs: 3.03 2.0-3.6 cm LVPWd: 0.80 0.7-1.1 cm LA Diam: 3.40 2.7-3.8/3.0-4.0 cm LAIDs Index: 1.81 1.5-2.3 cm/m2 LV Mass: 180.36 67-162/88-224 g LV Mass Index: 95.93 43-95/49-115 g/m2 LVOT Diam: 2.00 3.0+(-)1.3 cm 2D Systolic Function EF 4C: 51.70 >55% EF 2C: 52.00 >55% EF BiP: 50.90 >55% Mitral Valve MV Pk E: 0.93 MV PK A: 1.21 MV Decel Time: 149.00 E/A: 0.80 E'Lateral: 5.98 E'Medial: 4.35 E/E' Med: 21.40 E/E' Lat: 15.60 PHT: 44.00 MVA PHT: 5.00 Decel Flagler: 6.25 Aortic Valve AoV Pk Eugenio: 1.29 AoV Mn Eugenio: 0.95 AoV VTI: 0.36 AoV Pk Grad: 7.00 Aov Mn Grad: 4.00 STEPHANIE Cont.VTI: 1.87 LVOT LVOT Pk Eugenio: 0.77 LVOT Mn Eugenio: 0.56 LVOT VTI: 0.21 LVOT Pk Grad: 2.00 LVOT Mn Grad: 1.00 LVOT Diam: 2.00 LVOT Area: 3.14 Diastolic Function MV Pk E: 0.93 MV Pk A: 1.21 E/A: 0.80 E'Medial: 4.35 E/E' Med: 21.40 E' Laterial: 5.98 E/E' Lat: 15.60 Right Ventricle TAPSE (mm): 27.40 TVS' Eugenio: 12.10 Tricuspid Valve TR Pk Eugenio: 2.57 TR Pk Grad: 26.00 RA Press: 3.00 RVSP: 29.00 Great Vessels Aorta Sinus of Valsalva: 2.80 2.0-3.5 cm Ao Asc: 2.80 2.1-3.4 cm Pulmonary Valve PV Pk Eugenio: 0.46 Peak PV Grad: 1.00 Updated in Other Vendor System with Status of Final Darek Sharpe MD electronically signed on 12/19/2024 4:09:56 PM with status of Final
== END ==
LOC: HO.CARD 07:50
PROVIDERS: PCP Internal Medicine; Visit Provider Internal Medicine
DX: I44.7 Left bundle-branch block, unspecified (principal); I20.9 Angina pectoris, unspecified; R07.2 Precordial pain; Z87.74 Personal history of (corrected) congenital malformations of heart and circulatory system
CPT/HCPCS: 78452; 93017; 93306; A9500; J0280; J2785

== ENCOUNTER → 2024-12-19 07:54 | Outpatient (BNV) | payer OTHER, SELFPAY | PROVIDERS: PCP Internal Medicine | DX: I51.89 Other ill-defined heart diseases (principal); Z87.74 Personal history of (corrected) congenital malformations of heart and circulatory system; Z95.818 Presence of other cardiac implants and grafts; I48.91 Unspecified atrial fibrillation; I44.7 Left bundle-branch block, unspecified | CPT/HCPCS: 78452; 93016; 93018; 93320; 93325; 93350 ==

== ENCOUNTER 2025-01-11 10:27 | Outpatient (AMB) | payer OTHER, SELFPAY ==
--- NOTE | 2025-01-11 11:24 | MHC.OFFVIS ---
Vital Signs 01/11/25 11:26 Height 5 ft 4 in Weight 184 lb 11.958 oz BMI 31.7 BP 120/62 Blood Pressure Location Lt brachial Position Sitting Pulse 60 Pulse Source Pulse Oximeter Intake Visit Reasons: follow up/stress test/ echo Paint Striping Machine Operator Required: Yes Paint Striping Machine Operator Language: Final Expense Agent Name: [email or web address] Accompanied by: Self / Same As Patient Allergies No Known Allergies Allergy (Verified 11/09/24 08:06) Medication List - Last Reconciled 01/11/25 by Darek Sharpe MD acetaminophen 650 mg PO Q6-8H PRN apixaban (Eliquis) 5 mg PO BID 90 days atorvastatin 80 mg PO BEDTIME 90 days blood sugar diagnostic ([employer] Ultra Test strips) Use 1 test strip once a day cholecalciferol (vitamin D3) 25 mcg PO DAILY 90 days diclofenac sodium 1.6% 2 ea topical BID-TID 30 days lancets ([employer] UltraSoft 2 Lancet) test once daily losartan 25 mg PO DAILY 90 days metoprolol tartrate 25 mg PO BID 90 days sitagliptin phosphate (Januvia) 50 mg PO DAILY 90 days trazodone 50 mg PO BEDTIME PRN 30 days HPI Comments Details: Blanca returns for follow-up. Recently seen in consultation regarding atrial fibrillation. She has seen [facility] but would like to switch. There is history of ASD closure with Amplatzer occluded device in [place] in 2003. Otherwise, EKG from last year had shown left bundle-branch block per notes but not clear how chronic it is. Patient herself does not have any clear-cut cardiac complaints. In the past, it seems she was having palpitations and Holter monitor had shown atrial fibrillation. Subsequently, put on beta-blockers. Also on Eliquis. Overall, no new concerns. She has completed an echocardiogram and stress test. [facility] Medical History Atrial fibrillation Arthritis Back pain Scoliosis Numbness On anticoagulant therapy Elevated cholesterol Murmur HTN (hypertension) ASD (atrial septal defect) Left bundle branch block (LBBB) Obesity Hyperlipidemia Type 2 diabetes mellitus GERD (gastroesophageal reflux disease) Surgical History Hx of varicose vein stripping Hx of hysterectomy History of appendectomy History of esophagogastroduodenoscopy (EGD) Hx of colonoscopy History of Amplatzer atrial septal defect closure History of cataract surgery History of back surgery Family History Mother Emphysema lung Diabetes Father Heart attack Maternal Aunt Cancer Maternal Uncle Cancer Social History Housing: House Are you a primary career services assistant to a significant other at home: No Do you presently have visiting nurse or other home services: Yes (nurse) Alcohol intake: never Comment: counts correct Patient Tobacco Use Status: Never used Tobacco e-Cigarette/Vaping Use: Never Used Second Hand Smoke Exposure: No service: No Current occupational status: unemployed Cognitive needs: No Hearing needs: No Vision needs: No Female Reproductive History Menstrual Age of Menarche: 16 Review of Systems Const Denies chills, Denies fatigue, Denies fever(s), Denies frequent falls, Denies weakness, Denies weight gain and Denies weight loss ENT Denies dizziness Card Denies chest pain, Denies leg edema, Denies lightheadedness, Denies palpitations, Denies dyspnea and Denies dyspnea on exertion Resp Denies cough, Denies dyspnea and Denies dyspnea on exertion GI Denies hematochezia Musc Denies abnormal gait, Denies muscle weakness, Denies numbness, Denies radiating pain into limb and Denies tingling Neuro Denies abnormal gait, Denies dizziness, Denies frequent falls, Denies numbness, Denies tingling and Denies weakness Endo Denies fatigue and Denies palpitations Physical Exam Vital Signs: Last Vital Signs Pulse 60 01/11/25 11:26 BP 120/62 01/11/25 11:26 BMI result Body Mass Index 31.7 Const General: comfortable and no acute distress Orientation/consciousness: patient oriented x3 HEENT Other: Unremarkable Head: Yes normal to inspection Neck Neck: Yes normal visual inspection Chest Chest palpation & inspection: normal inspection of the chest Resp Auscultation: clear to auscultation bilaterally Cardio Palpation: normal PMI Heart sounds: S1 normal heart sound present, S2 normal heart sound present, no gallops, no murmurs and no rubs GI Palpation (GI): Soft to palpation Back/Spine/Pelvis Other: unremarkable Skin General skin exam: no rashes or lesions noted Neuro General: patient oriented x3 Extrem General: Yes normal to inspection Psych Mental Status: mental status grossly normal Assessment & Plan Assessment & Plan (1) PAF (paroxysmal atrial fibrillation): Code(s): I48.0 - Paroxysmal atrial fibrillation Category: Medical Plan: Continue metoprolol/Eliquis. (2) Left bundle branch block (LBBB): Comment: Foll'd by [facility]- Dr. Munoz Code(s): I44.7 - Left bundle-branch block, unspecified Category: Medical Plan: Echocardiogram with mildly decreased LVEF at 51%. Myocardial perfusion imaging study without any ischemia. Yearly monitoring. (3) Status post device closure of ASD: Code(s): Z87.74 - Personal history of (corrected) congenital malformations of heart and circulatory system Category: Surgical Plan: Remote history from 2003. No current issues. Plan Discussion Notes I discussed with the patient the positive outcome of recent cardiac evaluations and reassured her of the satisfactory state of her cardiac health, noting no need for immediate intervention given the absence of symptoms such as chest pain or breathing difficulties. We discussed the plan for annual follow-up evaluations barring new symptoms. The patient was advised on the importance of contacting us should any concerns arise, marking a proactive approach to address any possible future complications. Patient was informed and verbally consented to the use of an ambient scribe for clinic note documentation during this visit. Patient Instructions: - Contact us if experiencing chest pain or any other symptoms. - Schedule annual follow-up appointments. - Stay informed of any changes in symptoms. Coding Level of Care Code Est Pt Level 4 (01268) Complex EM visit Add On G2211 Diagnoses PAF (paroxysmal atrial fibrillation) I48.0 Left bundle branch block (LBBB) I44.7 Status post device closure of ASD Z87.74
[2025-01-11 11:26] VITALS: BP 120/62; PULSE 60; BMI 31.7
== END 2025-01-11 13:47 | disposition home or self-care (01) ==
LOC: HO.HCS 10:28
PROVIDERS: PCP Internal Medicine; Visit Provider Internal Medicine
DX: I48.0 Paroxysmal atrial fibrillation (principal); I44.7 Left bundle-branch block, unspecified; Z87.74 Personal history of (corrected) congenital malformations of heart and circulatory system
CPT/HCPCS: 99214; G2211

== ENCOUNTER → 2025-01-11 10:27 | Outpatient (BNVA) | payer OTHER, SELFPAY | PROVIDERS: PCP Internal Medicine; Visit Provider Internal Medicine | DX: I48.0 Paroxysmal atrial fibrillation (principal); I44.7 Left bundle-branch block, unspecified; Z87.74 Personal history of (corrected) congenital malformations of heart and circulatory system | CPT/HCPCS: 99212 ==

== ENCOUNTER 2025-02-01 10:40 | Outpatient (AMB) | payer OTHER, SELFPAY ==
--- OUTSIDE RECORDS SUMMARY | 2023-11-08 05:30 | XMS_ITS ---
Author Organization [facility] Address [address] [place] [address] Care Team Providers Care Telegraph Service Clerk Name Role Phone Alcides ZAMORA, Enio Primary Care Provider Unavailab Dickson Ramsay Unavailable [phone] Encounters Encounter Location Date Provider Diagnosis [facility] [address] [address] 11/08/2023 Dickson Henry Plan Of Treatment No Information Progress Notes * UrbinatorinKallieB: 946 (79 yo F)Acc No.[id number]:11/08/2023 Progress Note Patient: Blanca CAST Provider: Shlomo Henry DPM :1945 A ge:78 Y S ex:Female Date:11/08/2023 Address:[address] [place], [place] [id number] Pcp:Enio Mcgrath MD Subjective: * Chief Complaints: [...] 11/08/2023 Generated for Krista arora/Santo/Amorsmitting on: 0 02/01/2025 11:28 AM EDT
--- OUTSIDE RECORDS SUMMARY | 2025-01-17 04:00 | XMS_ITS | Continuity of Care Document ---
Author Organization [facility] Address [address] [place] [address] [address] [place] [phone] Phone Care Team Providers Care Director Plans Name Role Phone Balaji ZAMORA, GABI WARNER Robert Unavailable U navailable Advance Directives Directive Yes / No Effective Date File Name No Information Encounters Encounter Description Practice Location Reason(s) For Visit Diagnoses Date Provider Providers Copied on Encounter [facility], [address] [place] [address] [address], [place], [id number], tel:[phone] [facility] No Information 5 Balaji ZAMORA, GABI WARNER. [address] [place] [address], [id number] , [place]. tel:[phone] Referring Provider: DOES NOT HAVE REF. Family History Family Member Type Diagnosis Age At Onset No Information Payers Payer name Insurance type Covered democrat ID Authoriza tion(s) [facility] Dual Complete CI [id number] Medical Assistance [facility] [id number] Social History Type Description Quantity Date Captured Comments Sex Female Smoking Status No Information Chief Complaint And Reason For Visit No Information Reason For Referral Reason For Referral No Information Plan Of Treatment Date Type Action Status Appointment Blanca Rodriguez BOOKED Appointment Blanca Rodriguez BOOKED History Of Present Illness Encounter Date Complaint History Of Prese nt Illness No Information Functional Status Date Functional Assessmen t No Information Instructions Date Instruction Additional Infor mation No Information Assessments Type Assessment Date No Information Patient Care Teams Name Effective Dates (start - stop) Status Members No Information
--- NOTE | 2025-02-01 10:53 | A.OFFPC_ITS ---
Vital Signs 02/01/25 10:54 Height 5 ft 4 in Weight 185 lb BMI 31.8 BP 136/80 Blood Pressure Location Lt brachial Position Sitting Intake Visit Reasons: numbness in hands/lower back pain Maintenance Mgr Required: No Accompanied by: Self / Same As Patient Allergies No Known Allergies Allergy (Verified 02/01/25 11:01) Medication List - Last Reconciled 02/01/25 by Freya Azevedo MD acetaminophen 650 mg PO Q6-8H PRN apixaban (Eliquis) 5 mg PO BID 90 days atorvastatin 80 mg PO BEDTIME 90 days blood sugar diagnostic ([email or web address] Ultra Test strips) Use 1 test strip once a day cholecalciferol (vitamin D3) 25 mcg PO DAILY 90 days diclofenac sodium 1.6% 2 ea topical BID-TID 30 days lancets ([employer] UltraSoft 2 Lancet) test once daily losartan 25 mg PO DAILY 90 days metoprolol tartrate 25 mg PO BID 90 days sitagliptin phosphate (Januvia) 50 mg PO DAILY 90 days trazodone 50 mg PO BEDTIME PRN 30 days Tobacco use date assessed: 11/09/24 Dental Screening Dental Screen Date: 11/09/24 HPI HPI Comments History of Present Illness Details The patient is a 79-year-old female presenting with bilateral arm and finger paresthesia and low back pain with radiculopathy. The bilateral arm and finger paresthesia began a few months ago, becoming more prominent at night and after eating. She denies fever, bowel or bladder incontinence. The low back pain radiates to both legs, more prominently on the right, and is associated with bilateral leg numbness. An X-ray in May showed severe lumbar degenerative disc disease. Diabetes mellitus type 2 is well-managed with an A1c of 6.4% as of October, down from 10%. Blood pressure is well controlled with medications. The patient has atrial fibrillation, managed with chronic anticoagulation therapy, and reports no active bleeding. A stress test was negative for ischemia. LDL cholesterol was last recorded at 94 mg/dL in June, and microalbuminuria was within normal limits. [facility] Medical History (Updated 02/01/25 @ 11:09 by Freya Azevedo MD) Atrial fibrillation Arthritis Back pain Scoliosis Numbness On anticoagulant therapy Elevated cholesterol Murmur HTN (hypertension) ASD (atrial septal defect) Left bundle branch block (LBBB) Obesity Hyperlipidemia Type 2 diabetes mellitus GERD (gastroesophageal reflux disease) Surgical History Hx of varicose vein stripping Hx of hysterectomy History of appendectomy History of esophagogastroduodenoscopy (EGD) Hx of colonoscopy History of Amplatzer atrial septal defect closure History of cataract surgery History of back surgery Family History Mother Emphysema lung Diabetes Father Heart attack Maternal Aunt Cancer Maternal Uncle Cancer Social History Housing: House Are you a primary tree care foreman to a significant other at home: No Do you presently have visiting nurse or other home services: Yes (nurse) Alcohol intake: never Comment: counts correct Patient Tobacco Use Status: Never used Tobacco e-Cigarette/Vaping Use: Never Used Second Hand Smoke Exposure: No service: No Current occupational status: unemployed Cognitive needs: No Hearing needs: No Vision needs: No Female Reproductive History Menstrual Age of Menarche: 16 Questionnaire PHQ-9 Over the last 2 weeks, how often have you been bothered by any of the following problems? 1. Little interest or pleasure in doing things: several days 2. Feeling down, depressed, or hopeless: not at all 3. Trouble falling or staying asleep, or sleeping too much: not at all 4. Feeling tired or having little energy: not at all 5. Poor appetite or overeating: not at all 6. Feeling bad about yourself - or that you are a failure or have let yourself or your family down: not at all 7. Trouble concentrating on things, such as reading the newspaper or watching television: not at all 8. Moving or speaking so slowly that other people could have noticed. Or the opposite - being so fidgety or restless that you have been moving around a lot more than usual: not at all 9. Thoughts that you would be better off or of hurting yourself in some way: not at all Total score: 1 Depression Screening Interpretation: Negative Depression Screening Done: Yes 11656 - PHQ-9 Billing: Yes Source: Developed by Drs. Ventura Bermeo, Lissy BNitin Baltazar and colleagues, with an educational paty from [employer]. Thrive Questionnaire Date Thrive assessed: 11/09/24 I am a: Patient What is your living situation today?: I have a steady place to live Within the past 12 months, did the food you bought not last and you didn't have the money to get more?: I choose not to answer this question Within the past 12 months, did you worry whether your food would run out before you got money to buy more?: I choose not to answer this question Do you have trouble paying for medicines?: No Do you have trouble getting transportation to medical appointments?: No Do you have trouble paying your heating and electricity bill?: No Do you have trouble taking care of your child, family member or friend?: No Do you have trouble with day-to-day activities such as bathing, preparing meals, shopping, managing finances, etc.?: No Are you currently unemployed and looking for a job?: No Are you interested in more education?: No Please select the resources that you would like help with: None Currently or been in a relationship where the following occur: I choose not to answer THRIVE Score: 0 AUDIT C Alcohol Use Questionnaire (AUDIT-C) 1. How often do you have a drink containing alcohol?: Never Total Score: 0 LISS-7 AMB Questionnaire LISS-7 Date LISS - 7 assessed: 11/09/24 Feeling nervous, anxious, or on edge: 0 = Not at all Not being able to stop or control worryin = Not at all Worrying too much about different things: 0 = Not at all Trouble relaxin = Not at all Being so restless that it is hard to sit still: 0 = Not at all Becoming easily annoyed or irritable: 0 = Not at all Feeling afraid as if something awful might happen: 0 = Not at all Total LISS-7 score (0-4 normal; 5-9 mild; 10-14 moderate; 15-21 severe): 0 Source: Developed by Drs. Ventura Bermeo, Ntiin Comer and colleagues, with an educational paty from [employer]. LISS-7 Assessment Billing LISS-7 Assessment Tool: LISS-7 Assessment 34312 Review of Systems Const All systems reviewed & are unremarkable except as noted in HPI and below Card Denies chest pain at rest, Denies chest pain with activity, Denies edema, Denies irregular heart rhythm, Denies claudication, Denies dyspnea, Denies dyspnea on exertion, Denies orthopnea, Denies paroxysmal nocturnal dyspnea and Denies slow heart rate Resp Denies cough, Denies dyspnea and Denies dyspnea on exertion Physical exam (Primary Care) Vital Signs: Last Vital Signs BP 136/80 02/01/25 10:54 BMI result Body Mass Index 31.8 BMI Assessment/Plan discussion: High BMI High, discussed plan: lifestyle, weight reduction, dietary and physical activity Tobacco/Smoking Status: Tobacco use Status Tobacco use date assessed 11/09/24 02/01/25 10:55 Patient Tobacco Use Status Never used Tobacco 02/01/25 10:55 e-Cigarette/Vaping Use Never Used 02/01/25 10:55 PHQ-9: PHQ-9 Score PHQ-9: Total score 1 02/01/25 11:01 Depression Screening Interpretation: Negative Thrive Assessment: Date of Thrive Assessment Date Thrive assessed 11/09/24 02/01/25 10:55 Currently or been in a relationship where the following occur: I choose not to answer Resp Effort & Inspection: normal respiratory effort Auscultation: clear to auscultation bilaterally Cardio Jugular venous distension: no JVD Rate: regular rate Rhythm: regular rhythm Heart sounds: S1 normal heart sound present and S2 normal heart sound present Extrem General: Yes full ROM Coding Level of Care Code Est Pt Level 4 (87670) Complex EM visit Add On G2211 Diagnoses PAF (paroxysmal atrial fibrillation) I48.0 Essential hypertension I10 Hyperlipidemia LDL goal <70 E78.5 Type 2 diabetes mellitus without complication, without long-term current use of insulin E11.9 Diabetes mellitus type: type 2 Diabetes mellitus half-way insulin use: without termite control service representative use Diabetes mellitus complication status: without complication Lumbar degenerative disc disease M51.36 Paresthesia of hand, bilateral R20.2 Additional Codes LISS-7 Assessment Billing - LISS-7 Assessment Tool: LISS-7 Assessment 93109 ([id number]) PHQ-9 - 49106 - PHQ-9 Billing: Yes ([id number]) Time Spent (min) 23 Assessment & Plan Assessment & Plan (1) PAF (paroxysmal atrial fibrillation): Code(s): I48.0 - Paroxysmal atrial fibrillation Category: Medical (2) Essential hypertension: Code(s): I10 - Essential (primary) hypertension Category: Medical (3) Hyperlipidemia LDL goal <70: Code(s): E78.5 - Hyperlipidemia, unspecified Category: Medical (4) Diabetes mellitus: Code(s): E11.9 - Type 2 diabetes mellitus without complications Category: Medical Qualifiers: Diabetes mellitus type: type 2 Diabetes mellitus half-way insulin use: without termite control service representative use Diabetes mellitus complication status: without complication Qualified Code(s): E11.9 - Type 2 diabetes mellitus without complications (5) Lumbar degenerative disc disease: Code(s): M51.36 - Other intervertebral disc degeneration, lumbar region Category: Medical (6) Paresthesia of hand, bilateral: Code(s): R20.2 - Paresthesia of skin Category: Medical Plan The patient will be referred to pain management for her lower back pain and r adiculopathy, with consideration for a Neospin and Spur intervention. A nerve conduction study will be ordered to evaluate for carpal tunnel syndrome related to her bilateral arm and finger paresthesia. Follow-up blood work will be scheduled to monitor her LDL cholesterol levels. Continued management of diabetes mellitus type 2 and hypertension will be ensured through medication adherence and regular monitoring. Patient was informed and verbally consented to the use of an ambient scribe for clinic note documentation during this visit. Orders: Orders Lipid Panel Today E78.5 - Hyperlipidemia, unspecified NE nerve conduction velocity Today R20.2 - Paresthesia of skin Microalbumin, Random (w Creat) Today R80.9 - Proteinuria, unspecified Vitamin D 25-OH Total Today E55.9 - Vitamin D deficiency, unspecified Comprehensive [place]. Panel Fast Today R20.2 - Paresthesia of skin Referrals Pain Management Referral M51.36 - Other intervertebral disc degeneration, lumbar region
[2025-02-01 10:54] VITALS: BP 136/80; BMI 31.8
--- OUTSIDE RECORDS SUMMARY | 2025-02-01 11:29 | XMS_ITS | Data Portability ---
Author Organization [place] [facility] [place] Address [address] [place] [address] Care Team Providers Care Senior Technical Program Manager Name Role Phone IESHA DAY Primary Care Provider IESHA DAY Referring Provider [phone] Assessment Encounter Date Assessment Date Assessment LastModified by Organization Details LastModified Time 10/12/2024 10/12/2024 I saw this patient today using a translator/interpreter. I am having a hard time determining [...] view 025 10/13/19 25 [email or web address] [facility], [address], [place], [address], 14:12:01 Medication Orders None record ed. Patient TargetsNo targets recorded. Patient Instructions Encounter Date Encounter Id Patient Instructions Last Modified By Organization Details Last Modified Time 10/12/2024 [id number] 3 views of the right foot obtained [...] Organization Details Recorded Time Deformity of toe 749451946 Active 025 Elli Green MD [address], [place], [address], [place] [facility], 17:49:22 Problem Notes None recorded. Medical Equipment [...] Address Organization Details Last Updated DateTime 10/12/2024 04190.4 g 31.4 kg/m2 162.[address] [facility], 10/12/2024 09:43:38 Social History None recorded. Functional Status None recorded. Mental Status None recorded. Family History Nothing Reported. Medical History No medical history recorded. Gynecological HistoryNo gynecological history recorded. Obstetrics History GPAL:G 0 P 0 0 0 0 Past Encounters Encounter ID Performer Location Encounter Start Date Encounter Closed Date Diagnosis/Indication Diagnosis SNOMED-CT Code Diagnosis ICD10 Code Diagnosis Note [id number] Elli Green MD [address] [address] 10/12/2024 09:32:36 10/12/2024 10:18:37 Pain in right foot 3173123180 69815 M79.671 Deformity of toe 3227123 01 M20.5X1 Health Concerns Section Related Observation LastModified by Organization Detai ls LastModified Time None Recorded Concern Status LastModified by Organization Details LastModified Time None Recorded Advance Directives Directive None Recorded Payers Insurance Date Sequence Insurance Name Policy Number Policy Olson Covered Member ID Olson Member ID Guarantor Name 10/16/2024 1 [facility] (MEDICARE REPLACEMENT/A DVANTAGE - HMO) Blanca Hernandez [id number] Blanca Reyez 09/01/2024 1 [facility] Chase Reyez [id number] Blanca Reyez Notes Date Note Type Note [...] Elli Green MD [address], [place], [address], [place] [facility], P 10/14/2024 18:07:59 OBGyn Episode No OBEpisode recorded.
--- OUTSIDE RECORDS SUMMARY | 2025-02-01 11:29 | XMS_ITS | Clinical Summary ---
Author Organization [facility] Address [address] [place] [address] Care Team Providers Care Rn Ortho Name Role Phone Jenny Torres MD Primary [...] - 1-dose 75+ series) 2021 Influenza Vaccine (Season Ended) 2025 DTap / Tdap / Td (2 - Td or Tdap) 12/24/2025 12/25/2015 Pneumococcal Vaccine Completed 05/01/2016, 03/27/2015 Hepatitis B Vaccines Aged Out No long er eligible based on patient's age to complete this topic RSV Ped < 20 months Aged Out No longe r eligible based on patient's age to complete this topic Care Teams Rn Ortho Relationship Specialty Start Date End Date Jenny Torres MD PCP - General Internal Medicine 04/15/18
== END 2025-02-01 11:09 | disposition home or self-care (01) ==
LOC: HO.HMCH 10:41
PROVIDERS: PCP Internal Medicine; Visit Provider Internal Medicine
DX: I48.0 Paroxysmal atrial fibrillation (principal); I10 Essential (primary) hypertension; E78.5 Hyperlipidemia, unspecified; E11.9 Type 2 diabetes mellitus without complications; M51.369 Other intervertebral disc degeneration, lumbar region without mention of lumbar back pain or lower extremity pain; R20.2 Paresthesia of skin

== ENCOUNTER → 2025-02-01 10:40 | Outpatient (BNVA) | payer OTHER, SELFPAY | PROVIDERS: PCP Internal Medicine; Visit Provider Internal Medicine | DX: I48.0 Paroxysmal atrial fibrillation (principal); I10 Essential (primary) hypertension; E78.5 Hyperlipidemia, unspecified; E11.9 Type 2 diabetes mellitus without complications; R20.2 Paresthesia of skin; M51.369 Other intervertebral disc degeneration, lumbar region without mention of lumbar back pain or lower extremity pain | CPT/HCPCS: 96127; 99212 ==

== ENCOUNTER 2025-03-20 09:46 | Outpatient (REF) | payer OTHER, SELFPAY ==
--- OUTSIDE RECORDS SUMMARY | 2023-11-08 05:30 | XMS_ITS ---
Author Organization [facility] Address [address] [place] [address] Care Team Providers Care Land Economist Name Role Phone Alcides ZAMORA, Enio Primary Care Provider Unavailab Dickson Ramsay Unavailable [phone] Encounters Encounter Location Date Provider Diagnosis [facility] [address] [address] 11/08/2023 Dickson Henry Plan Of Treatment No Information Progress Notes * BermudeztorinKallieB: 946 (79 yo F)Acc No.[id number]:11/08/2023 Progress Note Patient: Blanca CAST Provider: Shlomo Henry DPM :1945 A ge:78 Y S ex:Female Date:11/08/2023 Address:[address] [place], [place] [id number] Pcp:Enio Mcgrath MD Subjective: * Chief Complaints: * * Medical History: Objective: * Vitals: Assessment: Plan: * Treatment: * Images: * The named appointment provid er may or may not be the originator of this progress note, and it is not deemed complete until electronically signed by the appointment provider. Sign off status: Pending * Provider: Shlomo Henry DPM Date: 0 11/08/2023 Generated for Krista arora/Santo/Amorsmitting on: 0 03/20/2025 10:52 AM EDT
--- OUTSIDE RECORDS SUMMARY | 2025-02-07 05:30 | XMS_ITS | Continuity of Care Document ---
Author Organization [facility] Address [address] [place] [address] Phone Care Team Providers Care Textile Designer Name Role Phone Balaji ZAMORA, ALANA, Ventura ASHLEY Unavailable U navailable Procedures Procedure Date Office/Oupt E&M New Pt 45 Mins- CT & [place] Duplex Scan-extrem Veins; Comp- [place] & [place] Advance Directives Directive Yes / No Effective Date File Name Other Directive No 02/07/2025 N/A WARNING:The information contained in this section is historical and is provided for information only and does not constitute a legal document or any assurance that the information is still accurate. Please verify the information with the lazo of the legal document before using it for clinical purposes. Encounters Encounter Description Practice Location Reason(s) For Visit Diagnoses Date Provider Providers Copied on Encounter Office/Oupt E&M New Pt 45 Mins- [place] & [place] [facility], [address] [place] [address] Dr [address], [id number], [place] tel:[phone] [facility] Varicose veins of bilateral lower extremities with other complications Pain in right lower legPain in left lower legPain in right legType 2 diabetes mellitus without complications Essential (primary) hypertensionL ymphedema, not elsewhere classifiedPai n in left legHereditary lymphedemaCra mp and spasmLocalize d edema Balaji ZAMORA, ALANA, GABI Whitehead. [address], [facility], [place], [id number] , [place]. tel:[phone] Referring Provider: Freya Field MD, [address] [place] [address] Dr[address], [address] D/B/A: crow [employer], [place], [address]. tel:[phone] [facility], [address] [facility] [address], [place], [id number], tel:[phone] [facility] Chronic venous hypertension (idiopathic) with other complications of bilateral lower extremity Balaji ZAMORA, RVT, RPYE Ventura. [address] [place] [address], [address], [facility] [place], [id number] , [place]. tel:[phone] Referring Provider: Ventura Carpio MD, RVT, RPVI, [address] [place] [address], [place], [address]. tel:[phone] Family History Family Member Type Diagnosis Age At Onset No Information Payers Payer name Insurance type Covered green party ID Authoriza tion(s) [facility] Dual Complete CI [id number] Medical Assistance [facility] [id number] Social History Type Description Quantity Date Captured Comments Alcohol Use Details Unknown Caffeine Use Details Unknown Tobacco Use Status Current non-smoker Smoking Status Never Smoker Non-Smoking Tobacco Use Details : No Details Available : No Details Available Sex Female Vital Signs Date / Time: Height Weight BMI Pulse Rate Blood Pressure Temperature Respiratory Rate Body Surface Area Head Circumference Head Circ. Percentile Wt./Rogerio. Percentile BMI percentile Pulse Ox Inhaled Ox 83.460 kg (184.00 lbs) 31.6 5 kg/m eter (2) 126/84 mm[Hg] Chief Complaint And Reason For Visit No Information Reason For Referral Reason For Referral No Information Plan Of Treatment Date Type Action Status Goal Diet education completed Referral Ordered: Weight management: Referral to physician timeframe: 3 Months (related to Body mass index (BMI) 31.0-31.9, adult) ordered Appointment Blanca Rodriguez BOOKED Appointment Blanca Rodriguez BOOKED Appointment Blanca Rodriguez BOOKED Appointment Blanca Rodriguez BOOKED Appointment Blanca Rodriguez BOOKED Appointment Blanca Rodriguez BOOKED Appointment Blanca Rodriguez BOOKED Appointment Blanca Rodriguez BOOKED Appointment Blanca Rodriguez BOOKED History Of Present Illness Encounter Date Complaint History Of Prese nt Illness No Information Functional Status Date Functional Assessmen t No Information Instructions Date Instruction Additional Infor aramis Diet education Related to Body mass index (BMI) 31.0-31.9, adult Giving Encouragement to exercise Related to Body mass index (BMI) 31.0-31.9, adult Lifestyle education Related to B yolis mass index (BMI) 31.0-31.9, adult Patient education booklet given Related to Varicose veins of bilateral lower extremities with other complications Assessments Type Assessment Date No Information Patient Care Teams Name Effective Dates (start - stop) Status Members No Information
--- NOTE | 2025-03-20 09:54 | EMG_ITS ---
Patient complaints: Paresthesia of hand bilaterally Bilateral median and ulnar motor and sensory studies were performed bilateral radial sensory studies were performed and bilateral EMG needle examination was performed. Impression: 1. Rlvx-fm-bzsavuva bilateral median neuropathy across carpal tunnel 2. Mild bilateral ulnar neuropathy across elbow 3. Right upper cervical chronic radiculopathy 4. Mild bilateral Dada Monika anastomosis, a normal variant MTDD
--- OUTSIDE RECORDS SUMMARY | 2025-03-20 10:52 | XMS_ITS | Clinical Summary ---
Author Organization [facility] Address [address] [place] [address] Care Team Providers Care Auxiliary Equipment Operator Name Role Phone Jenny Torres MD Primary [...] 1-dose 75+ series) 2021 Influenza Vaccine (#1) 2025 DTap / Tdap / Td (2 - Td or Tdap) 12/24/2025 12/25/2015 Pneumococcal Vaccine Completed 05/01/2016, 03/27/2015 Hepatitis B Vaccines Aged Out No long er eligible based on patient's age to complete this topic RSV Ped < 20 months Aged Out No longe r eligible based on patient's age to complete this topic Care Teams Auxiliary Equipment Operator Relationship Specialty Start Date End Date Jenny Torres MD PCP - General Internal Medicine 04/15/18
--- OUTSIDE RECORDS SUMMARY | 2025-03-20 10:52 | XMS_ITS ---
Author Name [facility] Organization Unknown History of Medication Use Medication Directions Dispensed Refills Start Date End Date [facility] ammonium lactate 12 % topical cream APPLY THIN LAYER TO PLANTAR SURFACE OF FEET DAILY active atorvastatin 10 mg tablet TAKE 1 TABLET BY MOUTH EVERY DAY AT BEDTIME FOR 90 DAYS active atorvastatin 20 mg tablet TAKE 1 TABLET BY MOUTH EVERY DAY FOR 30 DAYS active atorvastatin 40 mg tablet TAKE 1 TABLET BY MOUTH EVERYDAY AT BEDTIME active atorvastatin 80 mg tablet TAKE 1 TABLET ORALLY BEDTIME FOR 90 DAYS active cholecalciferol (vitamin D3) 50 mcg (2,000 unit) capsule TAKE SOFTGEL BY MOUTH DAILY FOR 90 DAYS active Eliquis 5 mg tablet TAKE 1 TABLET BY MOUTH TWICE A DAY active Januvia 50 mg tablet TAKE 1 TABLET BY MOUTH EVERY DAY FOR 90 DAYS active lisinopril 10 mg tablet TAKE 1 TABLET BY MOUTH EVERY DAY FOR 30 DAYS active losartan 25 mg tablet TAKE 1 TABLET BY MOUTH EVERY DAY active metoprolol tartrate 25 mg tablet TAKE 1 TABLET BY MOUTH 2 TIMES A DAY FOR 90 DAYS active ondansetron 4 mg disintegrating tablet TAKE 1 TABLET BY MOUTH EVERY 8 HOURS NEEDED FOR NAUSEA AND VOMITING FOR 3 DAYS active OneTouch Delica Plus Lancet 30 gauge USE TO TEST ONCE DAILY active oxycodone 5 mg tablet TAKE 1 TABLET ORALLY EVERY 6 HOURS NEEDED FOR PAIN (SCALE SCORE 7-10) active trazodone 50 mg tablet TAKE 1 TABLET ORALLY BEDTIME NEEDED FOR SLEEP FOR 30 DAYS active Problems Problem Status Onset Date Problem Type Date of Resoluti on Source Deformity of toe active 2024-10-14 ProblemAct E NS_AONECT Encounters Encounter Type Encounter Reason Primary Diagnosis Location Date [facility]ulatory [facility] [place] 10/16/2024 [facility] [place] 10/13/2024 [facility] [place] 10/12/2024 [facility] [place] 09/01/2024 [facility] [place] 01/13/2024 [facility] [place] 01/13/2024 [facility] [place] 01/13/2024 [facility] [place] 12/01/2023 [facility] [place] 12/01/2023 [facility] [place] 12/01/2023
--- OUTSIDE RECORDS SUMMARY | 2025-03-20 10:52 | XMS_ITS | Clinical Summary ---
Author Organization [facility] it Address [address] [place] [address] Care Team Providers Care Powered Bridge Specialist Name Role Phone Enio Mcgrath MD Primary Care Provider [phone] Surgical History Surgery Date Site/Laterality Comments BACK [...] Type 2 diabetes mellitus wit hout complication ([facility] V24, [facility] V28) 06/08/2017 DX:Type 2 diab etes mellitus without complication ([facility]) Vitamin D deficiency 06/08/2017 DX:Vitamin D deficiency [...] series) 2021 Cholesterol Screening (Lipid Panel) 07/01/2022 Falls Risk Assessment 07/01/2022 Hepatitis C Screening 07/01/2022 Social Influencers of Health Screening 07/01/2022 Diabetes: Annual Urine Albumin-Creatinine Ratio (uACR) 07/18/2022 Diabetes: Blood Sugar Contro l Test (HGBA1C) 07/18/2022 COVID-19 Vaccine (1 - 2023-2 5 season) 2024 Depression Screening 08/02/2024 Influenza Vaccine (#1) 2025 DTaP,Tdap,and Td Vaccines (2 - Td [...] Procedure Name Priority Date/Time Associated Diagnosis Comments [facility] DEXA AXIAL SKELETON Routine 05/02/2018 10:39 AM EDT Asymptomatic menopausal state from Last 3 Months or Most Recently Relevant to Health Maintenance Results * [facility] DEXA AXIAL SKELETON (05/02/2018 10:39 AM EDT) Anatomical Region Laterality Modality Mammography 05/02/2018 9:39 AM EDT Narrative [facility]/02/2018 10:[facility] [address] [place] [address] Patient: BLANCA SOLANO/Age/Sex: 1945 - 72 - F Unit#: [id number] Location/Status: SPDIMAM/REG CLI Mnemonic[facility] Ordering Physician: JENNY TORRES MD Gary Dexa Axial Skeleton - 05/02/18 - 1001 HISTORY: The patient is a 72-year-old postmenopausal female with clinical concern for metabolic bone disease. FINDINGS: Dual [...] 138% of that of age matched controls. This yields a T-score of 1.4 and a Z-score of 2.6 and there is therefore no evidence of osteoporosis or osteopenia here. IMPRESSION: 1. There is no evidence of osteoporosis or osteopenia. There has been an increase of 1.7% in bone mineral density in the lumbar spine since the prior examination of 03/21/2012. There has been a decrease of 5.4% in bone mineral density in the right femur and an increase of 2.6% in bone mineral density in the left femur. 2. FRAX analysis yields a 10-year probability of major osteoporotic fracture of 3.3% and a 10-year probability of hip fracture of 0.1%. Code 25994 Dictating Physician: ABDON DIAS MD Electronically Signed by: ABDON DIAS MD Dic Date/Time: 05/02/18 1038 Sign date/Time: 05/02/18 1039 Procedure Note Abdon Dias MD - 07/21/2022 [facility] Diagnostic Imaging Department [address] [place] [address] Patient: BLANCA SOLANO./Age/Sex: 1945 - 72 - F Unit#: [id number] [facility]Ordering Site: [facility] Ordering Physician: JENNY TORRES MD [facility] Dexa Axial Skeleton - 05/02/18 - 1001 [...] density of the femurs bilaterally is 1.187 gm/ng5llvqm is 118% of that of young normals [...] probability of hip fracture of 0.1%. Code 85591 Dictating Physician: ABDON DIAS MD Electronically Signed by: ABDON DIAS MD Dic Date/Time: 05/02/18 1038 Sign date/Time: 05/02/18 1039 us Jenny Torres MD IMG BI PROCEDURES Final Resu lt from Last 3 Months or Most Recently Relevant to Health Maintenance Care Teams Powered Bridge Specialist Relationship Specialty Start Date End Date Enio Mcgrath MD PCP - General Internal Medicine 04/10/21
== END 2025-03-20 09:47 | disposition home or self-care (01) ==
LOC: HO.NEURO 09:46
PROVIDERS: PCP Internal Medicine; Visit Provider Internal Medicine
DX: G56.13 Other lesions of median nerve, bilateral upper limbs (principal); G56.23 Lesion of ulnar nerve, bilateral upper limbs; R20.2 Paresthesia of skin
CPT/HCPCS: 95886; 95911

== ENCOUNTER → 2025-03-20 09:54 | Outpatient (BNV) | payer OTHER, SELFPAY | PROVIDERS: PCP Internal Medicine; Visit Provider Psychiatry & Neurology Neurology | DX: G56.03 Carpal tunnel syndrome, bilateral upper limbs (principal) | CPT/HCPCS: 95886; 95911 ==

== ENCOUNTER 2025-04-05 07:46 | Outpatient (AMB) | payer OTHER, SELFPAY ==
--- OUTSIDE RECORDS SUMMARY | 2023-11-08 05:30 | XMS_ITS ---
Author Organization [facility] Address [address] [place] [address] Care Team Providers Care Assistant Professor Of Business Name Role Phone Alcides ZAMORA, Enio Primary Care Provider Unavailab Dickson Ramsay Unavailable [phone] Encounters Encounter Location Date Provider Diagnosis [facility] [address] [address] 11/08/2023 Dickson Henry Plan Of Treatment No Information Progress Notes * UrbinatorinKallieB: 946 (79 yo F)Acc No.[id number]:11/08/2023 Progress Note Patient: Blanca CAST Provider: Shlomo Henry DPM :1945 A ge:78 Y S ex:Female Date:11/08/2023 Address:[address] [place], [place] [id number] Pcp:Enio Mcgrath MD Subjective: * Chief Complaints: [...] 11/08/2023 Generated for Krista arora/Santo/Amorsmitting on: 0 04/05/2025 07:50 AM EDT
--- OUTSIDE RECORDS SUMMARY | 2025-03-29 08:13 | XMS_ITS | Continuity of Care Document ---
Author Organization [facility] Address [address] [place] [address] [address] [place] [address] Phone Care Team Providers Care Jazz Singer Name Role Phone Balaji ZAMORA, ALANA, Ventura ASHLEY Unavailable U navailable Procedures Procedure Date Offic/outpt E&m Estab 5 Min Trial- Telem edicine CT & [place] Office/Oupt E&M New Pt 45 Mins- CT & [place] Duplex Scan-extrem Veins; Comp- [place] & [place] Advance Directives Directive Yes / No Effective Date File Name No Information Encounters Encounter Description Practice Location Reason(s) For Visit Diagnoses Date Provider Providers Copied on Encounter [facility], [address] [place] [address] [address], [id number], [place] tel:[phone] [facility] No Information Balaji ZAMORA, GABI WARNER. [address], [place], [place], [id number] , [place]. tel:[phone] Offic/outpt E&m Estab 5 Min Trial- Telemedicine CT & [place] [facility], [address] [place] [address] [address], [id number], tel:[phone] [facility] Chronic venous hypertension (idiopathic) with other complication s of bilateral lower extremityCra mp and spasmLymphed melly, not elsewhere classifiedTy pe 2 diabetes mellitus without complication sEssential (primary) hypertension Hereditary lymphedema 5 Balaji ZAMORA RVT, GABI Whitehead. [address] [facility], [address] [facility], [place], [place], [id number] , [place]. [phone] Referring Provider: Freya Field MD, [address] [facility] , [address] [place] [address] D/B/[place]: [place], [address]. tel:[phone] Office/Oupt E&M New Pt 45 Mins- CT & [place] [facility], [address] [place] [address] [address]Suite [facility] [place], [id number], [place] tel:[phone] [facility] Varicose veins of bilateral lower extremities with other complication Irvin in right lower legPain in left lower legPain in right legType 2 diabetes mellitus without complication sEssential (primary) hypertension Lymphedema, not elsewhere classifiedPa in in left legHereditar y lymphedemaCr amp and spasmLocaliz ed edema 5 Balaji ZAMORA RVT, GABI Whitehead. [address] [facility], [place] [address], [place], [place], [id number] , [place]. [phone] Referring Provider: Freya Field MD, [address] [facility] , [address] [place] [address] D/B/[place]: [place], [address]. tel:[phone] [facility], [address] [place] [address] [address] [address], [id number], [place] tel:[phone] [facility] Chronic venous hypertension (idiopathic) with other complication s of bilateral lower extremity 5 Balaji ZAMORA RVT, GABI Whitehead. [address] [place] [address], [facility] [place], [id number] , [place]. [phone] Referring Provider: Ventura Carpio MD, RVT, GABI, [address], [address]. tel:[phone] Family History Family Member Type Diagnosis Age At Onset No Information Payers Payer name Insurance type Covered alliance party ID Authormayda chavez(s) [facility] Dual Complete CI [id number] Medical Assistance [facility] [id number] Social History Type Description Quantity Date Captured [...] Assessmen t No Information Instructions Date Instruction Deidra Bucior aramis Patient education booklet given Related to Chronic venous hypertension (idiopathic) with other complications of bilateral lower extremity Diet education Related to Body mass index [...]
--- OUTSIDE RECORDS SUMMARY | 2025-04-05 07:50 | XMS_ITS | Clinical Summary ---
Author Organization [facility] Address [address] [place] [address] Care Team Providers Care Barrelhead Inspector Name Role Phone Jenny Torres MD Primary [...] age to complete this topic Care Teams Barrelhead Inspector Relationship Specialty Start Date End Date Jenny Torres MD PCP - General Internal Medicine 04/15/18
--- OUTSIDE RECORDS SUMMARY | 2025-04-05 07:50 | XMS_ITS | Patient Health Record ---
[facility] Address [address] [place] [address] Care Team Providers Care Wellness Nurse Rn Name Role Phone Enio Mcgrath MD Primary Care Provider UnavailDickson Stroud Unavailable [phone] Allergies No Known Allergies Reason For Referral No Information Medications Medication SIG (Take, Route, Frequency, Duration) Notes Start Date End Date Status Extra-Depth Diabetic Shoes with 3 Pair Custom heat-molded multi-density innersoles . for 1 year . Dx: 250.00, 735.4, 701; Duration: . 04/24/2015 Not-Taki ng Januvia 100 MG 1 tablet Orally Once a day 04/24/2015 Active Vitamin D Active Extra Depth Orthopedic Shoes (1 Pair) with Customized Heat Molded Multidensity Innersoles (3 Pair) as directed Dx: NIDDM/Polyneuropathy (E11.42), Hammertoe Foot Deformity (M20.41,M20.42), Preulcerative Skin Lesion(s) (L85.1 05/05/2021 Active Aspirin 81 MG 1 tablet Orally Once a day 04/24/2015 Not-Taking Immunizations Vaccine Route Administration Date Status Comme nts Influenza Unknown 05/05/2021 Refused COVID-19 Pfizer BioNTech Vaccine Unknown 11/22/2020 Administered 1st 10/31/2020 Social History Tobacco Use: Social History Observation [...] Problem Acquired hammer toe of right foot (5799205841406858 ) Other hammer toe(s) (acquired), right foot (M20.41) Active confirmed Problem Acquired hammer toe of left foot (9340427124435551 ) Other hammer toe(s) (acquired), left foot (M20.42) Active confirmed Problem Polyneuropathy due to type 2 diabetes mellitus (290049135) Type 2 diabetes mellitus with diabetic polyneuropathy (E11.42) Active confirmed Plan Of Treatment Pending Test Test Name Order Date [id number] NAIL, 6 OR MORE 05/05/2021 [id number] NAIL, 1-5 04/24/2015 [id number] SKIN LESIONS, OVER 4 05/05/20 21 Insurance Providers Payer Name Payer Address Payer Phone Subscriber Number Group Number Insured Name Patient Relationship to Insured Coverage Start Date Coverage End Date [id number] [address] [place] [address] [id number] Blanca Cannon Self - patient is the insured Medical (General) History Medical History History ICD Code Angina Arthritis Back,Hip,and Knee pain Cataracts Chicken pox Diabetes mellitus Heart disease Joint dysfunction Kidney disease Surgical History Surgery Date(Month/Year) back surgery 2018 heart surgery unspecified 2014 polyp removal cataract surgery nicci 01/2021
--- OUTSIDE RECORDS SUMMARY | 2025-04-05 07:50 | XMS_ITS | Clinical Summary ---
Author Organization [facility] it Address [address] [place] [address] Care Team Providers Care Social Science Teacher Name Role Phone Enio Mcgrath MD Primary Care Provider Unavailab le Surgical History Surgery Date Site/Laterality Comments BACK [...] Type 2 diabetes mellitus wit hout complication ([facility] V24, [facility] V28) 06/08/2017 DX:Type 2 diab etes mellitus without complication ([facility] [...] Procedure Name Priority Date/Time Associated Diagnosis Comments [facility] DEXA AXIAL SKELETON Routine 05/02/2018 10:39 AM EDT Asymptomatic menopausal state from Last 3 Months or Most Recently Relevant to Health Maintenance Results * [facility] DEXA AXIAL SKELETON (05/02/2018 10:39 AM EDT) Anatomical Region Laterality Modality Mammography 05/02/2018 9:39 AM EDT Narrative 05/02/2018 10:39 AM EDT [facility] Diagnostic Imaging Department [address] [place], [place] [id number] Patient: BLANCA SOLANO D.O.B./Age/Sex: 1945 - 72 - F Unit#: [id number] Location/Status: SPDIMAM/REG CLI Mnemonic/Ordering Site: MAMDEXAAX/SPMAM Ordering Physician: JENNY TORRES MD Gary Dexa [...] probability of hip fracture of 0.1%. Code 59832 Dictating Physician: ABDON DIAS MD Electronically Signed by: ABDON DIAS MD Dic Date/Time: 05/02/18 1038 Sign date/Time: 05/02/18 1039 Procedure Note Abdon Dias MD - 07/21/2022 [facility] Diagnostic Imaging Department [address] [place] [address] Patient: BLANCA SOLANO D.O.B./Age/Sex: 1945 - 72 - F Unit#: [id number] [facility]/Ordering Site: [facility] Ordering Physician: JENNY TORRES MD [facility] Dexa Axial Skeleton - 05/02/18 100 HISTORY: The patient is a 72-year-old postmenopausal [...] density of the femurs bilaterally is 1.187 gm/oi0tmsji is 118% of that of young normals [...] probability of hip fracture of 0.1%. Code 60805 Dictating Physician: ABDON DIAS MD Electronically Signed by: ABDON DIAS MD Dic Date/Time: 05/02/18 1038 Sign date/Time: 05/02/18 1039 us Jenny Torres MD IMG BI PROCEDURES Final Resu lt from Last 3 Months or Most Recently Relevant to Health Maintenance Care Teams Social Science Teacher Relationship Specialty Start Date End Date Enio Mcgrath MD PCP - General Internal Medicine 04/10/21
[2025-04-05 08:07] VITALS: BP 140/60; PULSE 67; TEMP 36; O2SAT 97; BMI 31.8
--- NOTE | 2025-04-05 08:07 | MHC.PC.OV ---
Vital Signs 04/05/25 08:07 04/05/25 08:18 Height 5 ft 4 in Weight 185 lb 8 oz BMI 31.8 BP 140/60 H 135/60 Blood Pressure Location Lt brachial Lt brachial Position Sitting Sitting Pulse 67 Pulse Source Pulse Oximeter Temp 96.8 F Temp Source Temporal Artery Scan Pulse Oximetry (%) 97 Oxygen Delivery Method Room Air Intake Visit Reasons: DM 4 MONTHS Intake Note: Patient is here to follow up on DM. Music Sound Light Technician Required: No Mouthpiece Maker: Not Required per policy Accompanied by: Self / Same As Patient Allergies No Known Allergies Allergy (Verified 04/05/25 08:19) Medication List - Last Reconciled 04/05/25 by Freya Azevedo MD acetaminophen 650 mg PO Q6-8H PRN apixaban (Eliquis) 5 mg PO BID 90 days atorvastatin 80 mg PO BEDTIME 90 days blood sugar diagnostic ([employer] Ultra Test strips) Use 1 test strip once a day cholecalciferol (vitamin D3) 25 mcg PO DAILY 90 days diclofenac sodium 1.6% 2 ea topical BID-TID 30 days lancets ([employer] UltraSoft 2 Lancet) test once daily losartan 25 mg PO DAILY 90 days metoprolol tartrate 25 mg PO BID 90 days sitagliptin phosphate (Januvia) 50 mg PO DAILY 90 days trazodone 50 mg PO BEDTIME PRN 30 days Tobacco use date assessed: 04/05/25 Fall risk assessment: No Falls in past year Last assessed Fall Risk: 04/05/25 Dental Screening Dental Screen Date: 11/09/24 HPI HPI Comments History of Present Illness Details The patient is a 79-year-old female presenting for follow-up on chronic conditions and medication refills. She has a history of Diabetes Mellitus, with a recent Hemoglobin A1c of 6.5, indicating good control. Her hypertension is also well-managed with current medications. The patient is on anticoagulation therapy with Eliquis for atrial fibrillation and reports no bleeding issues. She is also on atorvastatin for hyperlipidemia, with a target LDL of less than 70 mg/dL. She has been evaluated for venous insufficiency and is undergoing treatment at the [facility]. Additionally, she is receiving therapy for lumbar radiculopathy, which has provided significant relief. The patient underwent a nerve study in March due to paresthesia in both hands. She has lumbar radiculopathy and started physical therapy with marked improvement. Preventative care measures include a colonoscopy in 2021, a bone density scan in August 2022 showing normal results, and a stress test in November 2022 with normal findings. [facility] Medical History Atrial fibrillation Arthritis Back pain Scoliosis Numbness On anticoagulant therapy Elevated cholesterol Murmur HTN (hypertension) ASD (atrial septal defect) Left bundle branch block (LBBB) Obesity Hyperlipidemia Type 2 diabetes mellitus GERD (gastroesophageal reflux disease) Surgical History Hx of varicose vein stripping Hx of hysterectomy History of appendectomy History of esophagogastroduodenoscopy (EGD) Hx of colonoscopy History of Amplatzer atrial septal defect closure History of cataract surgery History of back surgery Family History Mother Emphysema lung Diabetes Father Heart attack Maternal Aunt Cancer Maternal Uncle Cancer Social History Housing: House Are you a primary palliative care nurse to a significant other at home: No Do you presently have visiting nurse or other home services: Yes (nurse) Alcohol intake: never Comment: counts correct Patient Tobacco Use Status: Never used Tobacco e-Cigarette/Vaping Use: Never Used Second Hand Smoke Exposure: No service: No Current occupational status: unemployed Cognitive needs: No Hearing needs: No Vision needs: No Female Reproductive History Menstrual Age of Menarche: 16 Questionnaire Thrive Questionnaire Date Thrive assessed: 02/01/25 I am a: Patient What is your living situation today?: I have a steady place to live Within the past 12 months, did the food you bought not last and you didn't have the money to get more?: I choose not to answer this question Within the past 12 months, did you worry whether your food would run out before you got money to buy more?: I choose not to answer this question Do you have trouble paying for medicines?: No Do you have trouble getting transportation to medical appointments?: No Do you have trouble paying your heating and electricity bill?: No Do you have trouble taking care of your child, family member or friend?: No Do you have trouble with day-to-day activities such as bathing, preparing meals, shopping, managing finances, etc.?: No Are you currently unemployed and looking for a job?: No Are you interested in more education?: No Please select the resources that you would like help with: None Currently or been in a relationship where the following occur: I choose not to answer THRIVE Score: 0 LISS-7 AMB Questionnaire LISS-7 Date LISS - 7 assessed: 11/09/24 Source: Developed by Drs. Ventura Bermeo, Lissy Neal, Nitin Correa and colleagues, with an educational paty from [employer]. Review of Systems Const All systems reviewed & are unremarkable except as noted in HPI and below Card Denies chest pain at rest, Denies chest pain with activity, Denies edema, Denies irregular heart rhythm, Denies claudication, Denies dyspnea, Denies dyspnea on exertion, Denies orthopnea, Denies paroxysmal nocturnal dyspnea and Denies slow heart rate Resp Denies cough, Denies dyspnea and Denies dyspnea on exertion GI Denies abdominal pain, Denies change in bowel habits, Denies excessive flatus, Denies nausea and Denies vomiting Denies urinary incontinence, Denies urinary hesitancy and Denies urinary urgency Physical exam (Primary Care) Vital Signs: Last Vital Signs Temp 96.8 F 04/05/25 08:07 Pulse 67 04/05/25 08:07 BP 140/60 H 04/05/25 08:07 Pulse Ox 97 04/05/25 08:07 Oxygen Delivery Method Room Air 04/05/25 08:07 BMI result Body Mass Index 31.8 BMI Assessment/Plan discussion: High BMI High, discussed plan: lifestyle, weight reduction, dietary and physical activity Tobacco/Smoking Status: Tobacco use Status Tobacco use date assessed 04/05/25 04/05/25 08:14 Patient Tobacco Use Status Never used Tobacco 04/05/25 08:14 e-Cigarette/Vaping Use Never Used 04/05/25 08:14 Thrive Assessment: Date of Thrive Assessment Date Thrive assessed 02/01/25 04/05/25 08:14 Currently or been in a relationship where the following occur: I choose not to answer Resp Effort & Inspection: normal respiratory effort Auscultation: clear to auscultation bilaterally Cardio Jugular venous distension: no JVD Rate: regular rate Rhythm: regular rhythm Heart sounds: S1 normal heart sound present and S2 normal heart sound present Extrem General: Yes full ROM Results AMB Hemoglobin A1c AMB Hemoglobin A1c 6.5 % Last Edit by DIXON Kim on 04/05/25 08:23 Coding Level of Care Code Est Pt Level 4 (21463) Complex EM visit Add On G2211 Diagnoses Essential hypertension I10 PAF (paroxysmal atrial fibrillation) I48.0 Venous (peripheral) insufficiency I87.2 Hyperlipidemia LDL goal <70 E78.5 Type 2 diabetes mellitus without complication, without long-term current use of insulin E11.9 Diabetes mellitus type: type 2 Diabetes mellitus correction insulin use: without correction use Diabetes mellitus complication status: without complication Lumbar degenerative disc disease M51.36 Time Spent (min) 24 Assessment & Plan Assessment & Plan (1) Essential hypertension: Code(s): I10 - Essential (primary) hypertension Category: Medical (2) PAF (paroxysmal atrial fibrillation): Code(s): I48.0 - Paroxysmal atrial fibrillation Category: Medical (3) Venous (peripheral) insufficiency: Code(s): I87.2 - Venous insufficiency (chronic) (peripheral) Category: Medical (4) Hyperlipidemia LDL goal <70: Code(s): E78.5 - Hyperlipidemia, unspecified Category: Medical (5) Diabetes mellitus: Code(s): E11.9 - Type 2 diabetes mellitus without complications Category: Medical Qualifiers: Diabetes mellitus type: type 2 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 1. Type 2 diabetes mellitus without complications E11.9 HCC 19 The patient's diabetes is well-controlled with a Hemoglobin A1c of 6.5. Continue current medication regimen and monitor blood glucose levels regularly. Refill prescriptions as needed. 2. Essential (primary) hypertension I10 Hypertension is well-managed with current medications. Continue monitoring blood pressure and adjust medications if necessary. Refill prescriptions as needed. 3. Chronic atrial fibrillation, unspecified I48.20 HCC 96 The patient is on Eliquis for atrial fibrillation with no reported bleeding issues. Continue current anticoagulation therapy and monitor for any signs of bleeding. 4. Hyperlipidemia, unspecified E78.5 The patient is on atorvastatin with a target LDL of less than 70 mg/dL. Continue current therapy and check lipid panel to ensure goals are met. 5. Venous insufficiency (chronic) (peripheral) I87.2 The patient is undergoing treatment for venous insufficiency at the [facility]. Continue with the planned treatment regimen. 6. Radiculopathy, lumbar region M54.16 The patient is receiving therapy for lumbar radiculopathy, which has provided significant relief. Continue with therapy sessions as planned. During the visit, we discussed the management of the patient's chronic conditions, including diabetes, hypertension, atrial fibrillation, and hyperlipidemia. We reviewed the importance of medication adherence and regular monitoring of blood glucose and blood pressure. The patient was advised to continue with her current treatment plans for venous insufficiency and lumbar radiculopathy, as they have been effective. We also discussed the results of her recent diagnostic tests, including the nerve study and bone density scan, and the need for ongoing preventative care measures. Orders: Orders AMB Hemoglobin A1c Today E11.9 - Type 2 diabetes mellitus without complications Vitamin D 25-OH Total Today E55.9 - Vitamin D deficiency, unspecified Comprehensive [place]. Panel Fast Today I48.0 - Paroxysmal atrial fibrillation MM tomosynthesis screening BI Today Z12.31 - Encounter for screening mammogram for malignant neoplasm of breast Lipid Panel Today E78.5 - Hyperlipidemia, unspecified Microalbumin, Random (w Creat) Today R80.9 - Proteinuria, unspecified Medications: Refilled blood sugar diagnostic ([employer] Ultra Test strips) Use 1 test strip once a day 100 ea 2RF E11.9 - Type 2 diabetes mellitus without complications lancets (OneTouch UltraSoft 2 Lancet) test once daily 100 ea 8RF E11.9 - Type 2 diabetes mellitus without complications trazodone 50 mg PO BEDTIME PRN 30 tabs 1RF sleep 30 days losartan 25 mg PO DAILY 90 tabs 1RF 90 days I10 - Essential (primary) hypertension metoprolol tartrate 25 mg PO BID 180 tabs 1RF 90 days I48.91 - Unspecified atrial fibrillation sitagliptin phosphate (Januvia) 50 mg PO DAILY 90 tabs 1RF 90 days Patient Instructions: - Continue taking all prescribed medications as directed. - Monitor blood glucose and blood pressure regularly. - Attend all scheduled therapy sessions for lumbar radiculopathy. - Follow up with the [facility] for venous insufficiency treatment. - Schedule regular follow-up appointments for ongoing management of chronic conditions.
[2025-04-05 08:18] VITALS: BP 135/60
== END 2025-04-05 08:34 | disposition home or self-care (01) ==
LOC: HO.HMCH 07:47
PROVIDERS: PCP Internal Medicine; Visit Provider Internal Medicine
DX: I10 Essential (primary) hypertension (principal); E11.69 Type 2 diabetes mellitus with other specified complication; I48.0 Paroxysmal atrial fibrillation; I87.2 Venous insufficiency (chronic) (peripheral); E78.5 Hyperlipidemia, unspecified; M51.369 Other intervertebral disc degeneration, lumbar region without mention of lumbar back pain or lower extremity pain

== ENCOUNTER → 2025-04-05 07:46 | Outpatient (BNVA) | payer OTHER, SELFPAY | PROVIDERS: PCP Internal Medicine; Visit Provider Internal Medicine | DX: E11.9 Type 2 diabetes mellitus without complications (principal); I10 Essential (primary) hypertension; I48.0 Paroxysmal atrial fibrillation; I87.2 Venous insufficiency (chronic) (peripheral); E78.5 Hyperlipidemia, unspecified; M51.369 Other intervertebral disc degeneration, lumbar region without mention of lumbar back pain or lower extremity pain | CPT/HCPCS: 83036; 99212 ==

== ENCOUNTER 2025-07-04 08:12 | Outpatient (REF) | payer OTHER, SELFPAY ==
--- OUTSIDE RECORDS SUMMARY | 2025-06-06 04:00 | XMS_ITS | Continuity of Care Document ---
Author Organization [facility] Address [address] [place] [address] Phone Care Team Providers Care Court Messenger Name Role Phone Balaji ZAMORA, RVT, GABI, Ventura Unavailable U navailable Allergies, Adverse Reactions, Alerts Substance Reaction Status Criticality No Known Allergies Active No Inform ation Procedures Procedure Date Office/Outpt E&M Established 25 Mins- CT & [place] Duplex Scan-extrem Veins; Comp- CT & [place] Duplex Scan-extrem Veins; Uni/ CT & [place] O Varithena, Single Truncal Vein - CT & [place] Endovenous Rf, 1st Vein- CT & [place] 2024 Duplex Scan-extrem Veins; Uni/ CT & [place] S Endovenous Laser, 1st Vein- CT & [place] Varithena, Single Truncal Vein - CT & [place] Offic/outpt E&m Estab 5 Min Trial- Telem edicine CT & [place] Office/Oupt E&M New Pt 45 Mins- CT & [place] Duplex Scan-extrem Veins; Comp- CT & [place] Advance Directives Directive Yes / No Effective Date File Name Other Directive No 06/06/2025 N/A WARNING:The information contained in this section is historical and is provided for information only and does not constitute a legal document or any assurance that the information is still accurate. Please verify the information with the lazo of the legal document before using it for clinical purposes. Encounters Encounter Description Practice Location Reason(s) For Visit Diagnoses Date Provider Providers Copied on Encounter Office/Outpt E&M Established 25 Mins- CT & [place] Marimar Hunt Vein Rastafarian MD [place], [address] [place] [address] Dr Han 1000SuChrissie warner MD, [id number], [place] tel:[phone] [facility] Essential (primary) hypertension Chronic venous hypertension (idiopathic) with other complication s of bilateral lower extremityLym phedema, not elsewhere classified 0 5 Balaji ZAMORA RVT, RPVI Robert. [address] [place] [address], [id number] , [place]. [phone] Mar[facility] For Vein Rastafarian MD [place], [address] [place] [address] Dr Han 1000SuChrissie warner [place], [id number], [place] tel:[phone] [facility] Chronic venous hypertension (idiopathic) with other complication s of bilateral lower extremity 5 Balaji ZAMORA RVT, RPVI Robert. [address] [place] [address], [id number] , [place]. [phone] Referring Provider: Ventura Carpio MD, RVT, RPVI, [address] [place] [address], [id number]. tel:[phone] Marimar Hunt Vein Rastafarian [facility], [address] [place] [address] Dr Han 1000SuChrissie warner MD, [id number], [place] tel:[phone] [facility] Encounter for follow-up examination after completed treatment for conditions other than malignant neoplasmVari cose veins of left lower extremity with pain 5 Balaji ZAMORA RVT, RPVI Robert. [address] [place] [address], [id number] , [place]. tel:[phone] Referring Provider: Ventura Carpio MD, RVT, RPVI, [address] [place] [address], [id number]. tel:[phone] Marimar Hunt [facility]in Rastafarian [facility], [address] [place] [address] Dr Han 1000Suite Chrissie Starr [place], [id number], [place] tel:[phone] [facility] Varicose veins of left lower extremity with other complication s Oct-0 5 Balaji ZAMORA RVT, GABI [place]. [address], Suite [facility], [place], [place], [id number] , [place]. [phone] Referring Provider: Freya Field MD, [address] [facility] [address], [address] [place] D/B/A: [place], [address]. tel:[phone] Marimar For Vein Rastafarian [facility], [address] [place] [address] Dr [address] [address]Chrissie [place], [id number], [place] tel:[phone] [facility] Chronic venous hypertension (idiopathic) with inflammation of left lower extremity Sep-3 5 Balaji ZAMORA RVT, GABI [place]. [address] [place] [address], [place] [address], [place], [place], [id number] , [place]. tel:[phone] Referring Provider: Freya Field MD, [address] [place] [address] [address], [address] [place] D/B/A: [place], [address]. tel:[phone] Mar[facility] For Vein Rastafarian [facility], [address] [place] [address] [address] 1000Chrissie MD, [id number], [place] tel:[phone] [facility] Encounter for follow-up examination after completed treatment for conditions other than malignant neoplasmChro laly venous hypertension (idiopathic) with other complication s of right lower extremity Sep-3 5 Balaji ZAMORA RVT, RPVI Robert. [address] [place] [address], Suite [facility], [place], [place], [id number] , [place]. [phone] Referring Provider: Ventura Carpio MD, RVT, GABI, [address] [place] [address] Suite [facility], [place], [address]. tel:[phone] Mar[facility] Rastafarian [facility], [address] [place] [address] [address] 1000Chrissie MD, [id number], [place] tel:[phone] [facility] Varicose veins of right lower extremity with other complication s Apr- 5 Balaji ZAMORA RVT, RPVI Robert. [address] [facility], [place], [place], [id number] , [place]. [phone] Referring Provider: Freya Field MD, [address] [facility] [address], [address] [place] [address] D/B/[place]: [place], [address]. tel:[phone] [facility], [address] [place] [address] Dr Han 1000Suite Chrissie Starr [place], [id number], [place] tel:[phone] [facility] Chronic venous hypertension (idiopathic) with inflammation of right lower extremity Sep- 5 Balaji ZAMORA RVT, GABI [place]. [address] [place] [address], [place], [place], [id number] , [place]. tel:[phone] Referring Provider: Freya Field MD, [address] [facility] [address], [address] [place] [address] D/B/[place]: [place], [address]. tel:[phone] Mar[facility] Rastafarian [facility], [address] [place] [address] Dr Han 1000SuChrissie warner [place], [id number], [place] tel:[phone] [facility] No Information Apr- 5 Balaji ZAMORA RVT, RPVI Robert. [address] [place] [address], [facility] [place], [id number] , [place]. tel:[phone] Offic/outpt E&m Estab 5 Min Trial- Telemedicine CT & [place] [facility], [address] [place] [address] Dr Han [address]Suite Chrissie Starr [place], [id number], [place] tel:[phone] [facility] Chronic venous hypertension (idiopathic) with other complication s of bilateral lower extremityCra mp and spasmLymphed melly, not elsewhere classifiedTy pe 2 diabetes mellitus without complication sEssential (primary) hypertension Hereditary lymphedema 5 Balaji ZAMORA RVT, RPVI Robert. [address] [place] [address] [facility], [place], [place], [id number] , [place]. [phone] Referring Provider: Freya Field MD, [address] [facility] [address], [address] [place] [address] D/B/[place]: [place], [address]. tel:[phone] Office/Oupt E&M New Pt 45 Mins- CT & [place] [facility], [address] [place] [address] [address], [place] Chrissie, [id number], tel:[phone] [facility] Varicose veins of bilateral lower extremities with other complication Irvin in right lower legPain in left lower legPain in right legType 2 diabetes mellitus without complication sEssential (primary) hypertension Lymphedema, not elsewhere classifiedPa in in left legHereditar y lymphedemaCr amp and spasmLocaliz ed edema 5 Balaji ZAMORA RVT, GABI [place]. [facility] [place] [address], [place], [place], [id number] , [place]. [phone] Referring Provider: Freya Field MD, [address] [facility] [address], [address] [place] [address] D/B/[place]: [place], [address]. tel:[phone] [facility], [address] [place] [address] [address] [facility], [id number], [place] tel:[phone] [facility] Chronic venous hypertension (idiopathic) with other complication s of bilateral lower extremity Calos Carpio MD, RVT, GABI [place]. [facility], [address] [facility], [place], [place], [id number] , [place]. [phone] Referring Provider: Ventura Carpio MD, RVT, GABI, [address] [place] [address], [place], [address]. tel:[phone] Family History Family Member Type Diagnosis Age At Onset No Information Payers Payer name Insurance type Covered alliance party ID Authoriza tion(s) [facility] Dual Complete CI [id number] Medical Assistance [facility] [id number] Social History Type Description Quantity Date Captured [...] Type Action Status Goal Diet education completed Goal Diet education completed Referral Ordered: Weight management: Referral to physician timeframe: 3 Months (related to Body mass index (BMI) 31.0-31.9, adult) ordered Referral Ordered: Weight management: Referral to physician timeframe: 3 Months (related to Body mass index (BMI) 31.0-31.9, adult) ordered Appointment Blanca Rodriguez(Confirm A rrival Time For 07/20) BOOKED Appointment Blanca Rodriguez BOOKED Appointment Blanca Rodriguez BOOKED Appointment Blanca Rodriguez BOOKED Appointment Blanca Rodriguez BOOKED Appointment Blanca Rodriguez BOOKED History Of Present Illness Encounter Date Complaint History Of Prese nt Illness No Information Functional Status Date Functional Assessmen t No Information Instructions Date Instruction Additional Infor virgilioion Compression stocking usage as conservative measure Related to Chronic venous hypertension (idiopathic) with other complications of bilateral lower extremity Patient education booklet given Related to Chronic venous hypertension (idiopathic) with other complications of bilateral lower extremity Giving Encouragement to exercise Related to Body mass index (BMI) 31.0-31.9, adult Diet education Related to Body mass index (BMI) 31.0-31.9, adult Lifestyle education Related to B yolis mass index (BMI) 31.0-31.9, adult Patient education booklet given Related to Chronic venous hypertension (idiopathic) with other complications of bilateral lower extremity Patient education booklet given Related to Varicose veins of bilateral lower extremities with other complications Lifestyle education Related to B yolis mass index (BMI) 31.0-31.9, adult Giving Encouragement to exercise Related to Body mass index (BMI) 31.0-31.9, adult Diet education Related to Body mass index (BMI) 31.0-31.9, adult Assessments Type Assessment Date No Information Patient Care Teams Name Effective Dates (start - stop) Status Members No Information
--- NOTE | ~2025-07-04 | MM_ITS ---
EXAMINATION: MM SCREENING DIGITAL BREAST TOMOSYNTHESIS, BILATERAL CLINICAL INFORMATION: Screening. Asymptomatic. COMPARISON: Mammography: Comparison is made with available priors TECHNIQUE: Digital breast mammography with tomosynthesis is performed in both the craniocaudal and mediolateral oblique views along with computer-aided detection (CAD). FINDINGS: There are scattered areas of fibroglandular density. Right marker clip from previous benign needle core biopsy. There are no significant masses, abnormal calcifications, or other abnormalities. MM/MM tomosynthesis screening BI IMPRESSION: No mammographic evidence of malignancy. ASSESSMENT: BI-RADS Category 2: Benign RECOMMENDATION: Routine annual mammography screening. 1 year F/U This examination should not preclude the clinical evaluation of a suspicious palpable abnormality. This patient's information was entered into a reminder system with a target due date for their next mammogram. Electronically signed by: Gayla Edwards DO 07/06/2025 11:54 AM VINI
--- OUTSIDE RECORDS SUMMARY | 2025-07-04 08:16 | XMS_ITS | Clinical Summary ---
Author Organization [facility] it Address [address] [place] [address] Care Team Providers Care Lease Out Man Name Role Phone Enio Mcgrath MD Primary Care Provider [phone] Surgical History Surgery Date Site/Laterality Comments BACK [...] Type 2 diabetes mellitus wit hout complication 06/08/2017 DX:Type 2 diabetes mellitus without complication (HCC) Vitamin D deficiency 06/08/2017 DX:Vitamin D deficiency [...] Health Maintenance Due Date Last Done Comments Zoster Vaccines (1 of 2) 1996 RSV Immunization Adult Patients (1 - 1-dose 75+ series) 2021 Depression Screening 08/02/2024 COVID-19 Vaccine ( - 2024-2 6 season) 2025 Influenza Vaccine (#1) 2025 DTaP,Tdap,and Td Vaccines (2 - Td or Tdap) 12/24/2025 12/25/2015 Pneumococcal Vaccine: 50+ Years Completed 05/01/2016, 03/27/2015 [...] age to complete this topic Care Teams Lease Out Man Relationship Specialty Start Date End Date Enio Mcgrath MD PCP - General Internal Medicine 04/10/21
--- OUTSIDE RECORDS SUMMARY | 2025-07-04 08:16 | XMS_ITS | Clinical Summary ---
Author Organization [facility] Address [address] [place] [address] Care Team Providers Care Wheel Truing Machine Tender Name Role Phone Jenny Torres MD Primary [...] age to complete this topic Care Teams Wheel Truing Machine Tender Relationship Specialty Start Date End Date Jenny Torres MD PCP - General Internal Medicine 04/15/18
== END 2025-07-04 08:13 | disposition home or self-care (01) ==
LOC: HO.MAMMO 08:12
PROVIDERS: Visit Provider Internal Medicine
DX: Z12.31 Encounter for screening mammogram for malignant neoplasm of breast (principal)
CPT/HCPCS: 77063; 77067

== ENCOUNTER → 2025-07-04 08:15 | Outpatient (BNV) | payer OTHER, SELFPAY | PROVIDERS: Visit Provider Internal Medicine | DX: Z12.31 Encounter for screening mammogram for malignant neoplasm of breast (principal) | CPT/HCPCS: 77063; 77067 ==

== ENCOUNTER 2025-07-12 07:21 | Outpatient (AMB) | payer OTHER, SELFPAY ==
--- OUTSIDE RECORDS SUMMARY | 2025-07-12 07:25 | XMS_ITS | Patient Health Record ---
[facility] Address [address] [place] [address] Care Team Providers Care Glove Presser Name Role Phone Enio Mcgrath MD Primary Care Provider UnavailDickson Stroud Unavailable [phone] Allergies No Known Allergies Reason For Referral [...] Problem Acquired hammer toe of right foot (0240214437750108 ) Other hammer toe(s) (acquired), right foot (M20.41) Active confirmed Problem Acquired hammer toe of left foot (5254398261893074 ) Other hammer toe(s) (acquired), left foot (M20.42) Active confirmed Problem Polyneuropathy due to type 2 diabetes mellitus (446535023) Type 2 diabetes mellitus with diabetic polyneuropathy (E11.42) Active confirmed Plan Of Treatment Pending Test Test Name Order Date [id number] NAIL, 6 OR MORE 05/05/2021 [id number] NAIL, 1-5 04/24/2015 [id number] SKIN LESIONS, OVER 4 05/05/20 21 Insurance Providers Payer Name Payer Address Payer Phone Subscriber Number Group Number Insured Name Patient Relationship to Insured Coverage Start Date Coverage End Date [facility] [address] [place] [address] [id number] Blanca Cannon Self - patient is the insured Medical (General) History Medical History History ICD Code Angina Arthritis Back,Hip,and Knee pain Cataracts Chicken pox Diabetes mellitus Heart disease Joint dysfunction Kidney disease Surgical History Surgery Date(Month/Year) back surgery 2018 heart surgery unspecified 2014 polyp removal cataract surgery nicci 01/2021
--- OUTSIDE RECORDS SUMMARY | 2025-07-12 07:25 | XMS_ITS | Clinical Summary ---
Author Organization [facility] it Address [address] [place] [address] Care Team Providers Care Piano Accompanist Name Role Phone Enio Mcgrath MD Primary Care Provider [phone] Surgical History Surgery Date Site/Laterality Comments BACK [...] on file Sexual Orientation Not on file Plan of Treatment Health Maintenance Due Date [...] age to complete this topic Care Teams Piano Accompanist Relationship Specialty Start Date End Date Enio Mcgrath MD PCP - General Internal Medicine 04/10/21
--- OUTSIDE RECORDS SUMMARY | 2025-07-12 07:25 | XMS_ITS | Clinical Summary ---
Author Organization [employer] [facility] Prior to 12/30/[address] [place] [address] Care Team Providers Care Technical Systems Architect Name Role Phone Jenny Torres MD Primary [...] age to complete this topic Care Teams Technical Systems Architect Relationship Specialty Start Date End Date Jenny Torres MD PCP - General Internal Medicine 04/15/18
[2025-07-12 07:34] VITALS: BP 132/72; PULSE 74; O2SAT 97; BMI 31.9
--- NOTE | 2025-07-12 07:34 | MHC.PC.OV ---
Vital Signs 07/12/25 07:34 Height 5 ft 4 in Weight 186 lb BMI 31.9 BP 132/72 Blood Pressure Location Lt brachial Position Sitting Pulse 74 Pulse Source Pulse Oximeter Pulse Oximetry (%) 97 Oxygen Delivery Method Room Air Intake Visit Reasons: Annual Exam - see comments [employer] Attendant Required: No Accompanied by: Self / Same As Patient Allergies No Known Allergies Allergy (Verified 07/12/25 07:46) Medication List - Last Reconciled 07/12/25 by Freya Azevedo MD acetaminophen 650 mg PO Q6-8H PRN apixaban (Eliquis) 5 mg PO BID 90 days atorvastatin 80 mg PO BEDTIME 90 days blood sugar diagnostic ([employer] Ultra Test strips) Use 1 test strip once a day cholecalciferol (vitamin D3) 25 mcg PO DAILY 90 days diclofenac sodium 1.6% 2 ea topical BID-TID 30 days lancets ([employer] UltraSoft 2 Lancet) test once daily losartan 25 mg PO DAILY 90 days metoprolol tartrate 25 mg PO BID 90 days sitagliptin phosphate (Januvia) 50 mg PO DAILY 90 days trazodone 50 mg PO BEDTIME PRN 30 days Tobacco use date assessed: 04/05/25 Fall risk assessment: No Falls in past year Last assessed Fall Risk: 07/12/25 Dental Screening Dental Screen Date: 11/09/24 HPI HPI Comments History of Present Illness Details The patient is a 80 year old female presenting for her annual physical exam. She has a history of type 2 diabetes mellitus with a recent A1c of 6.1. She takes Januvia 50 mg for her diabetes. Her blood pressure is well-controlled on losartan 25 mg. For hypercholesterolemia, her last LDL was 94 mg/dL. She is on atorvastatin 80 mg. The patient has a history of atrial fibrillation, for which she takes Eliquis twice daily and metoprolol. She takes trazodone for sleep. She is currently undergoing treatment for varicose veins and has two more treatments remaining. Her surgical history is notable for varicose vein surgery, hysterectomy, appendectomy, atrial septal defect closure, cataract surgery, back surgery, and cholecystectomy. Her mother had diabetes, and her father of a heart attack. She denies any allergies to medications. - Vaccinations: Received PCV20 and tetanus vaccines last year. - Mammogram: Performed recently with good results. - Bone densitometry: Performed this year and was normal; next is due in 2026. - Colonoscopy: Last performed in 2021; next is due in 5-7 years. - A1c: Recent result was 6.1%. - LDL cholesterol: Last result was 94 mg/dL. - No neeed for Pap smear due to age and hysterectomy. [facility] Medical History Atrial fibrillation Arthritis Back pain Scoliosis Numbness On anticoagulant therapy Elevated cholesterol Murmur HTN (hypertension) ASD (atrial septal defect) Left bundle branch block (LBBB) Obesity Hyperlipidemia Type 2 diabetes mellitus GERD (gastroesophageal reflux disease) Surgical History Hx of varicose vein stripping Hx of hysterectomy History of appendectomy History of esophagogastroduodenoscopy (EGD) Hx of colonoscopy History of Amplatzer atrial septal defect closure History of cataract surgery History of back surgery Family History Mother Emphysema lung Diabetes Father Heart attack Maternal Aunt Cancer Maternal Uncle Cancer Social History Housing: House Are you a primary respiratory care practitioner to a significant other at home: No Do you presently have visiting nurse or other home services: Yes (nurse) Alcohol intake: never Comment: counts correct Patient Tobacco Use Status: Never used Tobacco Tobacco use type: Cigarette e-Cigarette/Vaping Use: Never Used Second Hand Smoke Exposure: No service: No Current occupational status: unemployed Cognitive needs: No Hearing needs: No Vision needs: No Female Reproductive History Menstrual Age of Menarche: 16 Questionnaire Thrive Questionnaire Date Thrive assessed: 02/01/25 I am a: Patient What is your living situation today?: I have a steady place to live Within the past 12 months, did the food you bought not last and you didn't have the money to get more?: I choose not to answer this question Within the past 12 months, did you worry whether your food would run out before you got money to buy more?: I choose not to answer this question Do you have trouble paying for medicines?: No Do you have trouble getting transportation to medical appointments?: No Do you have trouble paying your heating and electricity bill?: No Do you have trouble taking care of your child, family member or friend?: No Do you have trouble with day-to-day activities such as bathing, preparing meals, shopping, managing finances, etc.?: No Are you currently unemployed and looking for a job?: No Are you interested in more education?: No Please select the resources that you would like help with: None Currently or been in a relationship where the following occur: I choose not to answer THRIVE Score: 0 LISS-7 AMB Questionnaire LISS-7 Date LISS - 7 assessed: 11/09/24 Source: Developed by Drs. Ventura Bermeo, Lissy Neal, Nitin Correa and colleagues, with an educational paty from [employer]. Review of Systems Const All systems reviewed & are unremarkable except as noted in HPI and below Card Denies chest pain at rest, Denies chest pain with activity, Denies edema, Denies irregular heart rhythm, Denies claudication, Denies dyspnea, Denies dyspnea on exertion, Denies orthopnea, Denies paroxysmal nocturnal dyspnea and Denies slow heart rate Resp Denies cough, Denies dyspnea and Denies dyspnea on exertion GI Denies abdominal pain, Denies change in bowel habits, Denies excessive flatus, Denies nausea and Denies vomiting Physical exam (Primary Care) Vital Signs: Last Vital Signs Pulse 74 07/12/25 07:34 BP 132/72 07/12/25 07:34 Pulse Ox 97 07/12/25 07:34 Oxygen Delivery Method Room Air 07/12/25 07:34 BMI result Body Mass Index 31.9 BMI Assessment/Plan discussion: High BMI High, discussed plan: lifestyle, weight reduction, dietary and physical activity Tobacco/Smoking Status: Tobacco use Status Tobacco use date assessed 04/05/25 07/12/25 07:41 Patient Tobacco Use Status Never used Tobacco 07/12/25 07:41 Tobacco use type Cigarette 07/12/25 07:41 e-Cigarette/Vaping Use Never Used 07/12/25 07:41 Thrive Assessment: Date of Thrive Assessment Date Thrive assessed 02/01/25 07/12/25 07:41 Currently or been in a relationship where the following occur: I choose not to answer HENPR Head: Yes normal to inspection, Yes normocephalic and Yes atraumatic Ears: external ears normal Eyes General: appearance normal, both eyes and all related structures Eyelids: Yes eyelids normal Conjunctivae: conjunctivae normal Neck Neck: Yes normal visual inspection and Yes supple Resp Effort & Inspection: normal respiratory effort Auscultation: clear to auscultation bilaterally Cardio Jugular venous distension: no JVD Rate: regular rate Rhythm: regular rhythm Heart sounds: S1 normal heart sound present and S2 normal heart sound present GI Inspection: Yes normal to inspection Palpation (GI): Soft to palpation and nontender Auscultation: normal bowel sounds Skin General skin exam: no rashes or lesions noted Neuro General: no focal motor deficits Extrem General: Yes full ROM Psych Appearance: grossly normal Office Procedures Flu Questionnaire Does the patient have a severe egg allergy?: No Does the patient have severe life threatening allergies?: No Does the patient have a fever or illness today?: No Has the patient ever had Guillain-[place] Syndrome?: No Has the patient ever had any past reaction to a flu shot?: No Results AMB Hemoglobin A1c AMB Hemoglobin A1c 6.1 % Last Edit by Bhargavi Huffman CMA on 07/12/25 07:49 Immunizations Fluarix [id number] (PF) 45 mcg (15 mcg x 3)/0.5 mL IM syringe Performing Provider: Freya Azevedo MD [facility] [place] [facility] Administered by: Halie Bright RN on 07/12/25 08:13 Dose Route Admin Location Dispensed Lot Number Expiration Date NDC Coagulator 0.5 mL IM Left Deltoid 0.5 mL [id number] 01/29/25 81100-947-11 [employer] VIS Given Date VIS Provided VIS Publication Date 07/12/25 Single Vaccine 24 Eligibility Eligibility Date Funding Source Not [facility] Eligible 07/12/25 Private Results Reviewed Results Reviewed: Laboratory Last Values Hgb A1c (Clinic) 6.1 % (4.0-6.0) H 07/12/25 07:48 Coding Level of Care Code Est Pt Prev Care >65y(33406) Diagnoses Physical exam Z00.00 Type 2 diabetes mellitus without complication, without long-term current use of insulin E11.9 Diabetes mellitus type: type 2 Diabetes mellitus licensed nuclear control room operator insulin use: without licensed nuclear control room operator use Diabetes mellitus complication status: without complication PAF (paroxysmal atrial fibrillation) I48.0 Time Spent (min) 30 Assessment & Plan Assessment & Plan (1) Physical exam: Code(s): Z00.00 - Encounter for general adult medical examination without abnormal findings Category: Medical (2) Diabetes mellitus: Code(s): E11.9 - Type 2 diabetes mellitus without complications Category: Medical Qualifiers: Diabetes mellitus type: type 2 Diabetes mellitus licensed nuclear control room operator insulin use: without licensed nuclear control room operator use Diabetes mellitus complication status: without complication Qualified Code(s): E11.9 - Type 2 diabetes mellitus without complications (3) PAF (paroxysmal atrial fibrillation): Code(s): I48.0 - Paroxysmal atrial fibrillation Category: Medical Plan Plan 1. Physical exam Repeat in a year. 2. Type 2 Diabetes Mellitus The patient's A1c is excellent at 6.1%. Will order labs to check for microalbuminuria. Orders: Orders AMB Hemoglobin A1c Today Z13.9 - Encounter for screening, unspecified Comprehensive [place]. Panel Fast Today E11.9 - Type 2 diabetes mellitus without complications Lipid Panel Today E78.5 - Hyperlipidemia, unspecified Microalbumin, Random (w Creat) Today R80.9 - Proteinuria, unspecified Vitamin D 25-OH Total Today E55.9 - Vitamin D deficiency, unspecified Influenza [id number] Immunization Today Z23 - Encounter for immunization
== END 2025-07-12 08:12 | disposition home or self-care (01) ==
LOC: HO.HMCH 07:22
PROVIDERS: PCP Internal Medicine; Visit Provider Internal Medicine
DX: Z00.00 Encounter for general adult medical examination without abnormal findings (principal); E11.9 Type 2 diabetes mellitus without complications; I48.0 Paroxysmal atrial fibrillation; Z23 Encounter for immunization; Z13.9 Encounter for screening, unspecified

== ENCOUNTER → 2025-07-12 07:21 | Outpatient (BNVA) | payer OTHER, SELFPAY | PROVIDERS: PCP Internal Medicine; Visit Provider Internal Medicine | DX: Z00.00 Encounter for general adult medical examination without abnormal findings (principal); E11.9 Type 2 diabetes mellitus without complications; I48.0 Paroxysmal atrial fibrillation; Z23 Encounter for immunization; R80.9 Proteinuria, unspecified | CPT/HCPCS: 83036; 90471; 90656; 99397 ==